=== PATIENT | male | born 1935 | race Hispanic/Latino ===

== ENCOUNTER 2017-04-20 22:25 | Observation (INO) | payer MEDICARE ==
--- NOTE | 2017-04-20 23:11 | Emergency Department Report ---
ED Altered Mental Status HPI - General Chief Complaint: Hypoglycemia Stated Complaint: LOW BLOOD SUGAR Time Seen by Provider: 04/20/17 23:04 Source: family, EMS Mode of arrival: Stretcher Limitations: No Limitations - History of Present Illness Initial Comments: 82 years old male brought by EMS with an altered mental status patient was doing fine until 2 hours prior to ER admission when the checked on him and he was staring into the room and found to be diaphoretic, blood sugar was checked at that time and it was 27. D50 administered by EMS, patient back to his baseline. stated that he is being coughing a lot recently and he is warm to touch but she did not check his temperature MD Complaint: altered mental status, decreased responsiveness -: Sudden Severity: moderate Associated Symptoms: cough, fever/chills Treatments Prior to Arrival: glucose, IV fluid - Related Data Home Medications Medication Instructions Recorded Confirmed Last Taken Losartan/Hydrochlorothiazide 100 mg PO DAILY 09/06/16 09/06/16 Unknown Pravastatin 80 mg PO HS 09/06/16 09/06/16 Unknown amLODIPine 5 mg PO DAILY 09/06/16 09/06/16 Unknown metFORMIN 500 mg PO TID 09/06/16 09/06/16 Unknown Previous Rx's Medication Instructions Recorded Last Taken Type Pantoprazole [Protonix INJ] 40 mg IV BID #60 vial 09/09/16 Unknown Rx Ezetimibe [Zetia] 10 mg PO QDAY #30 tablet 09/11/16 Unknown Rx Hydrochlorothiazide [HCTZ] 12.5 mg PO QDAY #30 capsule 09/11/16 Unknown Rx Insulin NPH/Regular [NovoLIN 70/30] 30 unit SUB-Q BIDDIAB #1 units 09/11/16 Unknown Rx Losartan [Cozaar] 50 mg PO QDAY #30 tablet 09/11/16 Unknown Rx Pantoprazole [Protonix TAB] 40 mg PO BID #60 tablet 09/11/16 Unknown Rx amLODIPine [Norvasc] 5 mg PO QDAY #30 tablet 09/11/16 Unknown Rx metFORMIN [Glucophage] 500 mg PO TIDDIAB #90 tablet 09/11/16 Unknown Rx oxyCODONE /ACETAMINOPHEN [Percocet 1 tab PO Q6H PRN #14 tablet 09/11/16 Unknown Rx 5/325 mg] Allergies Allergy/AdvReac Type Severity Reaction Status Date / Time No Known Allergies Allergy Verified 04/20/17 22:40 ED Review of Systems ROS: Stated complaint: LOW BLOOD SUGAR Other details as noted in HPI Constitutional: chills, diaphoresis, fever Respiratory: cough. denies: shortness of breath Gastrointestinal: denies: abdominal pain, nausea, vomiting, diarrhea, hematemesis, melena, hematochezia Genitourinary: denies: urgency, dysuria, frequency, hematuria Musculoskeletal: denies: back pain Skin: denies: rash, lesions Neurological: denies: headache ED Past Medical Hx - Past Medical History Previous Medical History?: Yes Hx Hypertension: Yes Hx Diabetes: Yes Additional medical history: high cholesterol - Surgical History Past Surgical History?: Yes Additional Surgical History: rotator cuff - Social History Smoking Status: Never Smoker Substance Use Type: None - Medications Home Medications: Home Medications Medication Instructions Recorded Confirmed Last Taken Type Losartan/Hydrochlorothiazide 100 mg PO DAILY 09/06/16 09/06/16 Unknown History Pravastatin 80 mg PO HS 09/06/16 09/06/16 Unknown History amLODIPine 5 mg PO DAILY 09/06/16 09/06/16 Unknown History metFORMIN 500 mg PO TID 09/06/16 09/06/16 Unknown History Pantoprazole [Protonix INJ] 40 mg IV BID #60 vial 09/09/16 Unknown Rx Ezetimibe [Zetia] 10 mg PO QDAY #30 tablet 09/11/16 Unknown Rx Hydrochlorothiazide [HCTZ] 12.5 mg PO QDAY #30 capsule 09/11/16 Unknown Rx Insulin NPH/Regular [NovoLIN 70/30] 30 unit SUB-Q BIDDIAB #1 units 09/11/16 Unknown Rx Losartan [Cozaar] 50 mg PO QDAY #30 tablet 09/11/16 Unknown Rx Pantoprazole [Protonix TAB] 40 mg PO BID #60 tablet 09/11/16 Unknown Rx amLODIPine [Norvasc] 5 mg PO QDAY #30 tablet 09/11/16 Unknown Rx metFORMIN [Glucophage] 500 mg PO TIDDIAB #90 tablet 09/11/16 Unknown Rx oxyCODONE /ACETAMINOPHEN [Percocet 1 tab PO Q6H PRN #14 tablet 09/11/16 Unknown Rx 5/325 mg] ED Physical Exam - General Limitations: No Limitations General appearance: alert, in no apparent distress - Head Head exam: Present: atraumatic, normocephalic - Eye Eye exam: Present: normal appearance Pupils: Present: normal accommodation - ENT ENT exam: Present: normal exam, normal orophraynx, mucous membranes dry - Neck Neck exam: Present: normal inspection, full ROM. Absent: tenderness, meningismus, lymphadenopathy - Respiratory Respiratory exam: Present: decreased breath sounds. Absent: wheezes, rales, rhonchi - Cardiovascular Cardiovascular Exam: Present: regular rate, normal rhythm, normal heart sounds - GI/Abdominal GI/Abdominal exam: Present: soft. Absent: tenderness, guarding, rebound, mass, bruit, pulsatile mass, hernia - Extremities Exam Extremities exam: Present: normal inspection, normal capillary refill. Absent: tenderness, pedal edema, calf tenderness - Back Exam Back exam: Present: normal inspection. Absent: tenderness, CVA tenderness (R), CVA tenderness (L) - Neurological Exam Neurological exam: Present: alert, oriented X3, CN II-XII intact - Skin Skin exam: Present: warm, dry, normal color ED Course Vital Signs 04/20/17 23:14 Respiratory 18 Rate - Reevaluation(s) Reevaluation #1: 04/21/17 01:[address] Riana Coe agreed to admit the patient to her service. - Lab Data Result diagrams: 04/20/17 23:22 04/20/17 23:22 Lab Results 04/20/17 04/20/17 04/20/17 Range/Units 22:54 23:22 23:22 WBC 8.6 (4.5-11.0) K/mm3 RBC 3.47 L (3.65-5.03) M/mm3 Hgb 10.9 L (11.8-15.2) gm/dl Hct 33.0 L (35.5-45.6) % MCV 95 H (84-94) fl MCH 31 (28-32) pg MCHC 33 (32-34) % RDW 14.6 (13.2-15.2) % Plt Count 185 (140-440) K/mm3 Lymph % (Auto) 5.8 L (13.4-35.0) % Hughes % (Auto) 6.6 (0.0-7.3) % Eos % (Auto) 0.9 (0.0-4.3) % Baso % (Auto) 0.7 (0.0-1.8) % Lymph # 0.5 L (1.2-5.4) K/mm3 Hughes # 0.6 (0.0-0.8) K/mm3 Eos # 0.1 (0.0-0.4) K/mm3 Baso # 0.1 (0.0-0.1) K/mm3 Seg Neutrophils % 86.0 H (40.0-70.0) % Seg Neutrophils # 7.4 (1.8-7.7) K/mm3 Sodium 135 L (137-145) mmol/L Potassium 3.7 (3.6-5.0) mmol/L Chloride 96.5 L (98-107) mmol/L Carbon Dioxide 20 L (22-30) mmol/L Anion Gap 22 mmol/L BUN 16 (9-20) mg/dL Creatinine 0.7 L (0.8-1.5) mg/dL Estimated GFR > 60 ml/min BUN/Creatinine Ratio 22.85 % Glucose 90 (75-100) mg/dL POC Glucose 130 H (70-105) Lactic Acid (0.7-2.0) mmol/L Calcium 8.8 (8.4-10.2) mg/dL Total Bilirubin 0.20 (0.1-1.2) mg/dL AST 19 (5-40) units/L ALT 18 (7-56) units/L Alkaline Phosphatase 53 (35-129) units/L Troponin T 0.106 H* (0.00-0.029) ng/mL Total Protein 6.3 (6.3-8.2) g/dL Albumin 3.6 L (3.9-5) g/dL Albumin/Globulin Ratio 1.3 % 04/20/17 Range/Units 23:22 WBC (4.5-11.0) K/mm3 RBC (3.65-5.03) M/mm3 Hgb (11.8-15.2) gm/dl Hct (35.5-45.6) % MCV (84-94) fl MCH (28-32) pg MCHC (32-34) % RDW (13.2-15.2) % Plt Count (140-440) K/mm3 Lymph % (Auto) (13.4-35.0) % Hughes % (Auto) (0.0-7.3) % Eos % (Auto) (0.0-4.3) % Baso % (Auto) (0.0-1.8) % Lymph # (1.2-5.4) K/mm3 Hughes # (0.0-0.8) K/mm3 Eos # (0.0-0.4) K/mm3 Baso # (0.0-0.1) K/mm3 Seg Neutrophils % (40.0-70.0) % Seg Neutrophils # (1.8-7.7) K/mm3 Sodium (137-145) mmol/L Potassium (3.6-5.0) mmol/L Chloride (98-107) mmol/L Carbon Dioxide (22-30) mmol/L Anion Gap mmol/L BUN (9-20) mg/dL Creatinine (0.8-1.5) mg/dL Estimated GFR ml/min BUN/Creatinine Ratio % Glucose (75-100) mg/dL POC Glucose (70-105) Lactic Acid 2.60 H* (0.7-2.0) mmol/L Calcium (8.4-10.2) mg/dL Total Bilirubin (0.1-1.2) mg/dL AST (5-40) units/L ALT (7-56) units/L Alkaline Phosphatase (35-129) units/L Troponin T (0.00-0.029) ng/mL Total Protein (6.3-8.2) g/dL Albumin (3.9-5) g/dL Albumin/Globulin Ratio % Critical care attestation.: If time is entered above; I have spent that time in minutes in the direct care of this critically ill patient, excluding procedure time. ED Disposition Clinical Impression: Altered mental status, Hypoglycemia, Pneumonia Disposition: 09 OP ADMIT IP TO THIS HOSP Is pt being admited?: Yes Does the pt Need Aspirin: No Condition: Stable Instructions: Bacterial Pneumonia (ED) Referrals: PRIMARY CARE, [Primary Care Provider] - 3-5 Days
[2017-04-20 23:49] LABS: Basophils % (Auto) 0.7 % (0.0-1.8); Eosinophils % (Auto) 0.9 % (0.0-4.3); Hemoglobin 10.9 gm/dl (11.8-15.2); Mean Corpuscular HGB Conc 33 % (32-34); Mean Corpuscular Hemoglobin 31 pg (28-32); Mean Corpuscular Volume 95 fl (84-94); Platelet Count 185 K/mm3 (140-440); Red Blood Count 3.47 M/mm3 (3.65-5.03); Red Cell Distribution Width 14.6 % (13.2-15.2); White Blood Count 8.6 K/mm3 (4.5-11.0)
[2017-04-21] MEDS ORDERED: LEVAQUIN 500MG/100ML 500 MG/100 ML BAG IV ONE (00:11)
[2017-04-21 00:14] LABS: Alanine Aminotransferase 18 units/L (7-56); Albumin 3.6 g/dL (3.9-5); Albumin/Globulin Ratio 1.3 %; Alkaline Phosphatase 53 units/L (35-129); Anion Gap 22 mmol/L; BUN/Creatinine Ratio 22.85; Blood Urea Nitrogen 16 mg/dL (9-20); Calcium 8.8 mg/dL (8.4-10.2); Carbon Dioxide 20 mmol/L (22-30); Chloride 96.5 mmol/L (98-107); Glucose 90 mg/dL (75-100); Potassium 3.7 mmol/L (3.6-5.0); Sodium 135 mmol/L (137-145); Total Protein 6.3 g/dL (6.3-8.2)
--- NOTE | 2017-04-21 00:21 | Cat Scan Report ---
FINAL REPORT EXAM: CT HEAD/BRAIN WO CON HISTORY: Lightheadedness/Dizziness TECHNIQUE: Noncontrast serial axial images from skull base to vertex PRIORS: CT scan of the head from 09/06/2016 FINDINGS: There is moderate atrophy. There is no mass effect or midline shift. There are no abnormal intra or extra-axial fluid collections. Lateral ventricles are within normal limits for size and configuration. Basilar cisterns are patent. No acute intracranial hemorrhage is identified. Areas of relative hypodensity are seen in the white matter of the cerebral hemispheres. There is focal malacia in the posterior aspect of the left occipital lobe. This appears similar to the prior study. 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 Atherosclerotic changes are noted. Visualized paranasal sinuses and mastoid air cells are well aerated. No acute osseous abnormality is identified. IMPRESSION: 1. No abnormal mass or acute intracranial hemorrhage is identified. 2. 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 3. Areas of relative hypodensity are seen in the white matter of the cerebral hemispheres. This is a nonspecific finding. It may be related to chronic ischemic change from small vessel disease.
[2017-04-21] MEDS ORDERED: ZOFRAN IV ONE (00:30)
[2017-04-21] MEDS ORDERED: ZOFRAN ONE (00:33)
[2017-04-21 01:57] LABS: Cholesterol 125 mg/dL (50-199); HDL Cholesterol 48 mg/dL (40-59); LDL Cholesterol,Direct 63 mg/dL (50-130); Triglycerides 71 mg/dL (2-149)
[2017-04-21] MEDS ORDERED: ZOFRAN IV PRN (02:38)
[2017-04-21] MEDS ORDERED: MILK OF MAGNESIA PO PRN (02:38)
[2017-04-21] MEDS ORDERED: DULCOLAX PR PRN (02:38)
[2017-04-21] MEDS ORDERED: TYLENOL PO PRN (02:38)
--- NOTE | 2017-04-21 02:42 | History and Physical Report ---
History of Present Illness Date of examination: 04/21/17 History of present illness: 82-year-old male with a history of diabetes, hypertension, hyperlipidemia, aortic stenosis was brought to the emergency room because he was found to be unresponsive. EMS was called and his blood sugar was found to be 25. at bedside state that patient did not check his blood sugar and took his evening medications, he is on insulin and oral hyperglycemic Review Of Systems: Constitutional: no weight loss Ears, eyes, nose, mouth and throat: no nasal congestion, no nasal discharge, no sinus pressure, blurry vision, diplopia Neck: No neck pain or rigidity. Cardiovascular: chest pain, orthopnea, palpitations Respiratory: No shortness of breath, cough Gastrointestinal: abdominal pain, hematochezia Genitourinary : no dysuria, frequency , hematuria Musculoskeletal: no muscle ache Integumentary: no rash, no pruritis Neurological: no parathesias, focal weakness Endocrine: no cold or heat intolerance, no polyuria or polydipsia Hematologic/Lymphatic: no easy bruising, no easy bleeding, no gland swelling Allergic/Immunologic: no urticaria, no angioedema. PAST MEDICAL HISTORY:diabetes, hypertension, hyperlipidemia, aortic stenosis PAST SURGICAL HISTORY: Rotator cuff, back surgery FAMILY HISTORY: Hypertension SOCIAL HISTORY:Denies alcohol tobacco, drugs Medications and Allergies Allergies Allergy/AdvReac Type Severity Reaction Status Date / Time No Known Allergies Allergy Verified 04/20/17 22:40 Home Medications Medication Instructions Recorded Confirmed Last Taken Type Losartan/Hydrochlorothiazide 100 mg PO DAILY 09/06/16 04/21/17 Unknown History Pravastatin 80 mg PO HS 09/06/16 04/21/17 Unknown History amLODIPine 5 mg PO DAILY 09/06/16 04/21/17 Unknown History Pantoprazole [Protonix INJ] 40 mg IV BID #60 vial 09/09/16 04/21/17 Unknown Rx Ezetimibe [Zetia] 10 mg PO QDAY #30 tablet 09/11/16 04/21/17 Unknown Rx Hydrochlorothiazide [HCTZ] 12.5 mg PO QDAY #30 capsule 09/11/16 04/21/17 Unknown Rx Insulin NPH/Regular [NovoLIN 70/30] 30 unit SUB-Q BIDDIAB #1 units 09/11/16 Unknown Rx Losartan [Cozaar] 50 mg PO QDAY #30 tablet 09/11/16 04/21/17 Unknown Rx Pantoprazole [Protonix TAB] 40 mg PO BID #60 tablet 09/11/16 04/21/17 Unknown Rx amLODIPine [Norvasc] 5 mg PO QDAY #30 tablet 09/11/16 04/21/17 Unknown Rx metFORMIN [Glucophage] 500 mg PO TIDDIAB #90 tablet 09/11/16 04/21/17 Unknown Rx oxyCODONE /ACETAMINOPHEN [Percocet 1 tab PO Q6H PRN #14 tablet 09/11/16 Unknown Rx 5/325 mg] Active Meds: Active Medications Dextrose/Sodium Chloride (D5ns) 1,000 mls @ 150 mls/hr IV DIRECT JOHN Exam - Physical Exam Narrative exam: Gen. appearance: Patient lying in bed in no acute distress HEENT: Normocephalic/atraumatic, pupils equal round reactive to light, extra alkaline movement intact, no scleral icterus, no JVD or thyromegaly or nodule, neck is supple, mucous membrane moist, no erythema or exudate Heart: S1-S2, regular rate and rhythm Lungs: Clear to auscultation bilateral breathing comfortable Abdomen: Positive bowel sounds, nontender, nondistended, no organomegaly Extremities: No edema, cyanosis, clubbing Neuro:: Oriented 3 , cranial nerves II-12 intact, speech, motor intact Skin: No rash, nodules, warm dry - Constitutional Vitals: Temp Pulse Resp BP Pulse Ox 18 04/20/17 23:14 Results - Labs CBC & Chem 7: 04/20/17 23:22 04/20/17 23:22 Labs: Abnormal lab results 04/20/17 04/20/17 04/20/17 Range/Units 22:54 23:22 23:22 RBC 3.47 L (3.65-5.03) M/mm3 Hgb 10.9 L (11.8-15.2) gm/dl Hct 33.0 L (35.5-45.6) % MCV 95 H (84-94) fl Lymph % (Auto) 5.8 L (13.4-35.0) % Lymph # 0.5 L (1.2-5.4) K/mm3 Seg Neutrophils % 86.0 H (40.0-70.0) % Sodium 135 L (137-145) mmol/L Chloride 96.5 L (98-107) mmol/L Carbon Dioxide 20 L (22-30) mmol/L Creatinine 0.7 L (0.8-1.5) mg/dL POC Glucose 130 H (70-105) Lactic Acid (0.7-2.0) mmol/L Troponin T 0.106 H* (0.00-0.029) ng/mL Albumin 3.6 L (3.9-5) g/dL 04/20/17 Range/Units 23:22 RBC (3.65-5.03) M/mm3 Hgb (11.8-15.2) gm/dl Hct (35.5-45.6) % MCV (84-94) fl Lymph % (Auto) (13.4-35.0) % Lymph # (1.2-5.4) K/mm3 Seg Neutrophils % (40.0-70.0) % Sodium (137-145) mmol/L Chloride (98-107) mmol/L Carbon Dioxide (22-30) mmol/L Creatinine (0.8-1.5) mg/dL POC Glucose (70-105) Lactic Acid 2.60 H* (0.7-2.0) mmol/L Troponin T (0.00-0.029) ng/mL Albumin (3.9-5) g/dL - Imaging and Cardiology EKG: image reviewed Chest x-ray: image reviewed CT Scan - head: report reviewed Assessment and Plan Assessment Hypoglycemia and diabetic type II Elevated Cardiac enzymes Hypertension Hyperlipidemia Aortic stenosis Plan Admit to medicine Check enzymes, echo, fingersticks, no insulin Continue appropriate outpatient medications, DVT prophylaxis
--- NOTE | 2017-04-21 03:33 | XRay Report ---
FINAL REPORT EXAM: XR CHEST 1V AP HISTORY: Lightheadedness/Dizziness COMPARISON: None available. FINDINGS: Frontal view(s) of the chest obtained. Mild cardiac enlargement. Right-sided Port-A-Cath is in place. Elevation right hemidiaphragm with linear atelectasis at the right lung base. Lungs otherwise clear. No pneumothorax. IMPRESSION: Mild cardiac enlargement. Elevation right hemidiaphragm with linear atelectasis at the right lung base. Lungs are otherwise clear.
[2017-04-21 04:53] LABS: Creatine Kinase MB 21.3 ng/mL (0.0-4.0)
[2017-04-21] MEDS: D5NS 1,000 ML IV SCH ×2 (06:20→14:52)
--- NOTE | 2017-04-21 09:04 | Admit Criteria Form ---
Admission Criteria Documentation: DIABETES, HYPOGLYCEMIA Clinical Indications for Admission to Inpatient Care (gambell/check or initial the applicable condition/criteria) Admission is indicated by presence of ALL of the following(1)(2)(3)(4)(5)(6)(7): [X ]I. Suspected or documented hypoglycemia (plasma glucose less than 60 mg/ dL (3.33 mmol/L)) with severe clinical manifestations or issues as indicated by 1 or more of the following: [X ]a) Altered mental status [ ]b) Seizure [ ]c) Ataxia [ ]d) Dysphasia [ ]e) Focal neurologic deficit(8) [ ]f) Severe weakness or fatigue [ ]g) Significant clinical signs or symptoms that do not resolve with treatment [ ]h) Hypoglycemia induced by ANY ONE of the following(9)(10)(11)(12)( 13) [ ]i) Sulfonylurea [ ]ii) Long-acting insulin (eg, half-life more than 6 hours) []II. Management at other levels of care (See General Criteria: Observation Care) is not feasible because of 1 or more of the following: [ ]a) Condition was not adequately corrected with treatment at other levels of care. [ ]b) Treatment at other levels of care is not appropriate because of condition severity (e.g., coma). Extended stay beyond goal length of stay may be needed for(3)(24): [ ]a) Long acting sulfonylurea-inducing hypoglycemia (11) [ ]b) Presentation in coma [ ]c) Identified etiology of hypoglycemia requires ongoing care (eg, infection ) [ ]d) Active serious comorbidities (eg renal failure, heart failure) [ ]e) Neurologic deficit The original [employer] content created by [employer] has been revised. The portions of the content which have been revised are identified through the use of italic text or in bold, and [email or web address] has neither reviewed nor approved the modified material.All other unmodified content is copyright [employer]. Please see references footnoted in the original [employer] edition 2017 Admission Criteria Met: Yes
[2017-04-21] MEDS: PROTONIX PO SCH ×2 (09:10→22:00)
[2017-04-21] MEDS: COZAAR PO SCH (09:11)
[2017-04-21] MEDS: ZETIA PO SCH (09:12)
[2017-04-21] MEDS ORDERED: LOVENOX SUB-Q SCH (10:00)
[2017-04-21] MEDS ORDERED: NORVASC PO SCH (10:00)
[2017-04-21] MEDS ORDERED: HEPARIN 10,000 UNITS/10 ML IV ONE (10:42)
[2017-04-21] MEDS ORDERED: HEPARIN/ 0.45% NACL-25,000 UNIT/500 ML 25,000 UNIT/500 ML BAG IV SCH (11:00)
--- NOTE | 2017-04-21 11:31 | Consultation ---
History of Present Illness Consult date: 04/21/17 Requesting physician: ZAYRA MANUEL Consult reason: elevated troponin History of present illness: The patient is an 82-year-old male with a past medical history significant for moderate , HTN, HLP, DM, recurrent falls. He is followed in our office by Dr. Sheehan. He presented to ED via EMS with c/o AMS. Per pt's , pt was doing fine until 2 hours prior to ER admission when the checked on him and he was staring blankly and was found to be diaphoretic, blood sugar was checked at that time and it was 27. D50 was administered by EMS and patient returned back to his baseline. Following admission, pt's troponins were found to be elevated and thus cardiology has been consulted. On evaluation, pt is A&O and denies any cardiac complaints, including chest pain, SOB, palpitations, n/v, diaphoresis, dizziness or syncope. 12-lead EKG is pending. Heparin gtt has been initiated. Echo done 05/2016 showed EF 55-60%, mild LVH, grade I diastolic dysfunction, mild MR, mild AR, peak instantaneous AV gradient 21mmHg, mild to moderate , mild TR, RVSP 19mmHg. Lexiscan MPI stress test done 08/2015 was negative. Bilateral carotid dopplers done 07/2016 showed no hemodynamically significant stenosis. Past History Past Medical History: arthritis, diabetes, hypertension, hyperlipidemia, other ( ) Social history: lives with family Medications and Allergies Allergies Allergy/AdvReac Type Severity Reaction Status Date / Time No Known Allergies Allergy Verified 04/20/17 22:40 Home Medications Medication Instructions Recorded Confirmed Last Taken Type Losartan/Hydrochlorothiazide 100 mg PO DAILY 09/06/16 04/21/17 Unknown History Pravastatin 80 mg PO HS 09/06/16 04/21/17 Unknown History amLODIPine 5 mg PO DAILY 09/06/16 04/21/17 Unknown History Pantoprazole [Protonix INJ] 40 mg IV BID #60 vial 09/09/16 04/21/17 Unknown Rx Ezetimibe [Zetia] 10 mg PO QDAY #30 tablet 09/11/16 04/21/17 Unknown Rx Hydrochlorothiazide [HCTZ] 12.5 mg PO QDAY #30 capsule 09/11/16 04/21/17 Unknown Rx Insulin NPH/Regular [NovoLIN 70/30] 30 unit SUB-Q BIDDIAB #1 units 09/11/16 Unknown Rx Losartan [Cozaar] 50 mg PO QDAY #30 tablet 09/11/16 04/21/17 Unknown Rx Pantoprazole [Protonix TAB] 40 mg PO BID #60 tablet 09/11/16 04/21/17 Unknown Rx amLODIPine [Norvasc] 5 mg PO QDAY #30 tablet 09/11/16 04/21/17 Unknown Rx metFORMIN [Glucophage] 500 mg PO TIDDIAB #90 tablet 09/11/16 04/21/17 Unknown Rx oxyCODONE /ACETAMINOPHEN [Percocet 1 tab PO Q6H PRN #14 tablet 09/11/16 Unknown Rx 5/325 mg] Active Meds: Active Medications Acetaminophen (Tylenol) 650 mg PO Q4H PRN PRN Reason: Pain MILD(1-3)/Fever >100.5/JUSTICE Aspirin (Aspirin) 325 mg PO QDAY JOHN Atorvastatin Calcium (Lipitor) 40 mg PO QHS JOHN Bisacodyl (Dulcolax) 10 mg OR QDAY PRN PRN Reason: Constipation unrelieved by MOM Ezetimibe (Zetia) 10 mg PO QDAY [facility] Last Admin: 04/21/17 09:12 Dose: 10 mg Dextrose/Sodium Chloride (D5ns) 1,000 mls @ 150 mls/hr IV DIRECT [facility] Last Admin: 04/21/17 06:20 Dose: 150 mls/hr Heparin Sodium/Sodium Chloride (Heparin/ 0.45% Nacl-25,000 Unit/500 Ml) 25,000 unit in 500 mls @ 20 mls/hr IV TITRATE JOHN; 1,000 UNITS/HR PRN Reason: Protocol Losartan Potassium (Cozaar) 50 mg PO QDAY [facility] Last Admin: 04/21/17 09:11 Dose: 50 mg Magnesium Hydroxide (Milk Of Magnesia) 30 ml PO Q4H PRN PRN Reason: Constipation Metoprolol Tartrate (Lopressor) 25 mg PO BID JOHN Ondansetron HCl (Zofran) 4 mg IV Q8H PRN PRN Reason: N/V unrelieved by Reglan Pantoprazole Sodium (Protonix) 40 mg PO BID [facility] Last Admin: 04/21/17 09:10 Dose: 40 mg Review of Systems Constitutional: no weight loss, no weight gain, no fever, no chills, no sweats Ears, nose, mouth and throat: no ear pain, no nose pain, no sinus pressure, no sinus pain Cardiovascular: no chest pain, no orthopnea, no palpitations, no rapid/ irregular heart beat, no edema, no syncope, no lightheadedness, no shortness of breath, no dyspnea on exertion, no high blood pressure, no leg edema Respiratory: no cough, no shortness of breath, no dyspnea on exertion, no congestion, no wheezing, no pain on inspiration Gastrointestinal: no abdominal pain, no nausea, no vomiting, no diarrhea, no constipation, no change in bowel habits Genitourinary Male: no dysuria, no hematuria, no flank pain, no discharge, no urinary frequency, no urinary hesitancy Musculoskeletal: no neck stiffness, no neck pain, no shooting arm pain, no arm numbness/tingling, no low back pain, no shooting leg pain, no leg numbness/ tingling, no redness of joints Integumentary: no rash, no pruritis, no redness, no sores, no wounds Neurological: other (transient altered sensorium ), no head injury, no paralysis , no weakness, no parathesias, no numbness, no tingling, no seizures, no syncope Psychiatric: no anxiety Endocrine: low blood sugars, other (diaphoresis ) Hematologic/Lymphatic: no easy bruising, no easy bleeding, no lymphadenopathy Allergic/Immunologic: no urticaria, no wheezing, no persistent infections Physical Examination Vital Signs Pulse Ox 94 04/20/17 22:48 General appearance: no acute distress HEENT: Positive: PERRL, Normocephaly, Mucus Membranes Moist Neck: Positive: neck supple, trachea midline Cardiac: Positive: Reg Rate and Rhythm, S1/S2, Systolic Murmur Lungs: Positive: clear to auscultation Neuro: Positive: Grossly Intact, Cranial Nerve 2-12 Intact Abdomen: Positive: Unremarkable, Soft, Active Bowel Sounds. Negative: Tender Skin: Positive: Clear. Negative: Rash, Wound Musculoskeletal: No Fluid Collection, No Pain, Normal Range of Motion Extremities: Absent: edema Results 04/21/17 12:06 04/20/17 23:22 Cardiac Enzymes 08/28/17 08/28/17 Range/Units 03:40 10:23 CK-MB (CK-2) 21.3 H 17.0 H (0.0-4.0) ng/mL - Imaging and Cardiology Echo: report reviewed (05/2016 showed EF 55-60%, mild LVH, grade I diastolic dysfunction, mild MR, mild AR, peak instantaneous AV gradient 21mmHg, mild to moderate , mild TR, RVSP 19mmHg. ) EKG: image reviewed EKG interpretations - Telemetry EKG Rhythm: Sinus Rhythm - EKG Sinus rhythms and dysrhythmias: sinus rhythm Assessment and Plan Assessment: AMS / hypoglycemia - head CT with NAF; pt now A&O. NSTEMI type II - enzymes flat; pt denies chest pain; EKG with NAF. Moderate aortic stenosis HTN HLP DM Plan: F/u echo. 12-lead EKG obtained with NAF. In absence of cardiac symptoms with flat cardiac enzymes and EKG with NAF, discontinue heparin gtt and continue with conservative cardiac management. Cont ASA 325, lipitor, lopressor, and losartan. Cont tele. Assessment and plan reviewed with pt and pt's at bedside. The patient has been seen in conjunction with Dr. Alston who agrees with the assessment and plan of care.
[2017-04-21] MEDS: ASPIRIN PO SCH (11:35)
[2017-04-21] MEDS: LOPRESSOR PO SCH ×2 (11:40→22:00)
[2017-04-21 12:19] LABS: Hematocrit 32.6 % (35.5-45.6); Hemoglobin 10.8 gm/dl (11.8-15.2)
[2017-04-21 12:28] LABS: INR 1.1 (0.87-1.13)
[2017-04-21 12:29] LABS: Partial Thromboplastin Time 30.6 Sec. (24.2-36.6)
--- NOTE | 2017-04-21 18:19 | Event Note ---
Date: 04/21/17 Pt seen and examined Noted to have elevated troponin started on NSTEMI protocol but discussed with cardiology and recommended conservative management will continue Mx and plan as dictated in H and P
[2017-04-22 05:45] LABS: Basophils % (Auto) 0.4 % (0.0-1.8); Eosinophils % (Auto) 2.8 % (0.0-4.3); Hemoglobin 11.9 gm/dl (11.8-15.2); Mean Corpuscular HGB Conc 34 % (32-34); Mean Corpuscular Hemoglobin 31 pg (28-32); Mean Corpuscular Volume 92 fl (84-94); Platelet Count 197 K/mm3 (140-440); Red Blood Count 3.82 M/mm3 (3.65-5.03); Red Cell Distribution Width 14.5 % (13.2-15.2)
[2017-04-22 06:06] LABS: Anion Gap 19 mmol/L; BUN/Creatinine Ratio 18.33; Blood Urea Nitrogen 11 mg/dL (9-20); Calcium 9.3 mg/dL (8.4-10.2); Carbon Dioxide 25 mmol/L (22-30); Chloride 95.1 mmol/L (98-107); Glucose 146 mg/dL (75-100); Potassium 4.2 mmol/L (3.6-5.0); Sodium 135 mmol/L (137-145)
[2017-04-22] MEDS: ASPIRIN PO SCH (09:29)
[2017-04-22] MEDS: ZETIA PO SCH (09:29)
[2017-04-22] MEDS: PROTONIX PO SCH (09:29)
[2017-04-22] MEDS: LOPRESSOR PO SCH (09:30)
[2017-04-22] MEDS: COZAAR PO SCH (09:30)
[2017-04-22 10:04] VITALS: BP 96/78
--- NOTE | 2017-04-22 12:21 | Discharge Summary ---
Providers - Providers Date of Admission: 04/21/17 02:38 Date of discharge: 04/22/17 Attending physician: ARIANA RUBI MD 04/21/17 10:43 Consult to Physician [CONS] Routine Consulting Provider: HOLLIE SHEEHAN Reason For Exam: NSTEMI Place consult to:: Notified:: Phone number called:: [phone] Was contact made?: Yes If yes, spoke with:: CHAVA CASTELAN Time called:: 11:15 Comment:: RAVI Primary care physician: [employer] Hospitalization Reason for admission: AMS, hypoglycemia, NSTEMI tyoe 2 Condition: Stable Pertinent studies: ECHO severe EKG first degree HB CT head NAF Hospital course: Admission H/P 82-year-old male with a history of diabetes, hypertension, hyperlipidemia, aortic stenosis was brought to the emergency room because he was found to be unresponsive. EMS was called and his blood sugar was found to be 25. at bedside state that patient did not check his blood sugar and took his evening medications, he is on insulin and oral hyperglycemic. Patient was admitted and his hypoglycemia was treated and his Dm medications were adjusted accordingly. Patient didn't have any hypoglycemic symptoms after admission. He has elevated troponin level (NSTEMI type 2). Given the patient is asymptomatic cardiology recommend to manage him conservatively. Echo was done and showed severe and given the patient is asymptomatic and multiple co- morbid conditions, recommended conservative management and keep the F/U appointment with Dr Sheehan at [facility].Patient was hemodynamically stable. The plan of care was discussed with the patient and his families and discharged home. 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 The patient appeared well nourished and normally developed. Vital signs as documented. Head exam is unremarkable. No scleral icterus . Neck is without jugular venous distension, thyromegaly, or carotid bruits. Lungs are clear to auscultation. Cardiac exam reveals regular rate and Rhythm. Abdominal exam reveals normal bowel sounds, no masses. Extremities are nonedematous and both femoral and pedal pulses are normal. SCIENCE JOB TITLES: Alert and oriented 3. No focal weakness. - Constitutional Vitals: Temp Pulse Resp BP Pulse Ox 98.9 F 46 L 20 96/78 100 04/22/17 10:04/22/17 10:04/22/17 10:04/22/17 10:04/21/17 20:00 Plan Activity: advance as tolerated Weight Bearing Status: Full Weight Bearing Diet: low cholesterol, low salt, diabetic Follow up with: PRIMARY CARE, [Primary Care Provider] - 3-5 Days (Patient is scheduled to see Dr Sheehan in a week)
--- NOTE | 2017-04-22 12:22 | Progress Note ---
Assessment and Plan Assessment: AMS / hypoglycemia - head CT with NAF; pt now A&O. NSTEMI type II - enzymes flat; pt denies chest pain; EKG with NAF. Aortic stenosis 1st degree AV block HTN HLP DM Plan: Echo reviewed - is now severe, normal LV function. Suspect troponin leak 2/2 . 12-lead EKG obtained with NAF. Cont ASA 325, lipitor, lopressor and losartan. Continue with conservative cardiac management in the absence of cardiac symptoms and in the setting of advanced age and multiple co-morbidities. Currently stable cardiac status. Pt may discharge home from cardiology standpoint. Follow up in our [place] office with Dr. Sheehan on 05/02/2017 @ 1:00PM. Assessment and plan reviewed with pt at bedside. The patient has been seen in conjunction with Dr. Alston who agrees with the assessment and plan of care. Subjective Date of service: 04/22/17 Principal diagnosis: hypoglycemia Interval history: Pt resting comfortably, no complaints. VSS. Noted to have intermittent wenckebach HB overnight during sleep on telemetry. Predominant rhythm on tele is 1st degree AV block. Objective Last Vital Signs Temp 98.9 F 04/22/17 10:00 Pulse 46 L 04/22/17 10:00 Resp 20 04/22/17 10:00 BP 96/78 04/22/17 10:00 Pulse Ox 100 04/21/17 20:00 - Physical Examination General: No Apparent Distress HEENT: Positive: PERRL, Normocephaly, Mucus Membranes Moist Neck: Positive: neck supple, trachea midline Cardiac: Positive: Reg Rate and Rhythm, S1/S2, Systolic Murmur Lungs: Positive: clear to auscultation Neuro: Positive: Grossly Intact, Cranial Nerve 2-12 Intact Abdomen: Positive: Unremarkable, Soft, Active Bowel Sounds. Negative: Tender Skin: Positive: Clear. Negative: Rash, Wound Musculoskeletal: No Fluid Collection, No Pain, Normal Range of Motion Extremities: Absent: edema - Labs and Meds Coagulation 04/21/17 Range/Units 12:06 PT 14.1 (12.2-14.9) Sec. INR 1.10 (0.87-1.13) APTT 30.6 (24.2-36.6) Sec. CBC 04/21/17 04/22/17 Range/Units 12:06 05:26 WBC 5.0 (4.5-11.0) K/mm3 RBC 3.82 (3.65-5.03) M/mm3 Hgb 10.8 L 11.9 (11.8-15.2) gm/dl Hct 32.6 L 35.0 L (35.5-45.6) % Plt Count 182 197 (140-440) K/mm3 Lymph # 0.6 L (1.2-5.4) K/mm3 [place] # 0.3 (0.0-0.8) K/mm3 Eos # 0.1 (0.0-0.4) K/mm3 Baso # 0.0 (0.0-0.1) K/mm3 Comprehensive Metabolic Panel 04/22/17 Range/Units 05:26 Sodium 135 L (137-145) mmol/L Potassium 4.2 (3.6-5.0) mmol/L Chloride 95.1 L (98-107) mmol/L Carbon Dioxide 25 (22-30) mmol/L BUN 11 (9-20) mg/dL Creatinine 0.6 L (0.8-1.5) mg/dL Glucose 146 H (75-100) mg/dL Calcium 9.3 (8.4-10.2) mg/dL - Imaging and Cardiology EKG: image reviewed Echo: report reviewed (05/2016 showed EF 55-60%, mild LVH, grade I diastolic dysfunction, mild MR, mild AR, peak instantaneous AV gradient 21mmHg, mild to moderate , mild TR, RVSP 19mmHg. ) - Telemetry EKG Rhythm: 1st Degree HB - EKG Sinus rhythms and dysrhythmias: sinus rhythm
== END 2017-04-22 13:25 | disposition home or self-care (01) ==
LOC: ED 22:25 → INTOOBSV 04-21 02:38 → CC2 04-21 02:38
PROVIDERS: ADMIT Internal Medicine; ATTEND Internal Medicine
DX: E11.649 Type 2 diabetes mellitus with hypoglycemia without coma (principal); I21.4 Non-ST elevation (NSTEMI) myocardial infarction; J18.9 Pneumonia, unspecified organism; I10 Essential (primary) hypertension; I35.0 Nonrheumatic aortic (valve) stenosis; R41.82 Altered mental status, unspecified; I44.30 Unspecified atrioventricular block; R53.81 Other malaise; E78.5 Hyperlipidemia, unspecified; R79.89 Other specified abnormal findings of blood chemistry; Z82.49 Family history of ischemic heart disease and other diseases of the circulatory system; Z79.4 Long term (current) use of insulin
CPT/HCPCS: 36415; 70450; 71010; 80048; 80053; 80061; 82140; 82550; 82553; 82962; 83735; 84484; 85014; 85018; 85025; 85049; 85610; 85730; 87040; 93005; 93010; 93306; 96361; 96365; 96372; 96375; 99285; A9270; G0378; J1644; J1650; J1956; J2405; J7042; J1815

== ENCOUNTER 2017-04-29 18:40 | Emergency (ER) | payer MEDICARE ==
--- NOTE | 2017-04-29 21:18 | Emergency Department Report ---
ED General Adult HPI - General Chief complaint: Fall Stated complaint: HEAD LAC Time Seen by Provider: 04/29/17 21:10 Source: patient Mode of arrival: Ambulatory Limitations: No Limitations - History of Present Illness Initial comments: Patient is an 82-year-old male past medical history of aortic stenosis who presents status post fall. Patient was walking when he tripped at the edge of the sidewalk and fell backwards in his head. It was a ground-level fall. Patient was initially complaining of pain as a 2/10 on THE back of his head nothing makes it better or worse the pain was a sore-like pain and it doesn't radiate. He states currently right now he is in no pain. Patient had no loss of consciousness no nausea or any change in his mental status. Patient was initially admitted and seen here about 5 days ago and had a full cardiac workup. Which just revealed aortic stenosis to be treated conservatively. Severity scale (0 -10): 4 - Related Data Home Medications Medication Instructions Recorded Confirmed Last Taken Losartan/Hydrochlorothiazide 100 mg PO DAILY 09/06/16 04/29/17 Unknown Pravastatin 80 mg PO HS 09/06/16 04/29/17 Unknown amLODIPine 5 mg PO DAILY 09/06/16 04/29/17 Unknown Previous Rx's Medication Instructions Recorded Last Taken Type Pantoprazole [Protonix INJ] 40 mg IV BID #60 vial 09/09/16 Unknown Rx Ezetimibe [Zetia] 10 mg PO QDAY #30 tablet 09/11/16 Unknown Rx Hydrochlorothiazide [HCTZ] 12.5 mg PO QDAY #30 capsule 09/11/16 Unknown Rx Insulin NPH/Regular [NovoLIN 70/30] 30 unit SUB-Q BIDDIAB #1 units 09/11/16 Unknown Rx Losartan [Cozaar] 50 mg PO QDAY #30 tablet 09/11/16 Unknown Rx Pantoprazole [Protonix TAB] 40 mg PO BID #60 tablet 09/11/16 Unknown Rx amLODIPine [Norvasc] 5 mg PO QDAY #30 tablet 09/11/16 Unknown Rx metFORMIN [Glucophage] 500 mg PO TIDDIAB #90 tablet 09/11/16 Unknown Rx oxyCODONE /ACETAMINOPHEN [Percocet 1 tab PO Q6H PRN #14 tablet 09/11/16 Unknown Rx 5/325 mg] Allergies Allergy/AdvReac Type Severity Reaction Status Date / Time No Known Allergies Allergy Verified 04/20/17 22:40 ED Review of Systems ROS: Stated complaint: HEAD LAC Other details as noted in HPI Constitutional: denies: chills, fever Eyes: denies: eye pain, eye discharge, vision change ENT: denies: ear pain, throat pain Respiratory: denies: cough, shortness of breath, wheezing Cardiovascular: denies: chest pain, palpitations Endocrine: no symptoms reported Gastrointestinal: denies: abdominal pain, nausea, diarrhea Genitourinary: denies: urgency, dysuria Musculoskeletal: other (headache). denies: back pain, joint swelling, arthralgia Skin: denies: rash, lesions Neurological: denies: headache, weakness, paresthesias Psychiatric: denies: anxiety, depression Hematological/Lymphatic: denies: easy bleeding, easy bruising ED Past Medical Hx - Past Medical History Hx Hypertension: Yes Hx Diabetes: Yes Additional medical history: high cholesterol - Surgical History Additional Surgical History: rotator cuff - Social History Smoking Status: Never Smoker Substance Use Type: None - Medications Home Medications: Home Medications Medication Instructions Recorded Confirmed Last Taken Type Losartan/Hydrochlorothiazide 100 mg PO DAILY 09/06/16 04/29/17 Unknown History Pravastatin 80 mg PO HS 09/06/16 04/29/17 Unknown History amLODIPine 5 mg PO DAILY 09/06/16 04/29/17 Unknown History Pantoprazole [Protonix INJ] 40 mg IV BID #60 vial 09/09/16 04/29/17 Unknown Rx Ezetimibe [Zetia] 10 mg PO QDAY #30 tablet 09/11/16 04/29/17 Unknown Rx Hydrochlorothiazide [HCTZ] 12.5 mg PO QDAY #30 capsule 09/11/16 04/29/17 Unknown Rx Insulin NPH/Regular [NovoLIN 70/30] 30 unit SUB-Q BIDDIAB #1 units 09/11/1601/08 Unknown Rx Losartan [Cozaar] 50 mg PO QDAY #30 tablet 09/11/16 04/29/17 Unknown Rx Pantoprazole [Protonix TAB] 40 mg PO BID #60 tablet 09/11/16 04/29/17 Unknown Rx amLODIPine [Norvasc] 5 mg PO QDAY #30 tablet 09/11/16 04/29/17 Unknown Rx metFORMIN [Glucophage] 500 mg PO TIDDIAB #90 tablet 09/11/16 04/29/17 Unknown Rx oxyCODONE /ACETAMINOPHEN [Percocet 1 tab PO Q6H PRN #14 tablet 09/11/16 Unknown Rx 5/325 mg] ED Physical Exam - General Limitations: No Limitations General appearance: alert, in no apparent distress - Head Head exam: Present: normocephalic, other (2 x 3 cm scalp hematoma. No laceration.) - Eye Eye exam: Present: normal appearance - ENT ENT exam: Present: mucous membranes moist - Neck Neck exam: Present: normal inspection - Respiratory Respiratory exam: Present: normal lung sounds bilaterally. Absent: respiratory distress - Cardiovascular Cardiovascular Exam: Present: regular rate, normal rhythm, other (mid systolic murmur over the aortic area). Absent: systolic murmur, diastolic murmur, rubs, gallop - GI/Abdominal GI/Abdominal exam: Present: soft, normal bowel sounds - Rectal Rectal exam: Present: deferred - Extremities Exam Extremities exam: Present: normal inspection - Back Exam Back exam: Present: normal inspection - Neurological Exam Neurological exam: Present: alert, oriented X3, CN II-XII intact - Psychiatric Psychiatric exam: Present: normal affect, normal mood - Skin Skin exam: Present: warm, dry, intact, normal color. Absent: rash ED Course Vital Signs 04/29/17 04/29/17 19:17 22:42 Temperature 98 F Pulse Rate 95 H 65 Respiratory 16 16 Rate Blood Pressure 161/82 133/65 [Left] O2 Sat by Pulse 100 95 Oximetry - Reevaluation(s) Reevaluation #1: 04/29/17 23:11 Reevaluated patient and he is having no pain CT scan shows no intracranial bleed. Blood work is unremarkable I well send the patient home. 04/29/17 23:12 ED Medical Decision Making - Lab Data Result diagrams: 04/29/17 22:25 04/29/17 22:25 Lab Results 04/29/17 04/29/17 Range/Units 22:25 22:25 WBC 8.9 (4.5-11.0) K/mm3 RBC 3.28 L (3.65-5.03) M/mm3 Hgb 10.1 L (11.8-15.2) gm/dl Hct 29.8 L (35.5-45.6) % MCV 91 (84-94) fl MCH 31 (28-32) pg MCHC 34 (32-34) % RDW 14.3 (13.2-15.2) % Plt Count 176 (140-440) K/mm3 Lymph % (Auto) 6.1 L (13.4-35.0) % [place] % (Auto) 5.1 (0.0-7.3) % Eos % (Auto) 0.9 (0.0-4.3) % Baso % (Auto) 0.3 (0.0-1.8) % Lymph # 0.6 L (1.2-5.4) K/mm3 [place] # 0.5 (0.0-0.8) K/mm3 Eos # 0.1 (0.0-0.4) K/mm3 Baso # 0.0 (0.0-0.1) K/mm3 Seg Neutrophils % 87.6 H (40.0-70.0) % Seg Neutrophils # 7.8 H (1.8-7.7) K/mm3 Sodium 130 L (137-145) mmol/L Potassium 3.9 (3.6-5.0) mmol/L Chloride 91.8 L (98-107) mmol/L Carbon Dioxide 21 L (22-30) mmol/L Anion Gap 21 mmol/L BUN 12 (9-20) mg/dL Creatinine 0.6 L (0.8-1.5) mg/dL Estimated GFR > 60 ml/min BUN/Creatinine Ratio 20.00 % Glucose 193 H (75-100) mg/dL Calcium 8.5 (8.4-10.2) mg/dL - Medical Decision Making Chief medical diagnosis: Subdural hematoma Differential medical diagnosis: Skull fracture, subarachnoid hemorrhage CBC, CMP and CT head. Patient CT scan just shows scalp hematoma. His blood work is shows some low sodium I will encourage patient to eat some salty foods and then I will discharge patient. Patient does not need a syncopal workup as he had a mechanical fall stated by him and his and his daughter. Patient is alert and oriented and is able to ambulate without any difficulty. No neurologic deficits. I will send patient home. Critical care attestation.: If time is entered above; I have spent that time in minutes in the direct care of this critically ill patient, excluding procedure time. ED Disposition Clinical Impression: Hyponatremia Fall Qualifiers: Encounter type: initial encounter Qualified Code(s): W19.XXXA - Unspecified fall, initial encounter Scalp hematoma Qualifiers: Encounter type: initial encounter Qualified Code(s): S00.03XA - Contusion of scalp, initial encounter Disposition: TO HOME OR SELFCARE Is pt being admited?: No Does the pt Need Aspirin: No Condition: Stable Instructions: Contusion in Adults (ED), Hyponatremia (ED) Referrals: PRIMARY CARE, [Primary Care Provider] - 3-5 Days
--- NOTE | 2017-04-29 22:36 | Cat Scan Report ---
FINAL REPORT PROCEDURE: CT HEAD/BRAIN WO CON TECHNIQUE: Computerized tomography of the head was performed without contrast material. HISTORY: head injury COMPARISON: 04/21/2017 FINDINGS: Skull and scalp: Scalp hematoma right posterior posterior occipital lobe Paranasal sinuses: Normal. Ventricles and subarachnoid spaces: Normal. Cerebrum: No evidence of hemorrhage, acute infarction or mass . Cerebellum and brainstem: No evidence of hemorrhage, acute infarction or mass. Vasculature: Normal. Comments: Moderate to severe diffuse cerebral atrophy. Parafalcine calcifications. Moderate low attenuated microischemic change with central lacunar infarct disease basal ganglia left greater than right. Encephalomalacia involving the left posterior occipital lobe IMPRESSION: No acute intracranial bleed or skull fracture suspected at this time
[2017-04-29 22:43] VITALS: BP 133/65
[2017-04-29 23:03] LABS: Basophils % (Auto) 0.3 % (0.0-1.8); Eosinophils % (Auto) 0.9 % (0.0-4.3); Hematocrit 29.8 % (35.5-45.6); Hemoglobin 10.1 gm/dl (11.8-15.2); Mean Corpuscular HGB Conc 34 % (32-34); Mean Corpuscular Hemoglobin 31 pg (28-32); Mean Corpuscular Volume 91 fl (84-94); Platelet Count 176 K/mm3 (140-440); Red Blood Count 3.28 M/mm3 (3.65-5.03); Red Cell Distribution Width 14.3 % (13.2-15.2); White Blood Count 8.9 K/mm3 (4.5-11.0)
[2017-04-29 23:13] LABS: Anion Gap 21 mmol/L; Blood Urea Nitrogen 12 mg/dL (9-20); Calcium 8.5 mg/dL (8.4-10.2); Carbon Dioxide 21 mmol/L (22-30); Chloride 91.8 mmol/L (98-107); Glucose 193 mg/dL (75-100); Potassium 3.9 mmol/L (3.6-5.0); Sodium 130 mmol/L (137-145)
== END 2017-04-30 00:10 | disposition home or self-care (01) ==
LOC: ED 18:40
DX: S00.03XA Contusion of scalp, initial encounter (principal); E87.1 Hypo-osmolality and hyponatremia; E11.9 Type 2 diabetes mellitus without complications; I10 Essential (primary) hypertension; E78.00 Pure hypercholesterolemia, unspecified; Z79.4 Long term (current) use of insulin; W17.89XA Other fall from one level to another, initial encounter; Y93.89 Activity, other specified; Y92.89 Other specified places as the place of occurrence of the external cause; Y99.8 Other external cause status
CPT/HCPCS: 36415; 70450; 80048; 85025

== ENCOUNTER 2017-07-26 02:00 | Inpatient (IN) | payer MEDICARE ==
[2017-07-26] MEDS ORDERED: DUONEB *Not for PRN Use IH ONE ×2 (02:32→02:33)
[2017-07-26 03:08] LABS: Hematocrit 32.2 % (35.5-45.6); Hemoglobin 10.5 gm/dl (11.8-15.2); Mean Corpuscular HGB Conc 33 % (32-34); Mean Corpuscular Hemoglobin 30 pg (28-32); Mean Corpuscular Volume 92 fl (84-94); Platelet Count 286 K/mm3 (140-440); Red Blood Count 3.49 M/mm3 (3.65-5.03); Red Cell Distribution Width 17.5 % (13.2-15.2)
[2017-07-26] MEDS ORDERED: cefTRIAXone 1 GM in NACL 0.9% 20 ML IV ONE (03:15)
[2017-07-26 03:17] LABS: ISTAT Base Excess -7; ISTAT HCO3 18.3; ISTAT PCO2 33.6 (35-45); ISTAT PH 7.344 (7.35-7.45); ISTAT PO2 155 (80-105); ISTAT SO2 99; ISTAT TCO2 19
[2017-07-26 03:19] LABS: Alanine Aminotransferase 15 units/L (7-56); Albumin/Globulin Ratio 1.5 %; Alkaline Phosphatase 65 units/L (35-129); Anion Gap 27 mmol/L; BUN/Creatinine Ratio 15; Blood Urea Nitrogen 15 mg/dL (9-20); Calcium 9.2 mg/dL (8.4-10.2); Carbon Dioxide 18 mmol/L (22-30); Chloride 90.6 mmol/L (98-107); Glucose 364 mg/dL (75-100); Potassium 3.9 mmol/L (3.6-5.0); Sodium 132 mmol/L (137-145); Total Protein 6.6 g/dL (6.3-8.2)
[2017-07-26 03:28] LABS: White Blood Count 23.2 K/mm3 (4.5-11.0)
[2017-07-26] MEDS ORDERED: LASIX IV ONE ×2 (03:32→05:00)
[2017-07-26 03:50] LABS: Basophils % (Manual) 0 % (0.0-1.8); Blastocytes % (Manual) 0 %
--- NOTE | 2017-07-26 03:50 | Emergency Department Report ---
ED Shortness of Breath HPI - General Chief Complaint: Dyspnea/Respdistress Stated Complaint: RODNEY Time Seen by Provider: 07/26/17 03:15 Source: patient, EMS Mode of arrival: Stretcher Limitations: No Limitations - History of Present Illness Initial Comments: When EMS got to the patient patient was in the 80s on room air. Patient was very tachypneic and tachycardic when he came in. He was placed on BiPAP and he did experience some improvement. MD Complaint: shortness of breath, cough Onset/Timin (day) -: Gradual Severity: severe Consistency: constant Improves With: nothing Worsens With: nothing Known History Of: congestive heart failure Associated Symptoms: cough, diaphoresis Treatments Prior to Arrival: none - Related Data Home Oxygen Therapy: No Home Medications Medication Instructions Recorded Confirmed Last Taken FLUoxetine HCL [Fluoxetine HCl] 20 mg PO DAILY 07/26/17 07/26/17 Unknown HumaLOG Mix 75/25 Vial 30 units SQ BID 07/26/17 07/26/17 Unknown Omeprazole 40 mg PO DAILY 07/26/17 07/26/17 Unknown Pravastatin Sodium [Pravachol] 40 mg PO QHS 07/26/17 07/26/17 Unknown Previous Rx's Medication Instructions Recorded Last Taken Type amLODIPine [Norvasc] 5 mg PO QDAY #30 tablet 09/11/16 Unknown Rx metFORMIN [Glucophage] 500 mg PO TIDDIAB #90 tablet 09/11/16 Unknown Rx Allergies Allergy/AdvReac Type Severity Reaction Status Date / Time No Known Allergies Allergy Verified 04/20/17 22:40 ED Review of Systems ROS: Stated complaint: RODNEY Other details as noted in HPI Comment: All other systems reviewed and negative ED Past Medical Hx - Past Medical History Previous Medical History?: Yes Hx Hypertension: Yes Hx Diabetes: Yes Additional medical history: high cholesterol - Surgical History Additional Surgical History: rotator cuff. Pacemaker - Social History Smoking Status: Unknown if ever smoked Substance Use Type: None - Medications Home Medications: Home Medications Medication Instructions Recorded Confirmed Last Taken Type amLODIPine [Norvasc] 5 mg PO QDAY #30 tablet 09/11/16 07/26/17 Unknown Rx metFORMIN [Glucophage] 500 mg PO TIDDIAB #90 tablet 09/11/16 07/26/17 Unknown Rx FLUoxetine HCL [Fluoxetine HCl] 20 mg PO DAILY 07/26/17 07/26/17 Unknown History HumaLOG Mix 75/25 Vial 30 units SQ BID 07/26/17 07/26/17 Unknown History Omeprazole 40 mg PO DAILY 07/26/17 07/26/17 Unknown History Pravastatin Sodium [Pravachol] 40 mg PO QHS 07/26/17 07/26/17 Unknown History ED Physical Exam - General Limitations: No Limitations General appearance: alert, in no apparent distress - Head Head exam: Present: atraumatic, normocephalic - Eye Eye exam: Present: normal appearance, PERRL Pupils: Present: normal accommodation - ENT ENT exam: Present: normal exam, normal orophraynx, mucous membranes moist - Neck Neck exam: Present: normal inspection - Respiratory Respiratory exam: Present: respiratory distress (severe), wheezes (diffuse), accessory muscle use - Cardiovascular Cardiovascular Exam: Present: regular rate, normal rhythm - GI/Abdominal GI/Abdominal exam: Present: soft. Absent: distended, tenderness, guarding - Extremities Exam Extremities exam: Present: normal inspection, pedal edema (1+ pedal edema) - Back Exam Back exam: Present: normal inspection, full ROM - Neurological Exam Neurological exam: Present: alert. Absent: altered - Psychiatric Psychiatric exam: Present: normal affect, normal mood - Skin Skin exam: Present: normal color, diaphoretic ED Course Vital Signs 07/26/17 07/26/17 07/26/17 02:18 02:20 02:42 Temperature 98.2 F Pulse Rate 124 H Pulse Rate [ Left Middle Lobe] Respiratory 27 H 26 H Rate Respiratory Rate [Left Middle Lobe] Blood Pressure 130/56 Blood Pressure [Right] O2 Sat by Pulse 94 96 Oximetry 07/26/17 07/26/17 07/26/17 03:00 03:02 03:05 Temperature Pulse Rate 115 H 114 H Pulse Rate [ 115 H Left Middle Lobe] Respiratory 24 23 Rate Respiratory 20 Rate [Left Middle Lobe] Blood Pressure 129/47 129/47 Blood Pressure [Right] O2 Sat by Pulse 94 Oximetry 07/26/17 07/26/17 07/26/17 03:30 04:01 04:31 Temperature Pulse Rate 113 H 111 H 105 H Pulse Rate [ Left Middle Lobe] Respiratory 23 14 25 H Rate Respiratory Rate [Left Middle Lobe] Blood Pressure 111/47 Blood Pressure [Right] O2 Sat by Pulse Oximetry 07/26/17 07/26/17 07/26/17 04:43 05:00 05:30 Temperature Pulse Rate 115 H 114 H Pulse Rate [ Left Middle Lobe] Respiratory 23 24 23 Rate Respiratory Rate [Left Middle Lobe] Blood Pressure 140/61 147/68 Blood Pressure 149/59 [Right] O2 Sat by Pulse 100 Oximetry 07/26/17 07/26/17 07/26/17 06:24 06:29 06:30 Temperature Pulse Rate 114 H 116 H Pulse Rate [ Left Middle Lobe] Respiratory 21 25 H Rate Respiratory Rate [Left Middle Lobe] Blood Pressure 118/51 124/52 Blood Pressure [Right] O2 Sat by Pulse 94 Oximetry 07/26/17 07/26/17 07/26/17 07:00 07:21 07:30 Temperature Pulse Rate 112 H 96 H Pulse Rate [ Left Middle Lobe] Respiratory 31 H 35 H Rate Respiratory Rate [Left Middle Lobe] Blood Pressure 124/52 111/71 Blood Pressure [Right] O2 Sat by Pulse 95 Oximetry 07/26/17 07/26/17 07/26/17 08:01 08:31 08:52 Temperature Pulse Rate 108 H Pulse Rate [ 125 H Left Middle Lobe] Respiratory 34 H 41 H Rate Respiratory 30 H Rate [Left Middle Lobe] Blood Pressure 125/51 139/77 Blood Pressure [Right] O2 Sat by Pulse Oximetry 07/26/17 07/26/17 07/26/17 09:01 09:04 09:06 Temperature Pulse Rate 124 H 118 H Pulse Rate [ 130 H Left Middle Lobe] Respiratory 29 H 30 H Rate Respiratory 28 H Rate [Left Middle Lobe] Blood Pressure 136/48 136/68 Blood Pressure [Right] O2 Sat by Pulse 98 Oximetry 07/26/17 07/26/17 07/26/17 09:14 09:30 09:44 Temperature Pulse Rate 112 H Pulse Rate [ Left Middle Lobe] Respiratory 30 H 23 22 Rate Respiratory Rate [Left Middle Lobe] Blood Pressure 126/51 Blood Pressure [Right] O2 Sat by Pulse Oximetry 07/26/17 07/26/17 07/26/17 10:01 10:31 11:00 Temperature Pulse Rate 110 H 109 H 106 H Pulse Rate [ Left Middle Lobe] Respiratory 20 25 H 22 Rate Respiratory Rate [Left Middle Lobe] Blood Pressure 119/50 110/57 117/54 Blood Pressure [Right] O2 Sat by Pulse Oximetry 07/26/17 07/26/1717 11:30 12:01 12:30 Temperature Pulse Rate 106 H 117 H 102 H Pulse Rate [ Left Middle Lobe] Respiratory 20 26 H 22 Rate Respiratory Rate [Left Middle Lobe] Blood Pressure 112/53 112/53 121/52 Blood Pressure [Right] O2 Sat by Pulse Oximetry 07/26/17 07/26/17 07/26/17 12:53 13:01 13:20 Temperature Pulse Rate 92 H 99 H Pulse Rate [ Left Middle Lobe] Respiratory 27 H 28 H Rate Respiratory Rate [Left Middle Lobe] Blood Pressure 117/53 Blood Pressure [Right] O2 Sat by Pulse 99 96 Oximetry 07/26/17 07/26/17 07/26/17 13:25 13:31 14:00 Temperature Pulse Rate 98 H 106 H Pulse Rate [ Left Middle Lobe] Respiratory 22 20 25 H Rate Respiratory Rate [Left Middle Lobe] Blood Pressure 130/49 131/47 Blood Pressure [Right] O2 Sat by Pulse Oximetry 07/26/17 07/26/17 07/26/17 14:30 15:00 16:30 Temperature Pulse Rate 103 H 105 H 97 H Pulse Rate [ Left Middle Lobe] Respiratory 32 H 38 H 28 H Rate Respiratory Rate [Left Middle Lobe] Blood Pressure 127/55 136/57 Blood Pressure 128/51 [Right] O2 Sat by Pulse 94 Oximetry 07/26/17 07/26/17 17:10 17:30 Temperature Pulse Rate 116 H 108 H Pulse Rate [ Left Middle Lobe] Respiratory 34 H 22 Rate Respiratory Rate [Left Middle Lobe] Blood Pressure Blood Pressure 129/58 [Right] O2 Sat by Pulse 95 97 Oximetry ED Medical Decision Making - Lab Data Result diagrams: 07/27/17 15:11 07/28/17 04:21 - EKG Data -: EKG Interpreted by Me EKG shows normal: sinus rhythm, axis (normal axis), intervals (normal), QRS complexes (normal), ST-T waves (nonspecific) Rate: tachycardia - EKG Data Interpretation: nonspecific ST-T wave ashley - Radiology Data Radiology results: image reviewed interpreted by me: Right lower lobe infiltrate. Interstitial pulmonary congestion - Medical Decision Making Pneumonia, congestive heart failure exacerbation, pulmonary embolism, acute coronary syndrome Critical Care Time: Yes Critical care time in (mins) excluding proc time.: 70 Critical care attestation.: If time is entered above; I have spent that time in minutes in the direct care of this critically ill patient, excluding procedure time. Critical Care Time: 70 minutes ED Disposition Clinical Impression: Pneumonia Qualifiers: Pneumonia type: due to unspecified organism Laterality: right Lung location: lower lobe of lung Qualified Code(s): J18.1 - Lobar pneumonia, unspecified organism Sepsis Qualifiers: Sepsis type: sepsis due to unspecified organism Qualified Code(s): A41.9 - Sepsis, unspecified organism Acute respiratory failure Qualifiers: Respiratory failure complication: hypoxia Qualified Code(s): J96.01 - Acute respiratory failure with hypoxia Disposition: DC-09 OP ADMIT IP TO THIS HOSP Condition: Stable
[2017-07-26 03:51] LABS: Anisocytosis 1+; Diff Status Complete; Elliptocytes Few; Platelet Estimate Consistent w Auto
--- NOTE | 2017-07-26 04:30 | XRay Report ---
FINAL REPORT EXAM: XR CHEST 1V AP HISTORY: Shortness of breath TECHNIQUE: AP portable view(s) of the chest obtained. PRIORS: 04/20/2017 FINDINGS: No mediastinal shift. Cardiac silhouette is not enlarged. No pneumothorax. Blunting of the right costophrenic angle. Right lower lung opacity. No acute skeletal finding. IMPRESSION: Right lower lung airspace disease with associated small effusion. Correlation with infectious symptoms is requested. PA and lateral chest radiographic follow-up to resolution is recommended.
--- NOTE | 2017-07-26 06:39 | Nuclear Medicine Report ---
FINAL REPORT PROCEDURE: NM LUNG SCAN PERF/VENT TECHNIQUE: 5.0 mCi Tc-99m MAA was injected IV for pulmonary perfusion imaging in multiple projections. 15 mCi XE-133 was inhaled for pulmonary ventilation imaging in multiple projections. Injection site: RIGHT antecubital fossa. CPT 18539 REGULATORY GUIDELINES: The patient was released based upon guidelines established in [place] State Regulations for Protection Against Radiation, Chapter 4243-96-14-35, Release of Individuals Containing Radioactive Drugs or Implants. HISTORY: pulm. embolism COMPARISON: No prior studies are available for comparison. FINDINGS: Perfusion: No defects . Ventilation: No defects . IMPRESSION: Normal Examination
[2017-07-26] MEDS ORDERED: D50W (25GM) Syringe IV PRN (08:00)
[2017-07-26] MEDS ORDERED: VANCOMYCIN PHARMACY TO DOSE IV SCH (08:00)
--- NOTE | 2017-07-26 08:04 | History and Physical Report ---
History of Present Illness Date of examination: 07/26/17 Chief complaint: SOB History of present illness: 82 year old male with past medical history significant for diabetes mellitus type 2, hypertension, hyperlipidemia, severe aortic stenosis growth via EMS to the emergency department with complaints of shortness of breath. Patient was not feeling well, didn't eat and drink yesterday. Patient had dry cough for the last 1 week denied fever, chills, chest pain, palpitations. His claimed that his memory is declining, recurrent falls. Patient has been taking his medications as ordered. In the emergency department his saturation was in the lower 80s and he was put on BiPAP and currently saturating 99%. Workup in the emergency department showed severe sepsis with lactic acidosis. REVIEW OF SYSTEMS: GENERAL: no weight change, no fatigue, no fever HEAD: no head ache EYES: no blurry vision, no acute visual loss EARS: no hearing loss, no discharge, no earache NOSE: no stuffiness, no sneezing, no discharge MOUTH, THROAT AND NECK: no bleeding gums, no sore throat, no swollen neck CARDIAC: As stated in the HPI. RESPIRATORY: As stated in the HPI. GI: no decreased appetite, no nausea, no vomiting, no dysphagia, no diarrhea, no constipation, no abdominal pain URINARY: no change in frequency, no urgency, no polyuria, no hematuria, no incontinence MUSCULOSKELETAL: no muscle weakness, no pain, no joint stiffness NEUROLOGIC: no loss of sensation/numbness, no tingling, no tremors, no weakness/ paralysis HEMATOLOGIC: no anemia, no easy bruising SKIN: no rashes ENDOCRINE: no heat/cold intolerance, no polyuria, no polydipsia, no thyroid problems, + diabetes PSYCHIATRIC: no anxiety, no depression, no suicidal ideations Past History Past Medical History: diabetes, hypertension, hyperlipidemia, other (severe aortic stenosis) Past Surgical History: Other (shoulder surgery) Social history: full code. denies: smoking, alcohol abuse, prescription drug abuse, IV drug use Family history: no significant family history Medications and Allergies Allergies Allergy/AdvReac Type Severity Reaction Status Date / Time No Known Allergies Allergy Verified 04/20/17 22:40 Home Medications Medication Instructions Recorded Confirmed Last Taken Type amLODIPine [Norvasc] 5 mg PO QDAY #30 tablet 09/11/16 07/26/17 Unknown Rx metFORMIN [Glucophage] 500 mg PO TIDDIAB #90 tablet 09/11/16 07/26/17 Unknown Rx FLUoxetine HCL [Fluoxetine HCl] 20 mg PO DAILY 07/26/17 07/26/17 Unknown History HumaLOG Mix 75/25 Vial 30 units SQ BID 07/26/17 07/26/17 Unknown History Omeprazole 40 mg PO DAILY 07/26/17 07/26/17 Unknown History Pravastatin Sodium [Pravachol] 40 mg PO QHS 07/26/17 07/26/17 Unknown History Active Meds: Active Medications Dextrose (D50w (25gm) Syringe) 50 ml IV PRN PRN PRN Reason: Hypoglycemia Heparin Sodium (Porcine) (Heparin) 5,000 unit SUB-Q BID JOHN Piperacillin Sod/Tazobactam Sod (Zosyn/Ns 4.5gm/100ml) 4.5 gm in 100 mls @ 200 mls/hr IV Q8HR JOHN PRN Reason: Protocol Insulin Aspart (Novolog) 0 units SUB-Q ACHS JOHN PRN Reason: Protocol Insulin Detemir (Levemir) 10 units SUB-Q QAMDIAB JOHN Vancomycin HCl (Vancomycin Pharmacy To Dose) 1 each IV PKCONSULT JOHN PRN Reason: Protocol Exam - Physical Exam Narrative exam: Not in cardiopulmonary distress. The patient appeared well nourished and normally developed. Vital signs as documented. Head exam is unremarkable. No scleral icterus . Neck is without jugular venous distension, thyromegaly, or carotid bruits. Lungs crepitations on the right lower lung zone, BBS all over the chest. Cardiac exam reveals regular rate and Rhythm. First and second heart sounds normal. No murmurs, rubs or gallops. Abdominal exam reveals normal bowel sounds, no masses, no organomegaly and no aortic enlargement. Extremities are nonedematous and both femoral and pedal pulses are normal. GUNNER MATE: Alert and oriented. No focal weakness. - Constitutional Vitals: Temp Pulse Resp BP Pulse Ox 98.2 F 112 H 31 H 124/52 95 07/26/17 02:18 07/26/17 07:00 07/26/17 07:00 07/26/17 07:00 07/26/17 07:21 Results - Labs CBC & Chem 7: 07/26/17 02:37 07/26/17 02:44 Labs: Laboratory Last Values WBC 23.2 K/mm3 (4.5-11.0) H 07/26/17 02:37 RBC 3.49 M/mm3 (3.65-5.03) L 07/26/17 02:37 Hgb 10.5 gm/dl (11.8-15.2) L 07/26/17 02:37 Hct 32.2 % (35.5-45.6) L 07/26/17 02:37 MCV 92 fl (84-94) 07/26/17 02:37 MCH 30 pg (28-32) 07/26/17 02:37 MCHC 33 % (32-34) 07/26/17 02:37 RDW 17.5 % (13.2-15.2) H 07/26/17 02:37 Plt Count 286 K/mm3 (140-440) 07/26/17 02:37 Add Manual Diff Complete 07/26/17 02:37 Total Counted 100 07/26/17 02:37 Seg Neuts % (Manual) 66.0 % (40.0-70.0) 07/26/17 02:37 Band Neutrophils % 26.0 % 07/26/17 02:37 Lymphocytes % (Manual) 5.0 % (13.4-35.0) L 07/26/17 02:37 Reactive Lymphs % (Man) 0 % 07/26/17 02:37 Monocytes % (Manual) 2.0 % (0.0-7.3) 07/26/17 02:37 Eosinophils % (Manual) 1.0 % (0.0-4.3) 07/26/17 02:37 Basophils % (Manual) 0 % (0.0-1.8) 07/26/17 02:37 Metamyelocytes % 0 % 07/26/17 02:37 Myelocytes % 0 % 07/26/17 02:37 Promyelocytes % 0 % 07/26/17 02:37 Blast Cells % 0 % 07/26/17 02:37 Nucleated RBC % Not Reportable 07/26/17 02:37 Seg Neutrophils # Man 15.3 K/mm3 (1.8-7.7) H 07/26/17 02:37 Band Neutrophils # 6.0 K/mm3 07/26/17 02:37 Lymphocytes # (Manual) 1.2 K/mm3 (1.2-5.4) 07/26/17 02:37 Abs React Lymphs (Man) 0.0 K/mm3 07/26/17 02:37 Monocytes # (Manual) 0.5 K/mm3 (0.0-0.8) 07/26/17 02:37 Eosinophils # (Manual) 0.2 K/mm3 (0.0-0.4) 07/26/17 02:37 Basophils # (Manual) 0.0 K/mm3 (0.0-0.1) 07/26/17 02:37 Metamyelocytes # 0.0 K/mm3 07/26/17 02:37 Myelocytes # 0.0 K/mm3 07/26/17 02:37 Promyelocytes # 0.0 K/mm3 07/26/17 02:37 Blast Cells # 0.0 K/mm3 07/26/17 02:37 WBC Morphology Not Reportable 07/26/17 02:37 Hypersegmented Neuts Not Reportable 07/26/17 02:37 Hyposegmented Neuts Not Reportable 07/26/17 02:37 Hypogranular Neuts Not Reportable 07/26/17 02:37 Smudge Cells Not Reportable 07/26/17 02:37 Toxic Granulation Not Reportable 07/26/17 02:37 Toxic Vacuolation Not Reportable 07/26/17 02:37 Dohle Bodies Not Reportable 07/26/17 02:37 Pelger-Huet Anomaly Not Reportable 07/26/17 02:37 Belle Rods Not Reportable 07/26/17 02:37 Platelet Estimate Consistent w auto 07/26/17 02:37 Clumped Platelets Not Reportable 07/26/17 02:37 Plt Clumps, EDTA Not Reportable 07/26/17 02:37 Large Platelets Not Reportable 07/26/17 02:37 Giant Platelets Not Reportable 07/26/17 02:37 Platelet Satelliting Not Reportable 07/26/17 02:37 Plt Morphology Comment Not Reportable 07/26/17 02:37 RBC Morphology Not Reportable 07/26/17 02:37 Dimorphic RBCs Not Reportable 07/26/17 02:37 Polychromasia Not Reportable 07/26/17 02:37 Hypochromasia Not Reportable 07/26/17 02:37 Poikilocytosis Not Reportable 07/26/17 02:37 Anisocytosis 1+ 07/26/17 02:37 Microcytosis Not Reportable 07/26/17 02:37 Macrocytosis Not Reportable 07/26/17 02:37 Spherocytes Not Reportable 07/26/17 02:37 Pappenheimer Bodies Not Reportable 07/26/17 02:37 Sickle Cells Not Reportable 07/26/17 02:37 Target Cells Not Reportable 07/26/17 02:37 Tear Drop Cells Not Reportable 07/26/17 02:37 Ovalocytes Not Reportable 07/26/17 02:37 Helmet Cells Not Reportable 07/26/17 02:37 Hu-[place] Bodies Not Reportable 07/26/17 02:37 [place] Rings Not Reportable 07/26/17 02:37 Thelma Cells Not Reportable 07/26/17 02:37 Bite Cells Not Reportable 07/26/17 02:37 Crenated Cell Not Reportable 07/26/17 02:37 Elliptocytes Few 07/26/17 02:37 Acanthocytes (Spur) Not Reportable 07/26/17 02:37 Rouleaux Not Reportable 07/26/17 02:37 Hemoglobin C Crystals Not Reportable 07/26/17 02:37 Schistocytes Not Reportable 07/26/17 02:37 Malaria parasites Not Reportable 07/26/17 02:37 Fermin Bodies Not Reportable 07/26/17 02:37 Hem Pathologist Commnt No 07/26/17 02:37 D-Dimer 714.08 ng/mlDDU (0-234) H 07/26/17 02:46 POC ABG pH 7.344 (7.35-7.45) L 07/26/17 03:01 POC ABG pCO2 33.6 (35-45) L 07/26/17 03:01 POC ABG pO2 155 (80-105) H 07/26/17 03:01 POC ABG HCO3 18.3 07/26/17 03:01 POC ABG Total CO2 19 07/26/17 03:01 POC ABG O2 Sat 99 07/26/17 03:01 POC ABG Base Excess -7 07/26/17 03:01 FiO2 50 % 07/26/17 03:01 Sodium 132 mmol/L (137-145) L 07/26/17 02:44 Potassium 3.9 mmol/L (3.6-5.0) 07/26/17 02:44 Chloride 90.6 mmol/L (98-107) L 07/26/17 02:44 Carbon Dioxide 18 mmol/L (22-30) L 07/26/17 02:44 Anion Gap 27 mmol/L 07/26/17 02:44 BUN 15 mg/dL (9-20) 07/26/17 02:44 Creatinine 1.0 mg/dL (0.8-1.5) 07/26/17 02:44 Estimated GFR > 60 ml/min 07/26/17 02:44 BUN/Creatinine Ratio 15 % 07/26/17 02:44 Glucose 364 mg/dL (75-100) H 07/26/17 02:44 POC Glucose 353 (70-105) H 07/26/17 02:13 Lactic Acid 5.40 mmol/L (0.7-2.0) H* 07/26/17 02:44 Calcium 9.2 mg/dL (8.4-10.2) 07/26/17 02:44 Total Bilirubin 0.60 mg/dL (0.1-1.2) 07/26/17 02:44 AST 16 units/L (5-40) 07/26/17 02:44 ALT 15 units/L (7-56) 07/26/17 02:44 Alkaline Phosphatase 65 units/L (35-129) 07/26/17 02:44 Troponin T 0.155 ng/mL (0.00-0.029) H* 07/26/17 02:37 NT-Pro-B Natriuret Pep 8843 pg/mL (0-900) H 07/26/17 02:44 Total Protein 6.6 g/dL (6.3-8.2) 07/26/17 02:44 Albumin 4.0 g/dL (3.9-5) 07/26/17 02:44 Albumin/Globulin Ratio 1.5 % 07/26/17 02:44 Triglycerides 106 mg/dL (2-149) 07/26/17 02:37 Cholesterol 128 mg/dL (50-199) 07/26/17 02:37 LDL Cholesterol Direct 59 mg/dL (50-130) 07/26/17 02:37 HDL Cholesterol 48 mg/dL (40-59) 07/26/17 02:37 Cholesterol/HDL Ratio 2.66 % 07/26/17 02:37 - Imaging and Cardiology Chest x-ray: image reviewed (right lower lobe pneumonia) Imaging and Cardiology: VQ scan low probability for PE Assessment and Plan Assessment and plan: Severe Sepsis Acute hypoxic respiratory failure Aspiration pneumonia Lactic acidosis Severe aortic stenosis Diabetes mellitus with hyperglycemia - Patient is on BiPAP - Patient is on IV vancomycin and Zosyn, blood pressure is stable and defer to give IV fluids, repeat lactic acid - Cardiology consulted - Sliding scale and basal insulin DVT prophylaxis -Heparin Disposition -Admit to ICU Prognosis is guarded Code status full code Advance Directives: Yes VTE prophylaxis?: Chemical Plan of care discussed with patient/family: No
[2017-07-26] MEDS ORDERED: PROVENTIL IH ONE (08:44)
[2017-07-26] MEDS ORDERED: MORPHINE ONE (09:11)
[2017-07-26] MEDS: LEVEMIR SUB-Q SCH (09:12)
[2017-07-26] MEDS ORDERED: MORPHINE IV ONE (09:13)
[2017-07-26] MEDS: VANCOMYCIN 1,250 MG in NACL 0.9% 250ML 250 ML IV SCH ×2 (09:39→23:00)
--- NOTE | 2017-07-26 10:22 | Consultation ---
Past History Past Medical History: diabetes, hyperlipidemia Medications and Allergies Allergies Allergy/AdvReac Type Severity Reaction Status Date / Time No Known Allergies Allergy Verified 04/20/17 22:40 Home Medications Medication Instructions Recorded Confirmed Last Taken Type amLODIPine [Norvasc] 5 mg PO QDAY #30 tablet 09/11/16 07/26/17 Unknown Rx metFORMIN [Glucophage] 500 mg PO TIDDIAB #90 tablet 09/11/16 07/26/17 Unknown Rx FLUoxetine HCL [Fluoxetine HCl] 20 mg PO DAILY 07/26/17 07/26/17 Unknown History HumaLOG Mix 75/25 Vial 30 units SQ BID 07/26/17 07/26/17 Unknown History Omeprazole 40 mg PO DAILY 07/26/17 07/26/17 Unknown History Pravastatin Sodium [Pravachol] 40 mg PO QHS 07/26/17 07/26/17 Unknown History Active Meds: Active Medications Dextrose (D50w (25gm) Syringe) 50 ml IV PRN PRN PRN Reason: Hypoglycemia Heparin Sodium (Porcine) (Heparin) 5,000 unit SUB-Q BID [facility] Piperacillin Sod/Tazobactam Sod (Zosyn/Ns 4.5gm/100ml) 4.5 gm in 100 mls @ 200 mls/hr IV Q8HR [facility] PRN Reason: Protocol Vancomycin HCl 1,250 mg/ (Sodium Chloride) 262.5 mls @ 166.667 mls/hr IV Q12H [facility] Last Admin: 07/26/17 09:39 Dose: 166.667 mls/hr Sodium Chloride (Nacl 0.9% 1000 Ml) 1,000 mls @ 75 mls/hr IV DIRECT [facility] Insulin Aspart (Novolog) 0 units SUB-Q ACHS [facility] PRN Reason: Protocol Insulin Detemir (Levemir) 10 units SUB-Q QAMDIAB [facility] Last Admin: 07/26/17 09:12 Dose: 10 units Vancomycin HCl (Vancomycin Pharmacy To Dose) 1 each IV PKCONSULT [facility] PRN Reason: Protocol Physical Examination Vital Signs Temp Pulse Resp BP 98.2 F 124 H 27 H 130/56 07/26/17 02:18 07/26/17 02:18 07/26/17 02:18 07/26/17 02:18 Results 07/26/17 02:37 07/26/17 02:44 Cardiac Enzymes 07/26/17 07/26/17 07/26/17 Range/Units 02:13 02:37 02:37 WBC 23.2 H (4.5-11.0) K/mm3 RBC 3.49 L (3.65-5.03) M/mm3 Hgb 10.5 L (11.8-15.2) gm/dl Hct 32.2 L (35.5-45.6) % MCV 92 (84-94) fl MCH 30 (28-32) pg MCHC 33 (32-34) % RDW 17.5 H (13.2-15.2) % Plt Count 286 (140-440) K/mm3 Add Manual Diff Complete Total Counted 100 Seg Neuts % (Manual) 66.0 (40.0-70.0) % Band Neutrophils % 26.0 % Lymphocytes % (Manual) 5.0 L (13.4-35.0) % Reactive Lymphs % (Man) 0 % Monocytes % (Manual) 2.0 (0.0-7.3) % Eosinophils % (Manual) 1.0 (0.0-4.3) % Basophils % (Manual) 0 (0.0-1.8) % Metamyelocytes % 0 % Myelocytes % 0 % Promyelocytes % 0 % Blast Cells % 0 % Nucleated RBC % Not Reportable Seg Neutrophils # Man 15.3 H (1.8-7.7) K/mm3 Band Neutrophils # 6.0 K/mm3 Lymphocytes # (Manual) 1.2 (1.2-5.4) K/mm3 Abs React Lymphs (Man) 0.0 K/mm3 Monocytes # (Manual) 0.5 (0.0-0.8) K/mm3 Eosinophils # (Manual) 0.2 (0.0-0.4) K/mm3 Basophils # (Manual) 0.0 (0.0-0.1) K/mm3 Metamyelocytes # 0.0 K/mm3 Myelocytes # 0.0 K/mm3 Promyelocytes # 0.0 K/mm3 Blast Cells # 0.0 K/mm3 WBC Morphology Not Reportable Hypersegmented Neuts Not Reportable Hyposegmented Neuts Not Reportable Hypogranular Neuts Not Reportable Smudge Cells Not Reportable Toxic Granulation Not Reportable Toxic Vacuolation Not Reportable Dohle Bodies Not Reportable Pelger-Huet Anomaly Not Reportable Belle Rods Not Reportable Platelet Estimate Consistent w auto Clumped Platelets Not Reportable Plt Clumps, EDTA Not Reportable Large Platelets Not Reportable Giant Platelets Not Reportable Platelet Satelliting Not Reportable Plt Morphology Comment Not Reportable RBC Morphology Not Reportable Dimorphic RBCs Not Reportable Polychromasia Not Reportable Hypochromasia Not Reportable Poikilocytosis Not Reportable Anisocytosis 1+ Microcytosis Not Reportable Macrocytosis Not Reportable Spherocytes Not Reportable Pappenheimer Bodies Not Reportable Sickle Cells Not Reportable Target Cells Not Reportable Tear Drop Cells Not Reportable Ovalocytes Not Reportable Helmet Cells Not Reportable Hu-Windsor Bodies Not Reportable [place] Rings Not Reportable Thelma Cells Not Reportable Bite Cells Not Reportable Crenated Cell Not Reportable Elliptocytes Few Acanthocytes (Spur) Not Reportable Rouleaux Not Reportable Hemoglobin C Crystals Not Reportable Schistocytes Not Reportable Malaria parasites Not Reportable Fermin Bodies Not Reportable Hem Pathologist Commnt No D-Dimer (0-234) ng/mlDDU POC ABG pH (7.35-7.45) POC ABG pCO2 (35-45) POC ABG pO2 (80-105) POC ABG HCO3 POC ABG Total CO2 POC ABG O2 Sat POC ABG Base Excess FiO2 % Sodium Cancelled Potassium Cancelled Chloride Cancelled Carbon Dioxide Cancelled Anion Gap Cancelled BUN Cancelled Creatinine Cancelled Estimated GFR Cancelled BUN/Creatinine Ratio Cancelled Glucose Cancelled POC Glucose 353 H (70-105) Hemoglobin A1c (4-6) % Lactic Acid (0.7-2.0) mmol/L Calcium Cancelled Total Bilirubin (0.1-1.2) mg/dL AST (5-40) units/L ALT (7-56) units/L Alkaline Phosphatase (35-129) units/L Troponin T 0.155 H* (0.00-0.029) ng/mL NT-Pro-B Natriuret Pep (0-900) pg/mL Total Protein (6.3-8.2) g/dL Albumin (3.9-5) g/dL Albumin/Globulin Ratio % Triglycerides 106 (2-149) mg/dL Cholesterol 128 (50-199) mg/dL LDL Cholesterol Direct 59 (50-130) mg/dL HDL Cholesterol 48 (40-59) mg/dL Cholesterol/HDL Ratio 2.66 % 07/26/17 07/26/17 07/26/17 Range/Units 02:44 02:44 02:46 WBC (4.5-11.0) K/mm3 RBC (3.65-5.03) M/mm3 Hgb (11.8-15.2) gm/dl Hct (35.5-45.6) % MCV (84-94) fl MCH (28-32) pg MCHC (32-34) % RDW (13.2-15.2) % Plt Count (140-440) K/mm3 Add Manual Diff Total Counted Seg Neuts % (Manual) (40.0-70.0) % Band Neutrophils % % Lymphocytes % (Manual) (13.4-35.0) % Reactive Lymphs % (Man) % Monocytes % (Manual) (0.0-7.3) % Eosinophils % (Manual) (0.0-4.3) % Basophils % (Manual) (0.0-1.8) % Metamyelocytes % % Myelocytes % % Promyelocytes % % Blast Cells % % Nucleated RBC % Seg Neutrophils # Man (1.8-7.7) K/mm3 Band Neutrophils # K/mm3 Lymphocytes # (Manual) (1.2-5.4) K/mm3 Abs React Lymphs (Man) K/mm3 Monocytes # (Manual) (0.0-0.8) K/mm3 Eosinophils # (Manual) (0.0-0.4) K/mm3 Basophils # (Manual) (0.0-0.1) K/mm3 Metamyelocytes # K/mm3 Myelocytes # K/mm3 Promyelocytes # K/mm3 Blast Cells # K/mm3 WBC Morphology Hypersegmented Neuts Hyposegmented Neuts Hypogranular Neuts Smudge Cells Toxic Granulation Toxic Vacuolation Dohle Bodies Pelger-Huet Anomaly [place] Platelet Estimate Clumped Platelets Plt Clumps, EDTA Large Platelets Giant Platelets Platelet Satelliting Plt Morphology Comment RBC Morphology Dimorphic RBCs Polychromasia Hypochromasia Poikilocytosis Anisocytosis Microcytosis Macrocytosis Spherocytes Pappenheimer Bodies Sickle Cells Target Cells Tear Drop Cells Ovalocytes Helmet Cells Hu-Windsor Bodies [place] Rings Thelma Cells Bite Cells Crenated Cell Elliptocytes Acanthocytes (Spur) Rouleaux Hemoglobin C Crystals Schistocytes Malaria parasites Fermin Bodies Hem Pathologist Commnt D-Dimer 714.08 H (0-234) ng/mlDDU POC ABG pH (7.35-7.45) POC ABG pCO2 (35-45) POC ABG pO2 (80-105) POC ABG HCO3 POC ABG Total CO2 POC ABG O2 Sat POC ABG Base Excess FiO2 % Sodium 132 L Potassium 3.9 Chloride 90.6 L Carbon Dioxide 18 L Anion Gap 27 BUN 15 Creatinine 1.0 Estimated GFR > 60 BUN/Creatinine Ratio 15 Glucose 364 H POC Glucose (70-105) Hemoglobin A1c (4-6) % Lactic Acid 5.40 H* (0.7-2.0) mmol/L Calcium 9.2 Total Bilirubin 0.60 (0.1-1.2) mg/dL AST 16 (5-40) units/L ALT 15 (7-56) units/L Alkaline Phosphatase 65 (35-129) units/L Troponin T (0.00-0.029) ng/mL NT-Pro-B Natriuret Pep 8843 H (0-900) pg/mL Total Protein 6.6 (6.3-8.2) g/dL Albumin 4.0 (3.9-5) g/dL Albumin/Globulin Ratio 1.5 % Triglycerides (2-149) mg/dL Cholesterol (50-199) mg/dL LDL Cholesterol Direct (50-130) mg/dL HDL Cholesterol (40-59) mg/dL Cholesterol/HDL Ratio % 07/26/17 07/26/17 07/26/17 Range/Units 03:01 08:04 08:04 WBC (4.5-11.0) K/mm3 RBC (3.65-5.03) M/mm3 Hgb (11.8-15.2) gm/dl Hct (35.5-45.6) % MCV (84-94) fl MCH (28-32) pg MCHC (32-34) % RDW (13.2-15.2) % Plt Count (140-440) K/mm3 Add Manual Diff Total Counted Seg Neuts % (Manual) (40.0-70.0) % Band Neutrophils % % Lymphocytes % (Manual) (13.4-35.0) % Reactive Lymphs % (Man) % Monocytes % (Manual) (0.0-7.3) % Eosinophils % (Manual) (0.0-4.3) % Basophils % (Manual) (0.0-1.8) % Metamyelocytes % % Myelocytes % % Promyelocytes % % Blast Cells % % Nucleated RBC % Seg Neutrophils # Man (1.8-7.7) K/mm3 Band Neutrophils # K/mm3 Lymphocytes # (Manual) (1.2-5.4) K/mm3 Abs React Lymphs (Man) K/mm3 Monocytes # (Manual) (0.0-0.8) K/mm3 Eosinophils # (Manual) (0.0-0.4) K/mm3 Basophils # (Manual) (0.0-0.1) K/mm3 Metamyelocytes # K/mm3 Myelocytes # K/mm3 Promyelocytes # K/mm3 Blast Cells # K/mm3 WBC Morphology Hypersegmented Neuts Hyposegmented Neuts Hypogranular Neuts Smudge Cells Toxic Granulation Toxic Vacuolation Dohle Bodies Pelger-Huet Anomaly [place] Platelet Estimate Clumped Platelets Plt Clumps, EDTA Large Platelets Giant Platelets Platelet Satelliting Plt Morphology Comment RBC Morphology Dimorphic RBCs Polychromasia Hypochromasia Poikilocytosis Anisocytosis Microcytosis Macrocytosis Spherocytes Pappenheimer Bodies Sickle Cells Target Cells Tear Drop Cells Ovalocytes Helmet Cells Hu-Windsor Bodies [place] Rings Thelma Cells Bite Cells Crenated Cell Elliptocytes Acanthocytes (Spur) Rouleaux Hemoglobin C Crystals Schistocytes Malaria parasites Fermin Bodies Hem Pathologist Commnt D-Dimer (0-234) ng/mlDDU POC ABG pH 7.344 L (7.35-7.45) POC ABG pCO2 33.6 L (35-45) POC ABG pO2 155 H (80-105) POC ABG HCO3 18.3 POC ABG Total CO2 19 POC ABG O2 Sat 99 POC ABG Base Excess -7 FiO2 50 % Sodium Potassium Chloride Carbon Dioxide Anion Gap BUN Creatinine Estimated GFR BUN/Creatinine Ratio Glucose POC Glucose (70-105) Hemoglobin A1c 6.9 H (4-6) % Lactic Acid 4.80 H* (0.7-2.0) mmol/L Calcium Total Bilirubin (0.1-1.2) mg/dL AST (5-40) units/L ALT (7-56) units/L Alkaline Phosphatase (35-129) units/L Troponin T (0.00-0.029) ng/mL NT-Pro-B Natriuret Pep (0-900) pg/mL Total Protein (6.3-8.2) g/dL Albumin (3.9-5) g/dL Albumin/Globulin Ratio % Triglycerides (2-149) mg/dL Cholesterol (50-199) mg/dL LDL Cholesterol Direct (50-130) mg/dL HDL Cholesterol (40-59) mg/dL Cholesterol/HDL Ratio % 07/26/17 Range/Units 09:02 WBC (4.5-11.0) K/mm3 RBC (3.65-5.03) M/mm3 Hgb (11.8-15.2) gm/dl Hct (35.5-45.6) % MCV (84-94) fl MCH (28-32) pg MCHC (32-34) % RDW (13.2-15.2) % Plt Count (140-440) K/mm3 Add Manual Diff Total Counted Seg Neuts % (Manual) (40.0-70.0) % Band Neutrophils % % Lymphocytes % (Manual) (13.4-35.0) % Reactive Lymphs % (Man) % Monocytes % (Manual) (0.0-7.3) % Eosinophils % (Manual) (0.0-4.3) % Basophils % (Manual) (0.0-1.8) % Metamyelocytes % % Myelocytes % % Promyelocytes % % Blast Cells % % Nucleated RBC % Seg Neutrophils # Man (1.8-7.7) K/mm3 Band Neutrophils # K/mm3 Lymphocytes # (Manual) (1.2-5.4) K/mm3 Abs React Lymphs (Man) K/mm3 Monocytes # (Manual) (0.0-0.8) K/mm3 Eosinophils # (Manual) (0.0-0.4) K/mm3 Basophils # (Manual) (0.0-0.1) K/mm3 Metamyelocytes # K/mm3 Myelocytes # K/mm3 Promyelocytes # K/mm3 Blast Cells # K/mm3 WBC Morphology Hypersegmented Neuts Hyposegmented Neuts Hypogranular Neuts Smudge Cells Toxic Granulation Toxic Vacuolation Dohle Bodies Pelger-Huet Anomaly [place] Platelet Estimate Clumped Platelets Plt Clumps, EDTA Large Platelets Giant Platelets Platelet Satelliting Plt Morphology Comment RBC Morphology Dimorphic RBCs Polychromasia Hypochromasia Poikilocytosis Anisocytosis Microcytosis Macrocytosis Spherocytes Pappenheimer Bodies Sickle Cells Target Cells Tear Drop Cells Ovalocytes Helmet Cells Hu-Windsor Bodies [place] Rings Thelma Cells Bite Cells Crenated Cell Elliptocytes Acanthocytes (Spur) Rouleaux Hemoglobin C Crystals Schistocytes Malaria parasites Fermin Bodies Hem Pathologist Commnt D-Dimer (0-234) ng/mlDDU POC ABG pH (7.35-7.45) POC ABG pCO2 (35-45) POC ABG pO2 (80-105) POC ABG HCO3 POC ABG Total CO2 POC ABG O2 Sat POC ABG Base Excess FiO2 % Sodium Potassium Chloride Carbon Dioxide Anion Gap BUN Creatinine Estimated GFR BUN/Creatinine Ratio Glucose POC Glucose 431 H (70-105) Hemoglobin A1c (4-6) % Lactic Acid (0.7-2.0) mmol/L Calcium Total Bilirubin (0.1-1.2) mg/dL AST (5-40) units/L ALT (7-56) units/L Alkaline Phosphatase (35-129) units/L Troponin T (0.00-0.029) ng/mL NT-Pro-B Natriuret Pep (0-900) pg/mL Total Protein (6.3-8.2) g/dL Albumin (3.9-5) g/dL Albumin/Globulin Ratio % Triglycerides (2-149) mg/dL Cholesterol (50-199) mg/dL LDL Cholesterol Direct (50-130) mg/dL HDL Cholesterol (40-59) mg/dL Cholesterol/HDL Ratio % Lipids 07/26/17 Range/Units 02:37 Triglycerides 106 (2-149) mg/dL Cholesterol 128 (50-199) mg/dL HDL Cholesterol 48 (40-59) mg/dL Cholesterol/HDL Ratio 2.66 % CBC 07/26/17 Range/Units 02:37 WBC 23.2 H (4.5-11.0) K/mm3 RBC 3.49 L (3.65-5.03) M/mm3 Hgb 10.5 L (11.8-15.2) gm/dl Hct 32.2 L (35.5-45.6) % Plt Count 286 (140-440) K/mm3 Comprehensive Metabolic Panel 07/26/17 07/26/17 Range/Units 02:37 02:44 Sodium Cancelled 132 L Potassium Cancelled 3.9 Chloride Cancelled 90.6 L Carbon Dioxide Cancelled 18 L BUN Cancelled 15 Creatinine Cancelled 1.0 Glucose Cancelled 364 H Calcium Cancelled 9.2 AST 16 (5-40) units/L ALT 15 (7-56) units/L Alkaline Phosphatase 65 (35-129) units/L Total Protein 6.6 (6.3-8.2) g/dL Albumin 4.0 (3.9-5) g/dL Assessment and Plan full consult dictated thanks
[2017-07-26] MEDS: NOVOLOG SUB-Q SCH ×3 (11:17→22:51)
[2017-07-26] MEDS: ZOSYN/NS 4.5GM/100ML 4.5 GM/100 ML VIAL IV SCH ×4 (11:20→22:52)
[2017-07-26 12:25] LABS: Bilirubin,Urine NEG (Negative); Blood,Urine NEG (Negative); Ketones,Urine TR mg/dL (Negative); Leukocyte Esterase,Urine NEG (Negative); Mucus,Urine FEW /HPF; Nitrite,Urine NEG (Negative); Urobilinogen,Urine < 2.0 mg/dL (<2.0); WBC,Urine < 1.0 /HPF (0.0-6.0)
[2017-07-26] MEDS: HEPARIN SUB-Q SCH ×2 (12:59→22:17)
[2017-07-26] MEDS: MORPHINE IV PRN (13:25)
--- NOTE | 2017-07-26 13:38 | Consultation ---
History of Present Illness Consult date: 07/26/17 Requesting physician: ARIANA RUBI Reason for consult: other (Severe Sepsis; Acute Hypoxemic Respiratory Failure) History of present illness: PULMONARY/CCM CONSULT NOTE (Full dictation # [id number]) Please see dictated notes for full details Past History Past Medical History: diabetes, hypertension, hyperlipidemia, other (severe aortic stenosis) Past Surgical History: Other (shoulder surgery) Social history: full code. denies: smoking, alcohol abuse, prescription drug abuse, IV drug use Family history: no significant family history Medications and Allergies Allergies Allergy/AdvReac Type Severity Reaction Status Date / Time No Known Allergies Allergy Verified 04/20/17 22:40 Home Medications Medication Instructions Recorded Confirmed Last Taken Type amLODIPine [Norvasc] 5 mg PO QDAY #30 tablet 09/11/16 07/26/17 Unknown Rx metFORMIN [Glucophage] 500 mg PO TIDDIAB #90 tablet 09/11/16 07/26/17 Unknown Rx FLUoxetine HCL [Fluoxetine HCl] 20 mg PO DAILY 07/26/17 07/26/17 Unknown History HumaLOG Mix 75/25 Vial 30 units SQ BID 07/26/17 07/26/17 Unknown History Omeprazole 40 mg PO DAILY 07/26/17 07/26/17 Unknown History Pravastatin Sodium [Pravachol] 40 mg PO QHS 07/26/17 07/26/17 Unknown History Active Meds: Active Medications Dextrose (D50w (25gm) Syringe) 50 ml IV PRN PRN PRN Reason: Hypoglycemia Heparin Sodium (Porcine) (Heparin) 5,000 unit SUB-Q BID [facility] Last Admin: 07/26/17 12:59 Dose: 5,000 unit Piperacillin Sod/Tazobactam Sod (Zosyn/Ns 4.5gm/100ml) 4.5 gm in 100 mls @ 200 mls/hr IV Q8HR [facility] PRN Reason: Protocol Last Admin: 07/26/17 11:20 Dose: 200 mls/hr Vancomycin HCl 1,250 mg/ (Sodium Chloride) 262.5 mls @ 166.667 mls/hr IV Q12H [facility] Last Admin: 07/26/17 09:39 Dose: 166.667 mls/hr Sodium Chloride (Nacl 0.9% 1000 Ml) 1,000 mls @ 75 mls/hr IV DIRECT [facility] Insulin Aspart (Novolog) 0 units SUB-Q ACHS [facility] PRN Reason: Protocol Last Admin: 07/26/17 11:17 Dose: Not Given Insulin Detemir (Levemir) 10 units SUB-Q QAMDIAB [facility] Last Admin: 07/26/17 09:12 Dose: 10 units Morphine Sulfate (Morphine) 2 mg IV Q4H PRN PRN Reason: Pain, Moderate (4-6) Last Admin: 07/26/17 13:25 Dose: 2 mg Vancomycin HCl (Vancomycin Pharmacy To Dose) 1 each IV PKCONSULT [facility] PRN Reason: Protocol Physical Examination Vital signs: Vital Signs Temp Pulse Resp BP 98.2 F 124 H 27 H 130/56 07/26/17 02:18 07/26/17 02:18 07/26/17 02:18 07/26/17 02:18 Results - Laboratory Findings CBC and BMP: 07/26/17 02:37 07/26/17 02:44 ABG POC ABG pH 7.344 (7.35-7.45) L 07/26/17 03:01 POC ABG pCO2 33.6 (35-45) L 07/26/17 03:01 POC ABG pO2 155 (80-105) H 07/26/17 03:01 POC ABG HCO3 18.3 07/26/17 03:01 POC ABG Total CO2 19 07/26/17 03:01 POC ABG O2 Sat 99 07/26/17 03:01 PT/INR, D-dimer D-Dimer 714.08 ng/mlDDU (0-234) H 07/26/17 02:46 Abnormal lab findings: Abnormal Labs 07/26/17 07/26/17 07/26/17 02:13 02:37 02:37 WBC 23.2 H RBC 3.49 L Hgb 10.5 L Hct 32.2 L RDW 17.5 H Lymphocytes % (Manual) 5.0 L Seg Neutrophils # Man 15.3 H D-Dimer POC ABG pH POC ABG pCO2 POC ABG pO2 Sodium Chloride Carbon Dioxide Glucose POC Glucose 353 H Hemoglobin A1c Lactic Acid Troponin T 0.155 H* NT-Pro-B Natriuret Pep 07/26/17 07/26/17 07/26/17 02:44 02:44 02:46 WBC RBC Hgb Hct RDW Lymphocytes % (Manual) Seg Neutrophils # Man D-Dimer 714.08 H POC ABG pH POC ABG pCO2 POC ABG pO2 Sodium 132 L Chloride 90.6 L Carbon Dioxide 18 L Glucose 364 H POC Glucose Hemoglobin A1c Lactic Acid 5.40 H* Troponin T NT-Pro-B Natriuret Pep 8843 H 07/26/17 07/26/17 07/26/17 03:01 08:04 08:04 WBC RBC Hgb Hct RDW Lymphocytes % (Manual) Seg Neutrophils # Man D-Dimer POC ABG pH 7.344 L POC ABG pCO2 33.6 L POC ABG pO2 155 H Sodium Chloride Carbon Dioxide Glucose POC Glucose Hemoglobin A1c 6.9 H Lactic Acid 4.80 H* Troponin T NT-Pro-B Natriuret Pep 07/26/17 09:02 WBC RBC Hgb Hct RDW Lymphocytes % (Manual) Seg Neutrophils # Man D-Dimer POC ABG pH POC ABG pCO2 POC ABG pO2 Sodium Chloride Carbon Dioxide Glucose POC Glucose 431 H Hemoglobin A1c Lactic Acid Troponin T NT-Pro-B Natriuret Pep
--- NOTE | 2017-07-26 14:06 | Consultation ---
REASON FOR CONSULTATION: Advice and opinion regarding shortness of breath. HISTORY OF PRESENT ILLNESS: The patient is a very pleasant 82-year-old gentleman with multiple comorbidities including severe aortic stenosis, hypertension, hyperlipidemia, and diabetes. His primary shipper/receiver is Dr. Sheehan. Last night he developed shortness of breath and cough and brought to the Emergency Room. He is seen in the Emergency Room. He is on BiPAP, feeling so much better. Family is at bedside and very helpful. No chest pain. No syncope or presyncope. Shortness of breath is improved. Denies any fevers or sputum production. No cold or heat intolerance. No rash. No hematochezia, melena, or hemoptysis. Most recent echocardiogram is from March 2017 and reveals severe or critical aortic stenosis and normal LV function. MEDICATIONS: Inpatient and outpatient medications reviewed. ALLERGIES: No known drug, food, or environmental allergies. REVIEW OF SYSTEMS: As per HPI. PHYSICAL EXAMINATION: VITAL SIGNS: Blood pressure is in the 120s/80s range. He is afebrile. Tele reveals sinus rhythm, heart rate of 90-110. No dysrhythmias. O2 sats 100% on BiPAP. HEENT: Sclerae are anicteric. NECK: Supple, no mass, no JVD. CHEST: Decreased breath sounds in bilateral bases overall moderate air movement. CARDIOVASCULAR: S1-S2, 3/6 systolic ejection murmur, soft S2. ABDOMEN: Soft, nontender. EXTREMITIES: No significant edema. LABORATORY DATA: Hemoglobin 10.5, hematocrit 32, WBC is 23. ABG reveals a pH of 7.3, pCO2 of 33, pO2 of 155. His creatinine is 1, BUN is 15, potassium is 3.9, sodium 132. Lactic acid 4.8. Hemoglobin A1c is 6.9. Troponin 0.1, 0.1, and 0.15 flat, negative MB index. BNP is 8843. EKG reveals sinus tachycardia, diffuse ST changes, unchanged from prior EKGs. CONCLUSION: The patient is a pleasant 82-year-old gentleman. 1. Acute hypoxemic respiratory failure, likely multifactorial, questionable aspiration pneumonia in the setting of severe/critical aortic stenosis 2. Lactic acidemia. 3. Diabetes with hyperglycemia. PLAN: The patient has been given 20 mg IV Lasix x 1 with some improvement of symptoms. At this point, we would recommend watching his urine output, wean oxygen, place Ba, watch in ICU. The fact that he is at high risk for aortic valve has been discussed with him over the past several visits. We will readdress once he is clinically improved. Continue IV antibiotics. We will follow along closely: My findings and plan of care discussed at length with the patient and family. All questions and concerns were addressed. JOB# [id number] KOSTAS/NTS
[2017-07-26] MEDS ORDERED: ZOFRAN IV PRN (15:45)
[2017-07-26] MEDS ORDERED: ZOFRAN ONE (15:48)
[2017-07-26] MEDS: NACL 0.9% 1000 ML 1,000 ML IV SCH ×2 (17:13→21:00)
--- NOTE | 2017-07-27 00:53 | Consultation ---
CONSULTING PHYSICIAN: Dr. Santiago. REASON FOR CONSULTATION: Sepsis syndrome, hypoxemic respiratory failure, acute. CHIEF COMPLAINT AND HISTORY OF PRESENT ILLNESS: The patient is an 82-year-old male with a past medical history significant amongst other things for a diagnosis of diabetes, but also severe aortic stenosis who came into the Emergency Room complaining of shortness of breath. According to the family, he has been dwindling, he has not been feeling well, and he has not been eating or drinking the day before presentation. He had complained of a dry cough for about a week. They had denied fevers, chills, chest pains. They denied nausea, vomiting, or overt aspiration. According to his , he is bothered about his recurrent falls at home, but denied any recent falls. In the ER, he was found to be hypoxemic, O2 sats in the low 80s requiring bilevel positive air pressure ventilation therapy for support. He also was diagnosed with lactic acidosis and severe sepsis. However, when I stopped by to see him earlier this morning, he remained on the BiPAP machine, but was actually asking for the BiPAP to come off, feeling a little bit better, talking to me in full sentences. He is not a current tobacco abuser and had denied tobacco smoking history. There is a mild element of dementia. That is as much of the history of presentation as I have. PAST MEDICAL HISTORY: Diabetes, hypertension, hyperlipidemia, severe aortic stenosis. He is obese. PAST SURGICAL HISTORY: He has had shoulder surgery. MEDICATIONS: He was on at the time I stopped by to see him have been reviewed. Pertinent medications include the following: Heparin 5000 units subQ b.i.d., Levemir insulin 10 units subq q.a.m., Zosyn 4.5 grams IV q.8 hours, vancomycin 1.25 grams IV q.12 hours. ALLERGIES: No known drug allergies. DIET: Obese gentleman. Family denies significant weight loss or gain in the preceding few weeks to months. FAMILY AND SOCIAL HISTORY: Lives in the community. No alcohol, tobacco, or illicit drug use or abuse. No other contributory family history. REVIEW OF SYSTEMS: Complete 13 system review of systems is obtained as best as I could considering the patient's mental status and medical status. Pertinent positives and/or negatives as in the body of history above, otherwise they are noncontributory. PHYSICAL EXAMINATION: VITAL SIGNS: At presentation he is afebrile, temperature 98.2, pulse was 124, respiratory rate was 27, described as short of breath, labored, accessory muscle use. Blood pressure was 130/56, oxygen sats were 94%, inspired oxygen concentration at that time was not recorded. GENERAL: He is an elderly looking male, looks his stated age, on the BiPAP machine, mild tachypnea, in mild respiratory distress. HEAD, EYES, EARS, NOSE, AND THROAT: He is anicteric. No conjunctival erythema. Oropharynx is dry. Grossly, no palpable lymph nodes in the supraclavicular or submandibular lymph node chains. No gross jugular venous distention. LUNGS: Auscultation of both lung lombardi significant for diminished bilateral breath sounds, but actually clear during my evaluation, slightly prolonged expiratory phase. HEART: Sounds 1 and 2 are heard at the time of my evaluation, regular rate and rhythm. No rubs. It was difficult for me to hear any murmurs. ABDOMEN: Soft. Bowel sounds are positive, nontender, no palpable hepatosplenomegaly. EXTREMITIES: Without overt digital clubbing or cyanosis. He had trace pedal edema in the right lower extremity. SKIN: The skin was of normal turgor, no tenting, no rash, no sores. NEUROLOGIC: The pupils were equal, round, about 3-4 mm, reactive to light. Extraocular muscle movements were intact. He moved all 4 extremities spontaneously. LABORATORY DATA: From my review are as follows: White cell count 23,200, hemoglobin 10.5, hematocrit 32.2 with a platelet count of 286. No band forms reported. D-dimer was up at 714. Arterial blood gas showed a pH of 7.34, pCO2 of 34, and a pO2 of 155 that was on 50% FiO2. It is unclear if he was on BiPAP at that time. Serum sodium 132, potassium 3.9, chloride 91, bicarb 18, BUN was 15 with a creatinine of 1.0, and a glucose of 364. Lactic acid level was 5.4 and is down to 4.8. Troponin was up slightly at 0.156. BNP is elevated. Urinalysis unremarkable, really negative for nitrites and leukocyte esterase. MICROBIOLOGY STUDIES: Blood cultures no growth to date. I have reviewed the patient's chest x-ray as well as the radiologist's interpretation. I have x-ray from 04/20/2017 to compare with it. Main finding is a new right lower lobe infiltrate/areas of platelike atelectasis in association with perhaps a small amount of fluid. He has an implanted Port-A-Cath in the right upper anterior chest wall. No gross pneumothorax, no gross bony fracture and also importantly no overt pulmonary edema. ASSESSMENT AND PLAN: 1. Acute hypoxemic respiratory failure. 2. Right lower lobe pneumonia versus unilateral pulmonary edema. 3. Sepsis syndrome. 4. Cardiomyopathy with known severe aortic stenosis. 5. Leukocytosis. 6. Elevated D-dimer. 7. Metabolic acidosis, predominantly lactate. 8. Elevated serum troponins. PLAN: At this point, we will stop bilevel positive air pressure ventilation therapy ____ converted to bedtime scheduled with p.r.n. daytime use. I will add humidification to the BiPAP to reduce the oropharyngeal dryness and improve the tolerance. Oxygen by nasal cannula currently going at 4 liters will be titrated to keep sats greater than or equal to about 90-94%. Aspiration precautions will be maintained. I will start him on bronchodilator therapy scheduled in the short time and then p.r.n. thereafter. I do feel he actually will need volume resuscitation from a sepsis standpoint despite the history of cardiomyopathy. We certainly do not want to diurese him. Sputum will be sent for Gram stain, cultures and sensitivities. He should continue empiric broad spectrum antibiotic therapy. Lactic acid will be trended. CRP level will be ordered and trended along with a lactate. Venous thromboembolic disorder workup has been started. V/Q scan was done and it was reported as normal examination especially in light of the mild unilateral pedal edema. I will complete this workup with Dopplers of the lower extremities. I am going to put him on GI prophylaxis especially with him being on positive pressure ventilation therapy. He is appropriately on DVT prophylaxis. Flu and pneumonia vaccination will be per protocol. Glycemic control targeting blood sugars less than 180 mg/dL will also be continued. Thank you very much for the consult, Dr. Live, we will follow along. He is doing better. I will downgrade him to telemetry at this point. JOB# [id number] LUI/NTS
[2017-07-27] MEDS: MORPHINE IV PRN ×2 (01:00→23:30)
[2017-07-27] MEDS: NACL 0.9% 1000 ML 1,000 ML IV SCH (06:13)
[2017-07-27] MEDS: ZOSYN/NS 4.5GM/100ML 4.5 GM/100 ML VIAL IV SCH ×3 (06:14→21:32)
[2017-07-27] MEDS: LEVEMIR SUB-Q SCH (08:36)
[2017-07-27] MEDS: NOVOLOG SUB-Q SCH ×4 (08:37→23:58)
[2017-07-27] MEDS: VANCOMYCIN 1,250 MG in NACL 0.9% 250ML 250 ML IV SCH ×2 (12:12→21:32)
[2017-07-27] MEDS: HEPARIN SUB-Q SCH ×2 (12:13→21:32)
--- NOTE | 2017-07-27 12:13 | Progress Note ---
Assessment and Plan 82 yo wm: 1. acute hypoxemic resp failure - ? aspiration * on abx for ?rll infiltrate * vq neg * iv lasix given x 1 in er * wean bipap * very gentle ivf due to very narrow fluid equilibrium * am cxr pending 2. severe/critical senile as 3. metabolic acidemia * improving 4. mildly elevayed trop * unclear significance, no cp d/w family at length Subjective Date of service: 07/27/17 Interval history: feels better this am family at bedside Objective Vital Signs Temp Pulse Pulse Pulse Pulse Resp BP 07/27/17 09:00 114 H 27 H 132/53 07/27/17 08:51 120 H 34 H 158/64 07/27/17 08:41 122 H 39 H 158/64 07/27/17 08:31 122 H 32 H 158/64 07/27/17 08:20 132 H 35 H 161/69 07/27/17 08:12 07/27/17 08:11 120 H 33 H 158/64 07/27/17 08:05 124 H 36 H 158/64 07/27/17 08:01 131 H 40 H 158/64 07/27/17 08:00 98.5 F 07/27/17 07:51 132 H 37 H 136/68 07/27/17 07:41 131 H 40 H 136/68 07/27/17 07:31 131 H 39 H 136/68 07/27/17 07:21 124 H 34 H 136/68 07/27/17 07:11 126 H 29 H 136/68 07/27/17 07:01 120 H 34 H 136/68 07/27/17 06:51 115 H 27 H 117/52 07/27/17 06:41 115 H 29 H 117/52 07/27/17 06:31 109 H 22 117/52 07/27/17 06:21 105 H 22 117/52 07/27/17 06:11 102 H 24 117/52 07/27/17 06:00 101 H 22 117/52 07/27/17 05:51 100 H 22 114/49 07/27/17 05:41 102 H 24 114/49 07/27/17 05:31 102 H 23 114/49 07/27/17 05:21 103 H 24 114/49 07/27/17 05:11 102 H 23 114/49 07/27/17 05:00 104 H 24 114/49 07/27/17 04:51 95 H 25 H 134/58 07/27/17 04:41 113 H 24 134/58 07/27/17 04:31 113 H 30 H 134/58 07/27/17 04:21 108 H 26 H 134/58 07/27/17 04:11 110 H 30 H 134/58 07/27/17 04:00 97.4 F L 114 H 25 H 134/58 07/27/17 03:51 118 H 28 H 138/58 07/27/17 03:41 102 H 29 H 138/58 07/27/17 03:31 109 H 29 H 138/58 07/27/17 03:21 115 H 27 H 138/58 07/27/17 03:11 103 H 26 H 138/58 07/27/17 03:00 105 H 24 138/58 07/27/17 02:51 117 H 27 H 131/58 07/27/17 02:41 118 H 30 H 131/58 07/27/17 02:31 119 H 28 H 131/58 07/27/17 02:30 108 H 111 H 117 H 07/27/17 02:21 130 H 39 H 131/58 07/27/17 02:11 129 H 44 H 131/58 07/27/17 02:00 102 H 30 H 131/58 07/27/17 01:51 95 H 29 H 134/60 07/27/17 01:41 110 H 30 H 134/60 07/27/17 01:31 102 H 26 H 134/60 07/27/17 01:30 31 H 07/27/17 01:21 101 H 25 H 134/60 07/27/17 01:11 112 H 30 H 134/60 07/27/17 01:00 116 H 24 134/60 07/27/17 00:51 94 H 30 H 133/59 07/27/17 00:41 122 H 30 H 133/59 07/27/17 00:31 108 H 32 H 133/59 07/27/17 00:21 109 H 26 H 133/59 07/27/17 00:11 110 H 29 H 133/59 07/27/17 00:01 108 H 31 H 133/59 07/27/17 00:00 98.1 F 07/26/17 23:51 108 H 26 H 137/55 07/26/17 23:41 106 H 27 H 137/55 07/26/17 23:31 108 H 24 137/55 07/26/17 23:25 108 H 29 H 137/55 07/26/17 23:21 110 H 27 H 137/55 07/26/17 23:11 108 H 27 H 137/55 07/26/17 23:00 97 H 26 H 137/55 07/26/17 22:00 108 H 101 H 106 H 110 H 33 H 137/55 07/26/17 21:30 98.0 F 07/26/17 18:42 111 H 35 H 07/26/17 17:30 108 H 22 07/26/17 17:10 116 H 34 H 07/26/17 16:30 97 H 28 H 07/26/17 15:00 105 H 38 H 136/57 07/26/17 14:30 103 H 32 H 127/55 07/26/17 14:00 106 H 25 H 131/47 07/26/17 13:31 98 H 20 130/49 07/26/17 13:25 22 07/26/17 13:20 99 H 28 H 07/26/17 13:01 92 H 27 H 117/53 07/26/17 12:53 07/26/17 12:30 102 H 22 121/52 BP Pulse Ox 07/27/17 09:00 96 07/27/17 08:51 95 07/27/17 08:41 89 07/27/17 08:31 93 07/27/17 08:20 92 07/27/17 08:12 95 07/27/17 08:11 89 07/27/17 08:05 94 07/27/17 08:01 07/27/17 08:00 07/27/17 07:51 07/27/17 07:41 07/27/17 07:31 07/27/17 07:21 90 07/27/17 07:11 07/27/17 07:01 92 07/27/17 06:51 90 07/27/17 06:41 87 07/27/17 06:31 91 07/27/17 06:21 90 07/27/17 06:11 95 07/27/17 06:00 93 07/27/17 05:51 94 07/27/17 05:41 93 07/27/17 05:31 92 07/27/17 05:21 91 07/27/17 05:11 90 07/27/17 05:00 94 07/27/17 04:51 91 07/27/17 04:41 92 07/27/17 04:31 92 07/27/17 04:21 92 07/27/17 04:11 89 07/27/17 04:00 93 07/27/17 03:51 93 07/27/17 03:41 91 07/27/17 03:31 91 07/27/17 03:21 94 07/27/17 03:11 92 07/27/17 03:00 94 07/27/17 02:51 92 07/27/17 02:41 92 07/27/17 02:31 91 07/27/17 02:30 07/27/17 02:21 92 07/27/17 02:11 85 07/27/17 02:00 93 07/27/17 01:51 94 07/27/17 01:41 94 07/27/17 01:31 94 07/27/17 01:30 07/27/17 01:21 94 07/27/17 01:11 93 07/27/17 01:00 92 07/27/17 00:51 95 07/27/17 00:41 90 07/27/17 00:31 93 07/27/17 00:21 95 07/27/17 00:11 93 07/27/17 00:01 95 07/27/17 00:00 07/26/17 23:51 95 07/26/17 23:41 96 07/26/17 23:31 96 07/26/17 23:25 97 07/26/17 23:21 96 07/26/17 23:11 96 07/26/17 23:00 96 07/26/17 22:00 94 07/26/17 21:30 07/26/17 18:42 98 07/26/17 17:30 129/58 97 07/26/17 17:10 95 07/26/17 16:30 128/51 94 07/26/17 15:00 07/26/17 14:30 07/26/17 14:00 07/26/17 13:31 07/26/17 13:25 07/26/17 13:20 96 07/26/17 13:01 07/26/17 12:53 99 07/26/17 12:30
--- NOTE | 2017-07-27 13:06 | XRay Report ---
AP CHEST: HISTORY: Short of breath Cardiomegaly, pulmonary congestion and small pleural effusions developed or increased since yesterday's exam. There are mild atelectatic changes at the lung bases. No consolidation or pneumothorax. IMPRESSION: Mild volume overload/CHF.
--- NOTE | 2017-07-27 14:02 | Progress Note ---
Assessment and Plan - Severe Sepsis: Still has Leukocytosis with elevate lactic acid level Continue with Zosyn and Vanc. trend lactic acid level. will hold iv hydration b/c congestive heart failure - Acute hypoxic respiratory failure: On BIPAP and bronchodilators. Pulm. following - Aspiration pneumonia: Continue iv antibiotic - Lactic acidosis: trend and continue with iv antibiotic. Holding ivf b/c CHF - Severe aortic stenosis: Cardiology following - Diabetes mellitus with hyperglycemia: On SSI and consistend CHO diet - DVT and GI prophylaxis: with Heparin and pepcid Disposition: continue ICU care for now Spent 32 mins of criticla care time Subjective Date of service: 07/27/17 Principal diagnosis: Sepsis, aspirration pneumonia Interval history: Pt seen and examined. No new complaint. Feeling better. Still on BIPAP. Pt in the room Objective - Constitutional Vitals: Vital Signs - 12hr 07/27/17 07/27/17 07/27/17 02:00 02:11 02:21 Temperature Pulse Rate 102 H 129 H 130 H Pulse Rate [ From Monitor] Pulse Rate [ Right Radial] Respiratory 30 H 44 H 39 H Rate Blood Pressure 131/58 131/58 131/58 O2 Sat by Pulse 93 85 92 Oximetry 07/27/17 07/27/17 07/27/17 02:30 02:31 02:41 Temperature Pulse Rate 108 H 119 H 118 H Pulse Rate [ 111 H From Monitor] Pulse Rate [ 117 H Right Radial] Respiratory 28 H 30 H Rate Blood Pressure 131/58 131/58 O2 Sat by Pulse 91 92 Oximetry 07/27/17 07/27/17 07/27/17 02:51 03:00 03:11 Temperature Pulse Rate 117 H 105 H 103 H Pulse Rate [ From Monitor] Pulse Rate [ Right Radial] Respiratory 27 H 24 26 H Rate Blood Pressure 131/58 138/58 138/58 O2 Sat by Pulse 92 94 92 Oximetry 07/27/17 07/27/17 07/27/17 03:21 03:31 03:41 Temperature Pulse Rate 115 H 109 H 102 H Pulse Rate [ From Monitor] Pulse Rate [ Right Radial] Respiratory 27 H 29 H 29 H Rate Blood Pressure 138/58 138/58 138/58 O2 Sat by Pulse 94 91 91 Oximetry 07/27/17 07/27/17 07/27/17 03:51 04:00 04:11 Temperature 97.4 F L Pulse Rate 118 H 114 H 110 H Pulse Rate [ From Monitor] Pulse Rate [ Right Radial] Respiratory 28 H 25 H 30 H Rate Blood Pressure 138/58 134/58 134/58 O2 Sat by Pulse 93 93 89 Oximetry 07/27/17 07/27/17 07/27/17 04:21 04:31 04:41 Temperature Pulse Rate 108 H 113 H 113 H Pulse Rate [ From Monitor] Pulse Rate [ Right Radial] Respiratory 26 H 30 H 24 Rate Blood Pressure 134/58 134/58 134/58 O2 Sat by Pulse 92 92 92 Oximetry 07/27/17 07/27/17 07/27/17 04:51 05:00 05:11 Temperature Pulse Rate 95 H 104 H 102 H Pulse Rate [ From Monitor] Pulse Rate [ Right Radial] Respiratory 25 H 24 23 Rate Blood Pressure 134/58 114/49 114/49 O2 Sat by Pulse 91 94 90 Oximetry 07/27/17 07/27/17 07/27/17 05:21 05:31 05:41 Temperature Pulse Rate 103 H 102 H 102 H Pulse Rate [ From Monitor] Pulse Rate [ Right Radial] Respiratory 24 23 24 Rate Blood Pressure 114/49 114/49 114/49 O2 Sat by Pulse 91 92 93 Oximetry 07/27/17 07/27/17 07/27/17 05:51 06:00 06:11 Temperature Pulse Rate 100 H 101 H 102 H Pulse Rate [ From Monitor] Pulse Rate [ Right Radial] Respiratory 22 22 24 Rate Blood Pressure 114/49 117/52 117/52 O2 Sat by Pulse 94 93 95 Oximetry 07/27/17 07/27/17 07/27/17 06:21 06:31 06:41 Temperature Pulse Rate 105 H 109 H 115 H Pulse Rate [ From Monitor] Pulse Rate [ Right Radial] Respiratory 22 22 29 H Rate Blood Pressure 117/52 117/52 117/52 O2 Sat by Pulse 90 91 87 Oximetry 07/27/17 07/27/17 07/27/17 06:51 07:01 07:11 Temperature Pulse Rate 115 H 120 H 126 H Pulse Rate [ From Monitor] Pulse Rate [ Right Radial] Respiratory 27 H 34 H 29 H Rate Blood Pressure 117/52 136/68 136/68 O2 Sat by Pulse 90 92 Oximetry 07/27/17 07/27/17 07/27/17 07:21 07:31 07:41 Temperature Pulse Rate 124 H 131 H 131 H Pulse Rate [ From Monitor] Pulse Rate [ Right Radial] Respiratory 34 H 39 H 40 H Rate Blood Pressure 136/68 136/68 136/68 O2 Sat by Pulse 90 Oximetry 07/27/17 07/27/17 07/27/17 07:51 08:00 08:01 Temperature 98.5 F Pulse Rate 132 H 131 H Pulse Rate [ From Monitor] Pulse Rate [ Right Radial] Respiratory 37 H 40 H Rate Blood Pressure 136/68 158/64 O2 Sat by Pulse Oximetry 07/27/17 07/27/17 07/27/17 08:05 08:11 08:12 Temperature Pulse Rate 124 H 120 H Pulse Rate [ From Monitor] Pulse Rate [ Right Radial] Respiratory 36 H 33 H Rate Blood Pressure 158/64 158/64 O2 Sat by Pulse 94 89 95 Oximetry 07/27/17 07/27/17 07/27/17 08:20 08:31 08:41 Temperature Pulse Rate 132 H 122 H 122 H Pulse Rate [ From Monitor] Pulse Rate [ Right Radial] Respiratory 35 H 32 H 39 H Rate Blood Pressure 161/69 158/64 158/64 O2 Sat by Pulse 92 93 89 Oximetry 07/27/17 07/27/17 07/27/17 08:51 09:00 12:00 Temperature 98.7 F Pulse Rate 120 H 114 H Pulse Rate [ From Monitor] Pulse Rate [ Right Radial] Respiratory 34 H 27 H Rate Blood Pressure 158/64 132/53 O2 Sat by Pulse 95 96 Oximetry General appearance: Present: no acute distress, well-nourished - EENT Eyes: PERRL, EOM intact Ears: bilateral: normal - Neck Neck: supple, normal ROM - Respiratory Respiratory effort: normal Respiratory: bilateral: CTA - Cardiovascular Rhythm: regular Heart Sounds: Present: S1 & S2. Absent: gallop, rub Extremities: pulses intact, No edema, normal color, Full ROM - Gastrointestinal General gastrointestinal: Present: soft, non-tender, non-distended, normal bowel sounds - Integumentary Integumentary: clear, warm, dry - Musculoskeletal Musculoskeletal: 1, strength equal bilaterally - Neurologic Neurologic: moves all extremities - Psychiatric Psychiatric: memory intact, appropriate mood/affect, intact judgment & insight - Labs CBC & Chem 7: 07/26/17 02:37 07/26/17 02:44 Labs: Abnormal lab results 07/26/17 07/26/17 07/27/17 Range/Units 17:30 21:41 07:38 POC Glucose 235 H (70-105) Lactic Acid 3.00 H* (0.7-2.0) mmol/L C-Reactive Protein 5.40 H (0.00-1.30) mg/dL 07/27/17 07/27/17 Range/Units 07:38 12:15 POC Glucose 252 H 262 H (70-105) Lactic Acid (0.7-2.0) mmol/L C-Reactive Protein (0.00-1.30) mg/dL - Imaging and cardiology Chest x-ray: report reviewed
--- NOTE | 2017-07-27 14:33 | Progress Note ---
Assessment and Plan Acute Hypoxemic Respiratory Failure Right lower lobe pneumonia vs unilateral pulmonary edema Sepsis Syndrome CMOP with severe Aortic Stenosis Leucocytosis Elevated D-dimer Metabolic Acidosis Lactic Acidosis Elevated Serum Troponins - cxr now more consistent with acute pulmonary edema - stopped IVF - prn gentle diuresis - continue empiric AB's - continue BIPAP support with prn breaks during daytime - prn haldol - schedule seroquel for agitation - CMOP per cardiology otherwise - will consider further VTE w/up - care plan discussed with and family at bedside .......he is critically ill on life sustaining interventions including continuous NIV and at risk for further deterioration including 34' CCT Subjective Date of service: 07/27/17 Principal diagnosis: Sepsis, aspiration pneumonia Interval history: Patient is seen today for: Acute Hypoxemic Respiratory Failure; Possible Aspiration Pneumonia; Delirium Seen and examined at bedside; 24hour events reviewed; nursing and respiratory care staff consulted; remains mostly on continuous BIPAP after he again decompensated overnight; no N/V/F/C; he is also with delirium at this point; discussed case with glove maker Objective Vital Signs - 12hr 07/27/17 07/27/17 07/27/17 02:41 02:51 03:00 Temperature Pulse Rate 118 H 117 H 105 H Respiratory 30 H 27 H 24 Rate Blood Pressure 131/58 131/58 138/58 O2 Sat by Pulse 92 92 94 Oximetry 07/27/17 07/27/17 07/27/17 03:11 03:21 03:31 Temperature Pulse Rate 103 H 115 H 109 H Respiratory 26 H 27 H 29 H Rate Blood Pressure 138/58 138/58 138/58 O2 Sat by Pulse 92 94 91 Oximetry 07/27/17 07/27/17 07/27/17 03:41 03:51 04:00 Temperature 97.4 F L Pulse Rate 102 H 118 H 114 H Respiratory 29 H 28 H 25 H Rate Blood Pressure 138/58 138/58 134/58 O2 Sat by Pulse 91 93 93 Oximetry 07/27/17 07/27/17 07/27/17 04:11 04:21 04:31 Temperature Pulse Rate 110 H 108 H 113 H Respiratory 30 H 26 H 30 H Rate Blood Pressure 134/58 134/58 134/58 O2 Sat by Pulse 89 92 92 Oximetry 07/27/17 07/27/17 07/27/17 04:41 04:51 05:00 Temperature Pulse Rate 113 H 95 H 104 H Respiratory 24 25 H 24 Rate Blood Pressure 134/58 134/58 114/49 O2 Sat by Pulse 92 91 94 Oximetry 07/27/17 07/27/17 07/27/17 05:11 05:21 05:31 Temperature Pulse Rate 102 H 103 H 102 H Respiratory 23 24 23 Rate Blood Pressure 114/49 114/49 114/49 O2 Sat by Pulse 90 91 92 Oximetry 07/27/17 07/27/17 07/27/17 05:41 05:51 06:00 Temperature Pulse Rate 102 H 100 H 101 H Respiratory 24 22 22 Rate Blood Pressure 114/49 114/49 117/52 O2 Sat by Pulse 93 94 93 Oximetry 07/27/17 07/27/17 07/27/17 06:11 06:21 06:31 Temperature Pulse Rate 102 H 105 H 109 H Respiratory 24 22 22 Rate Blood Pressure 117/52 117/52 117/52 O2 Sat by Pulse 95 90 91 Oximetry 07/27/17 07/27/17 07/27/17 06:41 06:51 07:01 Temperature Pulse Rate 115 H 115 H 120 H Respiratory 29 H 27 H 34 H Rate Blood Pressure 117/52 117/52 136/68 O2 Sat by Pulse 87 90 92 Oximetry 07/27/17 07/27/17 07/27/17 07:11 07:21 07:31 Temperature Pulse Rate 126 H 124 H 131 H Respiratory 29 H 34 H 39 H Rate Blood Pressure 136/68 136/68 136/68 O2 Sat by Pulse 90 Oximetry 07/27/17 07/27/17 07/27/17 07:41 07:51 08:00 Temperature 98.5 F Pulse Rate 131 H 132 H Respiratory 40 H 37 H Rate Blood Pressure 136/68 136/68 O2 Sat by Pulse Oximetry 07/27/17 07/27/17 07/27/17 08:01 08:05 08:11 Temperature Pulse Rate 131 H 124 H 120 H Respiratory 40 H 36 H 33 H Rate Blood Pressure 158/64 158/64 158/64 O2 Sat by Pulse 94 89 Oximetry 07/27/17 07/27/17 07/27/17 08:12 08:20 08:31 Temperature Pulse Rate 132 H 122 H Respiratory 35 H 32 H Rate Blood Pressure 161/69 158/64 O2 Sat by Pulse 95 92 93 Oximetry 07/27/17 07/27/17 07/27/17 08:41 08:51 09:00 Temperature Pulse Rate 122 H 120 H 114 H Respiratory 39 H 34 H 27 H Rate Blood Pressure 158/64 158/64 132/53 O2 Sat by Pulse 89 95 96 Oximetry 07/27/17 12:00 Temperature 98.7 F Pulse Rate Respiratory Rate Blood Pressure O2 Sat by Pulse Oximetry Constitutional: appears uncomfortable, other (agitated) Eyes: non-icteric ENT: oropharynx moist, other (oropharynx moist) Neck: supple, no lymphadenopathy, no JVD Effort: mildly labored Ascultation: Bilateral: diminished breath sounds (base), rhonchi Percussion: Bilateral: not dull Cardiovascular: irregular rhythm, murmur noted (GIRISH), other (no rubs) Gastrointestinal: normoactive bowel sounds, soft, non-tender, non-distended, other (No palpable HSM) Integumentary: normal Extremities: no cyanosis, pink and warm, pulses normal, no ischemia or petechiae , edema Neurologic: non-focal exam, pupils equal and round, motor strength normal and Psychiatric: other (delirious) CBC and BMP: 07/27/17 15:11 07/29/17 05:36 ABG, PT/INR, D-dimer: ABG POC ABG pH 7.344 (7.35-7.45) L 07/26/17 03:01 POC ABG pCO2 33.6 (35-45) L 07/26/17 03:01 POC ABG pO2 155 (80-105) H 07/26/17 03:01 POC ABG HCO3 18.3 07/26/17 03:01 POC ABG Total CO2 19 07/26/17 03:01 POC ABG O2 Sat 99 07/26/17 03:01 PT/INR, D-dimer D-Dimer 714.08 ng/mlDDU (0-234) H 07/26/17 02:46 Abnormal lab findings: Abnormal Labs 07/26/17 07/26/17 07/26/17 02:13 02:37 02:37 WBC 23.2 H RBC 3.49 L Hgb 10.5 L Hct 32.2 L RDW 17.5 H Lymphocytes % (Manual) 5.0 L Seg Neutrophils # Man 15.3 H D-Dimer POC ABG pH POC ABG pCO2 POC ABG pO2 Sodium Chloride Carbon Dioxide Glucose POC Glucose 353 H Hemoglobin A1c Lactic Acid Troponin T 0.155 H* C-Reactive Protein NT-Pro-B Natriuret Pep 07/26/17 07/26/17 07/26/17 02:44 02:44 02:46 WBC RBC Hgb Hct RDW Lymphocytes % (Manual) Seg Neutrophils # Wes D-Dimer 714.08 H POC ABG pH POC ABG pCO2 POC ABG pO2 Sodium 132 L Chloride 90.6 L Carbon Dioxide 18 L Glucose 364 H POC Glucose Hemoglobin A1c Lactic Acid 5.40 H* Troponin T C-Reactive Protein NT-Pro-B Natriuret Pep 8843 H 07/26/17 07/26/17 07/26/17 03:01 08:04 08:04 WBC RBC Hgb Hct RDW Lymphocytes % (Manual) Seg Neutrophils # Wes D-Dimer POC ABG pH 7.344 L POC ABG pCO2 33.6 L POC ABG pO2 155 H Sodium Chloride Carbon Dioxide Glucose POC Glucose Hemoglobin A1c 6.9 H Lactic Acid 4.80 H* Troponin T C-Reactive Protein NT-Pro-B Natriuret Pep 07/26/17 07/26/17 07/26/17 09:02 17:30 21:41 WBC RBC Hgb Hct RDW Lymphocytes % (Manual) Seg Neutrophils # Wes D-Dimer POC ABG pH POC ABG pCO2 POC ABG pO2 Sodium Chloride Carbon Dioxide Glucose POC Glucose 431 H 235 H Hemoglobin A1c Lactic Acid Troponin T C-Reactive Protein 5.40 H NT-Pro-B Natriuret Pep 07/27/17 07/27/17 07/27/17 07:38 07:38 12:15 WBC RBC Hgb Hct RDW Lymphocytes % (Manual) Seg Neutrophils # Wes D-Dimer POC ABG pH POC ABG pCO2 POC ABG pO2 Sodium Chloride Carbon Dioxide Glucose POC Glucose 252 H 262 H Hemoglobin A1c Lactic Acid 3.00 H* Troponin T C-Reactive Protein NT-Pro-B Natriuret Pep Chest x-ray: image reviewed (Increased bilateral pulmonary infiltrates)
[2017-07-27 15:29] LABS: Basophils % (Auto) 0.3 % (0.0-1.8); Eosinophils % (Auto) 0.1 % (0.0-4.3); Hematocrit 27.5 % (35.5-45.6); Hemoglobin 9.1 gm/dl (11.8-15.2); Mean Corpuscular HGB Conc 33 % (32-34); Mean Corpuscular Hemoglobin 30 pg (28-32); Mean Corpuscular Volume 90 fl (84-94); Platelet Count 227 K/mm3 (140-440); Red Blood Count 3.04 M/mm3 (3.65-5.03); Red Cell Distribution Width 17.1 % (13.2-15.2); White Blood Count 10.8 K/mm3 (4.5-11.0)
[2017-07-27 15:48] LABS: Alanine Aminotransferase 19 units/L (7-56); Albumin 3.5 g/dL (3.9-5); Albumin/Globulin Ratio 1.8 %; Alkaline Phosphatase 55 units/L (35-129); Anion Gap 21 mmol/L; BUN/Creatinine Ratio 29; Blood Urea Nitrogen 29 mg/dL (9-20); Calcium 8.4 mg/dL (8.4-10.2); Carbon Dioxide 21 mmol/L (22-30); Chloride 102.9 mmol/L (98-107); Glucose 152 mg/dL (75-100); Potassium 4.7 mmol/L (3.6-5.0); Sodium 140 mmol/L (137-145); Total Protein 5.5 g/dL (6.3-8.2)
[2017-07-27] MEDS: LASIX IV SCH (16:14)
[2017-07-27 16:34] LABS: ISTAT Base Excess -4; ISTAT HCO3 20.4; ISTAT PH 7.413 (7.35-7.45); ISTAT PO2 65 (80-105); ISTAT SO2 93; ISTAT TCO2 21
[2017-07-27] MEDS: HALDOL IV PRN ×2 (17:11→23:58)
[2017-07-28 01:14] LABS: ISTAT Base Excess -6; ISTAT HCO3 20.4; ISTAT PCO2 38.8 (35-45); ISTAT PH 7.329 (7.35-7.45); ISTAT PO2 323 (80-105); ISTAT SO2 100; ISTAT TCO2 22
[2017-07-28 04:51] LABS: Albumin 3.5 g/dL (3.9-5); Albumin/Globulin Ratio 2.1 %; Bilirubin,Total 0.5 mg/dL (0.1-1.2); Calcium 8.6 mg/dL (8.4-10.2); Potassium 4.8 mmol/L (3.6-5.0); Total Protein 5.2 g/dL (6.3-8.2)
[2017-07-28] MEDS: ZOSYN/NS 4.5GM/100ML 4.5 GM/100 ML VIAL IV SCH ×3 (06:07→22:58)
[2017-07-28] MEDS: LEVEMIR SUB-Q SCH (07:58)
[2017-07-28] MEDS: NOVOLOG SUB-Q SCH ×4 (07:58→23:01)
[2017-07-28] MEDS: HEPARIN SUB-Q SCH ×2 (09:13→23:01)
[2017-07-28] MEDS: LASIX IV SCH (09:13)
[2017-07-28] MEDS: VANCOMYCIN 1,250 MG in NACL 0.9% 250ML 250 ML IV SCH ×2 (09:32→20:56)
--- NOTE | 2017-07-28 11:32 | Progress Note ---
Assessment and Plan Continue current management. Obtain additional set of cardiac enzymes (none was obtained since initial troponin elevation). - Patient Problems (1) Sepsis Current Visit: Yes Status: Acute (2) Acute respiratory failure Current Visit: Yes Status: Acute Qualifiers: Respiratory failure complication: hypoxia Qualified Code(s): J96.01 - Acute respiratory failure with hypoxia (3) Pneumonia Current Visit: Yes Status: Acute (4) Acute diastolic HF (heart failure) Current Visit: Yes Status: Acute (5) Elevated troponin Current Visit: Yes Status: Acute (6) HTN (hypertension) Current Visit: Yes Status: Chronic Qualifiers: Hypertension type: essential hypertension Qualified Code(s): I10 - Essential (primary) hypertension (7) IDDM (insulin dependent diabetes mellitus) Current Visit: Yes Status: Chronic Subjective Date of service: 07/28/17 Principal diagnosis: Sepsis, pneumonia, acute HFpEf Interval history: Awake and alert. No specific complaints. Objective Vital Signs Last Vital Signs Temp 98.8 F 07/28/17 04:00 Pulse 92 H 07/28/17 11:20 Resp 17 07/28/17 11:20 BP 126/48 07/28/17 11:20 Pulse Ox 98 07/28/17 11:26 - Physical Examination General: No Apparent Distress HEENT: Positive: EOMI, Normocephaly, Mucus Membranes Moist Neck: Positive: neck supple, trachea midline Cardiac: Positive: Reg Rate and Rhythm, S1/S2 Lungs: Positive: Rhonchi Neuro: Positive: Grossly Intact Abdomen: Positive: Soft, Active Bowel Sounds. Negative: Tender Skin: Negative: Rash Musculoskeletal: Normal Range of Motion Extremities: Present: normal. Absent: edema - Labs and Meds Cardiac Enzymes 07/27/17 07/28/17 Range/Units 15:11 04:21 AST 17 25 (5-40) units/L CBC 07/27/17 Range/Units 15:11 WBC 10.8 (4.5-11.0) K/mm3 RBC 3.04 L (3.65-5.03) M/mm3 Hgb 9.1 L (11.8-15.2) gm/dl Hct 27.5 L (35.5-45.6) % Plt Count 227 (140-440) K/mm3 Lymph # 0.5 L (1.2-5.4) K/mm3 [place] # 0.6 (0.0-0.8) K/mm3 Eos # 0.0 (0.0-0.4) K/mm3 Baso # 0.0 (0.0-0.1) K/mm3 Comprehensive Metabolic Panel 07/27/17 07/28/17 Range/Units 15:11 04:21 Sodium 140 D 142 (137-145) mmol/L Potassium 4.7 D 4.8 (3.6-5.0) mmol/L Chloride 102.9 104.0 (98-107) mmol/L Carbon Dioxide 21 L 20 L (22-30) mmol/L BUN 29 H 33 H (9-20) mg/dL Creatinine 1.0 1.5 (0.8-1.5) mg/dL Glucose 152 H 118 H (75-100) mg/dL Calcium 8.4 8.6 (8.4-10.2) mg/dL AST 17 25 (5-40) units/L ALT 19 27 (7-56) units/L Alkaline Phosphatase 55 70 (35-129) units/L Total Protein 5.5 L 5.2 L (6.3-8.2) g/dL Albumin 3.5 L 3.5 L (3.9-5) g/dL
[2017-07-28] MEDS: PROzac PO SCH (13:08)
--- NOTE | 2017-07-28 15:19 | Progress Note ---
Assessment and Plan Assessment and plan: - Severe Sepsis: Still has Leukocytosis with elevate lactic acid level * Continue with Zosyn and Vanc. trend lactic acid level. * Will likely need gentle hydration, await discussion with cardiology. Stop IV lasix - Acute hypoxic respiratory failure: On BIPAP and bronchodilators. Pulm. following, nebulizer tx. - Aspiration pneumonia: Continue iv antibiotic - Acute on Chronic Kidney injury- likely secondary to vasomotor nephropathy * Stop lasix, creatnin increased to 1.5 may need hydration. if continues to worsen obtain renal consult. - Lactic acidosis: trend and continue with iv antibiotic. Holding ivf b/c CHF - Severe aortic stenosis: per disucssion with cardiology, doubt severity, vCardiology following - Diabetes mellitus with hyperglycemia: On SSI and consistent CHO diet - DVT and GI prophylaxis: with Heparin and pepcid Disposition: continue ICU care for now The high probability of a clinically significant, sudden or life threatening deterioration of the [pulmonary] system(s) required my full and direct attention , intervention and personal management. The aggregate critical care time was [35 ] minutes. This time is in addition to time spent performing reported procedures but includes the following: [x] Data Review and interpretation [x] Patient assessment and monitoring of vital signs [x] Documentation [x] Medication orders and management History Interval history: Patient seen and examined, remains with moderate Respiratory distress requiring BIPAP. Hospitalist Physical - Constitutional Vitals: Temp Pulse Resp BP Pulse Ox 97.5 F L 98 H 18 131/49 99 07/28/17 12:05 07/28/17 14:00 07/28/17 14:00 07/28/17 14:00 07/28/17 14:00 General appearance: Present: mild distress, well-nourished - EENT Eyes: Present: PERRL, EOM intact ENT: hearing intact, clear oral mucosa - Neck Neck: Present: supple, normal ROM - Respiratory Respiratory effort: labored Respiratory: bilateral: diminished - Cardiovascular Rhythm: regular Heart Sounds: Present: S1 & S2. Absent: systolic murmur, diastolic murmur - Extremities Extremities: pulses intact, pulses symmetrical, No edema Peripheral Pulses: within normal limits - Integumentary Integumentary: Present: clear, warm, dry - Psychiatric Psychiatric: appropriate mood/affect, intact judgment & insight, cooperative - Neurologic Neurologic: CNII-XII intact, moves all extremities - Allied Health Allied health notes reviewed: nursing, case management Results - Labs CBC & Chem 7: 07/27/17 15:11 07/29/17 05:36 Labs: Laboratory Last Values WBC 10.8 K/mm3 (4.5-11.0) 07/27/17 15:11 RBC 3.04 M/mm3 (3.65-5.03) L 07/27/17 15:11 Hgb 9.1 gm/dl (11.8-15.2) L 07/27/17 15:11 Hct 27.5 % (35.5-45.6) L 07/27/17 15:11 MCV 90 fl (84-94) 07/27/17 15:11 MCH 30 pg (28-32) 07/27/17 15:11 MCHC 33 % (32-34) 07/27/17 15:11 RDW 17.1 % (13.2-15.2) H 07/27/17 15:11 Plt Count 227 K/mm3 (140-440) 07/27/17 15:11 Lymph % (Auto) 4.7 % (13.4-35.0) L 07/27/17 15:11 [place] % (Auto) 5.2 % (0.0-7.3) 07/27/17 15:11 Eos % (Auto) 0.1 % (0.0-4.3) 07/27/17 15:11 Baso % (Auto) 0.3 % (0.0-1.8) 07/27/17 15:11 Lymph # 0.5 K/mm3 (1.2-5.4) L 07/27/17 15:11 [place] # 0.6 K/mm3 (0.0-0.8) 07/27/17 15:11 Eos # 0.0 K/mm3 (0.0-0.4) 07/27/17 15:11 Baso # 0.0 K/mm3 (0.0-0.1) 07/27/17 15:11 Add Manual Diff Complete 07/26/17 02:37 Total Counted 100 07/26/17 02:37 Seg Neutrophils % 89.7 % (40.0-70.0) H 07/27/17 15:11 Seg Neuts % (Manual) 66.0 % (40.0-70.0) 07/26/17 02:37 Band Neutrophils % 26.0 % 07/26/17 02:37 Lymphocytes % (Manual) 5.0 % (13.4-35.0) L 07/26/17 02:37 Reactive Lymphs % (Man) 0 % 07/26/17 02:37 Monocytes % (Manual) 2.0 % (0.0-7.3) 07/26/17 02:37 Eosinophils % (Manual) 1.0 % (0.0-4.3) 07/26/17 02:37 Basophils % (Manual) 0 % (0.0-1.8) 07/26/17 02:37 Metamyelocytes % 0 % 07/26/17 02:37 Myelocytes % 0 % 07/26/17 02:37 Promyelocytes % 0 % 07/26/17 02:37 Blast Cells % 0 % 07/26/17 02:37 Nucleated RBC % Not Reportable 07/26/17 02:37 Seg Neutrophils # 9.7 K/mm3 (1.8-7.7) H 07/27/17 15:11 Seg Neutrophils # Man 15.3 K/mm3 (1.8-7.7) H 07/26/17 02:37 Band Neutrophils # 6.0 K/mm3 07/26/17 02:37 Lymphocytes # (Manual) 1.2 K/mm3 (1.2-5.4) 07/26/17 02:37 Abs React Lymphs (Man) 0.0 K/mm3 07/26/17 02:37 Monocytes # (Manual) 0.5 K/mm3 (0.0-0.8) 07/26/17 02:37 Eosinophils # (Manual) 0.2 K/mm3 (0.0-0.4) 07/26/17 02:37 Basophils # (Manual) 0.0 K/mm3 (0.0-0.1) 07/26/17 02:37 Metamyelocytes # 0.0 K/mm3 07/26/17 02:37 Myelocytes # 0.0 K/mm3 07/26/17 02:37 Promyelocytes # 0.0 K/mm3 07/26/17 02:37 Blast Cells # 0.0 K/mm3 07/26/17 02:37 WBC Morphology Not Reportable 07/26/17 02:37 Hypersegmented Neuts Not Reportable 07/26/17 02:37 Hyposegmented Neuts Not Reportable 07/26/17 02:37 Hypogranular Neuts Not Reportable 07/26/17 02:37 Smudge Cells Not Reportable 07/26/17 02:37 Toxic Granulation Not Reportable 07/26/17 02:37 Toxic Vacuolation Not Reportable 07/26/17 02:37 Dohle Bodies Not Reportable 07/26/17 02:37 Pelger-Huet Anomaly Not Reportable 07/26/17 02:37 [place] Not Reportable 07/26/17 02:37 Platelet Estimate Consistent w auto 07/26/17 02:37 Clumped Platelets Not Reportable 07/26/17 02:37 Plt Clumps, EDTA Not Reportable 07/26/17 02:37 Large Platelets Not Reportable 07/26/17 02:37 Giant Platelets Not Reportable 07/26/17 02:37 Platelet Satelliting Not Reportable 07/26/17 02:37 Plt Morphology Comment Not Reportable 07/26/17 02:37 RBC Morphology Not Reportable 07/26/17 02:37 Dimorphic RBCs Not Reportable 07/26/17 02:37 Polychromasia Not Reportable 07/26/17 02:37 Hypochromasia Not Reportable 07/26/17 02:37 Poikilocytosis Not Reportable 07/26/17 02:37 Anisocytosis 1+ 07/26/17 02:37 Microcytosis Not Reportable 07/26/17 02:37 Macrocytosis Not Reportable 07/26/17 02:37 Spherocytes Not Reportable 07/26/17 02:37 Pappenheimer Bodies Not Reportable 07/26/17 02:37 Sickle Cells Not Reportable 07/26/17 02:37 Target Cells Not Reportable 07/26/17 02:37 Tear Drop Cells Not Reportable 07/26/17 02:37 Ovalocytes Not Reportable 07/26/17 02:37 Helmet Cells Not Reportable 07/26/17 02:[address] [place] Bodies Not Reportable 07/26/17 02:37 [place] Rings Not Reportable 07/26/17 02:37 [place] Cells Not Reportable 07/26/17 02:37 Bite Cells Not Reportable 07/26/17 02:37 Crenated Cell Not Reportable 07/26/17 02:37 Elliptocytes Few 07/26/17 02:37 Acanthocytes (Spur) Not Reportable 07/26/17 02:37 Rouleaux Not Reportable 07/26/17 02:37 Hemoglobin C Crystals Not Reportable 07/26/17 02:37 Schistocytes Not Reportable 07/26/17 02:37 Malaria parasites Not Reportable 07/26/17 02:37 [place] Bodies Not Reportable 07/26/17 02:37 Hem Pathologist Commnt No 07/26/17 02:37 D-Dimer 714.08 ng/mlDDU (0-234) H 07/26/17 02:46 POC ABG pH 7.329 (7.35-7.45) L 07/28/17 01:04 POC ABG pCO2 38.8 (35-45) 07/28/17 01:04 POC ABG pO2 323 (80-105) H 07/28/17 01:04 POC ABG HCO3 20.4 07/28/17 01:04 POC ABG Total CO2 22 07/28/17 01:04 POC ABG O2 Sat 100 07/28/17 01:04 POC ABG Base Excess -6 07/28/17 01:04 FiO2 100 % 07/28/17 01:04 Sodium 142 mmol/L (137-145) 07/28/17 04:21 Potassium 4.8 mmol/L (3.6-5.0) 07/28/17 04:21 Chloride 104.0 mmol/L (98-107) 07/28/17 04:21 Carbon Dioxide 20 mmol/L (22-30) L 07/28/17 04:21 Anion Gap 23 mmol/L 07/28/17 04:21 BUN 33 mg/dL (9-20) H 07/28/17 04:21 Creatinine 1.5 mg/dL (0.8-1.5) 07/28/17 04:21 Estimated GFR 45 ml/min 07/28/17 04:21 BUN/Creatinine Ratio 22 % 07/28/17 04:21 Glucose 118 mg/dL (75-100) H 07/28/17 04:21 POC Glucose 143 (70-105) H 07/28/17 11:35 Hemoglobin A1c 6.9 % (4-6) H 07/26/17 08:04 Lactic Acid 0.80 mmol/L (0.7-2.0) 07/27/17 21:47 Calcium 8.6 mg/dL (8.4-10.2) 07/28/17 04:21 Total Bilirubin 0.50 mg/dL (0.1-1.2) 07/28/17 04:21 AST 25 units/L (5-40) 07/28/17 04:21 ALT 27 units/L (7-56) 07/28/17 04:21 Alkaline Phosphatase 70 units/L (35-129) 07/28/17 04:21 Troponin T 0.196 ng/mL (0.00-0.029) H* D 07/28/17 13:07 C-Reactive Protein 5.40 mg/dL (0.00-1.30) H 07/26/17 17:30 NT-Pro-B Natriuret Pep 8843 pg/mL (0-900) H 07/26/17 02:44 Total Protein 5.2 g/dL (6.3-8.2) L 07/28/17 04:21 Albumin 3.5 g/dL (3.9-5) L 07/28/17 04:21 Albumin/Globulin Ratio 2.1 % 07/28/17 04:21 Triglycerides 106 mg/dL (2-149) 07/26/17 02:37 Cholesterol 128 mg/dL (50-199) 07/26/17 02:37 LDL Cholesterol Direct 59 mg/dL (50-130) 07/26/17 02:37 HDL Cholesterol 48 mg/dL (40-59) 07/26/17 02:37 Cholesterol/HDL Ratio 2.66 % 07/26/17 02:37 Urine Color Yellow (Yellow) 07/26/17 12:01 Urine Turbidity Clear (Clear) 07/26/17 12:01 Urine pH 5.0 (5.0-7.0) 07/26/17 12:01 Ur Specific [place] 1.017 (1.003-1.030) 07/26/17 12:01 Urine Protein 100 mg/dl mg/dL (Negative) 07/26/17 12:01 Urine Glucose (UA) 150 mg/dL (Negative) 07/26/17 12:01 Urine Ketones Tr mg/dL (Negative) 07/26/17 12:01 Urine Blood Neg (Negative) 07/26/17 12:01 Urine Nitrite Neg (Negative) 07/26/17 12:01 Urine Bilirubin Neg (Negative) 07/26/17 12:01 Urine Urobilinogen < 2.0 mg/dL (<2.0) 07/26/17 12:01 Ur Leukocyte Esterase Neg (Negative) 07/26/17 12:01 Urine WBC (Auto) < 1.0 /HPF (0.0-6.0) 07/26/17 12:01 Urine RBC (Auto) 1.0 /HPF (0.0-6.0) 07/26/17 12:01 Urine Mucus Few /HPF 07/26/17 12:01 - Imaging and Cardiology Chest x-ray: image reviewed (MILD EFFUSION)
--- NOTE | 2017-07-28 15:25 | Progress Note ---
Subjective Date of service: 07/28/17 Principal diagnosis: Sepsis, pneumonia, acute HFpEf Objective - Exam Narrative Exam: Not in cardiopulmonary distress. The patient appeared well nourished and normally developed, on NIPPV. Vital signs as documented. Head exam is unremarkable. No scleral icterus . Neck is without jugular venous distension, thyromegaly, or carotid bruits. Lungs crepitations on the right lower lung zone, BBS all over the chest. Cardiac exam reveals regular rate and Rhythm. First and second heart sounds normal. No murmurs, rubs or gallops. Abdominal exam reveals normal bowel sounds, no masses, no organomegaly and no aortic enlargement. Extremities are nonedematous and both femoral and pedal pulses are normal. 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 No focal weakness. Vital Signs - 12hr 07/28/17 07/28/17 07/28/17 03:27 03:31 03:41 Temperature Pulse Rate 86 90 91 H Pulse Rate [ From Monitor] Respiratory 35 H 22 21 Rate Blood Pressure 108/48 108/48 108/48 O2 Sat by Pulse 96 97 97 Oximetry 07/28/17 07/28/17 07/28/17 03:51 04:00 04:11 Temperature 98.8 F Pulse Rate 93 H 87 102 H Pulse Rate [ From Monitor] Respiratory 21 19 22 Rate Blood Pressure 108/48 111/50 111/50 O2 Sat by Pulse 96 98 98 Oximetry 07/28/17 07/28/17 07/28/17 04:21 04:31 04:41 Temperature Pulse Rate 98 H 94 H 91 H Pulse Rate [ From Monitor] Respiratory 21 22 20 Rate Blood Pressure 111/50 111/50 111/50 O2 Sat by Pulse 95 97 97 Oximetry 07/28/17 07/28/17 07/28/17 04:51 05:00 05:11 Temperature Pulse Rate 91 H 88 88 Pulse Rate [ From Monitor] Respiratory 21 22 25 H Rate Blood Pressure 111/50 108/43 108/43 O2 Sat by Pulse 97 98 99 Oximetry 07/28/17 07/28/17 07/28/17 05:21 05:31 05:41 Temperature Pulse Rate 92 H 94 H 93 H Pulse Rate [ From Monitor] Respiratory 22 23 22 Rate Blood Pressure 108/43 108/43 108/43 O2 Sat by Pulse 98 97 96 Oximetry 07/28/17 07/28/1717 05:51 06:01 06:11 Temperature Pulse Rate 87 110 H 91 H Pulse Rate [ From Monitor] Respiratory 19 28 H 22 Rate Blood Pressure 108/43 138/58 138/58 O2 Sat by Pulse 97 95 96 Oximetry 07/28/17 07/28/17 07/28/17 06:21 06:31 06:41 Temperature Pulse Rate 100 H 107 H 108 H Pulse Rate [ From Monitor] Respiratory 22 27 H 35 H Rate Blood Pressure 138/58 138/58 138/58 O2 Sat by Pulse 94 95 96 Oximetry 07/28/17 07/28/17 07/28/17 06:51 07:01 07:11 Temperature Pulse Rate 102 H 105 H 103 H Pulse Rate [ From Monitor] Respiratory 21 24 26 H Rate Blood Pressure 138/58 146/55 146/55 O2 Sat by Pulse 95 96 97 Oximetry 07/28/17 07/28/17 07/28/17 07:21 07:31 07:41 Temperature Pulse Rate 106 H 107 H 103 H Pulse Rate [ From Monitor] Respiratory 25 H 21 22 Rate Blood Pressure 146/55 146/55 146/55 O2 Sat by Pulse 96 96 97 Oximetry 07/28/17 07/28/17 07/28/17 07:51 08:00 08:11 Temperature Pulse Rate 100 H 97 H 99 H Pulse Rate [ 97 H From Monitor] Respiratory 24 20 22 Rate Blood Pressure 146/55 126/50 126/50 O2 Sat by Pulse 97 97 99 Oximetry 07/28/17 07/28/17 07/28/17 08:21 08:31 08:41 Temperature Pulse Rate 98 H 99 H 107 H Pulse Rate [ From Monitor] Respiratory 22 22 25 H Rate Blood Pressure 126/50 126/50 126/50 O2 Sat by Pulse 97 98 98 Oximetry 07/28/17 07/28/17 07/28/17 08:51 09:01 09:11 Temperature Pulse Rate 91 H 106 H 92 H Pulse Rate [ From Monitor] Respiratory 21 25 H 24 Rate Blood Pressure 126/50 139/65 139/65 O2 Sat by Pulse 96 97 97 Oximetry 07/28/17 07/28/17 07/28/17 09:21 09:31 09:41 Temperature Pulse Rate 111 H 90 98 H Pulse Rate [ From Monitor] Respiratory 37 H 24 22 Rate Blood Pressure 139/65 139/65 139/65 O2 Sat by Pulse 97 97 99 Oximetry 07/28/17 07/28/17 07/28/17 09:51 10:01 10:11 Temperature Pulse Rate 93 H 114 H 100 H Pulse Rate [ From Monitor] Respiratory 21 22 17 Rate Blood Pressure 139/65 151/60 151/60 O2 Sat by Pulse 99 98 98 Oximetry 07/28/17 07/28/17 07/28/17 10:21 10:31 10:41 Temperature Pulse Rate 90 95 H 94 H Pulse Rate [ From Monitor] Respiratory 21 21 18 Rate Blood Pressure 139/65 139/65 139/65 O2 Sat by Pulse 99 99 98 Oximetry 07/28/17 07/28/17 07/28/17 10:51 11:00 11:11 Temperature Pulse Rate 96 H 95 H 92 H Pulse Rate [ From Monitor] Respiratory 17 17 17 Rate Blood Pressure 139/65 126/48 126/48 O2 Sat by Pulse 98 97 98 Oximetry 07/28/17 07/28/17 07/28/17 11:20 11:21 11:26 Temperature Pulse Rate 92 H 92 H Pulse Rate [ From Monitor] Respiratory 17 17 Rate Blood Pressure 126/48 126/48 O2 Sat by Pulse 99 98 98 Oximetry 07/28/17 07/28/17 07/28/17 11:31 11:41 11:51 Temperature Pulse Rate 93 H 102 H 90 Pulse Rate [ From Monitor] Respiratory 19 23 16 Rate Blood Pressure 126/48 126/48 126/48 O2 Sat by Pulse 99 96 98 Oximetry 07/28/17 07/28/17 07/28/17 12:00 12:05 12:11 Temperature 97.5 F L Pulse Rate 87 101 H Pulse Rate [ 87 From Monitor] Respiratory 20 17 Rate Blood Pressure 126/42 126/42 O2 Sat by Pulse 97 97 Oximetry 07/28/17 07/28/17 07/28/17 12:21 12:31 12:41 Temperature Pulse Rate 103 H 101 H 104 H Pulse Rate [ From Monitor] Respiratory 19 17 17 Rate Blood Pressure 126/42 126/42 126/42 O2 Sat by Pulse 97 97 97 Oximetry 07/28/17 07/28/17 07/28/17 12:51 13:00 13:11 Temperature Pulse Rate 87 95 H 87 Pulse Rate [ From Monitor] Respiratory 18 20 24 Rate Blood Pressure 126/42 124/47 124/47 O2 Sat by Pulse 98 98 98 Oximetry 07/28/17 07/28/17 07/28/17 13:21 13:31 13:41 Temperature Pulse Rate 108 H 105 H Pulse Rate [ From Monitor] Respiratory 22 22 Rate Blood Pressure 124/47 124/47 124/47 O2 Sat by Pulse 97 97 95 Oximetry 07/28/17 07/28/17 13:51 14:00 Temperature Pulse Rate 92 H 98 H Pulse Rate [ From Monitor] Respiratory 22 18 Rate Blood Pressure 124/47 131/49 O2 Sat by Pulse 98 99 Oximetry CBC and BMP: 07/27/17 15:11 07/28/17 04:21 ABG, PT/INR, D-dimer: ABG POC ABG pH 7.329 (7.35-7.45) L 07/28/17 01:04 POC ABG pCO2 38.8 (35-45) 07/28/17 01:04 POC ABG pO2 323 (80-105) H 07/28/17 01:04 POC ABG HCO3 20.4 07/28/17 01:04 POC ABG Total CO2 22 07/28/17 01:04 POC ABG O2 Sat 100 07/28/17 01:04 PT/INR, D-dimer D-Dimer 714.08 ng/mlDDU (0-234) H 07/26/17 02:46 Abnormal lab findings: Abnormal Labs 07/26/17 07/26/17 07/26/17 02:13 02:37 02:37 WBC 23.2 H RBC 3.49 L Hgb 10.5 L Hct 32.2 L RDW 17.5 H Lymph % (Auto) Lymph # Seg Neutrophils % Lymphocytes % (Manual) 5.0 L Seg Neutrophils # Seg Neutrophils # Man 15.3 H D-Dimer POC ABG pH POC ABG pCO2 POC ABG pO2 Sodium Chloride Carbon Dioxide BUN Glucose POC Glucose 353 H Hemoglobin A1c Lactic Acid Troponin T 0.155 H* C-Reactive Protein NT-Pro-B Natriuret Pep Total Protein Albumin 07/26/17 07/26/17 07/26/17 02:44 02:44 02:46 WBC RBC Hgb Hct RDW Lymph % (Auto) Lymph # Seg Neutrophils % Lymphocytes % (Manual) Seg Neutrophils # Seg Neutrophils # Man D-Dimer 714.08 H POC ABG pH POC ABG pCO2 POC ABG pO2 Sodium 132 L Chloride 90.6 L Carbon Dioxide 18 L BUN Glucose 364 H POC Glucose Hemoglobin A1c Lactic Acid 5.40 H* Troponin T C-Reactive Protein NT-Pro-B Natriuret Pep 8843 H Total Protein Albumin 07/26/17 07/26/17 07/26/17 03:01 08:04 08:04 WBC RBC Hgb Hct RDW Lymph % (Auto) Lymph # Seg Neutrophils % Lymphocytes % (Manual) Seg Neutrophils # Seg Neutrophils # Man D-Dimer POC ABG pH 7.344 L POC ABG pCO2 33.6 L POC ABG pO2 155 H Sodium Chloride Carbon Dioxide BUN Glucose POC Glucose Hemoglobin A1c 6.9 H Lactic Acid 4.80 H* Troponin T C-Reactive Protein NT-Pro-B Natriuret Pep Total Protein Albumin 07/26/17 07/26/17 07/26/17 09:02 17:30 21:41 WBC RBC Hgb Hct RDW Lymph % (Auto) Lymph # Seg Neutrophils % Lymphocytes % (Manual) Seg Neutrophils # Seg Neutrophils # Man D-Dimer POC ABG pH POC ABG pCO2 POC ABG pO2 Sodium Chloride Carbon Dioxide BUN Glucose POC Glucose 431 H 235 H Hemoglobin A1c Lactic Acid Troponin T C-Reactive Protein 5.40 H NT-Pro-B Natriuret Pep Total Protein Albumin 07/27/17 07/27/17 07/27/17 07:38 07:38 12:15 WBC RBC Hgb Hct RDW Lymph % (Auto) Lymph # Seg Neutrophils % Lymphocytes % (Manual) Seg Neutrophils # Seg Neutrophils # Man D-Dimer POC ABG pH POC ABG pCO2 POC ABG pO2 Sodium Chloride Carbon Dioxide BUN Glucose POC Glucose 252 H 262 H Hemoglobin A1c Lactic Acid 3.00 H* Troponin T C-Reactive Protein NT-Pro-B Natriuret Pep Total Protein Albumin 07/27/17 07/27/17 07/27/17 15:11 15:11 16:01 WBC RBC 3.04 L Hgb 9.1 L Hct 27.5 L RDW 17.1 H Lymph % (Auto) 4.7 L Lymph # 0.5 L Seg Neutrophils % 89.7 H Lymphocytes % (Manual) Seg Neutrophils # 9.7 H Seg Neutrophils # Man D-Dimer POC ABG pH POC ABG pCO2 POC ABG pO2 Sodium Chloride Carbon Dioxide 21 L BUN 29 H Glucose 152 H POC Glucose 157 H Hemoglobin A1c Lactic Acid Troponin T C-Reactive Protein NT-Pro-B Natriuret Pep Total Protein 5.5 L Albumin 3.5 L 07/27/17 07/27/17 07/28/17 16:19 21:59 01:04 WBC RBC Hgb Hct RDW Lymph % (Auto) Lymph # Seg Neutrophils % Lymphocytes % (Manual) Seg Neutrophils # Seg Neutrophils # Man D-Dimer POC ABG pH 7.329 L POC ABG pCO2 32.0 L POC ABG pO2 65 L 323 H Sodium Chloride Carbon Dioxide BUN Glucose POC Glucose 128 H Hemoglobin A1c Lactic Acid Troponin T C-Reactive Protein NT-Pro-B Natriuret Pep Total Protein Albumin 07/28/17 07/28/17 07/28/17 04:21 07:58 11:35 WBC RBC Hgb Hct RDW Lymph % (Auto) Lymph # Seg Neutrophils % Lymphocytes % (Manual) Seg Neutrophils # Seg Neutrophils # Man D-Dimer POC ABG pH POC ABG pCO2 POC ABG pO2 Sodium Chloride Carbon Dioxide 20 L BUN 33 H Glucose 118 H POC Glucose 135 H 143 H Hemoglobin A1c Lactic Acid Troponin T C-Reactive Protein NT-Pro-B Natriuret Pep Total Protein 5.2 L Albumin 3.5 L 07/28/17 13:07 WBC RBC Hgb Hct RDW Lymph % (Auto) Lymph # Seg Neutrophils % Lymphocytes % (Manual) Seg Neutrophils # Seg Neutrophils # Man D-Dimer POC ABG pH POC ABG pCO2 POC ABG pO2 Sodium Chloride Carbon Dioxide BUN Glucose POC Glucose Hemoglobin A1c Lactic Acid Troponin T 0.196 H* D C-Reactive Protein NT-Pro-B Natriuret Pep Total Protein Albumin
[2017-07-28] MEDS: HALDOL IV PRN ×2 (15:50→23:00)
[2017-07-28] MEDS ORDERED: VASELINE LIP THERAPY TP ONE (17:19)
[2017-07-28] MEDS ORDERED: VASELINE LIP THERAPY TP PRN (17:27)
[2017-07-28] MEDS: MORPHINE IV PRN (22:59)
[2017-07-29] MEDS: ZOSYN/NS 4.5GM/100ML 4.5 GM/100 ML VIAL IV SCH ×3 (05:21→22:04)
[2017-07-29 06:14] LABS: Albumin 3.2 g/dL (3.9-5); Albumin/Globulin Ratio 1.6 %; Bilirubin,Total 0.5 mg/dL (0.1-1.2); Calcium 8.5 mg/dL (8.4-10.2); Chloride 105.6 mmol/L (98-107); Total Protein 5.2 g/dL (6.3-8.2)
[2017-07-29] MEDS ORDERED: NACL 0.9% 1000 ML 1,000 ML IV SCH (07:00)
[2017-07-29] MEDS: LEVEMIR SUB-Q SCH (07:29)
[2017-07-29] MEDS: NOVOLOG SUB-Q SCH ×3 (08:31→17:21)
[2017-07-29] MEDS: PROzac PO SCH (09:43)
[2017-07-29] MEDS: HEPARIN SUB-Q SCH ×2 (09:44→22:04)
--- NOTE | 2017-07-29 10:44 | Progress Note ---
Assessment and Plan Acute Hypoxemic Respiratory Failure Right lower lobe pneumonia vs unilateral pulmonary edema Sepsis Syndrome CMOP with severe Aortic Stenosis Leucocytosis Elevated D-dimer Metabolic Acidosis Lactic Acidosis Elevated Serum Troponins - prn gentle diuresis - continue empiric AB's - repeat lactate and CRP levels - continue BIPAP support with prn breaks during daytime - prn haldol - continue scheduled seroquel for agitation/delirium - CMOP per cardiology otherwise - care plan discussed with and family at bedside .......he is critically ill on life sustaining interventions including continuous NIV and at risk for further deterioration including 34' CCT Subjective Date of service: 07/29/17 Principal diagnosis: Acute Hypoxemic Respiratory Failure; Acute Pulmonary Edema ; Severe Interval history: Patient is seen today for: Acute Hypoxemic Respiratory Failure; Possible Aspiration Pneumonia; Delirium Seen and examined at bedside; 24hour events reviewed; nursing and respiratory care staff consulted; remains mostly on continuous BIPAP; remains with delirium ; no N/V/F/C; family visiting; no hemoptrsis; no increased oxygen needs Objective Vital Signs - 12hr 07/28/17 07/28/17 07/28/17 22:59 23:00 23:29 Temperature 97.4 F L Pulse Rate 114 H Respiratory 32 H 27 H 18 Rate Blood Pressure 118/55 O2 Sat by Pulse 92 Oximetry 07/29/17 07/29/17 07/29/17 00:00 01:00 02:00 Temperature Pulse Rate 103 H 101 H 94 H Respiratory 21 20 17 Rate Blood Pressure 110/46 116/47 116/44 O2 Sat by Pulse 96 97 97 Oximetry 07/29/17 07/29/17 07/29/17 03:00 03:56 04:00 Temperature 97.6 F Pulse Rate 92 H 100 H Respiratory 16 17 Rate Blood Pressure 102/42 128/51 O2 Sat by Pulse 97 96 Oximetry 07/29/17 07/29/17 07/29/17 04:47 05:00 06:00 Temperature Pulse Rate 92 H 94 H 98 H Respiratory 16 14 17 Rate Blood Pressure 128/51 117/50 122/45 O2 Sat by Pulse 98 97 96 Oximetry 07/29/17 07/29/17 07/29/17 07:01 08:00 08:57 Temperature Pulse Rate 107 H 99 H 104 H Respiratory 22 20 22 Rate Blood Pressure 130/37 124/48 124/48 O2 Sat by Pulse 97 91 97 Oximetry 07/29/17 09:00 Temperature Pulse Rate 101 H Respiratory 20 Rate Blood Pressure 132/45 O2 Sat by Pulse 97 Oximetry Constitutional: appears uncomfortable, other (agitated) Eyes: non-icteric ENT: oropharynx moist, other (oropharynx moist) Neck: supple, no lymphadenopathy, no JVD Effort: mildly labored Ascultation: Bilateral: diminished breath sounds (base), rhonchi Percussion: Bilateral: not dull Cardiovascular: irregular rhythm, murmur noted (GIRISH), other (no rubs) Gastrointestinal: normoactive bowel sounds, soft, non-tender, non-distended, other (No palpable HSM) Integumentary: normal Extremities: no cyanosis, pink and warm, pulses normal, no ischemia or petechiae , edema Neurologic: non-focal exam, pupils equal and round, motor strength normal and Psychiatric: other (delirious) CBC and BMP: 08/01/17 04:09 08/01/17 04:09 ABG, PT/INR, D-dimer: ABG POC ABG pH 7.329 (7.35-7.45) L 07/28/17 01:04 POC ABG pCO2 38.8 (35-45) 07/28/17 01:04 POC ABG pO2 323 (80-105) H 07/28/17 01:04 POC ABG HCO3 20.4 07/28/17 01:04 POC ABG Total CO2 22 07/28/17 01:04 POC ABG O2 Sat 100 07/28/17 01:04 PT/INR, D-dimer D-Dimer 714.08 ng/mlDDU (0-234) H 07/26/17 02:46 Abnormal lab findings: Abnormal Labs 07/26/17 07/26/17 07/26/17 02:13 02:37 02:37 WBC 23.2 H RBC 3.49 L Hgb 10.5 L Hct 32.2 L RDW 17.5 H Lymph % (Auto) Lymph # Seg Neutrophils % Lymphocytes % (Manual) 5.0 L Seg Neutrophils # Seg Neutrophils # Man 15.3 H D-Dimer POC ABG pH POC ABG pCO2 POC ABG pO2 Sodium Chloride Carbon Dioxide BUN Creatinine Glucose POC Glucose 353 H Hemoglobin A1c Lactic Acid Troponin T 0.155 H* C-Reactive Protein NT-Pro-B Natriuret Pep Total Protein Albumin 07/26/17 07/26/17 07/26/17 02:44 02:44 02:46 WBC RBC Hgb Hct RDW Lymph % (Auto) Lymph # Seg Neutrophils % Lymphocytes % (Manual) Seg Neutrophils # Seg Neutrophils # Man D-Dimer 714.08 H POC ABG pH POC ABG pCO2 POC ABG pO2 Sodium 132 L Chloride 90.6 L Carbon Dioxide 18 L BUN Creatinine Glucose 364 H POC Glucose Hemoglobin A1c Lactic Acid 5.40 H* Troponin T C-Reactive Protein NT-Pro-B Natriuret Pep 8843 H Total Protein Albumin 07/26/17 07/26/17 07/26/17 03:01 08:04 08:04 WBC RBC Hgb Hct RDW Lymph % (Auto) Lymph # Seg Neutrophils % Lymphocytes % (Manual) Seg Neutrophils # Seg Neutrophils # Man D-Dimer POC ABG pH 7.344 L POC ABG pCO2 33.6 L POC ABG pO2 155 H Sodium Chloride Carbon Dioxide BUN Creatinine Glucose POC Glucose Hemoglobin A1c 6.9 H Lactic Acid 4.80 H* Troponin T C-Reactive Protein NT-Pro-B Natriuret Pep Total Protein Albumin 07/26/17 07/26/17 07/26/17 09:02 17:30 21:41 WBC RBC Hgb Hct RDW Lymph % (Auto) Lymph # Seg Neutrophils % Lymphocytes % (Manual) Seg Neutrophils # Seg Neutrophils # Man D-Dimer POC ABG pH POC ABG pCO2 POC ABG pO2 Sodium Chloride Carbon Dioxide BUN Creatinine Glucose POC Glucose 431 H 235 H Hemoglobin A1c Lactic Acid Troponin T C-Reactive Protein 5.40 H NT-Pro-B Natriuret Pep Total Protein Albumin 07/27/17 07/27/17 07/27/17 07:38 07:38 12:15 WBC RBC Hgb Hct RDW Lymph % (Auto) Lymph # Seg Neutrophils % Lymphocytes % (Manual) Seg Neutrophils # Seg Neutrophils # Man D-Dimer POC ABG pH POC ABG pCO2 POC ABG pO2 Sodium Chloride Carbon Dioxide BUN Creatinine Glucose POC Glucose 252 H 262 H Hemoglobin A1c Lactic Acid 3.00 H* Troponin T C-Reactive Protein NT-Pro-B Natriuret Pep Total Protein Albumin 07/27/17 07/27/17 07/27/17 15:11 15:11 16:01 WBC RBC 3.04 L Hgb 9.1 L Hct 27.5 L RDW 17.1 H Lymph % (Auto) 4.7 L Lymph # 0.5 L Seg Neutrophils % 89.7 H Lymphocytes % (Manual) Seg Neutrophils # 9.7 H Seg Neutrophils # Man D-Dimer POC ABG pH POC ABG pCO2 POC ABG pO2 Sodium Chloride Carbon Dioxide 21 L BUN 29 H Creatinine Glucose 152 H POC Glucose 157 H Hemoglobin A1c Lactic Acid Troponin T C-Reactive Protein NT-Pro-B Natriuret Pep Total Protein 5.5 L Albumin 3.5 L 07/27/17 07/27/17 07/28/17 16:19 21:59 01:04 WBC RBC Hgb Hct RDW Lymph % (Auto) Lymph # Seg Neutrophils % Lymphocytes % (Manual) Seg Neutrophils # Seg Neutrophils # Man D-Dimer POC ABG pH 7.329 L POC ABG pCO2 32.0 L POC ABG pO2 65 L 323 H Sodium Chloride Carbon Dioxide BUN Creatinine Glucose POC Glucose 128 H Hemoglobin A1c Lactic Acid Troponin T C-Reactive Protein NT-Pro-B Natriuret Pep Total Protein Albumin 07/28/17 07/28/17 07/28/17 04:21 07:58 11:35 WBC RBC Hgb Hct RDW Lymph % (Auto) Lymph # Seg Neutrophils % Lymphocytes % (Manual) Seg Neutrophils # Seg Neutrophils # Man D-Dimer POC ABG pH POC ABG pCO2 POC ABG pO2 Sodium Chloride Carbon Dioxide 20 L BUN 33 H Creatinine Glucose 118 H POC Glucose 135 H 143 H Hemoglobin A1c Lactic Acid Troponin T C-Reactive Protein NT-Pro-B Natriuret Pep Total Protein 5.2 L Albumin 3.5 L 07/28/17 07/28/17 07/29/17 13:07 16:32 05:36 WBC RBC Hgb Hct RDW Lymph % (Auto) Lymph # Seg Neutrophils % Lymphocytes % (Manual) Seg Neutrophils # Seg Neutrophils # Man D-Dimer POC ABG pH POC ABG pCO2 POC ABG pO2 Sodium Chloride Carbon Dioxide 16 L BUN 43 H Creatinine 1.9 H Glucose 148 H POC Glucose 132 H Hemoglobin A1c Lactic Acid Troponin T 0.196 H* D C-Reactive Protein NT-Pro-B Natriuret Pep Total Protein 5.2 L Albumin 3.2 L Chest x-ray: image reviewed (persistent bilateral interstitial infiltrates) Allied health notes reviewed: nursing
--- NOTE | 2017-07-29 12:04 | Progress Note ---
Assessment and Plan Repeat echo for further evaluation of aortic stenosis. Await nephrology consultation. IVF initiated per primary. Assessment and plan reviewed with pt and pt's family at bedside. The patient has been seen in conjunction with Dr. Brown who agrees with the assessment and plan of care. - Patient Problems (1) Acute respiratory failure Current Visit: Yes Status: Acute Qualifiers: Respiratory failure complication: hypoxia Qualified Code(s): J96.01 - Acute respiratory failure with hypoxia (2) Pneumonia Current Visit: Yes Status: Acute Qualifiers: Pneumonia type: due to unspecified organism Laterality: right Lung location: lower lobe of lung Qualified Code(s): J18.1 - Lobar pneumonia, unspecified organism (3) Sepsis Current Visit: Yes Status: Acute Qualifiers: Sepsis type: sepsis due to unspecified organism Qualified Code(s): A41.9 - Sepsis, unspecified organism (4) Acute diastolic HF (heart failure) Current Visit: Yes Status: Acute (5) Elevated troponin Current Visit: Yes Status: Acute (6) YANY (acute kidney injury) Current Visit: Yes Status: Acute (7) HTN (hypertension) Current Visit: Yes Status: Chronic Qualifiers: Hypertension type: essential hypertension Qualified Code(s): I10 - Essential (primary) hypertension (8) IDDM (insulin dependent diabetes mellitus) Current Visit: Yes Status: Chronic Subjective Date of service: 07/29/17 Principal diagnosis: Acute Hypoxemic Respiratory Failure; Acute Pulmonary Edema ; Severe Interval history: Pt resting in bed, remains on BiPAP. Brief runs of atrial tachycardia noted on telemetry. Objective Last Vital Signs Temp 97.6 F 07/29/17 03:56 Pulse 101 H 07/29/17 09:00 Resp 20 07/29/17 09:00 BP 132/45 07/29/17 09:00 Pulse Ox 97 07/29/17 09:00 - Physical Examination General: No Apparent Distress HEENT: Positive: EOMI, Normocephaly, Mucus Membranes Moist Neck: Positive: neck supple, trachea midline Cardiac: Positive: Reg Rate and Rhythm, S1/S2 Lungs: Positive: Decreased Breath Sounds, Rhonchi Neuro: Positive: Grossly Intact Abdomen: Positive: Soft, Active Bowel Sounds. Negative: Tender Skin: Negative: Rash Musculoskeletal: Normal Range of Motion Extremities: Present: normal. Absent: edema - Labs and Meds Cardiac Enzymes 07/29/17 Range/Units 05:36 AST 17 (5-40) units/L Comprehensive Metabolic Panel 07/29/17 Range/Units 05:36 Sodium 145 (137-145) mmol/L Potassium 4.0 (3.6-5.0) mmol/L Chloride 105.6 (98-107) mmol/L Carbon Dioxide 16 L (22-30) mmol/L BUN 43 H (9-20) mg/dL Creatinine 1.9 H (0.8-1.5) mg/dL Glucose 148 H (75-100) mg/dL Calcium 8.5 (8.4-10.2) mg/dL AST 17 (5-40) units/L ALT 24 (7-56) units/L Alkaline Phosphatase 66 (35-129) units/L Total Protein 5.2 L (6.3-8.2) g/dL Albumin 3.2 L (3.9-5) g/dL
[2017-07-29] MEDS: MORPHINE IV PRN (13:38)
--- NOTE | 2017-07-29 13:55 | XRay Report ---
AP chest x-ray. Findings: CHF pattern persists with slight increase in right lower lobe opacity and obscuration of the hemidiaphragm. Bilateral small effusions persist. Impression: Mild worsening of CHF.
--- NOTE | 2017-07-29 15:54 | Consultation ---
History of Present Illness - Reason for Consult Consult date: 07/29/17 acute renal failure Requesting physician: ARIANA RUBI - History of Present Illness 82 year old male with past medical history significant for diabetes mellitus type 2, hypertension, hyperlipidemia, severe aortic stenosis admitted after he presented with worsening shortness of breath x 1 week duration in association with poor appetite and dry cough for the last 1 week. Per pateint has had difficulty urination and has noticed reduced urine put put. We are consulted for evaluation of rising CR. He was admitted with a CR of 1 and CR increased to 1.5 yesterday and to 1.9 today. No contrast exposure. No NSAIDs. No hypotension episodes. Past History Past Medical History: diabetes, hypertension, hyperlipidemia, other (severe aortic stenosis) Past Surgical History: Other (shoulder surgery) Social history: full code. denies: smoking, alcohol abuse, prescription drug abuse, IV drug use Family history: no significant family history Medications and Allergies Allergies Allergy/AdvReac Type Severity Reaction Status Date / Time No Known Allergies Allergy Verified 04/20/17 22:40 Home Medications Medication Instructions Recorded Confirmed Last Taken Type amLODIPine [Norvasc] 5 mg PO QDAY #30 tablet 09/11/16 07/26/17 Unknown Rx metFORMIN [Glucophage] 500 mg PO TIDDIAB #90 tablet 09/11/16 07/26/17 Unknown Rx FLUoxetine HCL [Fluoxetine HCl] 20 mg PO DAILY 07/26/17 07/26/17 Unknown History HumaLOG Mix 75/25 Vial 30 units SQ BID 07/26/17 07/26/17 Unknown History Omeprazole 40 mg PO DAILY 07/26/17 07/26/17 Unknown History Pravastatin Sodium [Pravachol] 40 mg PO QHS 07/26/17 07/26/17 Unknown History Active Meds: Active Medications Acetaminophen (Tylenol) 650 mg PO Q6H PRN PRN Reason: Pain, Mild (1-3) Dextrose (D50w (25gm) Syringe) 50 ml IV PRN PRN PRN Reason: Hypoglycemia Fluoxetine HCl (Prozac) 20 mg PO DAILY JOHN Last Admin: 07/29/17 09:43 Dose: 20 mg Haloperidol Lactate (Haldol) 5 mg IV Q8H PRN PRN Reason: Agitation Last Admin: 07/28/17 23:00 Dose: 5 mg Heparin Sodium (Porcine) (Heparin) 5,000 unit SUB-Q BID [facility] Last Admin: 07/29/17 09:44 Dose: 5,000 unit Hydrophilic Ointment (Vaseline Lip Therapy) 1 applic TP PRN PRN PRN Reason: Skin Irritation Piperacillin Sod/Tazobactam Sod (Zosyn/Ns 4.5gm/100ml) 4.5 gm in 100 mls @ 200 mls/hr IV Q8HR JOHN PRN Reason: Protocol Last Admin: 07/29/17 13:29 Dose: 200 mls/hr Sodium Chloride (Nacl 0.9% 1000 Ml) 1,000 mls @ 42 mls/hr IV DIRECT [facility] Last Admin: 07/29/17 13:30 Dose: 42 mls/hr Vancomycin HCl 1,250 mg/ (Sodium Chloride) 262.5 mls @ 166.667 mls/hr IV Q24H [facility] Insulin Aspart (Novolog) 0 units SUB-Q Q6HR JOHN PRN Reason: Protocol Last Admin: 07/29/17 13:30 Dose: Not Given Morphine Sulfate (Morphine) 2 mg IV Q4H PRN PRN Reason: Pain, Moderate (4-6) Last Admin: 07/29/17 13:38 Dose: 2 mg Ondansetron HCl (Zofran) 4 mg IV Q6H PRN PRN Reason: Nausea And Vomiting Quetiapine Fumarate (Seroquel) 50 mg PO QAM [facility] Quetiapine Fumarate (Seroquel) 100 mg PO QHS [facility] Vancomycin HCl (Vancomycin Pharmacy To Dose) 1 each IV PKCONSULT [facility] PRN Reason: Protocol Review of Systems Constitutional: no fever, no chills Ears, nose, mouth and throat: no ear pain, no ear discharge, no tinnitis, no nose pain Cardiovascular: shortness of breath, no chest pain, no orthopnea Respiratory: cough, cough with sputum Gastrointestinal: no nausea, no vomiting, no diarrhea Genitourinary Male: urinary hesitancy, urinary retention, no dysuria, no hematuria Rectal: no pain, no incontinence Musculoskeletal: no neck stiffness, no neck pain, no low back pain Integumentary: no rash, no pruritis, no redness Neurological: no paralysis, no weakness, no tingling, no seizures Psychiatric: no anxiety, no memory loss Endocrine: no cold intolerance, no heat intolerance Hematologic/Lymphatic: no easy bruising, no easy bleeding Exam - Vital Signs Vital signs: Vital Signs Temp Pulse Resp BP 98.2 F 124 H 27 H 130/56 07/26/17 02:18 07/26/17 02:18 07/26/17 02:18 07/26/17 02:18 - General Appearance General appearance: well-developed, well-nourished, moderate distress, frail, other (on BiPAP) EENT: PERRL, mucous membranes moist Neck: Present: neck supple, trachea midline. Absent: JVD/HJR, Masses Respiratory: Rales, Wheezes Heart: regular, normal heart rate, S1S2, no murmurs Gastrointestinal: Present: normoactive bowel sounds. Absent: tenderness, distended, masses, guarding Integumentary: no rash, warm and dry Neurologic: no focal deficit, confused Musculoskeletal: Absent: deformities, joint swelling Psychiatric: mood/affect appropriate, cooperative Results - Lab Results 07/27/17 15:11 07/29/17 05:36 Most recent lab results Calcium 8.5 mg/dL (8.4-10.2) 07/29/17 05:36 Assessment and Plan 1. Acute Kidney Injury 2/2 likely Septic/ischemic ATN vs vanco toxicity, AIN r/ o obstructive uropathy 2. Acute hypoxic respiratory failure pulmonary edema/Pneumonia 3. AG metabolic acidosis 2/2 lactic acidosis 4. Sepsis 5. Aortic stenosis Plan; Obtain urine studies Obtain renal U.S Ba catheter-strict I/Os Check vancomycin trough level, renal dosing for antibiotics Check Urine eosinophiles D/C IVF-worsening pulmonary edema on CxR Lasix x1 dose given today Discussed with family Avoid nephrotoxines Maintain MAP> =65 Further recommendations to follow.
[2017-07-29] MEDS: VANCOMYCIN 1,250 MG in NACL 0.9% 250ML 250 ML IV SCH (22:04)
--- NOTE | 2017-07-29 22:42 | Progress Note ---
Assessment and Plan Assessment and plan: 82 yo male with severe aortic stenosis, HTN, DM, presented for worsening shortness of breath, cough, decreased oral intake, difficulty urination and decreased urine output 1. Acute hypoxic respiratory failure Likely secondary to pneumonia and volume overload On antibiotics and bronchodilators; status post IV Lasix 1 Requiring BiPAP Pulmonary following 2. RLL pneumonia Likely aspiration pneumonia On broad-spectrum antibiotics 3. Sepsis Due to #2 Continue antibiotics; IV fluids discontinued due to volume overload and worsening respiratory distress 4. Elevated d-dimer VQ scan negative for PE 5. Elevated troponin Nonspecific, likely secondary to increased demand/renal insufficiency 6. Acute renal failure Renal function worsening despite hydration Possible secondary to reduced post load due to with hypoperfusion vs vancomycin toxicity versus obstructive uropathy Nephrology consulted; ultrasound, urine lites ordered IV fluids discontinued due to worsening pulmonary edema Status post IV Lasix 1 Monitoring BUN/creatinine and electrolytes 7. Metabolic acidosis Due to renal insufficiency 8. Severe aortic stenosis Cardiology following and plans to repeat echocardiogram 9. Acute diastolic heart failure Preserved EF Diuresis with caution given preload dependent and renal insufficiency 10. Hypertension BP within normal limits on no medications Monitor 11. Diabetes Accu-Cheks and SSI 12. DVT prophylaxis 13. Guarded prognosis; discussed with family History Interval history: Tachycardic, tachypneic, mildly agitated Not tolerating high flow, placed back on BiPAP Family at bedside Hospitalist Physical - Constitutional Vitals: Temp Pulse Resp BP Pulse Ox 98.7 F 93 H 21 123/48 96 07/29/17 19:00 07/29/17 21:00 07/29/17 21:00 07/29/17 21:00 07/29/17 21:00 General appearance: Present: mild distress, well-nourished - EENT Eyes: Present: PERRL, EOM intact. Absent: scleral icterus, conjunctival injection - Neck Neck: Present: supple. Absent: enlarged thyroid, masses or JVD - Respiratory Respiratory effort: labored Respiratory: bilateral: diminished, rales, negative: wheezing - Cardiovascular Rhythm: other (tachycardic) Heart Sounds: Present: S1 & S2, systolic murmur - Extremities Extremities: no ischemia - Abdominal General gastrointestinal: soft, non-tender, non-distended, normal bowel sounds - Neurologic Neurologic: no focal deficits Results - Labs CBC & Chem 7: 07/27/17 15:11 07/31/17 10:11 Labs: Laboratory Last Values WBC 10.8 K/mm3 (4.5-11.0) 07/27/17 15:11 RBC 3.04 M/mm3 (3.65-5.03) L 07/27/17 15:11 Hgb 9.1 gm/dl (11.8-15.2) L 07/27/17 15:11 Hct 27.5 % (35.5-45.6) L 07/27/17 15:11 MCV 90 fl (84-94) 07/27/17 15:11 MCH 30 pg (28-32) 07/27/17 15:11 MCHC 33 % (32-34) 07/27/17 15:11 RDW 17.1 % (13.2-15.2) H 07/27/17 15:11 Plt Count 227 K/mm3 (140-440) 07/27/17 15:11 Lymph % (Auto) 4.7 % (13.4-35.0) L 07/27/17 15:11 Garza % (Auto) 5.2 % (0.0-7.3) 07/27/17 15:11 Eos % (Auto) 0.1 % (0.0-4.3) 07/27/17 15:11 Baso % (Auto) 0.3 % (0.0-1.8) 07/27/17 15:11 Lymph # 0.5 K/mm3 (1.2-5.4) L 07/27/17 15:11 Garza # 0.6 K/mm3 (0.0-0.8) 07/27/17 15:11 Eos # 0.0 K/mm3 (0.0-0.4) 07/27/17 15:11 Baso # 0.0 K/mm3 (0.0-0.1) 07/27/17 15:11 Add Manual Diff Complete 07/26/17 02:37 Total Counted 100 07/26/17 02:37 Seg Neutrophils % 89.7 % (40.0-70.0) H 07/27/17 15:11 Seg Neuts % (Manual) 66.0 % (40.0-70.0) 07/26/17 02:37 Band Neutrophils % 26.0 % 07/26/17 02:37 Lymphocytes % (Manual) 5.0 % (13.4-35.0) L 07/26/17 02:37 Reactive Lymphs % (Man) 0 % 07/26/17 02:37 Monocytes % (Manual) 2.0 % (0.0-7.3) 07/26/17 02:37 Eosinophils % (Manual) 1.0 % (0.0-4.3) 07/26/17 02:37 Basophils % (Manual) 0 % (0.0-1.8) 07/26/17 02:37 Metamyelocytes % 0 % 07/26/17 02:37 Myelocytes % 0 % 07/26/17 02:37 Promyelocytes % 0 % 07/26/17 02:37 Blast Cells % 0 % 07/26/17 02:37 Nucleated RBC % Not Reportable 07/26/17 02:37 Seg Neutrophils # 9.7 K/mm3 (1.8-7.7) H 07/27/17 15:11 Seg Neutrophils # Man 15.3 K/mm3 (1.8-7.7) H 07/26/17 02:37 Band Neutrophils # 6.0 K/mm3 07/26/17 02:37 Lymphocytes # (Manual) 1.2 K/mm3 (1.2-5.4) 07/26/17 02:37 Abs React Lymphs (Man) 0.0 K/mm3 07/26/17 02:37 Monocytes # (Manual) 0.5 K/mm3 (0.0-0.8) 07/26/17 02:37 Eosinophils # (Manual) 0.2 K/mm3 (0.0-0.4) 07/26/17 02:37 Basophils # (Manual) 0.0 K/mm3 (0.0-0.1) 07/26/17 02:37 Metamyelocytes # 0.0 K/mm3 07/26/17 02:37 Myelocytes # 0.0 K/mm3 07/26/17 02:37 Promyelocytes # 0.0 K/mm3 07/26/17 02:37 Blast Cells # 0.0 K/mm3 07/26/17 02:37 WBC Morphology Not Reportable 07/26/17 02:37 Hypersegmented Neuts Not Reportable 07/26/17 02:37 Hyposegmented Neuts Not Reportable 07/26/17 02:37 Hypogranular Neuts Not Reportable 07/26/17 02:37 Smudge Cells Not Reportable 07/26/17 02:37 Toxic Granulation Not Reportable 07/26/17 02:37 Toxic Vacuolation Not Reportable 07/26/17 02:37 Dohle Bodies Not Reportable 07/26/17 02:37 Pelger-Huet Anomaly Not Reportable 07/26/17 02:37 Belle Rods Not Reportable 07/26/17 02:37 Platelet Estimate Consistent w auto 07/26/17 02:37 Clumped Platelets Not Reportable 07/26/17 02:37 Plt Clumps, EDTA Not Reportable 07/26/17 02:37 Large Platelets Not Reportable 07/26/17 02:37 Giant Platelets Not Reportable 07/26/17 02:37 Platelet Satelliting Not Reportable 07/26/17 02:37 Plt Morphology Comment Not Reportable 07/26/17 02:37 RBC Morphology Not Reportable 07/26/17 02:37 Dimorphic RBCs Not Reportable 07/26/17 02:37 Polychromasia Not Reportable 07/26/17 02:37 Hypochromasia Not Reportable 07/26/17 02:37 Poikilocytosis Not Reportable 07/26/17 02:37 Anisocytosis 1+ 07/26/17 02:37 Microcytosis Not Reportable 07/26/17 02:37 Macrocytosis Not Reportable 07/26/17 02:37 Spherocytes Not Reportable 07/26/17 02:37 Pappenheimer Bodies Not Reportable 07/26/17 02:37 Sickle Cells Not Reportable 07/26/17 02:37 Target Cells Not Reportable 07/26/17 02:37 Tear Drop Cells Not Reportable 07/26/17 02:37 Ovalocytes Not Reportable 07/26/17 02:37 Helmet Cells Not Reportable 07/26/17 02:37 [place] Bodies Not Reportable 07/26/17 02:37 [place] Rings Not Reportable 07/26/17 02:37 Thelma Cells Not Reportable 07/26/17 02:37 Bite Cells Not Reportable 07/26/17 02:37 Crenated Cell Not Reportable 07/26/17 02:37 Elliptocytes Few 07/26/17 02:37 Acanthocytes (Spur) Not Reportable 07/26/17 02:37 Rouleaux Not Reportable 07/26/17 02:37 Hemoglobin C Crystals Not Reportable 07/26/17 02:37 Schistocytes Not Reportable 07/26/17 02:37 Malaria parasites Not Reportable 07/26/17 02:37 [place] Bodies Not Reportable 07/26/17 02:37 Hem Pathologist Commnt No 07/26/17 02:37 D-Dimer 714.08 ng/mlDDU (0-234) H 07/26/17 02:46 POC ABG pH 7.329 (7.35-7.45) L 07/28/17 01:04 POC ABG pCO2 38.8 (35-45) 07/28/17 01:04 POC ABG pO2 323 (80-105) H 07/28/17 01:04 POC ABG HCO3 20.4 07/28/17 01:04 POC ABG Total CO2 22 07/28/17 01:04 POC ABG O2 Sat 100 07/28/17 01:04 POC ABG Base Excess -6 07/28/17 01:04 FiO2 100 % 07/28/17 01:04 Sodium 145 mmol/L (137-145) 07/29/17 05:36 Potassium 4.0 mmol/L (3.6-5.0) 07/29/17 05:36 Chloride 105.6 mmol/L (98-107) 07/29/17 05:36 Carbon Dioxide 16 mmol/L (22-30) L 07/29/17 05:36 Anion Gap 27 mmol/L 07/29/17 05:36 BUN 43 mg/dL (9-20) H 07/29/17 05:36 Creatinine 1.9 mg/dL (0.8-1.5) H 07/29/17 05:36 Estimated GFR 34 ml/min 07/29/17 05:36 BUN/Creatinine Ratio 23 % 07/29/17 05:36 Glucose 148 mg/dL (75-100) H 07/29/17 05:36 POC Glucose 173 (70-105) H 07/29/17 16:41 Hemoglobin A1c 6.9 % (4-6) H 07/26/17 08:04 Lactic Acid 0.80 mmol/L (0.7-2.0) 07/27/17 21:47 Calcium 8.5 mg/dL (8.4-10.2) 07/29/17 05:36 Total Bilirubin 0.50 mg/dL (0.1-1.2) 07/29/17 05:36 AST 17 units/L (5-40) 07/29/17 05:36 ALT 24 units/L (7-56) 07/29/17 05:36 Alkaline Phosphatase 66 units/L (35-129) 07/29/17 05:36 Troponin T 0.196 ng/mL (0.00-0.029) H* D 07/28/17 13:07 C-Reactive Protein 5.40 mg/dL (0.00-1.30) H 07/26/17 17:30 NT-Pro-B Natriuret Pep 8843 pg/mL (0-900) H 07/26/17 02:44 Total Protein 5.2 g/dL (6.3-8.2) L 07/29/17 05:36 Albumin 3.2 g/dL (3.9-5) L 07/29/17 05:36 Albumin/Globulin Ratio 1.6 % 07/29/17 05:36 Triglycerides 106 mg/dL (2-149) 07/26/17 02:37 Cholesterol 128 mg/dL (50-199) 07/26/17 02:37 LDL Cholesterol Direct 59 mg/dL (50-130) 07/26/17 02:37 HDL Cholesterol 48 mg/dL (40-59) 07/26/17 02:37 Cholesterol/HDL Ratio 2.66 % 07/26/17 02:37 Urine Color Yellow (Yellow) 07/26/17 12:01 Urine Turbidity Clear (Clear) 07/26/17 12:01 Urine pH 5.0 (5.0-7.0) 07/26/17 12:01 Ur Specific [place] 1.017 (1.003-1.030) 07/26/17 12:01 Urine Protein 100 mg/dl mg/dL (Negative) 07/26/17 12:01 Urine Glucose (UA) 150 mg/dL (Negative) 07/26/17 12:01 Urine Ketones Tr mg/dL (Negative) 07/26/17 12:01 Urine Blood Neg (Negative) 07/26/17 12:01 Urine Nitrite Neg (Negative) 07/26/17 12:01 Urine Bilirubin Neg (Negative) 07/26/17 12:01 Urine Urobilinogen < 2.0 mg/dL (<2.0) 07/26/17 12:01 Ur Leukocyte Esterase Neg (Negative) 07/26/17 12:01 Urine WBC (Auto) < 1.0 /HPF (0.0-6.0) 07/26/17 12:01 Urine RBC (Auto) 1.0 /HPF (0.0-6.0) 07/26/17 12:01 Urine Mucus Few /HPF 07/26/17 12:01
[2017-07-30 04:30] LABS: Albumin 3.3 g/dL (3.9-5); Albumin/Globulin Ratio 1.7 %; Bilirubin,Total 0.5 mg/dL (0.1-1.2); Calcium 8.7 mg/dL (8.4-10.2); Chloride 106.7 mmol/L (98-107); Potassium 3.8 mmol/L (3.6-5.0); Total Protein 5.2 g/dL (6.3-8.2)
[2017-07-30] MEDS: NOVOLOG SUB-Q SCH ×4 (06:30→18:08)
[2017-07-30] MEDS: ZOSYN/NS 4.5GM/100ML 4.5 GM/100 ML VIAL IV SCH (06:34)
--- NOTE | 2017-07-30 07:25 | XRay Report ---
AP CHEST: HISTORY: Followup pulmonary edema Pulmonary edema has decreased by at least 50%. Small pleural effusions have nearly resolved. Heart size is at the upper limits of normal. There is mild discoid atelectasis in the right middle lobe but no evidence for pneumonia or pneumothorax. Right [id number] remains in good position. IMPRESSION: Improvement in pulmonary edema and small pleural effusions since yesterday's exam.
[2017-07-30 08:03] LABS: Bacteria,Urine 1+ /HPF (Negative); Bilirubin,Urine NEG (Negative); Blood,Urine LG (Negative); Ketones,Urine TR mg/dL (Negative); Leukocyte Esterase,Urine TR (Negative); Mucus,Urine FEW /HPF; Nitrite,Urine NEG (Negative); Protein,Urine <15 mg/dL mg/dL (Negative); Urobilinogen,Urine < 2.0 mg/dL (<2.0)
[2017-07-30 08:04] LABS: RBC,Urine > 182.0 /HPF (0.0-6.0)
[2017-07-30] MEDS ORDERED: XANAX PO ONE (09:21)
[2017-07-30] MEDS: PROzac PO SCH (09:47)
[2017-07-30] MEDS: HEPARIN SUB-Q SCH ×2 (09:47→21:45)
[2017-07-30] MEDS ORDERED: SODIUM BICARBONATE FEEDTUBE PRN (11:06)
[2017-07-30] MEDS ORDERED: SIMPLE SYRUP FEEDTUBE PRN ×2 (11:06)
[2017-07-30] MEDS ORDERED: PANCREAZE DR 10,500 UNIT FEEDTUBE PRN (11:06)
[2017-07-30] MEDS: ZOSYN/NS 2.25 GM/50ML 2.25 GM/50 ML BAG IV SCH ×2 (12:09→18:08)
--- NOTE | 2017-07-30 12:24 | Progress Note ---
Assessment and Plan Echo reviewed - pt has at least moderate , EF 45-50%, severe pulmonary HTN with RVSP 77mmHg. 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 Continue with medical management. Volume optimization per nephrology. Assessment and plan reviewed with pt and pt's family at bedside. The patient has been seen in conjunction with Dr. Bronw who agrees with the assessment and plan of care. - Patient Problems (1) Acute respiratory failure Current Visit: Yes Status: Acute Qualifiers: Respiratory failure complication: hypoxia Qualified Code(s): J96.01 - Acute respiratory failure with hypoxia (2) Pneumonia Current Visit: Yes Status: Acute Qualifiers: Pneumonia type: due to unspecified organism Laterality: right Lung location: lower lobe of lung Qualified Code(s): J18.1 - Lobar pneumonia, unspecified organism (3) Sepsis Current Visit: Yes Status: Acute Qualifiers: Sepsis type: sepsis due to unspecified organism Qualified Code(s): A41.9 - Sepsis, unspecified organism (4) Acute diastolic HF (heart failure) Current Visit: Yes Status: Acute (5) Elevated troponin Current Visit: Yes Status: Acute (6) YANY (acute kidney injury) Current Visit: Yes Status: Acute (7) HTN (hypertension) Current Visit: Yes Status: Chronic Qualifiers: Hypertension type: essential hypertension Qualified Code(s): I10 - Essential (primary) hypertension (8) IDDM (insulin dependent diabetes mellitus) Current Visit: Yes Status: Chronic (9) Pulmonary hypertension Current Visit: Yes Status: Chronic (10) Aortic stenosis Current Visit: Yes Status: Chronic Subjective Date of service: 07/30/17 Principal diagnosis: Acute Hypoxemic Respiratory Failure; Acute Pulmonary Edema ; Severe Interval history: Pt resting in bed, remains on BiPAP. Objective Last Vital Signs Temp 97.8 F 07/30/17 08:00 Pulse 117 H 07/30/17 11:05 Resp 27 H 07/30/17 11:05 BP 155/61 07/30/17 11:05 Pulse Ox 96 07/30/17 11:05 - Physical Examination General: No Apparent Distress HEENT: Positive: EOMI, Normocephaly, Mucus Membranes Moist Neck: Positive: neck supple, trachea midline. Negative: JVD/HJR, Masses Cardiac: Positive: Reg Rate and Rhythm, S1/S2 Lungs: Positive: Rhonchi Neuro: Positive: Grossly Intact Abdomen: Positive: Soft, Active Bowel Sounds. Negative: Tender Skin: Negative: Rash Musculoskeletal: Normal Range of Motion Extremities: Present: normal. Absent: edema - Labs and Meds Cardiac Enzymes 07/30/17 Range/Units 03:13 AST 18 (5-40) units/L Comprehensive Metabolic Panel 07/30/17 Range/Units 03:13 Sodium 146 H (137-145) mmol/L Potassium 3.8 (3.6-5.0) mmol/L Chloride 106.7 (98-107) mmol/L Carbon Dioxide 19 L (22-30) mmol/L BUN 44 H (9-20) mg/dL Creatinine 2.1 H (0.8-1.5) mg/dL Glucose 152 H (75-100) mg/dL Calcium 8.7 (8.4-10.2) mg/dL AST 18 (5-40) units/L ALT 28 (7-56) units/L Alkaline Phosphatase 67 (35-129) units/L Total Protein 5.2 L (6.3-8.2) g/dL Albumin 3.3 L (3.9-5) g/dL - Telemetry EKG Rhythm: Sinus Rhythm
--- NOTE | 2017-07-30 12:28 | XRay Report ---
SUPINE KUB: History: Dobbhoff tube placement. Findings: A Dobbhoff tube has been inserted which terminates in the left upper quadrant presumably within the body of the stomach. The abdominal gas pattern is unremarkable. No masses or organomegaly is identified and there is no gross evidence of free air or fluid. No significant soft tissue calcifications are noted. IMPRESSION: Dobbhoff tube placement as described. No acute process is noted.
--- NOTE | 2017-07-30 14:12 | Ultrasound Report ---
ULTRASOUND RENAL BILATERAL HISTORY: Elevated creatinine. TECHNIQUE: transabdominal ultrasound with color Doppler interrogation. FINDINGS: Scans of the kidneys show normal renal contours. There is normal central calyceal clustering and good preservation of the cortical thickness. There is no evidence of mass or hydronephrosis. The views of the bladder and the region of the ureters appear normal. IMPRESSION: Unremarkable renal ultrasound.
--- NOTE | 2017-07-30 16:47 | Progress Note ---
Assessment and Plan 1. Acute Kidney Injury 2/2 likely Septic/ischemic ATN vs vanco toxicity, AIN r/ o obstructive uropathy 2. Acute hypoxic respiratory failure pulmonary edema/Pneumonia 3. AG metabolic acidosis 2/2 lactic acidosis 4. Sepsis 5. Severe Aortic stenosis Plan; CR marginally worse from yesterday(rate of rise in CR seems to have slowed down) . Adequate urine out put. Renal U.S with no hydronephrosis NO significant proteinuria on UA. He has hematuria (new frm 07/26) likely 2/2 tabor trauma F/u on vancomycin trough level, renal dosing for antibiotics Lasix for diuresis Avoid nephrotoxines Consider palliative care. Discussed with Dr Hairston. Subjective Date of service: 07/30/17 Principal diagnosis: Acute Hypoxemic Respiratory Failure; Acute Pulmonary Edema ; Severe Interval history: Remains on BiPAP Objective - Exam Narrative Exam: General appearance: well-developed, well-nourished, moderate distress, frail, other (on BiPAP) EENT: PERRL, mucous membranes moist Neck: Present: neck supple, trachea midline. Absent: JVD/HJR, Masses Respiratory: Rales, Wheezes Heart: regular, normal heart rate, S1S2, no murmurs Gastrointestinal: Present: normoactive bowel sounds. Absent: tenderness, distended, masses, guarding Integumentary: no rash, warm and dry Neurologic: no focal deficit, confused Musculoskeletal: Absent: deformities, joint swelling Psychiatric: mood/affect appropriate, cooperative - Vital Signs Vital signs: Vital Signs - 12hr 07/30/17 07/30/17 07/30/17 05:00 06:00 07:00 Temperature Pulse Rate 96 H 98 H 100 H Respiratory 19 18 20 Rate Blood Pressure 140/51 141/54 146/55 O2 Sat by Pulse 98 100 99 Oximetry 07/30/17 07/30/17 07/30/17 07:53 07:58 08:00 Temperature 97.8 F Pulse Rate 109 H Respiratory 22 Rate Blood Pressure 146/55 O2 Sat by Pulse 97 98 Oximetry 07/30/17 07/30/17 07/30/17 08:01 08:31 09:00 Temperature Pulse Rate 121 H 138 H 111 H Respiratory 34 H 34 H 19 Rate Blood Pressure 156/65 156/65 131/50 O2 Sat by Pulse 96 94 96 Oximetry 12/02/0807/30/17 07/30/17 10:01 11:01 11:05 Temperature Pulse Rate 112 H 123 H 117 H Respiratory 22 39 H 27 H Rate Blood Pressure 138/53 155/61 155/61 O2 Sat by Pulse 95 95 96 Oximetry 07/30/17 07/30/17 07/30/17 12:00 12:01 13:00 Temperature 98 F Pulse Rate 104 H 99 H Respiratory 23 21 Rate Blood Pressure 124/48 127/49 O2 Sat by Pulse 97 98 Oximetry 07/30/17 07/30/17 07/30/17 14:00 14:02 15:00 Temperature Pulse Rate 97 H 100 H 93 H Respiratory 21 22 22 Rate Blood Pressure 126/49 126/49 127/48 O2 Sat by Pulse 98 98 96 Oximetry 07/30/17 16:00 Temperature 97 F L Pulse Rate 100 H Respiratory 19 Rate Blood Pressure 134/46 O2 Sat by Pulse 98 Oximetry - Lab 07/27/17 15:11 07/30/17 03:13 Most recent lab results Calcium 8.7 mg/dL (8.4-10.2) 07/30/17 03:13 Urine Creatinine 92.3 mg/dL (0.1-20.0) H 07/30/17 07:30 Urine Total Protein 28 mg/dL (5-11.8) H 07/30/17 07:30
--- NOTE | 2017-07-30 18:40 | Progress Note ---
Assessment and Plan - Acute hypoxic respiratory failure: On BIPAP, remains BIPAP dependent. Continue with bronchodilators, supplemental oxygen, bronchodilators Continue all supportive care. - Severe Sepsis: Still has Leukocytosis with elevate lactic acid level * Continue with Zosyn and Vanc. trend lactic acid level. * - Aspiration pneumonia: Continue iv antibiotic - Acute on Chronic Kidney injury- likely secondary to vasomotor nephropathy * Renal on consult. * Worsening renal function, however has pulmonary edema. - Lactic acidosis: trend and continue with iv antibiotic. - Severe aortic stenosis: per disucssion with family, patient was not a candidate for valvular surgery - Diabetes mellitus with hyperglycemia: On SSI and consistent CHO diet - DVT and GI prophylaxis: with Heparin and pepcid Discussed extensively with the family...without definitive therapy for his his prognosis remains guarded. We will continue to aggressively treat him, however if he decompensates while on BIPAP, he may need mechanical ventilatory support. They will have discussions among themselves and decide on goals of care - Patient Problems (1) Acute respiratory failure Current Visit: Yes Status: Acute Qualifiers: Respiratory failure complication: hypoxia Qualified Code(s): J96.01 - Acute respiratory failure with hypoxia (2) YANY (acute kidney injury) Current Visit: Yes Status: Acute (3) Sepsis Current Visit: Yes Status: Acute Qualifiers: Sepsis type: sepsis due to unspecified organism Qualified Code(s): A41.9 - Sepsis, unspecified organism Subjective Date of service: 07/30/17 Principal diagnosis: Acute Hypoxemic Respiratory Failure; Acute Pulmonary Edema ; Severe Interval history: Seen and examined. vitals, labs, medications, cahrt reviewed. discussed in interdisciplinary rounds. remains BIPAP dependant. Desaturations within 1 hour of taking BIPAP off. Has not had any enteric feeding. family at the bedside Objective - Exam Narrative Exam: In mild cardiopulmonary distress. The patient appeared well nourished and normally developed, on NIPPV. Vital signs as documented. Head exam is unremarkable. No scleral icterus . Neck is without jugular venous distension, thyromegaly, or carotid bruits. Lungs crepitations on the right lower lung zone, Good AE both lung lombardi Cardiac exam reveals regular rate and Rhythm. First and second heart sounds normal. No murmurs, rubs or gallops. Abdominal exam reveals normal bowel sounds, no masses, no organomegaly and no aortic enlargement. Extremities are non-edematous and both femoral and pedal pulses are normal. DESIGN LEAD: Opens his eyes on verbal command. Moves extremities, but very weak Vital Signs - 12hr 07/30/17 07/30/17 07/30/17 07:00 07:53 07:58 Temperature Pulse Rate 100 H 109 H Respiratory 20 22 Rate Blood Pressure 146/55 146/55 O2 Sat by Pulse 99 97 98 Oximetry 07/30/17 07/30/17 07/30/17 08:00 08:01 08:31 Temperature 97.8 F Pulse Rate 121 H 138 H Respiratory 34 H 34 H Rate Blood Pressure 156/65 156/65 O2 Sat by Pulse 96 94 Oximetry 07/30/17 07/30/17 07/30/17 09:00 10:01 11:01 Temperature Pulse Rate 111 H 112 H 123 H Respiratory 19 22 39 H Rate Blood Pressure 131/50 138/53 155/61 O2 Sat by Pulse 96 95 95 Oximetry 07/30/17 07/30/17 07/30/17 11:05 12:00 12:01 Temperature 98 F Pulse Rate 117 H 104 H Respiratory 27 H 23 Rate Blood Pressure 155/61 124/48 O2 Sat by Pulse 96 97 Oximetry 07/30/17 07/30/17 07/30/17 13:00 14:00 14:02 Temperature Pulse Rate 99 H 97 H 100 H Respiratory 21 21 22 Rate Blood Pressure 127/49 126/49 126/49 O2 Sat by Pulse 98 98 98 Oximetry 07/30/17 07/30/17 07/30/17 15:00 16:00 17:00 Temperature 97 F L Pulse Rate 93 H 100 H 98 H Respiratory 22 19 18 Rate Blood Pressure 127/48 134/46 127/50 O2 Sat by Pulse 96 98 95 Oximetry 07/30/17 07/30/17 17:10 18:00 Temperature Pulse Rate 97 H 104 H Respiratory 20 21 Rate Blood Pressure 127/50 137/53 O2 Sat by Pulse 97 96 Oximetry Constitutional: appears uncomfortable, other (agitated) Eyes: non-icteric ENT: oropharynx moist, other (oropharynx moist) Neck: supple, no lymphadenopathy, no JVD Effort: mildly labored Ascultation: Bilateral: diminished breath sounds (base), rhonchi Percussion: Bilateral: not dull Cardiovascular: irregular rhythm, murmur noted (GIRISH), other (no rubs) Gastrointestinal: normoactive bowel sounds, soft, non-tender, non-distended, other (No palpable HSM) Integumentary: normal Extremities: no cyanosis, pink and warm, pulses normal, no ischemia or petechiae , edema Neurologic: non-focal exam, pupils equal and round, motor strength normal and Psychiatric: other (delirious) CBC and BMP: 07/27/17 15:11 07/30/17 03:13 ABG, PT/INR, D-dimer: ABG POC ABG pH 7.329 (7.35-7.45) L 07/28/17 01:04 POC ABG pCO2 38.8 (35-45) 07/28/17 01:04 POC ABG pO2 323 (80-105) H 07/28/17 01:04 POC ABG HCO3 20.4 07/28/17 01:04 POC ABG Total CO2 22 07/28/17 01:04 POC ABG O2 Sat 100 07/28/17 01:04 PT/INR, D-dimer D-Dimer 714.08 ng/mlDDU (0-234) H 07/26/17 02:46 Abnormal lab findings: Abnormal Labs 07/26/17 07/26/17 07/26/17 02:13 02:37 02:37 WBC 23.2 H RBC 3.49 L Hgb 10.5 L Hct 32.2 L RDW 17.5 H Lymph % (Auto) Lymph # Seg Neutrophils % Lymphocytes % (Manual) 5.0 L Seg Neutrophils # Seg Neutrophils # Man 15.3 H D-Dimer POC ABG pH POC ABG pCO2 POC ABG pO2 Sodium Chloride Carbon Dioxide BUN Creatinine Glucose POC Glucose 353 H Hemoglobin A1c Lactic Acid Troponin T 0.155 H* C-Reactive Protein NT-Pro-B Natriuret Pep Total Protein Albumin Urine WBC (Auto) Urine Creatinine Urine Total Protein 07/26/17 07/26/17 07/26/17 02:44 02:44 02:46 WBC RBC Hgb Hct RDW Lymph % (Auto) Lymph # Seg Neutrophils % Lymphocytes % (Manual) Seg Neutrophils # Seg Neutrophils # Man D-Dimer 714.08 H POC ABG pH POC ABG pCO2 POC ABG pO2 Sodium 132 L Chloride 90.6 L Carbon Dioxide 18 L BUN Creatinine Glucose 364 H POC Glucose Hemoglobin A1c Lactic Acid 5.40 H* Troponin T C-Reactive Protein NT-Pro-B Natriuret Pep 8843 H Total Protein Albumin Urine WBC (Auto) Urine Creatinine Urine Total Protein 07/26/17 07/26/17 07/26/17 03:01 08:04 08:04 WBC RBC Hgb Hct RDW Lymph % (Auto) Lymph # Seg Neutrophils % Lymphocytes % (Manual) Seg Neutrophils # Seg Neutrophils # Man D-Dimer POC ABG pH 7.344 L POC ABG pCO2 33.6 L POC ABG pO2 155 H Sodium Chloride Carbon Dioxide BUN Creatinine Glucose POC Glucose Hemoglobin A1c 6.9 H Lactic Acid 4.80 H* Troponin T C-Reactive Protein NT-Pro-B Natriuret Pep Total Protein Albumin Urine WBC (Auto) Urine Creatinine Urine Total Protein 07/26/17 07/26/17 07/26/17 09:02 17:30 21:41 WBC RBC Hgb Hct RDW Lymph % (Auto) Lymph # Seg Neutrophils % Lymphocytes % (Manual) Seg Neutrophils # Seg Neutrophils # Man D-Dimer POC ABG pH POC ABG pCO2 POC ABG pO2 Sodium Chloride Carbon Dioxide BUN Creatinine Glucose POC Glucose 431 H 235 H Hemoglobin A1c Lactic Acid Troponin T C-Reactive Protein 5.40 H NT-Pro-B Natriuret Pep Total Protein Albumin Urine WBC (Auto) Urine Creatinine Urine Total Protein 07/27/17 07/27/17 07/27/17 07:38 07:38 12:15 WBC RBC Hgb Hct RDW Lymph % (Auto) Lymph # Seg Neutrophils % Lymphocytes % (Manual) Seg Neutrophils # Seg Neutrophils # Man D-Dimer POC ABG pH POC ABG pCO2 POC ABG pO2 Sodium Chloride Carbon Dioxide BUN Creatinine Glucose POC Glucose 252 H 262 H Hemoglobin A1c Lactic Acid 3.00 H* Troponin T C-Reactive Protein NT-Pro-B Natriuret Pep Total Protein Albumin Urine WBC (Auto) Urine Creatinine Urine Total Protein 07/27/17 07/27/17 07/27/17 15:11 15:11 16:01 WBC RBC 3.04 L Hgb 9.1 L Hct 27.5 L RDW 17.1 H Lymph % (Auto) 4.7 L Lymph # 0.5 L Seg Neutrophils % 89.7 H Lymphocytes % (Manual) Seg Neutrophils # 9.7 H Seg Neutrophils # Man D-Dimer POC ABG pH POC ABG pCO2 POC ABG pO2 Sodium Chloride Carbon Dioxide 21 L BUN 29 H Creatinine Glucose 152 H POC Glucose 157 H Hemoglobin A1c Lactic Acid Troponin T C-Reactive Protein NT-Pro-B Natriuret Pep Total Protein 5.5 L Albumin 3.5 L Urine WBC (Auto) Urine Creatinine Urine Total Protein 07/27/17 07/27/17 07/28/17 16:19 21:59 01:04 WBC RBC Hgb Hct RDW Lymph % (Auto) Lymph # Seg Neutrophils % Lymphocytes % (Manual) Seg Neutrophils # Seg Neutrophils # Man D-Dimer POC ABG pH 7.329 L POC ABG pCO2 32.0 L POC ABG pO2 65 L 323 H Sodium Chloride Carbon Dioxide BUN Creatinine Glucose POC Glucose 128 H Hemoglobin A1c Lactic Acid Troponin T C-Reactive Protein NT-Pro-B Natriuret Pep Total Protein Albumin Urine WBC (Auto) Urine Creatinine Urine Total Protein 07/28/17 07/28/17 07/28/17 04:21 07:58 11:35 WBC RBC Hgb Hct RDW Lymph % (Auto) Lymph # Seg Neutrophils % Lymphocytes % (Manual) Seg Neutrophils # Seg Neutrophils # Man D-Dimer POC ABG pH POC ABG pCO2 POC ABG pO2 Sodium Chloride Carbon Dioxide 20 L BUN 33 H Creatinine Glucose 118 H POC Glucose 135 H 143 H Hemoglobin A1c Lactic Acid Troponin T C-Reactive Protein NT-Pro-B Natriuret Pep Total Protein 5.2 L Albumin 3.5 L Urine WBC (Auto) Urine Creatinine Urine Total Protein 07/28/17 07/28/17 07/29/17 13:07 16:32 05:36 WBC RBC Hgb Hct RDW Lymph % (Auto) Lymph # Seg Neutrophils % Lymphocytes % (Manual) Seg Neutrophils # Seg Neutrophils # Man D-Dimer POC ABG pH POC ABG pCO2 POC ABG pO2 Sodium Chloride Carbon Dioxide 16 L BUN 43 H Creatinine 1.9 H Glucose 148 H POC Glucose 132 H Hemoglobin A1c Lactic Acid Troponin T 0.196 H* D C-Reactive Protein NT-Pro-B Natriuret Pep Total Protein 5.2 L Albumin 3.2 L Urine WBC (Auto) Urine Creatinine Urine Total Protein 07/29/17 07/29/17 07/30/17 11:51 16:41 00:30 WBC RBC Hgb Hct RDW Lymph % (Auto) Lymph # Seg Neutrophils % Lymphocytes % (Manual) Seg Neutrophils # Seg Neutrophils # Man D-Dimer POC ABG pH POC ABG pCO2 POC ABG pO2 Sodium Chloride Carbon Dioxide BUN Creatinine Glucose POC Glucose 163 H 173 H 174 H Hemoglobin A1c Lactic Acid Troponin T C-Reactive Protein NT-Pro-B Natriuret Pep Total Protein Albumin Urine WBC (Auto) Urine Creatinine Urine Total Protein 07/30/17 07/30/17 07/30/17 03:13 06:04 07:30 WBC RBC Hgb Hct RDW Lymph % (Auto) Lymph # Seg Neutrophils % Lymphocytes % (Manual) Seg Neutrophils # Seg Neutrophils # Man D-Dimer POC ABG pH POC ABG pCO2 POC ABG pO2 Sodium 146 H Chloride Carbon Dioxide 19 L BUN 44 H Creatinine 2.1 H Glucose 152 H POC Glucose 162 H Hemoglobin A1c Lactic Acid Troponin T C-Reactive Protein NT-Pro-B Natriuret Pep Total Protein 5.2 L Albumin 3.3 L Urine WBC (Auto) 19.0 H Urine Creatinine Urine Total Protein 07/30/17 07/30/17 07/30/17 07:30 11:42 17:04 WBC RBC Hgb Hct RDW Lymph % (Auto) Lymph # Seg Neutrophils % Lymphocytes % (Manual) Seg Neutrophils # Seg Neutrophils # Man D-Dimer POC ABG pH POC ABG pCO2 POC ABG pO2 Sodium Chloride Carbon Dioxide BUN Creatinine Glucose POC Glucose 210 H 139 H Hemoglobin A1c Lactic Acid Troponin T C-Reactive Protein NT-Pro-B Natriuret Pep Total Protein Albumin Urine WBC (Auto) Urine Creatinine 92.3 H Urine Total Protein 28 H Critical care time in (mins) excluding proc time.: 45 Critical care attestation.: If time is entered above; I have spent that time in minutes in the direct care of this critically ill patient, excluding procedure time.
--- NOTE | 2017-07-30 19:07 | Progress Note ---
Assessment and Plan Assessment and plan: 82 yo male with severe aortic stenosis, HTN, DM, presented for worsening shortness of breath, cough, decreased oral intake, difficulty urination and decreased urine output 1. Acute hypoxic respiratory failure Likely secondary to pneumonia and volume overload On antibiotics and bronchodilators; diuresis with Lasix Requiring BiPAP Pulmonary following 2. RLL pneumonia Likely aspiration pneumonia On broad-spectrum antibiotics 3. Sepsis Due to #2 Continue antibiotics; IV fluids discontinued due to volume overload and worsening respiratory distress 4. Elevated d-dimer VQ scan negative for PE 5. Elevated troponin Nonspecific, likely secondary to increased demand/renal insufficiency 6. Acute renal failure Renal function worsened despite hydration Possible secondary to reduced post load due to with hypoperfusion vs vancomycin toxicity versus obstructive uropathy Renal ultrasound negative for hydronephrosis Nephrology consulted IV fluids discontinued due to worsening pulmonary edema Receiving Lasix -assessing need to daily Monitoring BUN/creatinine and electrolytes 7. Metabolic acidosis Due to renal insufficiency 8. Severe aortic stenosis Cardiology following and plans to repeat echocardiogram 9. Acute diastolic heart failure Preserved EF Diuresis with caution given preload dependent and renal insufficiency 10. Hypertension BP within normal limits on no medications Monitor 11. Diabetes Accu-Cheks and SSI 12. DVT prophylaxis 13. Guarded prognosis; discussed with family History Interval history: Remains tachycardic and tachypneic, on BiPAP Family at bedside, questions answered Hospitalist Physical - Constitutional Vitals: Temp Pulse Resp BP Pulse Ox 97 F L 104 H 21 137/53 96 07/30/17 16:00 07/30/17 18:00 07/30/17 18:00 07/30/17 18:00 07/30/17 18:00 General appearance: Present: mild distress, well-nourished - EENT Eyes: Present: PERRL, EOM intact - Neck Neck: Present: supple. Absent: enlarged thyroid, masses or JVD - Respiratory Respiratory effort: labored, other (on BiPAP) Respiratory: bilateral: diminished, rales, rhonchi, negative: wheezing - Cardiovascular Rhythm: other (tachycardic) Heart Sounds: Present: S1 & S2, systolic murmur - Extremities Extremities: no ischemia - Abdominal General gastrointestinal: soft, non-tender, non-distended, normal bowel sounds - Neurologic Neurologic: no focal deficits Results - Labs CBC & Chem 7: 07/27/17 15:11 07/31/17 10:11 Labs: Laboratory Last Values WBC 10.8 K/mm3 (4.5-11.0) 07/27/17 15:11 RBC 3.04 M/mm3 (3.65-5.03) L 07/27/17 15:11 Hgb 9.1 gm/dl (11.8-15.2) L 07/27/17 15:11 Hct 27.5 % (35.5-45.6) L 07/27/17 15:11 MCV 90 fl (84-94) 07/27/17 15:11 MCH 30 pg (28-32) 07/27/17 15:11 MCHC 33 % (32-34) 07/27/17 15:11 RDW 17.1 % (13.2-15.2) H 07/27/17 15:11 Plt Count 227 K/mm3 (140-440) 07/27/17 15:11 Lymph % (Auto) 4.7 % (13.4-35.0) L 07/27/17 15:11 [place] % (Auto) 5.2 % (0.0-7.3) 07/27/17 15:11 Eos % (Auto) 0.1 % (0.0-4.3) 07/27/17 15:11 Baso % (Auto) 0.3 % (0.0-1.8) 07/27/17 15:11 Lymph # 0.5 K/mm3 (1.2-5.4) L 07/27/17 15:11 [place] # 0.6 K/mm3 (0.0-0.8) 07/27/17 15:11 Eos # 0.0 K/mm3 (0.0-0.4) 07/27/17 15:11 Baso # 0.0 K/mm3 (0.0-0.1) 07/27/17 15:11 Add Manual Diff Complete 07/26/17 02:37 Total Counted 100 07/26/17 02:37 Seg Neutrophils % 89.7 % (40.0-70.0) H 07/27/17 15:11 Seg Neuts % (Manual) 66.0 % (40.0-70.0) 07/26/17 02:37 Band Neutrophils % 26.0 % 07/26/17 02:37 Lymphocytes % (Manual) 5.0 % (13.4-35.0) L 07/26/17 02:37 Reactive Lymphs % (Man) 0 % 07/26/17 02:37 Monocytes % (Manual) 2.0 % (0.0-7.3) 07/26/17 02:37 Eosinophils % (Manual) 1.0 % (0.0-4.3) 07/26/17 02:37 Basophils % (Manual) 0 % (0.0-1.8) 07/26/17 02:37 Metamyelocytes % 0 % 07/26/17 02:37 Myelocytes % 0 % 07/26/17 02:37 Promyelocytes % 0 % 07/26/17 02:37 Blast Cells % 0 % 07/26/17 02:37 Nucleated RBC % Not Reportable 07/26/17 02:37 Seg Neutrophils # 9.7 K/mm3 (1.8-7.7) H 07/27/17 15:11 Seg Neutrophils # Man 15.3 K/mm3 (1.8-7.7) H 07/26/17 02:37 Band Neutrophils # 6.0 K/mm3 07/26/17 02:37 Lymphocytes # (Manual) 1.2 K/mm3 (1.2-5.4) 07/26/17 02:37 Abs React Lymphs (Man) 0.0 K/mm3 07/26/17 02:37 Monocytes # (Manual) 0.5 K/mm3 (0.0-0.8) 07/26/17 02:37 Eosinophils # (Manual) 0.2 K/mm3 (0.0-0.4) 07/26/17 02:37 Basophils # (Manual) 0.0 K/mm3 (0.0-0.1) 07/26/17 02:37 Metamyelocytes # 0.0 K/mm3 07/26/17 02:37 Myelocytes # 0.0 K/mm3 07/26/17 02:37 Promyelocytes # 0.0 K/mm3 07/26/17 02:37 Blast Cells # 0.0 K/mm3 07/26/17 02:37 WBC Morphology Not Reportable 07/26/17 02:37 Hypersegmented Neuts Not Reportable 07/26/17 02:37 Hyposegmented Neuts Not Reportable 07/26/17 02:37 Hypogranular Neuts Not Reportable 07/26/17 02:37 Smudge Cells Not Reportable 07/26/17 02:37 Toxic Granulation Not Reportable 07/26/17 02:37 Toxic Vacuolation Not Reportable 07/26/17 02:37 Dohle Bodies Not Reportable 07/26/17 02:37 Pelger-Huet Anomaly Not Reportable 07/26/17 02:37 [place]s Not Reportable 07/26/17 02:37 Platelet Estimate Consistent w auto 07/26/17 02:37 Clumped Platelets Not Reportable 07/26/17 02:37 Plt Clumps, EDTA Not Reportable 07/26/17 02:37 Large Platelets Not Reportable 07/26/17 02:37 Giant Platelets Not Reportable 07/26/17 02:37 Platelet Satelliting Not Reportable 07/26/17 02:37 Plt Morphology Comment Not Reportable 07/26/17 02:37 RBC Morphology Not Reportable 07/26/17 02:37 Dimorphic RBCs Not Reportable 07/26/17 02:37 Polychromasia Not Reportable 07/26/17 02:37 Hypochromasia Not Reportable 07/26/17 02:37 Poikilocytosis Not Reportable 07/26/17 02:37 Anisocytosis 1+ 07/26/17 02:37 Microcytosis Not Reportable 07/26/17 02:37 Macrocytosis Not Reportable 07/26/17 02:37 Spherocytes Not Reportable 07/26/17 02:37 Pappenheimer Bodies Not Reportable 07/26/17 02:37 Sickle Cells Not Reportable 07/26/17 02:37 Target Cells Not Reportable 07/26/17 02:37 Tear Drop Cells Not Reportable 07/26/17 02:37 Ovalocytes Not Reportable 07/26/17 02:37 Helmet Cells Not Reportable 07/26/17 02:37 Hu-Silvana Bodies Not Reportable 07/26/17 02:37 [place] Rings Not Reportable 07/26/17 02:37 Thelma Cells Not Reportable 07/26/17 02:37 Bite Cells Not Reportable 07/26/17 02:37 Crenated Cell Not Reportable 07/26/17 02:37 Elliptocytes Few 07/26/17 02:37 Acanthocytes (Spur) Not Reportable 07/26/17 02:37 Rouleaux Not Reportable 07/26/17 02:37 Hemoglobin C Crystals Not Reportable 07/26/17 02:37 Schistocytes Not Reportable 07/26/17 02:37 Malaria parasites Not Reportable 07/26/17 02:37 [place] Bodies Not Reportable 07/26/17 02:37 Hem Pathologist Commnt No 07/26/17 02:37 D-Dimer 714.08 ng/mlDDU (0-234) H 07/26/17 02:46 POC ABG pH 7.329 (7.35-7.45) L 07/28/17 01:04 POC ABG pCO2 38.8 (35-45) 07/28/17 01:04 POC ABG pO2 323 (80-105) H 07/28/17 01:04 POC ABG HCO3 20.4 07/28/17 01:04 POC ABG Total CO2 22 07/28/17 01:04 POC ABG O2 Sat 100 07/28/17 01:04 POC ABG Base Excess -6 07/28/17 01:04 FiO2 100 % 07/28/17 01:04 Sodium 146 mmol/L (137-145) H 07/30/17 03:13 Potassium 3.8 mmol/L (3.6-5.0) 07/30/17 03:13 Chloride 106.7 mmol/L (98-107) 07/30/17 03:13 Carbon Dioxide 19 mmol/L (22-30) L 07/30/17 03:13 Anion Gap 24 mmol/L 07/30/17 03:13 BUN 44 mg/dL (9-20) H 07/30/17 03:13 Creatinine 2.1 mg/dL (0.8-1.5) H 07/30/17 03:13 Estimated GFR 30 ml/min 07/30/17 03:13 BUN/Creatinine Ratio 21 % 07/30/17 03:13 Glucose 152 mg/dL (75-100) H 07/30/17 03:13 POC Glucose 139 (70-105) H 07/30/17 17:04 Hemoglobin A1c 6.9 % (4-6) H 07/26/17 08:04 Lactic Acid 0.80 mmol/L (0.7-2.0) 07/27/17 21:47 Calcium 8.7 mg/dL (8.4-10.2) 07/30/17 03:13 Total Bilirubin 0.50 mg/dL (0.1-1.2) 07/30/17 03:13 AST 18 units/L (5-40) 07/30/17 03:13 ALT 28 units/L (7-56) 07/30/17 03:13 Alkaline Phosphatase 67 units/L (35-129) 07/30/17 03:13 Troponin T 0.196 ng/mL (0.00-0.029) H* D 07/28/17 13:07 C-Reactive Protein 5.40 mg/dL (0.00-1.30) H 07/26/17 17:30 NT-Pro-B Natriuret Pep 8843 pg/mL (0-900) H 07/26/17 02:44 Total Protein 5.2 g/dL (6.3-8.2) L 07/30/17 03:13 Albumin 3.3 g/dL (3.9-5) L 07/30/17 03:13 Albumin/Globulin Ratio 1.7 % 07/30/17 03:13 Triglycerides 106 mg/dL (2-149) 07/26/17 02:37 Cholesterol 128 mg/dL (50-199) 07/26/17 02:37 LDL Cholesterol Direct 59 mg/dL (50-130) 07/26/17 02:37 HDL Cholesterol 48 mg/dL (40-59) 07/26/17 02:37 Cholesterol/HDL Ratio 2.66 % 07/26/17 02:37 Urine Color Yellow (Yellow) 07/30/17 07:30 Urine Turbidity Clear (Clear) 07/30/17 07:30 Urine pH 5.0 (5.0-7.0) 07/30/17 07:30 Ur Specific [place] 1.018 (1.003-1.030) 07/30/17 07:30 Urine Protein <15 mg/dl mg/dL (Negative) 07/30/17 07:30 Urine Glucose (UA) Neg mg/dL (Negative) 07/30/17 07:30 Urine Ketones Tr mg/dL (Negative) 07/30/17 07:30 Urine Blood Lg (Negative) 07/30/17 07:30 Urine Nitrite Neg (Negative) 07/30/17 07:30 Urine Bilirubin Neg (Negative) 07/30/17 07:30 Urine Urobilinogen < 2.0 mg/dL (<2.0) 07/30/17 07:30 Ur Leukocyte Esterase Tr (Negative) 07/30/17 07:30 Urine WBC (Auto) 19.0 /HPF (0.0-6.0) H 07/30/17 07:30 Urine RBC (Auto) > 182.0 /HPF (0.0-6.0) 07/30/17 07:30 Urine Bacteria (Auto) 1+ /HPF (Negative) 07/30/17 07:30 Urine Mucus Few /HPF 07/30/17 07:30 Urine Yeast (Budding) 2+ /HPF 07/30/17 07:30 Urine Eosinophils None seen (None Seen) 07/30/17 07:30 Urine Creatinine 92.3 mg/dL (0.1-20.0) H 07/30/17 07:30 Protein/Creatinin Ratio 0.30 07/30/17 07:30 Urine Total Protein 28 mg/dL (5-11.8) H 07/30/17 07:30
[2017-07-30] MEDS: TYLENOL PO PRN (21:46)
[2017-07-30] MEDS: VANCOMYCIN 1,250 MG in NACL 0.9% 250ML 250 ML IV SCH (22:00)
[2017-07-31] MEDS: ZOSYN/NS 2.25 GM/50ML 2.25 GM/50 ML BAG IV SCH ×4 (02:37→18:46)
[2017-07-31] MEDS ORDERED: NACL 0.9% 500 ML 500 ML ONE (02:42)
[2017-07-31] MEDS: PROzac PO SCH (09:13)
[2017-07-31] MEDS: HEPARIN SUB-Q SCH ×2 (09:14→21:31)
[2017-07-31] MEDS: NOVOLOG SUB-Q SCH ×4 (09:25→18:46)
[2017-07-31 10:46] LABS: Calcium 9.4 mg/dL (8.4-10.2); Chloride 108.9 mmol/L (98-107)
--- NOTE | 2017-07-31 11:21 | Progress Note ---
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 in this case) - prn gentle diuresis - continue empiric AB's - repeat lactate and CRP levels in am - continue BIPAP support with prn breaks during daytime - prn haldol - continue scheduled seroquel for agitation/delirium - CMOP per cardiology otherwise - care plan discussed with and family at bedside - await LTAC evaluation ...care plan discussed at length with family .......he is critically ill on life sustaining interventions including continuous NIV / BIPAP and at high risk for further deterioration including 30' CCT Subjective Date of service: 07/31/17 Principal diagnosis: Acute Hypoxemic Respiratory Failure; Acute Pulmonary Edema ; Severe Interval history: Patient is seen today for: Acute Hypoxemic Respiratory Failure; Possible Aspiration Pneumonia; Delirium Seen and examined at bedside; 24hour events reviewed; nursing and respiratory care staff consulted; remains mostly on continuous BIPAP remains BIPAP dependent; LTAC evaluation ongoing; No N/V/F/C; still with delirium; No hemoptysis or other gross bleeding; case discussd at length with cardiology also; Azotemia is persistent but stable Objective Vital Signs - 12hr 07/30/17 07/30/17 07/31/17 23:43 23:48 00:00 Temperature 98.9 F Pulse Rate 94 H 94 H Respiratory 18 20 Rate Blood Pressure 127/46 123/46 O2 Sat by Pulse 95 95 Oximetry 07/31/17 07/31/17 07/31/17 01:00 02:00 03:00 Temperature Pulse Rate 86 89 92 H Respiratory 19 19 20 Rate Blood Pressure 116/48 130/52 128/48 O2 Sat by Pulse 97 96 97 Oximetry 07/31/17 07/31/17 07/31/17 03:58 04:00 05:01 Temperature Pulse Rate 88 94 H 117 H Respiratory 20 18 30 H Rate Blood Pressure 128/48 133/54 152/49 O2 Sat by Pulse 98 97 98 Oximetry 07/31/17 07/31/17 07/31/17 06:00 07:00 07:31 Temperature Pulse Rate 102 H 105 H 115 H Respiratory 23 24 28 H Rate Blood Pressure 146/56 148/58 148/58 O2 Sat by Pulse 97 97 95 Oximetry 07/31/17 07/31/17 07/31/17 08:00 08:01 08:31 Temperature 97.9 F Pulse Rate 110 H 109 H 102 H Respiratory 27 H 32 H 25 H Rate Blood Pressure 150/58 150/58 150/58 O2 Sat by Pulse 98 97 97 Oximetry 07/31/17 07/31/17 07/31/17 09:00 09:31 10:01 Temperature Pulse Rate 74 108 H 135 H Respiratory 23 27 H 19 Rate Blood Pressure 141/48 141/48 141/48 O2 Sat by Pulse 98 97 94 Oximetry 07/31/17 10:02 Temperature Pulse Rate Respiratory Rate Blood Pressure O2 Sat by Pulse 60 L Oximetry Constitutional: appears uncomfortable, other (agitated) Eyes: non-icteric ENT: oropharynx moist, other (oropharynx moist) Neck: supple, no lymphadenopathy, no JVD Effort: mildly labored Ascultation: Bilateral: diminished breath sounds (base), rhonchi Percussion: Bilateral: not dull Cardiovascular: irregular rhythm, murmur noted (GIRISH), other (no rubs) Gastrointestinal: normoactive bowel sounds, soft, non-tender, non-distended, other (No palpable HSM) Integumentary: normal Extremities: no cyanosis, pink and warm, pulses normal, no ischemia or petechiae , edema Neurologic: non-focal exam, pupils equal and round, motor strength normal and Psychiatric: other (delirious) CBC and BMP: 08/01/17 04:09 08/01/17 04:09 ABG, PT/INR, D-dimer: ABG POC ABG pH 7.329 (7.35-7.45) L 07/28/17 01:04 POC ABG pCO2 38.8 (35-45) 07/28/17 01:04 POC ABG pO2 323 (80-105) H 07/28/17 01:04 POC ABG HCO3 20.4 07/28/17 01:04 POC ABG Total CO2 22 07/28/17 01:04 POC ABG O2 Sat 100 07/28/17 01:04 PT/INR, D-dimer D-Dimer 714.08 ng/mlDDU (0-234) H 07/26/17 02:46 Abnormal lab findings: Abnormal Labs 07/26/17 07/26/17 07/26/17 02:13 02:37 02:37 WBC 23.2 H RBC 3.49 L Hgb 10.5 L Hct 32.2 L RDW 17.5 H Lymph % (Auto) Lymph # Seg Neutrophils % Lymphocytes % (Manual) 5.0 L Seg Neutrophils # Seg Neutrophils # Man 15.3 H D-Dimer POC ABG pH POC ABG pCO2 POC ABG pO2 Sodium Chloride Carbon Dioxide BUN Creatinine Glucose POC Glucose 353 H Hemoglobin A1c Lactic Acid Troponin T 0.155 H* C-Reactive Protein NT-Pro-B Natriuret Pep Total Protein Albumin Urine WBC (Auto) Urine Creatinine Urine Total Protein Vancomycin Trough 07/26/17 07/26/17 07/26/17 02:44 02:44 02:46 WBC RBC Hgb Hct RDW Lymph % (Auto) Lymph # Seg Neutrophils % Lymphocytes % (Manual) Seg Neutrophils # Seg Neutrophils # Man D-Dimer 714.08 H POC ABG pH POC ABG pCO2 POC ABG pO2 Sodium 132 L Chloride 90.6 L Carbon Dioxide 18 L BUN Creatinine Glucose 364 H POC Glucose Hemoglobin A1c Lactic Acid 5.40 H* Troponin T C-Reactive Protein NT-Pro-B Natriuret Pep 8843 H Total Protein Albumin Urine WBC (Auto) Urine Creatinine Urine Total Protein Vancomycin Trough 07/26/17 07/26/17 07/26/17 03:01 08:04 08:04 WBC RBC Hgb Hct RDW Lymph % (Auto) Lymph # Seg Neutrophils % Lymphocytes % (Manual) Seg Neutrophils # Seg Neutrophils # Man D-Dimer POC ABG pH 7.344 L POC ABG pCO2 33.6 L POC ABG pO2 155 H Sodium Chloride Carbon Dioxide BUN Creatinine Glucose POC Glucose Hemoglobin A1c 6.9 H Lactic Acid 4.80 H* Troponin T C-Reactive Protein NT-Pro-B Natriuret Pep Total Protein Albumin Urine WBC (Auto) Urine Creatinine Urine Total Protein Vancomycin Trough 07/26/17 07/26/17 07/26/17 09:02 17:30 21:41 WBC RBC Hgb Hct RDW Lymph % (Auto) Lymph # Seg Neutrophils % Lymphocytes % (Manual) Seg Neutrophils # Seg Neutrophils # Man D-Dimer POC ABG pH POC ABG pCO2 POC ABG pO2 Sodium Chloride Carbon Dioxide BUN Creatinine Glucose POC Glucose 431 H 235 H Hemoglobin A1c Lactic Acid Troponin T C-Reactive Protein 5.40 H NT-Pro-B Natriuret Pep Total Protein Albumin Urine WBC (Auto) Urine Creatinine Urine Total Protein Vancomycin Trough 07/27/17 07/27/17 07/27/17 07:38 07:38 12:15 WBC RBC Hgb Hct RDW Lymph % (Auto) Lymph # Seg Neutrophils % Lymphocytes % (Manual) Seg Neutrophils # Seg Neutrophils # Man D-Dimer POC ABG pH POC ABG pCO2 POC ABG pO2 Sodium Chloride Carbon Dioxide BUN Creatinine Glucose POC Glucose 252 H 262 H Hemoglobin A1c Lactic Acid 3.00 H* Troponin T C-Reactive Protein NT-Pro-B Natriuret Pep Total Protein Albumin Urine WBC (Auto) Urine Creatinine Urine Total Protein Vancomycin Trough 07/27/17 07/27/17 07/27/17 15:11 15:11 16:01 WBC RBC 3.04 L Hgb 9.1 L Hct 27.5 L RDW 17.1 H Lymph % (Auto) 4.7 L Lymph # 0.5 L Seg Neutrophils % 89.7 H Lymphocytes % (Manual) Seg Neutrophils # 9.7 H Seg Neutrophils # Man D-Dimer POC ABG pH POC ABG pCO2 POC ABG pO2 Sodium Chloride Carbon Dioxide 21 L BUN 29 H Creatinine Glucose 152 H POC Glucose 157 H Hemoglobin A1c Lactic Acid Troponin T C-Reactive Protein NT-Pro-B Natriuret Pep Total Protein 5.5 L Albumin 3.5 L Urine WBC (Auto) Urine Creatinine Urine Total Protein Vancomycin Trough 07/27/17 07/27/17 07/28/17 16:19 21:59 01:04 WBC RBC Hgb Hct RDW Lymph % (Auto) Lymph # Seg Neutrophils % Lymphocytes % (Manual) Seg Neutrophils # Seg Neutrophils # Man D-Dimer POC ABG pH 7.329 L POC ABG pCO2 32.0 L POC ABG pO2 65 L 323 H Sodium Chloride Carbon Dioxide BUN Creatinine Glucose POC Glucose 128 H Hemoglobin A1c Lactic Acid Troponin T C-Reactive Protein NT-Pro-B Natriuret Pep Total Protein Albumin Urine WBC (Auto) Urine Creatinine Urine Total Protein Vancomycin Trough 07/28/17 07/28/17 07/28/17 04:21 07:58 11:35 WBC RBC Hgb Hct RDW Lymph % (Auto) Lymph # Seg Neutrophils % Lymphocytes % (Manual) Seg Neutrophils # Seg Neutrophils # Man D-Dimer POC ABG pH POC ABG pCO2 POC ABG pO2 Sodium Chloride Carbon Dioxide 20 L BUN 33 H Creatinine Glucose 118 H POC Glucose 135 H 143 H Hemoglobin A1c Lactic Acid Troponin T C-Reactive Protein NT-Pro-B Natriuret Pep Total Protein 5.2 L Albumin 3.5 L Urine WBC (Auto) Urine Creatinine Urine Total Protein Vancomycin Trough 07/28/17 07/28/17 07/29/17 13:07 16:32 05:36 WBC RBC Hgb Hct RDW Lymph % (Auto) Lymph # Seg Neutrophils % Lymphocytes % (Manual) Seg Neutrophils # Seg Neutrophils # Man D-Dimer POC ABG pH POC ABG pCO2 POC ABG pO2 Sodium Chloride Carbon Dioxide 16 L BUN 43 H Creatinine 1.9 H Glucose 148 H POC Glucose 132 H Hemoglobin A1c Lactic Acid Troponin T 0.196 H* D C-Reactive Protein NT-Pro-B Natriuret Pep Total Protein 5.2 L Albumin 3.2 L Urine WBC (Auto) Urine Creatinine Urine Total Protein Vancomycin Trough 07/29/17 07/29/17 07/30/17 11:51 16:41 00:30 WBC RBC Hgb Hct RDW Lymph % (Auto) Lymph # Seg Neutrophils % Lymphocytes % (Manual) Seg Neutrophils # Seg Neutrophils # Man D-Dimer POC ABG pH POC ABG pCO2 POC ABG pO2 Sodium Chloride Carbon Dioxide BUN Creatinine Glucose POC Glucose 163 H 173 H 174 H Hemoglobin A1c Lactic Acid Troponin T C-Reactive Protein NT-Pro-B Natriuret Pep Total Protein Albumin Urine WBC (Auto) Urine Creatinine Urine Total Protein Vancomycin Trough 07/30/17 07/30/17 07/30/17 03:13 06:04 07:30 WBC RBC Hgb Hct RDW Lymph % (Auto) Lymph # Seg Neutrophils % Lymphocytes % (Manual) Seg Neutrophils # Seg Neutrophils # Man D-Dimer POC ABG pH POC ABG pCO2 POC ABG pO2 Sodium 146 H Chloride Carbon Dioxide 19 L BUN 44 H Creatinine 2.1 H Glucose 152 H POC Glucose 162 H Hemoglobin A1c Lactic Acid Troponin T C-Reactive Protein NT-Pro-B Natriuret Pep Total Protein 5.2 L Albumin 3.3 L Urine WBC (Auto) 19.0 H Urine Creatinine Urine Total Protein Vancomycin Trough 07/30/17 07/30/17 07/30/17 07:30 11:42 17:04 WBC RBC Hgb Hct RDW Lymph % (Auto) Lymph # Seg Neutrophils % Lymphocytes % (Manual) Seg Neutrophils # Seg Neutrophils # Man D-Dimer POC ABG pH POC ABG pCO2 POC ABG pO2 Sodium Chloride Carbon Dioxide BUN Creatinine Glucose POC Glucose 210 H 139 H Hemoglobin A1c Lactic Acid Troponin T C-Reactive Protein NT-Pro-B Natriuret Pep Total Protein Albumin Urine WBC (Auto) Urine Creatinine 92.3 H Urine Total Protein 28 H Vancomycin Trough 07/30/17 07/30/17 07/31/17 21:31 23:18 00:14 WBC RBC Hgb Hct RDW Lymph % (Auto) Lymph # Seg Neutrophils % Lymphocytes % (Manual) Seg Neutrophils # Seg Neutrophils # Man D-Dimer POC ABG pH POC ABG pCO2 POC ABG pO2 Sodium Chloride Carbon Dioxide BUN Creatinine Glucose POC Glucose 173 H 152 H Hemoglobin A1c Lactic Acid Troponin T C-Reactive Protein NT-Pro-B Natriuret Pep Total Protein Albumin Urine WBC (Auto) Urine Creatinine Urine Total Protein Vancomycin Trough 35.8 H 07/31/17 10:11 WBC RBC Hgb Hct RDW Lymph % (Auto) Lymph # Seg Neutrophils % Lymphocytes % (Manual) Seg Neutrophils # Seg Neutrophils # Man D-Dimer POC ABG pH POC ABG pCO2 POC ABG pO2 Sodium 149 H Chloride 108.9 H Carbon Dioxide 18 L BUN 46 H Creatinine 1.9 H Glucose 206 H POC Glucose Hemoglobin A1c Lactic Acid Troponin T C-Reactive Protein NT-Pro-B Natriuret Pep Total Protein Albumin Urine WBC (Auto) Urine Creatinine Urine Total Protein Vancomycin Trough
--- NOTE | 2017-07-31 11:49 | Progress Note ---
Assessment and Plan Continue with medical management. Overall guarded prognosis. Pt's family considering hospice, which may be an appropriate choice at this point. Volume optimization per nephrology. Assessment and plan reviewed with pt and pt's family at bedside. The patient has been seen in conjunction with Dr. Brown who agrees with the assessment and plan of care. - Patient Problems (1) Acute respiratory failure Current Visit: Yes Status: Acute Qualifiers: Respiratory failure complication: hypoxia Qualified Code(s): J96.01 - Acute respiratory failure with hypoxia (2) Pneumonia Current Visit: Yes Status: Acute Qualifiers: Pneumonia type: due to unspecified organism Laterality: right Lung location: lower lobe of lung Qualified Code(s): J18.1 - Lobar pneumonia, unspecified organism (3) Sepsis Current Visit: Yes Status: Acute Qualifiers: Sepsis type: sepsis due to unspecified organism Qualified Code(s): A41.9 - Sepsis, unspecified organism (4) Acute diastolic HF (heart failure) Current Visit: Yes Status: Acute (5) Elevated troponin Current Visit: Yes Status: Acute (6) YANY (acute kidney injury) Current Visit: Yes Status: Acute (7) HTN (hypertension) Current Visit: Yes Status: Chronic Qualifiers: Hypertension type: essential hypertension Qualified Code(s): I10 - Essential (primary) hypertension (8) IDDM (insulin dependent diabetes mellitus) Current Visit: Yes Status: Chronic (9) Pulmonary hypertension Current Visit: Yes Status: Chronic (10) Aortic stenosis Current Visit: Yes Status: Chronic Subjective Date of service: 07/31/17 Principal diagnosis: Acute Hypoxemic Respiratory Failure; Acute Pulmonary Edema ; Severe Interval history: Pt resting in bed, remains on BiPAP. Family at bedside. Objective Last Vital Signs Temp 98.9 F 07/31/17 11:46 Pulse 135 H 07/31/17 10:01 Resp 19 07/31/17 10:01 BP 141/48 07/31/17 10:01 Pulse Ox 60 L 07/31/17 10:02 - Physical Examination General: No Apparent Distress HEENT: Positive: EOMI, Normocephaly, Mucus Membranes Moist Neck: Positive: neck supple, trachea midline. Negative: JVD/HJR, Masses Cardiac: Positive: Reg Rate and Rhythm, S1/S2 Lungs: Positive: Rales, Rhonchi Neuro: Positive: Grossly Intact Abdomen: Positive: Soft, Active Bowel Sounds. Negative: Tender Skin: Negative: Rash Musculoskeletal: Normal Range of Motion Extremities: Present: normal. Absent: edema - Labs and Meds Comprehensive Metabolic Panel 07/31/17 Range/Units 10:11 Sodium 149 H (137-145) mmol/L Potassium 4.0 (3.6-5.0) mmol/L Chloride 108.9 H (98-107) mmol/L Carbon Dioxide 18 L (22-30) mmol/L BUN 46 H (9-20) mg/dL Creatinine 1.9 H (0.8-1.5) mg/dL Glucose 206 H (75-100) mg/dL Calcium 9.4 (8.4-10.2) mg/dL
--- NOTE | 2017-07-31 16:17 | Progress Note ---
Assessment and Plan 1. Acute Kidney Injury 2/2 likely Septic/ischemic ATN vs vanco toxicity, AIN r/ o obstructive uropathy 2. Acute hypoxic respiratory failure pulmonary edema/Pneumonia 3. AG metabolic acidosis 2/2 lactic acidosis 4. Sepsis 5. Severe Aortic stenosis Plan; CR has started to trend down. Adequate urine out put. Renal U.S with no hydronephrosis No significant proteinuria on UA. He has hematuria (new frm /) likely 2/2 Ba trauma Lasix for diuresis , keep negative fluid balance Avoid nephrotoxines Consider palliative care consult. Subjective Date of service: 08/01/17 Principal diagnosis: Acute Hypoxemic Respiratory Failure; Acute Pulmonary Edema ; Severe Interval history: Events reviewed. Objective - Exam Narrative Exam: General appearance: well-developed, well-nourished, moderate distress, frail, other (on BiPAP) EENT: PERRL, mucous membranes moist Neck: Present: neck supple, trachea midline. Absent: JVD/HJR, Masses Respiratory: Rales, Wheezes Heart: regular, normal heart rate, S1S2, no murmurs Gastrointestinal: Present: normoactive bowel sounds. Absent: tenderness, distended, masses, guarding Integumentary: no rash, warm and dry Neurologic: no focal deficit, confused Musculoskeletal: Absent: deformities, joint swelling Psychiatric: mood/affect appropriate, cooperative - Vital Signs Vital signs: Vital Signs - 12hr 07/31/17 07/31/17 07/31/17 05:01 06:00 07:00 Temperature Pulse Rate 117 H 102 H 105 H Respiratory 30 H 23 24 Rate Blood Pressure 152/49 146/56 148/58 O2 Sat by Pulse 98 97 97 Oximetry 07/31/17 07/31/17 07/31/17 07:31 08:00 08:01 Temperature 97.9 F Pulse Rate 115 H 110 H 109 H Respiratory 28 H 27 H 32 H Rate Blood Pressure 148/58 150/58 150/58 O2 Sat by Pulse 95 98 97 Oximetry 07/31/17 07/31/17 07/31/17 08:31 09:00 09:31 Temperature Pulse Rate 102 H 74 108 H Respiratory 25 H 23 27 H Rate Blood Pressure 150/58 141/48 141/48 O2 Sat by Pulse 97 98 97 Oximetry 07/31/17 07/31/17 07/31/17 10:01 10:02 10:31 Temperature Pulse Rate 135 H 110 H Respiratory 19 24 Rate Blood Pressure 141/48 171/84 O2 Sat by Pulse 94 60 L 97 Oximetry 07/31/17 07/31/17 07/31/17 11:00 11:31 11:46 Temperature 98.9 F Pulse Rate 106 H 102 H Respiratory 23 20 Rate Blood Pressure 142/56 142/56 O2 Sat by Pulse 98 96 Oximetry 07/31/17 07/31/17 07/31/17 11:53 12:00 12:31 Temperature Pulse Rate 96 H 104 H 107 H Respiratory 28 H 18 26 H Rate Blood Pressure 142/56 129/46 129/46 O2 Sat by Pulse 97 96 97 Oximetry 07/31/17 07/31/17 07/31/17 13:00 13:31 14:00 Temperature Pulse Rate 109 H 109 H 105 H Respiratory 25 H 29 H 23 Rate Blood Pressure 142/47 142/47 142/54 O2 Sat by Pulse 96 95 97 Oximetry 07/31/17 07/31/17 14:31 15:00 Temperature Pulse Rate 112 H 101 H Respiratory 20 30 H Rate Blood Pressure 142/54 130/51 O2 Sat by Pulse 95 98 Oximetry - Lab 07/27/17 15:11 07/31/17 10:11 Most recent lab results Calcium 9.4 mg/dL (8.4-10.2) 07/31/17 10:11 Urine Creatinine 92.3 mg/dL (0.1-20.0) H 07/30/17 07:30 Urine Total Protein 28 mg/dL (5-11.8) H 07/30/17 07:30
[2017-07-31] MEDS: MORPHINE IV PRN (19:45)
--- NOTE | 2017-07-31 20:53 | Progress Note ---
Assessment and Plan Assessment and plan: 82 yo male with severe aortic stenosis, HTN, DM, presented for worsening shortness of breath, cough, decreased oral intake, difficulty urination and decreased urine output 1. Acute hypoxic respiratory failure Likely secondary to pneumonia and volume overload On antibiotics and bronchodilators; diuresis with Lasix Requiring continuous BiPAP Pulmonary following 2. RLL pneumonia Likely aspiration pneumonia On broad-spectrum antibiotics 3. Sepsis Due to #2 Continue antibiotics; IV fluids discontinued due to pulmonary edema and worsening respiratory distress 4. Elevated d-dimer VQ scan negative for PE 5. Elevated troponin Nonspecific, likely secondary to increased demand/renal insufficiency 6. Acute renal failure Renal function worsened despite hydration Possible secondary to reduced post load due to with hypoperfusion vs vancomycin toxicity versus obstructive uropathy Renal ultrasound negative for hydronephrosis IV fluids discontinued due to worsening pulmonary edema Receiving Lasix -assessing need to daily Monitoring BUN/creatinine and electrolytes Nephrology following 7. Metabolic acidosis Due to renal insufficiency 8. Severe aortic stenosis Cardiology following; echocardiogram repeated; medical management recommended with fluid balance managed by nephrology 9. Acute diastolic heart failure Preserved EF Diuresis with caution given preload dependent and renal insufficiency 10. Hypertension BP within normal limits on no medications Monitor 11. Diabetes Accu-Cheks and SSI 12. DVT prophylaxis 13. Guarded prognosis; discussed with family; considering hospice History Interval history: remains on BiPAP Hospitalist Physical - Constitutional Vitals: Temp Pulse Resp BP Pulse Ox 98.7 F 94 H 31 H 138/45 95 07/31/17 20:00 07/31/17 20:00 07/31/17 20:00 07/31/17 20:00 07/31/17 20:00 General appearance: Present: mild distress, well-nourished - EENT Eyes: Present: PERRL, EOM intact - Neck Neck: Present: supple, normal ROM. Absent: masses or JVD - Respiratory Respiratory effort: labored, other (on BIPAP, tachypneic) Respiratory: bilateral: diminished, rales, negative: wheezing - Cardiovascular Rhythm: other (tachycardic) Heart Sounds: Present: S1 & S2, systolic murmur - Extremities Extremities: no ischemia - Abdominal General gastrointestinal: soft, non-tender, non-distended, normal bowel sounds - Psychiatric Psychiatric: agitated (at times) - Neurologic Neurologic: no focal deficits Results - Labs CBC & Chem 7: 07/27/17 15:11 07/31/17 10:11 Labs: Laboratory Last Values WBC 10.8 K/mm3 (4.5-11.0) 07/27/17 15:11 RBC 3.04 M/mm3 (3.65-5.03) L 07/27/17 15:11 Hgb 9.1 gm/dl (11.8-15.2) L 07/27/17 15:11 Hct 27.5 % (35.5-45.6) L 07/27/17 15:11 MCV 90 fl (84-94) 07/27/17 15:11 MCH 30 pg (28-32) 07/27/17 15:11 MCHC 33 % (32-34) 07/27/17 15:11 RDW 17.1 % (13.2-15.2) H 07/27/17 15:11 Plt Count 227 K/mm3 (140-440) 07/27/17 15:11 Lymph % (Auto) 4.7 % (13.4-35.0) L 07/27/17 15:11 [place] % (Auto) 5.2 % (0.0-7.3) 07/27/17 15:11 Eos % (Auto) 0.1 % (0.0-4.3) 07/27/17 15:11 Baso % (Auto) 0.3 % (0.0-1.8) 07/27/17 15:11 Lymph # 0.5 K/mm3 (1.2-5.4) L 07/27/17 15:11 [place] # 0.6 K/mm3 (0.0-0.8) 07/27/17 15:11 Eos # 0.0 K/mm3 (0.0-0.4) 07/27/17 15:11 Baso # 0.0 K/mm3 (0.0-0.1) 07/27/17 15:11 Add Manual Diff Complete 07/26/17 02:37 Total Counted 100 07/26/17 02:37 Seg Neutrophils % 89.7 % (40.0-70.0) H 07/27/17 15:11 Seg Neuts % (Manual) 66.0 % (40.0-70.0) 07/26/17 02:37 Band Neutrophils % 26.0 % 07/26/17 02:37 Lymphocytes % (Manual) 5.0 % (13.4-35.0) L 07/26/17 02:37 Reactive Lymphs % (Man) 0 % 07/26/17 02:37 Monocytes % (Manual) 2.0 % (0.0-7.3) 07/26/17 02:37 Eosinophils % (Manual) 1.0 % (0.0-4.3) 07/26/17 02:37 Basophils % (Manual) 0 % (0.0-1.8) 07/26/17 02:37 Metamyelocytes % 0 % 07/26/17 02:37 Myelocytes % 0 % 07/26/17 02:37 Promyelocytes % 0 % 07/26/17 02:37 Blast Cells % 0 % 07/26/17 02:37 Nucleated RBC % Not Reportable 07/26/17 02:37 Seg Neutrophils # 9.7 K/mm3 (1.8-7.7) H 07/27/17 15:11 Seg Neutrophils # Man 15.3 K/mm3 (1.8-7.7) H 07/26/17 02:37 Band Neutrophils # 6.0 K/mm3 07/26/17 02:37 Lymphocytes # (Manual) 1.2 K/mm3 (1.2-5.4) 07/26/17 02:37 Abs React Lymphs (Man) 0.0 K/mm3 07/26/17 02:37 Monocytes # (Manual) 0.5 K/mm3 (0.0-0.8) 07/26/17 02:37 Eosinophils # (Manual) 0.2 K/mm3 (0.0-0.4) 07/26/17 02:37 Basophils # (Manual) 0.0 K/mm3 (0.0-0.1) 07/26/17 02:37 Metamyelocytes # 0.0 K/mm3 07/26/17 02:37 Myelocytes # 0.0 K/mm3 07/26/17 02:37 Promyelocytes # 0.0 K/mm3 07/26/17 02:37 Blast Cells # 0.0 K/mm3 07/26/17 02:37 WBC Morphology Not Reportable 07/26/17 02:37 Hypersegmented Neuts Not Reportable 07/26/17 02:37 Hyposegmented Neuts Not Reportable 07/26/17 02:37 Hypogranular Neuts Not Reportable 07/26/17 02:37 Smudge Cells Not Reportable 07/26/17 02:37 Toxic Granulation Not Reportable 07/26/17 02:37 Toxic Vacuolation Not Reportable 07/26/17 02:37 Dohle Bodies Not Reportable 07/26/17 02:37 Pelger-Huet Anomaly Not Reportable 07/26/17 02:37 [place] Rods Not Reportable 07/26/17 02:37 Platelet Estimate Consistent w auto 07/26/17 02:37 Clumped Platelets Not Reportable 07/26/17 02:37 Plt Clumps, EDTA Not Reportable 07/26/17 02:37 Large Platelets Not Reportable 07/26/17 02:37 Giant Platelets Not Reportable 07/26/17 02:37 Platelet Satelliting Not Reportable 07/26/17 02:37 Plt Morphology Comment Not Reportable 07/26/17 02:37 RBC Morphology Not Reportable 07/26/17 02:37 Dimorphic RBCs Not Reportable 07/26/17 02:37 Polychromasia Not Reportable 07/26/17 02:37 Hypochromasia Not Reportable 07/26/17 02:37 Poikilocytosis Not Reportable 07/26/17 02:37 Anisocytosis 1+ 07/26/17 02:37 Microcytosis Not Reportable 07/26/17 02:37 Macrocytosis Not Reportable 07/26/17 02:37 Spherocytes Not Reportable 07/26/17 02:37 Pappenheimer Bodies Not Reportable 07/26/17 02:37 Sickle Cells Not Reportable 07/26/17 02:37 Target Cells Not Reportable 07/26/17 02:37 Tear Drop Cells Not Reportable 07/26/17 02:37 Ovalocytes Not Reportable 07/26/17 02:37 Helmet Cells Not Reportable 07/26/17 02:37 [place] Bodies Not Reportable 07/26/17 02:37 [place] Rings Not Reportable 07/26/17 02:37 [place] Cells Not Reportable 07/26/17 02:37 Bite Cells Not Reportable 07/26/17 02:37 Crenated Cell Not Reportable 07/26/17 02:37 Elliptocytes Few 07/26/17 02:37 Acanthocytes (Spur) Not Reportable 07/26/17 02:37 Rouleaux Not Reportable 07/26/17 02:37 Hemoglobin C Crystals Not Reportable 07/26/17 02:37 Schistocytes Not Reportable 07/26/17 02:37 Malaria parasites Not Reportable 07/26/17 02:37 [place] Bodies Not Reportable 07/26/17 02:37 Hem Pathologist Commnt No 07/26/17 02:37 D-Dimer 714.08 ng/mlDDU (0-234) H 07/26/17 02:46 POC ABG pH 7.329 (7.35-7.45) L 07/28/17 01:04 POC ABG pCO2 38.8 (35-45) 07/28/17 01:04 POC ABG pO2 323 (80-105) H 07/28/17 01:04 POC ABG HCO3 20.4 07/28/17 01:04 POC ABG Total CO2 22 07/28/17 01:04 POC ABG O2 Sat 100 07/28/17 01:04 POC ABG Base Excess -6 07/28/17 01:04 FiO2 100 % 07/28/17 01:04 Sodium 149 mmol/L (137-145) H 07/31/17 10:11 Potassium 4.0 mmol/L (3.6-5.0) 07/31/17 10:11 Chloride 108.9 mmol/L (98-107) H 07/31/17 10:11 Carbon Dioxide 18 mmol/L (22-30) L 07/31/17 10:11 Anion Gap 26 mmol/L 07/31/17 10:11 BUN 46 mg/dL (9-20) H 07/31/17 10:11 Creatinine 1.9 mg/dL (0.8-1.5) H 07/31/17 10:11 Estimated GFR 34 ml/min 07/31/17 10:11 BUN/Creatinine Ratio 24 % 07/31/17 10:11 Glucose 206 mg/dL (75-100) H 07/31/17 10:11 POC Glucose 188 (70-105) H 07/31/17 17:15 Hemoglobin A1c 6.9 % (4-6) H 07/26/17 08:04 Lactic Acid 0.80 mmol/L (0.7-2.0) 07/27/17 21:47 Calcium 9.4 mg/dL (8.4-10.2) 07/31/17 10:11 Total Bilirubin 0.50 mg/dL (0.1-1.2) 07/30/17 03:13 AST 18 units/L (5-40) 07/30/17 03:13 ALT 28 units/L (7-56) 07/30/17 03:13 Alkaline Phosphatase 67 units/L (35-129) 07/30/17 03:13 Troponin T 0.196 ng/mL (0.00-0.029) H* D 07/28/17 13:07 C-Reactive Protein 5.40 mg/dL (0.00-1.30) H 07/26/17 17:30 NT-Pro-B Natriuret Pep 8843 pg/mL (0-900) H 07/26/17 02:44 Total Protein 5.2 g/dL (6.3-8.2) L 07/30/17 03:13 Albumin 3.3 g/dL (3.9-5) L 07/30/17 03:13 Albumin/Globulin Ratio 1.7 % 07/30/17 03:13 Triglycerides 106 mg/dL (2-149) 07/26/17 02:37 Cholesterol 128 mg/dL (50-199) 07/26/17 02:37 LDL Cholesterol Direct 59 mg/dL (50-130) 07/26/17 02:37 HDL Cholesterol 48 mg/dL (40-59) 07/26/17 02:37 Cholesterol/HDL Ratio 2.66 % 07/26/17 02:37 Urine Color Yellow (Yellow) 07/30/17 07:30 Urine Turbidity Clear (Clear) 07/30/17 07:30 Urine pH 5.0 (5.0-7.0) 07/30/17 07:30 Ur Specific [place] 1.018 (1.003-1.030) 07/30/17 07:30 Urine Protein <15 mg/dl mg/dL (Negative) 07/30/17 07:30 Urine Glucose (UA) Neg mg/dL (Negative) 07/30/17 07:30 Urine Ketones Tr mg/dL (Negative) 07/30/17 07:30 Urine Blood Lg (Negative) 07/30/17 07:30 Urine Nitrite Neg (Negative) 07/30/17 07:30 Urine Bilirubin Neg (Negative) 07/30/17 07:30 Urine Urobilinogen < 2.0 mg/dL (<2.0) 07/30/17 07:30 Ur Leukocyte Esterase Tr (Negative) 07/30/17 07:30 Urine WBC (Auto) 19.0 /HPF (0.0-6.0) H 07/30/17 07:30 Urine RBC (Auto) > 182.0 /HPF (0.0-6.0) 07/30/17 07:30 Urine Bacteria (Auto) 1+ /HPF (Negative) 07/30/17 07:30 Urine Mucus Few /HPF 07/30/17 07:30 Urine Yeast (Budding) 2+ /HPF 07/30/17 07:30 Urine Eosinophils None seen (None Seen) 07/30/17 07:30 Urine Creatinine 92.3 mg/dL (0.1-20.0) H 07/30/17 07:30 Protein/Creatinin Ratio 0.30 07/30/17 07:30 Urine Total Protein 28 mg/dL (5-11.8) H 07/30/17 07:30 Vancomycin Trough 35.8 ug/mL (5.0-20.0) H 07/30/17 21:31
[2017-07-31] MEDS: TYLENOL PO PRN (21:30)
[2017-08-01] MEDS: ZOSYN/NS 2.25 GM/50ML 2.25 GM/50 ML BAG IV SCH ×4 (01:41→18:11)
[2017-08-01 04:37] LABS: Basophils % (Auto) 0.9 % (0.0-1.8); Eosinophils % (Auto) 1.9 % (0.0-4.3); Hematocrit 29.7 % (35.5-45.6); Hemoglobin 9.5 gm/dl (11.8-15.2); Mean Corpuscular HGB Conc 32 % (32-34); Mean Corpuscular Hemoglobin 30 pg (28-32); Mean Corpuscular Volume 92 fl (84-94); Platelet Count 214 K/mm3 (140-440); Red Blood Count 3.21 M/mm3 (3.65-5.03); Red Cell Distribution Width 17.7 % (13.2-15.2); White Blood Count 5.7 K/mm3 (4.5-11.0)
[2017-08-01 04:53] LABS: Calcium 9.6 mg/dL (8.4-10.2); Chloride 111.2 mmol/L (98-107)
[2017-08-01] MEDS: MORPHINE IV PRN ×3 (06:08→18:17)
[2017-08-01] MEDS: NOVOLOG SUB-Q SCH ×4 (06:11→18:10)
[2017-08-01] MEDS ORDERED: CHLORASEPTIC ONE (07:01)
[2017-08-01] MEDS ORDERED: CHLORASEPTIC MM PRN (07:30)
[2017-08-01] MEDS: HALDOL IV PRN (10:05)
--- NOTE | 2017-08-01 10:57 | Progress Note ---
Assessment and Plan Continue with medical management. Overall guarded prognosis. Pt's family considering hospice, which may be an appropriate choice at this point. Volume optimization per nephrology. Assessment and plan reviewed with pt and pt's family at bedside. The patient has been seen in conjunction with Dr. Brown who agrees with the assessment and plan of care. - Patient Problems (1) Acute respiratory failure Current Visit: Yes Status: Acute Qualifiers: Respiratory failure complication: hypoxia Qualified Code(s): J96.01 - Acute respiratory failure with hypoxia (2) Pneumonia Current Visit: Yes Status: Acute Qualifiers: Pneumonia type: due to unspecified organism Laterality: right Lung location: lower lobe of lung Qualified Code(s): J18.1 - Lobar pneumonia, unspecified organism (3) Sepsis Current Visit: Yes Status: Acute Qualifiers: Sepsis type: sepsis due to unspecified organism Qualified Code(s): A41.9 - Sepsis, unspecified organism (4) Acute diastolic HF (heart failure) Current Visit: Yes Status: Acute (5) Elevated troponin Current Visit: Yes Status: Acute (6) YANY (acute kidney injury) Current Visit: Yes Status: Acute (7) HTN (hypertension) Current Visit: Yes Status: Chronic Qualifiers: Hypertension type: essential hypertension Qualified Code(s): I10 - Essential (primary) hypertension (8) IDDM (insulin dependent diabetes mellitus) Current Visit: Yes Status: Chronic (9) Pulmonary hypertension Current Visit: Yes Status: Chronic (10) Aortic stenosis Current Visit: Yes Status: Chronic Subjective Date of service: 08/01/17 Principal diagnosis: Acute Hypoxemic Respiratory Failure; Acute Pulmonary Edema ; Severe Interval history: Pt resting in bed, remains on BiPAP. Family at bedside. Objective Last Vital Signs Temp 97.7 F 08/01/17 08:00 Pulse 97 H 08/01/17 08:30 Resp 24 08/01/17 08:30 BP 101/74 08/01/17 08:30 Pulse Ox 91 08/01/17 08:30 - Physical Examination General: No Apparent Distress HEENT: Positive: EOMI, Normocephaly, Mucus Membranes Moist Neck: Positive: neck supple, trachea midline. Negative: JVD/HJR, Masses Neuro: Positive: Grossly Intact Abdomen: Positive: Soft, Active Bowel Sounds. Negative: Tender Skin: Negative: Rash Musculoskeletal: Normal Range of Motion Extremities: Present: normal. Absent: edema - Labs and Meds CBC 08/01/17 Range/Units 04:09 WBC 5.7 (4.5-11.0) K/mm3 RBC 3.21 L (3.65-5.03) M/mm3 Hgb 9.5 L (11.8-15.2) gm/dl Hct 29.7 L (35.5-45.6) % Plt Count 214 (140-440) K/mm3 Lymph # 0.3 L (1.2-5.4) K/mm3 [place] # 0.4 (0.0-0.8) K/mm3 Eos # 0.1 (0.0-0.4) K/mm3 Baso # 0.1 (0.0-0.1) K/mm3 Comprehensive Metabolic Panel 08/01/17 Range/Units 04:09 Sodium 150 H (137-145) mmol/L Potassium 4.0 (3.6-5.0) mmol/L Chloride 111.2 H (98-107) mmol/L Carbon Dioxide 18 L (22-30) mmol/L BUN 48 H (9-20) mg/dL Creatinine 1.9 H (0.8-1.5) mg/dL Glucose 203 H (75-100) mg/dL Calcium 9.6 (8.4-10.2) mg/dL - Allied health notes Allied health notes reviewed: nursing
--- NOTE | 2017-08-01 11:01 | XRay Report ---
SUPINE KUB: History: Nasogastric tube placement. The abdominal gas pattern is unremarkable. No masses or organomegaly is identified and there is no gross evidence of free air or fluid. No significant soft tissue calcifications are noted. A feeding tube has been inserted which terminates in the body of the stomach. IMPRESSION: Feeding tube as described. No acute process identified in the abdomen.
--- NOTE | 2017-08-01 11:02 | XRay Report ---
AP CHEST: HISTORY: Pneumonia versus pulmonary edema Mild vascular congestion and small left pleural effusion are identified. Heart size is within normal limits. No convincing consolidation or pneumothorax. Right [id number] and feeding tube are in place. IMPRESSION: Mild pulmonary venous congestion and small left pleural effusion.
[2017-08-01] MEDS: HEPARIN SUB-Q SCH ×2 (11:15→22:49)
[2017-08-01] MEDS: PROzac PO SCH (11:15)
[2017-08-01] MEDS ORDERED: LEVEMIR SUB-Q SCH (12:00)
--- NOTE | 2017-08-01 12:26 | Progress Note ---
Assessment and Plan - Acute hypoxic respiratory failure: On BIPAP, remains BIPAP dependent. Continue with bronchodilators, supplemental oxygen, bronchodilators Continue all supportive care. - Severe Sepsis: Still has Leukocytosis with elevate lactic acid level * Continue with Zosyn and Vanc. trend lactic acid level. * - Aspiration pneumonia: Continue iv antibiotic - Acute on Chronic Kidney injury- likely secondary to vasomotor nephropathy * Renal on consult. * Worsening renal function, however has pulmonary edema. - Lactic acidosis: trend and continue with iv antibiotic. - Severe aortic stenosis: per discussion with family, patient was not a candidate for valvular surgery - Diabetes mellitus with hyperglycemia: On SSI and consistent CHO diet - DVT and GI prophylaxis: with Heparin and pepcid Discussed extensively with the family...without definitive therapy for his his prognosis remains guarded. We will continue to aggressively treat him, however if he decompensates while on BIPAP, he may need mechanical ventilatory support. They will have discussions among themselves and decide on goals of care They have decided on LTACh with ongoing attempts at weaning from BIPAP. I did discuss DNR/DNI as an option. They remain undecided. - Patient Problems (1) Acute respiratory failure Current Visit: Yes Status: Acute Qualifiers: Respiratory failure complication: hypoxia Qualified Code(s): J96.01 - Acute respiratory failure with hypoxia (2) YANY (acute kidney injury) Current Visit: Yes Status: Acute (3) Sepsis Current Visit: Yes Status: Acute Qualifiers: Sepsis type: sepsis due to unspecified organism Qualified Code(s): A41.9 - Sepsis, unspecified organism Subjective Date of service: 08/01/17 Principal diagnosis: Acute Hypoxemic Respiratory Failure; Acute Pulmonary Edema ; Severe Interval history: Seen and examined. vitals, labs, medications, cahrt reviewed. discussed in interdisciplinary rounds. remains BIPAP dependant. Desaturations within 1 hour of taking BIPAP off. Has not had any enteric feeding. family at the bedside Objective - Exam Narrative Exam: General appearance: chronically ill lookingdeveloped, well-nourished, moderate distress, frail, other (on BiPAP) EENT: PERRL, mucous membranes moist Neck: Present: neck supple, trachea midline. Absent: JVD/HJR, Masses Respiratory: Rales, Wheezes Heart: regular, normal heart rate, S1S2, no murmurs Gastrointestinal: Present: normoactive bowel sounds. Absent: tenderness, distended, masses, guarding Integumentary: no rash, warm and dry Neurologic: no focal deficit, confused Musculoskeletal: Absent: deformities, joint swelling Psychiatric: mood/affect flat, Vital Signs - 12hr 08/01/17 08/01/17 08/01/17 00:30 01:00 01:30 Temperature Pulse Rate 95 H 87 101 H Pulse Rate [ From Monitor] Respiratory 17 16 22 Rate Blood Pressure 122/45 119/44 119/44 O2 Sat by Pulse 95 94 92 Oximetry 08/01/17 08/01/17 08/01/17 02:00 02:30 03:00 Temperature Pulse Rate 104 H 126 H 86 Pulse Rate [ From Monitor] Respiratory 21 34 H 24 Rate Blood Pressure 119/44 126/52 121/50 O2 Sat by Pulse 92 88 92 Oximetry 08/01/17 08/01/17 08/01/17 03:30 03:51 04:00 Temperature 97.9 F Pulse Rate 93 H 95 H 90 Pulse Rate [ From Monitor] Respiratory 25 H 15 25 H Rate Blood Pressure 121/50 121/50 129/44 O2 Sat by Pulse 96 97 97 Oximetry 08/01/17 08/01/17 08/01/17 04:30 05:00 05:30 Temperature Pulse Rate 102 H 98 H 109 H Pulse Rate [ From Monitor] Respiratory 21 27 H 32 H Rate Blood Pressure 129/44 139/54 139/54 O2 Sat by Pulse 98 94 96 Oximetry 08/01/17 08/01/17 08/01/17 06:00 06:30 07:00 Temperature Pulse Rate 114 H 111 H Pulse Rate [ From Monitor] Respiratory 28 H 25 H Rate Blood Pressure 139/54 152/53 154/57 O2 Sat by Pulse 90 94 95 Oximetry 08/01/17 08/01/17 08/01/17 07:30 08:00 08:30 Temperature 97.7 F Pulse Rate 136 H 120 H 97 H Pulse Rate [ 119 H From Monitor] Respiratory 20 20 24 Rate Blood Pressure 154/57 154/57 101/74 O2 Sat by Pulse 94 95 91 Oximetry 08/01/17 08/01/17 08/01/17 09:00 09:30 10:00 Temperature Pulse Rate 104 H 107 H 107 H Pulse Rate [ From Monitor] Respiratory 16 23 22 Rate Blood Pressure 101/74 101/74 148/47 O2 Sat by Pulse 92 95 90 Oximetry 08/01/17 08/01/17 08/01/17 10:30 11:00 11:30 Temperature Pulse Rate 102 H 126 H 98 H Pulse Rate [ From Monitor] Respiratory 29 H 29 H 23 Rate Blood Pressure 148/47 148/47 93/69 O2 Sat by Pulse 88 93 Oximetry 08/01/17 12:00 Temperature Pulse Rate 100 H Pulse Rate [ From Monitor] Respiratory 18 Rate Blood Pressure 139/64 O2 Sat by Pulse 92 Oximetry Constitutional: appears uncomfortable, other (agitated) Eyes: non-icteric ENT: oropharynx moist, other (oropharynx moist) Neck: supple, no lymphadenopathy, no JVD Effort: mildly labored Ascultation: Bilateral: diminished breath sounds (base), rhonchi Percussion: Bilateral: not dull Cardiovascular: irregular rhythm, murmur noted (GIRISH), other (no rubs) Gastrointestinal: normoactive bowel sounds, soft, non-tender, non-distended, other (No palpable HSM) Integumentary: normal Extremities: no cyanosis, pink and warm, pulses normal, no ischemia or petechiae , edema Neurologic: non-focal exam, pupils equal and round, motor strength normal and Psychiatric: other (delirious) CBC and BMP: 08/01/17 04:09 08/02/17 10:29 ABG, PT/INR, D-dimer: ABG POC ABG pH 7.329 (7.35-7.45) L 07/28/17 01:04 POC ABG pCO2 38.8 (35-45) 07/28/17 01:04 POC ABG pO2 323 (80-105) H 07/28/17 01:04 POC ABG HCO3 20.4 07/28/17 01:04 POC ABG Total CO2 22 07/28/17 01:04 POC ABG O2 Sat 100 07/28/17 01:04 PT/INR, D-dimer D-Dimer 714.08 ng/mlDDU (0-234) H 07/26/17 02:46 Abnormal lab findings: Abnormal Labs 07/26/17 07/26/17 07/26/17 02:13 02:37 02:37 WBC 23.2 H RBC 3.49 L Hgb 10.5 L Hct 32.2 L RDW 17.5 H Lymph % (Auto) Lymph # Seg Neutrophils % Lymphocytes % (Manual) 5.0 L Seg Neutrophils # Seg Neutrophils # Man 15.3 H D-Dimer POC ABG pH POC ABG pCO2 POC ABG pO2 Sodium Chloride Carbon Dioxide BUN Creatinine Glucose POC Glucose 353 H Hemoglobin A1c Lactic Acid Troponin T 0.155 H* C-Reactive Protein NT-Pro-B Natriuret Pep Total Protein Albumin Urine WBC (Auto) Urine Creatinine Urine Total Protein Vancomycin Trough 07/26/17 07/26/17 07/26/17 02:44 02:44 02:46 WBC RBC Hgb Hct RDW Lymph % (Auto) Lymph # Seg Neutrophils % Lymphocytes % (Manual) Seg Neutrophils # Seg Neutrophils # Man D-Dimer 714.08 H POC ABG pH POC ABG pCO2 POC ABG pO2 Sodium 132 L Chloride 90.6 L Carbon Dioxide 18 L BUN Creatinine Glucose 364 H POC Glucose Hemoglobin A1c Lactic Acid 5.40 H* Troponin T C-Reactive Protein NT-Pro-B Natriuret Pep 8843 H Total Protein Albumin Urine WBC (Auto) Urine Creatinine Urine Total Protein Vancomycin Trough 07/26/17 07/26/17 07/26/17 03:01 08:04 08:04 WBC RBC Hgb Hct RDW Lymph % (Auto) Lymph # Seg Neutrophils % Lymphocytes % (Manual) Seg Neutrophils # Seg Neutrophils # Man D-Dimer POC ABG pH 7.344 L POC ABG pCO2 33.6 L POC ABG pO2 155 H Sodium Chloride Carbon Dioxide BUN Creatinine Glucose POC Glucose Hemoglobin A1c 6.9 H Lactic Acid 4.80 H* Troponin T C-Reactive Protein NT-Pro-B Natriuret Pep Total Protein Albumin Urine WBC (Auto) Urine Creatinine Urine Total Protein Vancomycin Trough 07/26/17 07/26/17 07/26/17 09:02 17:30 21:41 WBC RBC Hgb Hct RDW Lymph % (Auto) Lymph # Seg Neutrophils % Lymphocytes % (Manual) Seg Neutrophils # Seg Neutrophils # Man D-Dimer POC ABG pH POC ABG pCO2 POC ABG pO2 Sodium Chloride Carbon Dioxide BUN Creatinine Glucose POC Glucose 431 H 235 H Hemoglobin A1c Lactic Acid Troponin T C-Reactive Protein 5.40 H NT-Pro-B Natriuret Pep Total Protein Albumin Urine WBC (Auto) Urine Creatinine Urine Total Protein Vancomycin Trough 07/27/17 07/27/17 07/27/17 07:38 07:38 12:15 WBC RBC Hgb Hct RDW Lymph % (Auto) Lymph # Seg Neutrophils % Lymphocytes % (Manual) Seg Neutrophils # Seg Neutrophils # Man D-Dimer POC ABG pH POC ABG pCO2 POC ABG pO2 Sodium Chloride Carbon Dioxide BUN Creatinine Glucose POC Glucose 252 H 262 H Hemoglobin A1c Lactic Acid 3.00 H* Troponin T C-Reactive Protein NT-Pro-B Natriuret Pep Total Protein Albumin Urine WBC (Auto) Urine Creatinine Urine Total Protein Vancomycin Trough 07/27/17 07/27/17 07/27/17 15:11 15:11 16:01 WBC RBC 3.04 L Hgb 9.1 L Hct 27.5 L RDW 17.1 H Lymph % (Auto) 4.7 L Lymph # 0.5 L Seg Neutrophils % 89.7 H Lymphocytes % (Manual) Seg Neutrophils # 9.7 H Seg Neutrophils # Man D-Dimer POC ABG pH POC ABG pCO2 POC ABG pO2 Sodium Chloride Carbon Dioxide 21 L BUN 29 H Creatinine Glucose 152 H POC Glucose 157 H Hemoglobin A1c Lactic Acid Troponin T C-Reactive Protein NT-Pro-B Natriuret Pep Total Protein 5.5 L Albumin 3.5 L Urine WBC (Auto) Urine Creatinine Urine Total Protein Vancomycin Trough 07/27/17 07/27/17 07/28/17 16:19 21:59 01:04 WBC RBC Hgb Hct RDW Lymph % (Auto) Lymph # Seg Neutrophils % Lymphocytes % (Manual) Seg Neutrophils # Seg Neutrophils # Man D-Dimer POC ABG pH 7.329 L POC ABG pCO2 32.0 L POC ABG pO2 65 L 323 H Sodium Chloride Carbon Dioxide BUN Creatinine Glucose POC Glucose 128 H Hemoglobin A1c Lactic Acid Troponin T C-Reactive Protein NT-Pro-B Natriuret Pep Total Protein Albumin Urine WBC (Auto) Urine Creatinine Urine Total Protein Vancomycin Trough 07/28/17 07/28/17 07/28/17 04:21 07:58 11:35 WBC RBC Hgb Hct RDW Lymph % (Auto) Lymph # Seg Neutrophils % Lymphocytes % (Manual) Seg Neutrophils # Seg Neutrophils # Man D-Dimer POC ABG pH POC ABG pCO2 POC ABG pO2 Sodium Chloride Carbon Dioxide 20 L BUN 33 H Creatinine Glucose 118 H POC Glucose 135 H 143 H Hemoglobin A1c Lactic Acid Troponin T C-Reactive Protein NT-Pro-B Natriuret Pep Total Protein 5.2 L Albumin 3.5 L Urine WBC (Auto) Urine Creatinine Urine Total Protein Vancomycin Trough 07/28/17 07/28/17 07/29/17 13:07 16:32 05:36 WBC RBC Hgb Hct RDW Lymph % (Auto) Lymph # Seg Neutrophils % Lymphocytes % (Manual) Seg Neutrophils # Seg Neutrophils # Man D-Dimer POC ABG pH POC ABG pCO2 POC ABG pO2 Sodium Chloride Carbon Dioxide 16 L BUN 43 H Creatinine 1.9 H Glucose 148 H POC Glucose 132 H Hemoglobin A1c Lactic Acid Troponin T 0.196 H* D C-Reactive Protein NT-Pro-B Natriuret Pep Total Protein 5.2 L Albumin 3.2 L Urine WBC (Auto) Urine Creatinine Urine Total Protein Vancomycin Trough 07/29/17 07/29/17 07/30/17 11:51 16:41 00:30 WBC RBC Hgb Hct RDW Lymph % (Auto) Lymph # Seg Neutrophils % Lymphocytes % (Manual) Seg Neutrophils # Seg Neutrophils # Man D-Dimer POC ABG pH POC ABG pCO2 POC ABG pO2 Sodium Chloride Carbon Dioxide BUN Creatinine Glucose POC Glucose 163 H 173 H 174 H Hemoglobin A1c Lactic Acid Troponin T C-Reactive Protein NT-Pro-B Natriuret Pep Total Protein Albumin Urine WBC (Auto) Urine Creatinine Urine Total Protein Vancomycin Trough 07/30/17 07/30/17 07/30/17 03:13 06:04 07:30 WBC RBC Hgb Hct RDW Lymph % (Auto) Lymph # Seg Neutrophils % Lymphocytes % (Manual) Seg Neutrophils # Seg Neutrophils # Man D-Dimer POC ABG pH POC ABG pCO2 POC ABG pO2 Sodium 146 H Chloride Carbon Dioxide 19 L BUN 44 H Creatinine 2.1 H Glucose 152 H POC Glucose 162 H Hemoglobin A1c Lactic Acid Troponin T C-Reactive Protein NT-Pro-B Natriuret Pep Total Protein 5.2 L Albumin 3.3 L Urine WBC (Auto) 19.0 H Urine Creatinine Urine Total Protein Vancomycin Trough 07/30/17 07/30/17 07/30/17 07:30 11:42 17:04 WBC RBC Hgb Hct RDW Lymph % (Auto) Lymph # Seg Neutrophils % Lymphocytes % (Manual) Seg Neutrophils # Seg Neutrophils # Man D-Dimer POC ABG pH POC ABG pCO2 POC ABG pO2 Sodium Chloride Carbon Dioxide BUN Creatinine Glucose POC Glucose 210 H 139 H Hemoglobin A1c Lactic Acid Troponin T C-Reactive Protein NT-Pro-B Natriuret Pep Total Protein Albumin Urine WBC (Auto) Urine Creatinine 92.3 H Urine Total Protein 28 H Vancomycin Trough 07/30/17 07/30/17 07/31/17 21:31 23:18 00:14 WBC RBC Hgb Hct RDW Lymph % (Auto) Lymph # Seg Neutrophils % Lymphocytes % (Manual) Seg Neutrophils # Seg Neutrophils # Man D-Dimer POC ABG pH POC ABG pCO2 POC ABG pO2 Sodium Chloride Carbon Dioxide BUN Creatinine Glucose POC Glucose 173 H 152 H Hemoglobin A1c Lactic Acid Troponin T C-Reactive Protein NT-Pro-B Natriuret Pep Total Protein Albumin Urine WBC (Auto) Urine Creatinine Urine Total Protein Vancomycin Trough 35.8 H 07/31/17 07/31/17 07/31/17 09:23 10:11 11:37 WBC RBC Hgb Hct RDW Lymph % (Auto) Lymph # Seg Neutrophils % Lymphocytes % (Manual) Seg Neutrophils # Seg Neutrophils # Man D-Dimer POC ABG pH POC ABG pCO2 POC ABG pO2 Sodium 149 H Chloride 108.9 H Carbon Dioxide 18 L BUN 46 H Creatinine 1.9 H Glucose 206 H POC Glucose 179 H 264 H Hemoglobin A1c Lactic Acid Troponin T C-Reactive Protein NT-Pro-B Natriuret Pep Total Protein Albumin Urine WBC (Auto) Urine Creatinine Urine Total Protein Vancomycin Trough 07/31/17 07/31/17 08/01/17 17:15 23:43 04:09 WBC RBC 3.21 L Hgb 9.5 L Hct 29.7 L RDW 17.7 H Lymph % (Auto) 5.8 L Lymph # 0.3 L Seg Neutrophils % 85.0 H Lymphocytes % (Manual) Seg Neutrophils # Seg Neutrophils # Man D-Dimer POC ABG pH POC ABG pCO2 POC ABG pO2 Sodium Chloride Carbon Dioxide BUN Creatinine Glucose POC Glucose 188 H 159 H Hemoglobin A1c Lactic Acid Troponin T C-Reactive Protein NT-Pro-B Natriuret Pep Total Protein Albumin Urine WBC (Auto) Urine Creatinine Urine Total Protein Vancomycin Trough 08/01/17 08/01/17 08/01/17 04:09 05:06 09:20 WBC RBC Hgb Hct RDW Lymph % (Auto) Lymph # Seg Neutrophils % Lymphocytes % (Manual) Seg Neutrophils # Seg Neutrophils # Man D-Dimer POC ABG pH POC ABG pCO2 POC ABG pO2 Sodium 150 H Chloride 111.2 H Carbon Dioxide 18 L BUN 48 H Creatinine 1.9 H Glucose 203 H POC Glucose 218 H Hemoglobin A1c Lactic Acid Troponin T C-Reactive Protein 4.00 H NT-Pro-B Natriuret Pep Total Protein Albumin Urine WBC (Auto) Urine Creatinine Urine Total Protein Vancomycin Trough Allied health notes reviewed: nursing
--- NOTE | 2017-08-01 13:03 | Progress Note ---
Assessment and Plan 1. Acute Kidney Injury 2/2 likely Septic/ischemic ATN vs vanco toxicity, AIN r/ o obstructive uropathy 2. Acute hypoxic respiratory failure pulmonary edema/Pneumonia 3. AG metabolic acidosis 2/2 lactic acidosis 4. Sepsis 5. Severe Aortic stenosis 6. Hypernatremia Plan; CR stable at 1.9 in the last 24 hrs. Renal U.S with no hydronephrosis No significant proteinuria on UA. He has hematuria (new from 07/26) likely 2/2 Ba trauma Hypernatremia noted. [facility] [place] [facility] Avoid nephrotoxines Subjective Date of service: 08/01/17 Principal diagnosis: Acute Hypoxemic Respiratory Failure; Acute Pulmonary Edema ; Severe Interval history: Remained on BiPAP, confused Objective - Exam Narrative Exam: General appearance: well-developed, well-nourished, moderate distress, frail, other (on BiPAP) EENT: PERRL, mucous membranes moist Neck: Present: neck supple, trachea midline. Absent: JVD/HJR, Masses Respiratory: Rales, Wheezes Heart: regular, normal heart rate, S1S2, no murmurs Gastrointestinal: Present: normoactive bowel sounds. Absent: tenderness, distended, masses, guarding Integumentary: no rash, warm and dry Neurologic: no focal deficit, confused Musculoskeletal: Absent: deformities, joint swelling Psychiatric: mood/affect appropriate, cooperative - Vital Signs Vital signs: Vital Signs - 12hr 08/01/17 08/01/17 08/01/17 01:30 02:00 02:30 Temperature Pulse Rate 101 H 104 H 126 H Pulse Rate [ From Monitor] Pulse Rate [ Right Dorsalis Pedis] Respiratory 22 21 34 H Rate Blood Pressure 119/44 119/44 126/52 O2 Sat by Pulse 92 92 88 Oximetry 08/01/17 08/01/17 08/01/17 03:00 03:30 03:51 Temperature 97.9 F Pulse Rate 86 93 H 95 H Pulse Rate [ From Monitor] Pulse Rate [ Right Dorsalis Pedis] Respiratory 24 25 H 15 Rate Blood Pressure 121/50 121/50 121/50 O2 Sat by Pulse 92 96 97 Oximetry 08/01/17 08/01/17 08/01/17 04:00 04:30 05:00 Temperature Pulse Rate 90 102 H 98 H Pulse Rate [ From Monitor] Pulse Rate [ Right Dorsalis Pedis] Respiratory 25 H 21 27 H Rate Blood Pressure 129/44 129/44 139/54 O2 Sat by Pulse 97 98 94 Oximetry 08/01/17 08/01/17 08/01/17 05:30 06:00 06:30 Temperature Pulse Rate 109 H 114 H Pulse Rate [ From Monitor] Pulse Rate [ Right Dorsalis Pedis] Respiratory 32 H 28 H Rate Blood Pressure 139/54 139/54 152/53 O2 Sat by Pulse 96 90 94 Oximetry 08/01/17 08/01/17 08/01/17 07:00 07:30 08:00 Temperature 97.7 F Pulse Rate 111 H 136 H 120 H Pulse Rate [ 119 H From Monitor] Pulse Rate [ Right Dorsalis Pedis] Respiratory 25 H 20 20 Rate Blood Pressure 154/57 154/57 154/57 O2 Sat by Pulse 95 94 95 Oximetry 08/01/17 08/01/17 08/01/17 08:30 09:00 09:30 Temperature Pulse Rate 97 H 104 H 107 H Pulse Rate [ From Monitor] Pulse Rate [ Right Dorsalis Pedis] Respiratory 24 16 23 Rate Blood Pressure 101/74 101/74 101/74 O2 Sat by Pulse 91 92 95 Oximetry 08/01/17 08/01/17 08/01/17 10:00 10:30 11:00 Temperature Pulse Rate 107 H 102 H 126 H Pulse Rate [ From Monitor] Pulse Rate [ Right Dorsalis Pedis] Respiratory 22 29 H 29 H Rate Blood Pressure 148/47 148/47 148/47 O2 Sat by Pulse 90 88 Oximetry 08/01/17 08/01/17 11:30 12:00 Temperature Pulse Rate 98 H 100 H Pulse Rate [ From Monitor] Pulse Rate [ 97 H Right Dorsalis Pedis] Respiratory 23 18 Rate Blood Pressure 93/69 139/64 O2 Sat by Pulse 93 92 Oximetry - Lab 08/01/17 04:09 08/01/17 04:09 Most recent lab results Calcium 9.6 mg/dL (8.4-10.2) 08/01/17 04:09 Urine Creatinine 92.3 mg/dL (0.1-20.0) H 07/30/17 07:30 Urine Total Protein 28 mg/dL (5-11.8) H 07/30/17 07:30
--- NOTE | 2017-08-01 17:13 | Progress Note ---
Assessment and Plan Assessment and plan: 82 yo male with severe aortic stenosis, HTN, DM, presented for worsening shortness of breath, cough, decreased oral intake, difficulty urination and decreased urine output 1. Acute hypoxic respiratory failure Likely secondary to pneumonia and volume overload On antibiotics and bronchodilators; diuresis with Lasix Requiring continuous BiPAP Pulmonary following 2. RLL pneumonia Likely aspiration pneumonia On broad-spectrum antibiotics 3. Sepsis Due to #2 Continue antibiotics; IV fluids discontinued due to pulmonary edema and worsening respiratory distress 4. Elevated d-dimer VQ scan negative for PE 5. Elevated troponin Nonspecific, likely secondary to increased demand/renal insufficiency 6. Acute renal failure Renal function worsened despite hydration Possible secondary to reduced post load due to with hypoperfusion vs vancomycin toxicity versus obstructive uropathy Renal ultrasound negative for hydronephrosis IV fluids discontinued due to worsening pulmonary edema Receiving Lasix -assessing need to daily Monitoring BUN/creatinine and electrolytes Nephrology following 7. Metabolic acidosis Due to renal insufficiency 8. Severe aortic stenosis Cardiology following; echocardiogram repeated; medical management recommended with fluid balance managed by nephrology 9. Acute diastolic heart failure Preserved EF Diuresis with caution given preload dependent and renal insufficiency 10. Hypertension BP within normal limits on no medications Monitor 11. Diabetes Accu-Cheks and SSI 12. DVT prophylaxis 13. Guarded prognosis; discussed with family; all physicians considering hospice the appropriate option; family agrees; field case manager consulted and hospice called History Interval history: tachypneic, tachycardic, unable to be weaned off BIPAP discussed with and daughter Hospitalist Physical - Constitutional Vitals: Temp Pulse Resp BP Pulse Ox 97.6 F 96 H 36 H 116/59 93 08/01/17 16:00 08/01/17 16:00 08/01/17 16:00 08/01/17 16:00 08/01/17 16:00 General appearance: Present: mild distress, well-nourished - EENT Eyes: Present: PERRL, EOM intact - Neck Neck: Present: supple. Absent: enlarged thyroid, masses or JVD - Respiratory Respiratory effort: labored, other (tachypneic) Respiratory: bilateral: diminished, rales, negative: wheezing - Cardiovascular Rhythm: other (tachycardic) Heart Sounds: Present: S1 & S2. Absent: systolic murmur - Extremities Extremities: no ischemia - Abdominal General gastrointestinal: soft, non-tender, non-distended, normal bowel sounds - Psychiatric Psychiatric: other (confused, agitated at times) - Neurologic Neurologic: moves all extremities Results - Labs CBC & Chem 7: 08/01/17 04:09 08/01/17 04:09 Labs: Laboratory Last Values WBC 5.7 K/mm3 (4.5-11.0) 08/01/17 04:09 RBC 3.21 M/mm3 (3.65-5.03) L 08/01/17 04:09 Hgb 9.5 gm/dl (11.8-15.2) L 08/01/17 04:09 Hct 29.7 % (35.5-45.6) L 08/01/17 04:09 MCV 92 fl (84-94) 08/01/17 04:09 MCH 30 pg (28-32) 08/01/17 04:09 MCHC 32 % (32-34) 08/01/17 04:09 RDW 17.7 % (13.2-15.2) H 08/01/17 04:09 Plt Count 214 K/mm3 (140-440) 08/01/17 04:09 Lymph % (Auto) 5.8 % (13.4-35.0) L 08/01/17 04:09 [place] % (Auto) 6.4 % (0.0-7.3) 08/01/17 04:09 Eos % (Auto) 1.9 % (0.0-4.3) 08/01/17 04:09 Baso % (Auto) 0.9 % (0.0-1.8) 08/01/17 04:09 Lymph # 0.3 K/mm3 (1.2-5.4) L 08/01/17 04:09 [place] # 0.4 K/mm3 (0.0-0.8) 08/01/17 04:09 Eos # 0.1 K/mm3 (0.0-0.4) 08/01/17 04:09 Baso # 0.1 K/mm3 (0.0-0.1) 08/01/17 04:09 Add Manual Diff Complete 07/26/17 02:37 Total Counted 100 07/26/17 02:37 Seg Neutrophils % 85.0 % (40.0-70.0) H 08/01/17 04:09 Seg Neuts % (Manual) 66.0 % (40.0-70.0) 07/26/17 02:37 Band Neutrophils % 26.0 % 07/26/17 02:37 Lymphocytes % (Manual) 5.0 % (13.4-35.0) L 07/26/17 02:37 Reactive Lymphs % (Man) 0 % 07/26/17 02:37 Monocytes % (Manual) 2.0 % (0.0-7.3) 07/26/17 02:37 Eosinophils % (Manual) 1.0 % (0.0-4.3) 07/26/17 02:37 Basophils % (Manual) 0 % (0.0-1.8) 07/26/17 02:37 Metamyelocytes % 0 % 07/26/17 02:37 Myelocytes % 0 % 07/26/17 02:37 Promyelocytes % 0 % 07/26/17 02:37 Blast Cells % 0 % 07/26/17 02:37 Nucleated RBC % Not Reportable 07/26/17 02:37 Seg Neutrophils # 4.9 K/mm3 (1.8-7.7) 08/01/17 04:09 Seg Neutrophils # Man 15.3 K/mm3 (1.8-7.7) H 07/26/17 02:37 Band Neutrophils # 6.0 K/mm3 07/26/17 02:37 Lymphocytes # (Manual) 1.2 K/mm3 (1.2-5.4) 07/26/17 02:37 Abs React Lymphs (Man) 0.0 K/mm3 07/26/17 02:37 Monocytes # (Manual) 0.5 K/mm3 (0.0-0.8) 07/26/17 02:37 Eosinophils # (Manual) 0.2 K/mm3 (0.0-0.4) 07/26/17 02:37 Basophils # (Manual) 0.0 K/mm3 (0.0-0.1) 07/26/17 02:37 Metamyelocytes # 0.0 K/mm3 07/26/17 02:37 Myelocytes # 0.0 K/mm3 07/26/17 02:37 Promyelocytes # 0.0 K/mm3 07/26/17 02:37 Blast Cells # 0.0 K/mm3 07/26/17 02:37 WBC Morphology Not Reportable 07/26/17 02:37 Hypersegmented Neuts Not Reportable 07/26/17 02:37 Hyposegmented Neuts Not Reportable 07/26/17 02:37 Hypogranular Neuts Not Reportable 07/26/17 02:37 Smudge Cells Not Reportable 07/26/17 02:37 Toxic Granulation Not Reportable 07/26/17 02:37 Toxic Vacuolation Not Reportable 07/26/17 02:37 Dohle Bodies Not Reportable 07/26/17 02:37 Pelger-Huet Anomaly Not Reportable 07/26/17 02:37 Belle Rods Not Reportable 07/26/17 02:37 Platelet Estimate Consistent w auto 07/26/17 02:37 Clumped Platelets Not Reportable 07/26/17 02:37 Plt Clumps, EDTA Not Reportable 07/26/17 02:37 Large Platelets Not Reportable 07/26/17 02:37 Giant Platelets Not Reportable 07/26/17 02:37 Platelet Satelliting Not Reportable 07/26/17 02:37 Plt Morphology Comment Not Reportable 07/26/17 02:37 RBC Morphology Not Reportable 07/26/17 02:37 Dimorphic RBCs Not Reportable 07/26/17 02:37 Polychromasia Not Reportable 07/26/17 02:37 Hypochromasia Not Reportable 07/26/17 02:37 Poikilocytosis Not Reportable 07/26/17 02:37 Anisocytosis 1+ 07/26/17 02:37 Microcytosis Not Reportable 07/26/17 02:37 Macrocytosis Not Reportable 07/26/17 02:37 Spherocytes Not Reportable 07/26/17 02:37 Pappenheimer Bodies Not Reportable 07/26/17 02:37 Sickle Cells Not Reportable 07/26/17 02:37 Target Cells Not Reportable 07/26/17 02:37 Tear Drop Cells Not Reportable 07/26/17 02:37 Ovalocytes Not Reportable 07/26/17 02:37 Helmet Cells Not Reportable 07/26/17 02:37 Hu-[place] Bodies Not Reportable 07/26/17 02:37 [place] Rings Not Reportable 07/26/17 02:37 [place] Cells Not Reportable 07/26/17 02:37 Bite Cells Not Reportable 07/26/17 02:37 Crenated Cell Not Reportable 07/26/17 02:37 Elliptocytes Few 07/26/17 02:37 Acanthocytes (Spur) Not Reportable 07/26/17 02:37 Rouleaux Not Reportable 07/26/17 02:37 Hemoglobin C Crystals Not Reportable 07/26/17 02:37 Schistocytes Not Reportable 07/26/17 02:37 Malaria parasites Not Reportable 07/26/17 02:37 [place] Bodies Not Reportable 07/26/17 02:37 Hem Pathologist Commnt No 07/26/17 02:37 D-Dimer 714.08 ng/mlDDU (0-234) H 07/26/17 02:46 POC ABG pH 7.329 (7.35-7.45) L 07/28/17 01:04 POC ABG pCO2 38.8 (35-45) 07/28/17 01:04 POC ABG pO2 323 (80-105) H 07/28/17 01:04 POC ABG HCO3 20.4 07/28/17 01:04 POC ABG Total CO2 22 07/28/17 01:04 POC ABG O2 Sat 100 07/28/17 01:04 POC ABG Base Excess -6 07/28/17 01:04 FiO2 100 % 07/28/17 01:04 Sodium 150 mmol/L (137-145) H 08/01/17 04:09 Potassium 4.0 mmol/L (3.6-5.0) 08/01/17 04:09 Chloride 111.2 mmol/L (98-107) H 08/01/17 04:09 Carbon Dioxide 18 mmol/L (22-30) L 08/01/17 04:09 Anion Gap 25 mmol/L 08/01/17 04:09 BUN 48 mg/dL (9-20) H 08/01/17 04:09 Creatinine 1.9 mg/dL (0.8-1.5) H 08/01/17 04:09 Estimated GFR 34 ml/min 08/01/17 04:09 BUN/Creatinine Ratio 25 % 08/01/17 04:09 Glucose 203 mg/dL (75-100) H 08/01/17 04:09 POC Glucose 218 (70-105) H 08/01/17 05:06 Hemoglobin A1c 6.9 % (4-6) H 07/26/17 08:04 Lactic Acid 1.90 mmol/L (0.7-2.0) 08/01/17 09:20 Calcium 9.6 mg/dL (8.4-10.2) 08/01/17 04:09 Total Bilirubin 0.50 mg/dL (0.1-1.2) 07/30/17 03:13 AST 18 units/L (5-40) 07/30/17 03:13 ALT 28 units/L (7-56) 07/30/17 03:13 Alkaline Phosphatase 67 units/L (35-129) 07/30/17 03:13 Troponin T 0.196 ng/mL (0.00-0.029) H* D 07/28/17 13:07 C-Reactive Protein 4.00 mg/dL (0.00-1.30) H 08/01/17 09:20 NT-Pro-B Natriuret Pep 8843 pg/mL (0-900) H 07/26/17 02:44 Total Protein 5.2 g/dL (6.3-8.2) L 07/30/17 03:13 Albumin 3.3 g/dL (3.9-5) L 07/30/17 03:13 Albumin/Globulin Ratio 1.7 % 07/30/17 03:13 Triglycerides 106 mg/dL (2-149) 07/26/17 02:37 Cholesterol 128 mg/dL (50-199) 07/26/17 02:37 LDL Cholesterol Direct 59 mg/dL (50-130) 07/26/17 02:37 HDL Cholesterol 48 mg/dL (40-59) 07/26/17 02:37 Cholesterol/HDL Ratio 2.66 % 07/26/17 02:37 Urine Color Yellow (Yellow) 07/30/17 07:30 Urine Turbidity Clear (Clear) 07/30/17 07:30 Urine pH 5.0 (5.0-7.0) 07/30/17 07:30 Ur Specific [place] 1.018 (1.003-1.030) 07/30/17 07:30 Urine Protein <15 mg/dl mg/dL (Negative) 07/30/17 07:30 Urine Glucose (UA) Neg mg/dL (Negative) 07/30/17 07:30 Urine Ketones Tr mg/dL (Negative) 07/30/17 07:30 Urine Blood Lg (Negative) 07/30/17 07:30 Urine Nitrite Neg (Negative) 07/30/17 07:30 Urine Bilirubin Neg (Negative) 07/30/17 07:30 Urine Urobilinogen < 2.0 mg/dL (<2.0) 07/30/17 07:30 Ur Leukocyte Esterase Tr (Negative) 07/30/17 07:30 Urine WBC (Auto) 19.0 /HPF (0.0-6.0) H 07/30/17 07:30 Urine RBC (Auto) > 182.0 /HPF (0.0-6.0) 07/30/17 07:30 Urine Bacteria (Auto) 1+ /HPF (Negative) 07/30/17 07:30 Urine Mucus Few /HPF 07/30/17 07:30 Urine Yeast (Budding) 2+ /HPF 07/30/17 07:30 Urine Eosinophils None seen (None Seen) 07/30/17 07:30 Urine Creatinine 92.3 mg/dL (0.1-20.0) H 07/30/17 07:30 Protein/Creatinin Ratio 0.30 07/30/17 07:30 Urine Total Protein 28 mg/dL (5-11.8) H 07/30/17 07:30 Vancomycin Trough 35.8 ug/mL (5.0-20.0) H 07/30/17 21:31
[2017-08-02] MEDS: ZOSYN/NS 2.25 GM/50ML 2.25 GM/50 ML BAG IV SCH ×4 (00:47→18:08)
[2017-08-02] MEDS: NOVOLOG SUB-Q SCH ×4 (00:48→18:09)
[2017-08-02] MEDS: HALDOL IV PRN ×2 (02:59→12:54)
[2017-08-02] MEDS: MORPHINE IV PRN (04:55)
[2017-08-02] MEDS ORDERED: LASIX ONE (06:52)
[2017-08-02] MEDS: LOPRESSOR PO SCH ×2 (10:17→22:39)
[2017-08-02] MEDS: HEPARIN SUB-Q SCH ×2 (10:18→22:42)
[2017-08-02] MEDS: PROzac PO SCH (10:18)
[2017-08-02 10:57] LABS: Calcium 9.3 mg/dL (8.4-10.2)
[2017-08-02 10:58] LABS: Chloride 111.8 mmol/L (98-107); Potassium 4.4 mmol/L (3.6-5.0)
--- NOTE | 2017-08-02 11:44 | Progress Note ---
Assessment and Plan Assessment and plan: 82 yo male with severe aortic stenosis, HTN, DM, presented for worsening shortness of breath, cough, decreased oral intake, difficulty urination and decreased urine output -- Acute hypoxic respiratory failure , pneumonia and volume overload Continue antibiotics and bronchodilators; diuretics BiPAP as needed, Pulmonary following --RLL pneumonia possible aspiration pneumonia Aspiration precautions , continue current antibiotics, follow cultures --Sepsis secondary to aspiration pneumonia Continue current management -- Elevated d-dimer, negative PE --Elevated troponin, Nonspecific, secondary to renal insufficiency -- Acute renal failure/due to vasomotor nephropathy Closely monitor, gentle IV hydration, nephrology following -- Metabolic acidosis/ resolved -- Severe aortic stenosis; medical management, Cardiology following --Acute diastolic heart failure; continue current management -- Hypertension; controlled, supportive care -- Diabetes; Accu-Cheks and SSI -- DVT prophylaxis --DO NOT RESUSCITATE status --Possible home with hospice when hospice is set up poor prognosis, family aware Plan of care discussed the patient's family, his History Interval history: Patient seen and examined medical records reviewed Patient is on BiPAP in mild respiratory distress Family members at the bedside No new events reported by nursing staff Vital signs reviewed Hospitalist Physical - Constitutional Vitals: Temp Pulse Resp BP Pulse Ox 98.2 F 94 H 36 H 135/93 95 08/02/17 08:00 08/02/17 11:00 08/02/17 11:00 08/02/17 11:00 08/02/17 11:00 General appearance: Present: mild distress, well-nourished - EENT Eyes: Present: PERRL, EOM intact - Neck Neck: Present: supple, normal ROM - Respiratory Respiratory effort: labored Respiratory: bilateral: diminished, rhonchi, negative: rales, wheezing - Cardiovascular Rhythm: regular Heart Sounds: Present: S1 & S2, systolic murmur - Extremities Extremities: no ischemia, No edema - Abdominal General gastrointestinal: soft, non-tender, non-distended, normal bowel sounds - Integumentary Integumentary: Present: clear, warm - Psychiatric Psychiatric: other (minimally communicative confused) - Neurologic Neurologic: other (minimally communicative) Results - Labs CBC & Chem 7: 08/01/17 04:09 08/02/17 10:29 Labs: Laboratory Last Values WBC 5.7 K/mm3 (4.5-11.0) 08/01/17 04:09 RBC 3.21 M/mm3 (3.65-5.03) L 08/01/17 04:09 Hgb 9.5 gm/dl (11.8-15.2) L 08/01/17 04:09 Hct 29.7 % (35.5-45.6) L 08/01/17 04:09 MCV 92 fl (84-94) 08/01/17 04:09 MCH 30 pg (28-32) 08/01/17 04:09 MCHC 32 % (32-34) 08/01/17 04:09 RDW 17.7 % (13.2-15.2) H 08/01/17 04:09 Plt Count 214 K/mm3 (140-440) 08/01/17 04:09 Lymph % (Auto) 5.8 % (13.4-35.0) L 08/01/17 04:09 [place] % (Auto) 6.4 % (0.0-7.3) 08/01/17 04:09 Eos % (Auto) 1.9 % (0.0-4.3) 08/01/17 04:09 Baso % (Auto) 0.9 % (0.0-1.8) 08/01/17 04:09 Lymph # 0.3 K/mm3 (1.2-5.4) L 08/01/17 04:09 [place] # 0.4 K/mm3 (0.0-0.8) 08/01/17 04:09 Eos # 0.1 K/mm3 (0.0-0.4) 08/01/17 04:09 Baso # 0.1 K/mm3 (0.0-0.1) 08/01/17 04:09 Add Manual Diff Complete 07/26/17 02:37 Total Counted 100 07/26/17 02:37 Seg Neutrophils % 85.0 % (40.0-70.0) H 08/01/17 04:09 Seg Neuts % (Manual) 66.0 % (40.0-70.0) 07/26/17 02:37 Band Neutrophils % 26.0 % 07/26/17 02:37 Lymphocytes % (Manual) 5.0 % (13.4-35.0) L 07/26/17 02:37 Reactive Lymphs % (Man) 0 % 07/26/17 02:37 Monocytes % (Manual) 2.0 % (0.0-7.3) 07/26/17 02:37 Eosinophils % (Manual) 1.0 % (0.0-4.3) 07/26/17 02:37 Basophils % (Manual) 0 % (0.0-1.8) 07/26/17 02:37 Metamyelocytes % 0 % 07/26/17 02:37 Myelocytes % 0 % 07/26/17 02:37 Promyelocytes % 0 % 07/26/17 02:37 Blast Cells % 0 % 07/26/17 02:37 Nucleated RBC % Not Reportable 07/26/17 02:37 Seg Neutrophils # 4.9 K/mm3 (1.8-7.7) 08/01/17 04:09 Seg Neutrophils # Man 15.3 K/mm3 (1.8-7.7) H 07/26/17 02:37 Band Neutrophils # 6.0 K/mm3 07/26/17 02:37 Lymphocytes # (Manual) 1.2 K/mm3 (1.2-5.4) 07/26/17 02:37 Abs React Lymphs (Man) 0.0 K/mm3 07/26/17 02:37 Monocytes # (Manual) 0.5 K/mm3 (0.0-0.8) 07/26/17 02:37 Eosinophils # (Manual) 0.2 K/mm3 (0.0-0.4) 07/26/17 02:37 Basophils # (Manual) 0.0 K/mm3 (0.0-0.1) 07/26/17 02:37 Metamyelocytes # 0.0 K/mm3 07/26/17 02:37 Myelocytes # 0.0 K/mm3 07/26/17 02:37 Promyelocytes # 0.0 K/mm3 07/26/17 02:37 Blast Cells # 0.0 K/mm3 07/26/17 02:37 WBC Morphology Not Reportable 07/26/17 02:37 Hypersegmented Neuts Not Reportable 07/26/17 02:37 Hyposegmented Neuts Not Reportable 07/26/17 02:37 Hypogranular Neuts Not Reportable 07/26/17 02:37 Smudge Cells Not Reportable 07/26/17 02:37 Toxic Granulation Not Reportable 07/26/17 02:37 Toxic Vacuolation Not Reportable 07/26/17 02:37 Dohle Bodies Not Reportable 07/26/17 02:37 Pelger-Huet Anomaly Not Reportable 07/26/17 02:37 Belle Rods Not Reportable 07/26/17 02:37 Platelet Estimate Consistent w auto 07/26/17 02:37 Clumped Platelets Not Reportable 07/26/17 02:37 Plt Clumps, EDTA Not Reportable 07/26/17 02:37 Large Platelets Not Reportable 07/26/17 02:37 Giant Platelets Not Reportable 07/26/17 02:37 Platelet Satelliting Not Reportable 07/26/17 02:37 Plt Morphology Comment Not Reportable 07/26/17 02:37 RBC Morphology Not Reportable 07/26/17 02:37 Dimorphic RBCs Not Reportable 07/26/17 02:37 Polychromasia Not Reportable 07/26/17 02:37 Hypochromasia Not Reportable 07/26/17 02:37 Poikilocytosis Not Reportable 07/26/17 02:37 Anisocytosis 1+ 07/26/17 02:37 Microcytosis Not Reportable 07/26/17 02:37 Macrocytosis Not Reportable 07/26/17 02:37 Spherocytes Not Reportable 07/26/17 02:37 Pappenheimer Bodies Not Reportable 07/26/17 02:37 Sickle Cells Not Reportable 07/26/17 02:37 Target Cells Not Reportable 07/26/17 02:37 Tear Drop Cells Not Reportable 07/26/17 02:37 Ovalocytes Not Reportable 07/26/17 02:37 Helmet Cells Not Reportable 07/26/17 02:37 Hu-[place] Bodies Not Reportable 07/26/17 02:37 [place] Rings Not Reportable 07/26/17 02:37 [place] Cells Not Reportable 07/26/17 02:37 Bite Cells Not Reportable 07/26/17 02:37 Crenated Cell Not Reportable 07/26/17 02:37 Elliptocytes Few 07/26/17 02:37 Acanthocytes (Spur) Not Reportable 07/26/17 02:37 Rouleaux Not Reportable 07/26/17 02:37 Hemoglobin C Crystals Not Reportable 07/26/17 02:37 Schistocytes Not Reportable 07/26/17 02:37 Malaria parasites Not Reportable 07/26/17 02:37 [place] Bodies Not Reportable 07/26/17 02:37 Hem Pathologist Commnt No 07/26/17 02:37 D-Dimer 714.08 ng/mlDDU (0-234) H 07/26/17 02:46 POC ABG pH 7.329 (7.35-7.45) L 07/28/17 01:04 POC ABG pCO2 38.8 (35-45) 07/28/17 01:04 POC ABG pO2 323 (80-105) H 07/28/17 01:04 POC ABG HCO3 20.4 07/28/17 01:04 POC ABG Total CO2 22 07/28/17 01:04 POC ABG O2 Sat 100 07/28/17 01:04 POC ABG Base Excess -6 07/28/17 01:04 FiO2 100 % 07/28/17 01:04 Sodium 150 mmol/L (137-145) H 08/02/17 10:29 Potassium 4.4 mmol/L (3.6-5.0) 08/02/17 10:29 Chloride 111.8 mmol/L (98-107) H 08/02/17 10:29 Carbon Dioxide 22 mmol/L (22-30) 08/02/17 10:29 Anion Gap 21 mmol/L 08/02/17 10:29 BUN 63 mg/dL (9-20) H 08/02/17 10:29 Creatinine 2.2 mg/dL (0.8-1.5) H 08/02/17 10:29 Estimated GFR 29 ml/min 08/02/17 10:29 BUN/Creatinine Ratio 29 % 08/02/17 10:29 Glucose 280 mg/dL (75-100) H 08/02/17 10:29 POC Glucose 222 (70-105) H 08/02/17 05:04 Hemoglobin A1c 6.9 % (4-6) H 07/26/17 08:04 Lactic Acid 1.90 mmol/L (0.7-2.0) 08/01/17 09:20 Calcium 9.3 mg/dL (8.4-10.2) 08/02/17 10:29 Total Bilirubin 0.50 mg/dL (0.1-1.2) 07/30/17 03:13 AST 18 units/L (5-40) 07/30/17 03:13 ALT 28 units/L (7-56) 07/30/17 03:13 Alkaline Phosphatase 67 units/L (35-129) 07/30/17 03:13 Troponin T 0.196 ng/mL (0.00-0.029) H* D 07/28/17 13:07 C-Reactive Protein 4.00 mg/dL (0.00-1.30) H 08/01/17 09:20 NT-Pro-B Natriuret Pep 8843 pg/mL (0-900) H 07/26/17 02:44 Total Protein 5.2 g/dL (6.3-8.2) L 07/30/17 03:13 Albumin 3.3 g/dL (3.9-5) L 07/30/17 03:13 Albumin/Globulin Ratio 1.7 % 07/30/17 03:13 Triglycerides 106 mg/dL (2-149) 07/26/17 02:37 Cholesterol 128 mg/dL (50-199) 07/26/17 02:37 LDL Cholesterol Direct 59 mg/dL (50-130) 07/26/17 02:37 HDL Cholesterol 48 mg/dL (40-59) 07/26/17 02:37 Cholesterol/HDL Ratio 2.66 % 07/26/17 02:37 Urine Color Yellow (Yellow) 07/30/17 07:30 Urine Turbidity Clear (Clear) 07/30/17 07:30 Urine pH 5.0 (5.0-7.0) 07/30/17 07:30 Ur Specific [place] 1.018 (1.003-1.030) 07/30/17 07:30 Urine Protein <15 mg/dl mg/dL (Negative) 07/30/17 07:30 Urine Glucose (UA) Neg mg/dL (Negative) 07/30/17 07:30 Urine Ketones Tr mg/dL (Negative) 07/30/17 07:30 Urine Blood Lg (Negative) 07/30/17 07:30 Urine Nitrite Neg (Negative) 07/30/17 07:30 Urine Bilirubin Neg (Negative) 07/30/17 07:30 Urine Urobilinogen < 2.0 mg/dL (<2.0) 07/30/17 07:30 Ur Leukocyte Esterase Tr (Negative) 07/30/17 07:30 Urine WBC (Auto) 19.0 /HPF (0.0-6.0) H 07/30/17 07:30 Urine RBC (Auto) > 182.0 /HPF (0.0-6.0) 07/30/17 07:30 Urine Bacteria (Auto) 1+ /HPF (Negative) 07/30/17 07:30 Urine Mucus Few /HPF 07/30/17 07:30 Urine Yeast (Budding) 2+ /HPF 07/30/17 07:30 Urine Eosinophils None seen (None Seen) 07/30/17 07:30 Urine Creatinine 92.3 mg/dL (0.1-20.0) H 07/30/17 07:30 Protein/Creatinin Ratio 0.30 07/30/17 07:30 Urine Total Protein 28 mg/dL (5-11.8) H 07/30/17 07:30 Vancomycin Trough 35.8 ug/mL (5.0-20.0) H 07/30/17 21:31 Random Vancomycin 20.0 ug/mL (0-40.0) 08/02/17 04:45
--- NOTE | 2017-08-02 13:24 | Progress Note ---
Assessment and Plan His prognosis appears poor at this time. I have discussed with his and other family members at bedside. - Patient Problems (1) Sepsis Current Visit: Yes Status: Acute Qualifiers: Sepsis type: sepsis due to unspecified organism Qualified Code(s): A41.9 - Sepsis, unspecified organism (2) Acute respiratory failure Current Visit: Yes Status: Acute Qualifiers: Respiratory failure complication: hypoxia Qualified Code(s): J96.01 - Acute respiratory failure with hypoxia (3) Pneumonia Current Visit: Yes Status: Acute Qualifiers: Pneumonia type: due to unspecified organism Laterality: right Lung location: lower lobe of lung Qualified Code(s): J18.1 - Lobar pneumonia, unspecified organism (4) Acute diastolic HF (heart failure) Current Visit: Yes Status: Chronic (5) Aortic stenosis Current Visit: Yes Status: Acute (6) Acute renal failure Current Visit: Yes Status: Acute (7) Elevated troponin Current Visit: Yes Status: Acute (8) HTN (hypertension) Current Visit: Yes Status: Chronic Qualifiers: Hypertension type: essential hypertension Qualified Code(s): I10 - Essential (primary) hypertension (9) IDDM (insulin dependent diabetes mellitus) Current Visit: Yes Status: Chronic Subjective Date of service: 08/02/17 Principal diagnosis: Acute Hypoxemic Respiratory Failure; Acute Pulmonary Edema ; Severe Interval history: He is on BiPAP and breathing with difficulty. Family members are at the bedside. Objective Vital Signs Last Vital Signs Temp 97.8 F 08/02/17 12:00 Pulse 95 H 08/02/17 12:00 Resp 37 H 08/02/17 12:00 BP 135/93 08/02/17 11:00 Pulse Ox 96 08/02/17 12:00 - Physical Examination General: No Apparent Distress HEENT: Positive: EOMI, Normocephaly, Mucus Membranes Moist Neck: Positive: neck supple, trachea midline. Negative: JVD/HJR, Masses Cardiac: Positive: Reg Rate and Rhythm, S1/S2 Lungs: Positive: Rhonchi Neuro: Positive: Grossly Intact Abdomen: Positive: Soft, Active Bowel Sounds. Negative: Tender Skin: Negative: Rash Musculoskeletal: Normal Range of Motion Extremities: Present: normal. Absent: edema - Labs and Meds Comprehensive Metabolic Panel 08/02/17 Range/Units 10:29 Sodium 150 H (137-145) mmol/L Potassium 4.4 (3.6-5.0) mmol/L Chloride 111.8 H (98-107) mmol/L Carbon Dioxide 22 (22-30) mmol/L BUN 63 H (9-20) mg/dL Creatinine 2.2 H (0.8-1.5) mg/dL Glucose 280 H (75-100) mg/dL Calcium 9.3 (8.4-10.2) mg/dL - Telemetry EKG Rhythm: Sinus Rhythm - Allied health notes Allied health notes reviewed: nursing
--- NOTE | 2017-08-02 18:35 | Progress Note ---
<RANDA ALBRIGHT - Last Filed: 08/02/17 18:34> Assessment and Plan - Patient Problems (1) Acute respiratory failure Current Visit: Yes Status: Acute QualifierTitle: Respiratory failure complication: hypoxia Qualified Code( s): J96.01 - Acute respiratory failure with hypoxia (2) YANY (acute kidney injury) Current Visit: Yes Status: Acute (3) Sepsis Current Visit: Yes Status: Acute QualifierTitle: Sepsis type: sepsis due to unspecified organism Qualified Code(s): A41.9 - Sepsis, unspecified organism Subjective Date of service: 08/02/17 Principal diagnosis: Acute Hypoxemic Respiratory Failure; Acute Pulmonary Edema ; Severe Interval history: Seen and examined. vitals, labs, medications, chart reviewed. discussed in interdisciplinary rounds. remains BIPAP dependant. Desaturations within 1 hour of taking BIPAP off. Has not had any enteric feeding. family at the bedside Objective Vital Signs - 12hr 08/02/17 08/02/17 08/02/17 07:00 07:30 07:40 Temperature Pulse Rate 126 H 124 H 114 H Pulse Rate [ From Monitor] Respiratory 40 H 32 H 36 H Rate Blood Pressure 141/48 141/48 O2 Sat by Pulse 90 90 92 Oximetry 08/02/17 08/02/17 08/02/17 08:00 08:30 09:00 Temperature 98.2 F Pulse Rate 109 H 106 H 120 H Pulse Rate [ 117 H From Monitor] Respiratory 36 H 35 H 33 H Rate Blood Pressure 141/48 134/97 134/97 O2 Sat by Pulse 94 98 90 Oximetry 08/02/17 08/02/17 08/02/17 09:30 10:00 10:17 Temperature Pulse Rate 122 H 110 H 123 H Pulse Rate [ From Monitor] Respiratory 33 H 41 H Rate Blood Pressure 134/97 134/97 135/93 O2 Sat by Pulse 90 96 Oximetry 08/02/17 08/02/17 08/02/17 10:30 11:00 11:30 Temperature Pulse Rate 102 H 94 H 81 Pulse Rate [ From Monitor] Respiratory 24 36 H 39 H Rate Blood Pressure 135/93 135/93 135/93 O2 Sat by Pulse 100 95 96 Oximetry 08/02/17 08/02/17 08/02/17 12:00 12:30 13:00 Temperature 97.8 F Pulse Rate 83 97 H 93 H Pulse Rate [ 95 H From Monitor] Respiratory 38 H 44 H 44 H Rate Blood Pressure 97/44 97/44 97/44 O2 Sat by Pulse 96 95 93 Oximetry 08/02/17 08/02/17 08/02/17 13:30 14:00 14:02 Temperature Pulse Rate 100 H 100 H 102 H Pulse Rate [ From Monitor] Respiratory 38 H 43 H 452 H Rate Blood Pressure 97/44 97/44 125/44 O2 Sat by Pulse 91 94 91 Oximetry 08/02/17 08/02/17 08/02/17 14:30 15:00 15:30 Temperature Pulse Rate 101 H 104 H 104 H Pulse Rate [ From Monitor] Respiratory 39 H 38 H 41 H Rate Blood Pressure 125/44 125/44 125/44 O2 Sat by Pulse 92 91 90 Oximetry 08/02/17 08/02/17 08/02/17 16:00 16:30 17:00 Temperature 98.3 F Pulse Rate 102 H 64 104 H Pulse Rate [ From Monitor] Respiratory 37 H 28 H 34 H Rate Blood Pressure 127/56 127/56 127/56 O2 Sat by Pulse 88 53 L 83 L Oximetry 08/02/17 08/02/17 17:30 18:00 Temperature Pulse Rate 100 H 102 H Pulse Rate [ From Monitor] Respiratory 36 H 38 H Rate Blood Pressure 127/56 121/51 O2 Sat by Pulse 84 83 L Oximetry Constitutional: appears uncomfortable, other (agitated) Eyes: non-icteric ENT: oropharynx moist, other (oropharynx moist) Neck: supple, no lymphadenopathy, no JVD Effort: mildly labored Ascultation: Bilateral: diminished breath sounds (base), rhonchi Percussion: Bilateral: not dull Cardiovascular: irregular rhythm, murmur noted (GIRISH), other (no rubs) Gastrointestinal: normoactive bowel sounds, soft, non-tender, non-distended, other (No palpable HSM) Integumentary: normal Extremities: no cyanosis, pink and warm, pulses normal, no ischemia or petechiae , edema Neurologic: non-focal exam, pupils equal and round, motor strength normal and Psychiatric: other (delirious) CBC and BMP: 08/01/17 04:09 08/02/17 10:29 ABG, PT/INR, D-dimer: ABG POC ABG pH 7.329 (7.35-7.45) L 07/28/17 01:04 POC ABG pCO2 38.8 (35-45) 07/28/17 01:04 POC ABG pO2 323 (80-105) H 07/28/17 01:04 POC ABG HCO3 20.4 07/28/17 01:04 POC ABG Total CO2 22 07/28/17 01:04 POC ABG O2 Sat 100 07/28/17 01:04 PT/INR, D-dimer D-Dimer 714.08 ng/mlDDU (0-234) H 07/26/17 02:46 Abnormal lab findings: Abnormal Labs 07/26/17 07/26/17 07/26/17 02:13 02:37 02:37 WBC 23.2 H RBC 3.49 L Hgb 10.5 L Hct 32.2 L RDW 17.5 H Lymph % (Auto) Lymph # Seg Neutrophils % Lymphocytes % (Manual) 5.0 L Seg Neutrophils # Seg Neutrophils # Man 15.3 H D-Dimer POC ABG pH POC ABG pCO2 POC ABG pO2 Sodium Chloride Carbon Dioxide BUN Creatinine Glucose POC Glucose 353 H Hemoglobin A1c Lactic Acid Troponin T 0.155 H* C-Reactive Protein NT-Pro-B Natriuret Pep Total Protein Albumin Urine WBC (Auto) Urine Creatinine Urine Total Protein Vancomycin Trough 07/26/17 07/26/17 07/26/17 02:44 02:44 02:46 WBC RBC Hgb Hct RDW Lymph % (Auto) Lymph # Seg Neutrophils % Lymphocytes % (Manual) Seg Neutrophils # Seg Neutrophils # Man D-Dimer 714.08 H POC ABG pH POC ABG pCO2 POC ABG pO2 Sodium 132 L Chloride 90.6 L Carbon Dioxide 18 L BUN Creatinine Glucose 364 H POC Glucose Hemoglobin A1c Lactic Acid 5.40 H* Troponin T C-Reactive Protein NT-Pro-B Natriuret Pep 8843 H Total Protein Albumin Urine WBC (Auto) Urine Creatinine Urine Total Protein Vancomycin Trough 07/26/17 07/26/17 07/26/17 03:01 08:04 08:04 WBC RBC Hgb Hct RDW Lymph % (Auto) Lymph # Seg Neutrophils % Lymphocytes % (Manual) Seg Neutrophils # Seg Neutrophils # Man D-Dimer POC ABG pH 7.344 L POC ABG pCO2 33.6 L POC ABG pO2 155 H Sodium Chloride Carbon Dioxide BUN Creatinine Glucose POC Glucose Hemoglobin A1c 6.9 H Lactic Acid 4.80 H* Troponin T C-Reactive Protein NT-Pro-B Natriuret Pep Total Protein Albumin Urine WBC (Auto) Urine Creatinine Urine Total Protein Vancomycin Trough 07/26/17 07/26/17 07/26/17 09:02 17:30 21:41 WBC RBC Hgb Hct RDW Lymph % (Auto) Lymph # Seg Neutrophils % Lymphocytes % (Manual) Seg Neutrophils # Seg Neutrophils # Man D-Dimer POC ABG pH POC ABG pCO2 POC ABG pO2 Sodium Chloride Carbon Dioxide BUN Creatinine Glucose POC Glucose 431 H 235 H Hemoglobin A1c Lactic Acid Troponin T C-Reactive Protein 5.40 H NT-Pro-B Natriuret Pep Total Protein Albumin Urine WBC (Auto) Urine Creatinine Urine Total Protein Vancomycin Trough 07/27/17 07/27/17 07/27/17 07:38 07:38 12:15 WBC RBC Hgb Hct RDW Lymph % (Auto) Lymph # Seg Neutrophils % Lymphocytes % (Manual) Seg Neutrophils # Seg Neutrophils # Man D-Dimer POC ABG pH POC ABG pCO2 POC ABG pO2 Sodium Chloride Carbon Dioxide BUN Creatinine Glucose POC Glucose 252 H 262 H Hemoglobin A1c Lactic Acid 3.00 H* Troponin T C-Reactive Protein NT-Pro-B Natriuret Pep Total Protein Albumin Urine WBC (Auto) Urine Creatinine Urine Total Protein Vancomycin Trough 07/27/17 07/27/17 07/27/17 15:11 15:11 16:01 WBC RBC 3.04 L Hgb 9.1 L Hct 27.5 L RDW 17.1 H Lymph % (Auto) 4.7 L Lymph # 0.5 L Seg Neutrophils % 89.7 H Lymphocytes % (Manual) Seg Neutrophils # 9.7 H Seg Neutrophils # Man D-Dimer POC ABG pH POC ABG pCO2 POC ABG pO2 Sodium Chloride Carbon Dioxide 21 L BUN 29 H Creatinine Glucose 152 H POC Glucose 157 H Hemoglobin A1c Lactic Acid Troponin T C-Reactive Protein NT-Pro-B Natriuret Pep Total Protein 5.5 L Albumin 3.5 L Urine WBC (Auto) Urine Creatinine Urine Total Protein Vancomycin Trough 07/27/17 07/27/17 07/28/17 16:19 21:59 01:04 WBC RBC Hgb Hct RDW Lymph % (Auto) Lymph # Seg Neutrophils % Lymphocytes % (Manual) Seg Neutrophils # Seg Neutrophils # Man D-Dimer POC ABG pH 7.329 L POC ABG pCO2 32.0 L POC ABG pO2 65 L 323 H Sodium Chloride Carbon Dioxide BUN Creatinine Glucose POC Glucose 128 H Hemoglobin A1c Lactic Acid Troponin T C-Reactive Protein NT-Pro-B Natriuret Pep Total Protein Albumin Urine WBC (Auto) Urine Creatinine Urine Total Protein Vancomycin Trough 07/28/17 07/28/17 07/28/17 04:21 07:58 11:35 WBC RBC Hgb Hct RDW Lymph % (Auto) Lymph # Seg Neutrophils % Lymphocytes % (Manual) Seg Neutrophils # Seg Neutrophils # Man D-Dimer POC ABG pH POC ABG pCO2 POC ABG pO2 Sodium Chloride Carbon Dioxide 20 L BUN 33 H Creatinine Glucose 118 H POC Glucose 135 H 143 H Hemoglobin A1c Lactic Acid Troponin T C-Reactive Protein NT-Pro-B Natriuret Pep Total Protein 5.2 L Albumin 3.5 L Urine WBC (Auto) Urine Creatinine Urine Total Protein Vancomycin Trough 07/28/17 07/28/17 07/29/17 13:07 16:32 05:36 WBC RBC Hgb Hct RDW Lymph % (Auto) Lymph # Seg Neutrophils % Lymphocytes % (Manual) Seg Neutrophils # Seg Neutrophils # Man D-Dimer POC ABG pH POC ABG pCO2 POC ABG pO2 Sodium Chloride Carbon Dioxide 16 L BUN 43 H Creatinine 1.9 H Glucose 148 H POC Glucose 132 H Hemoglobin A1c Lactic Acid Troponin T 0.196 H* D C-Reactive Protein NT-Pro-B Natriuret Pep Total Protein 5.2 L Albumin 3.2 L Urine WBC (Auto) Urine Creatinine Urine Total Protein Vancomycin Trough 07/29/17 07/29/17 07/30/17 11:51 16:41 00:30 WBC RBC Hgb Hct RDW Lymph % (Auto) Lymph # Seg Neutrophils % Lymphocytes % (Manual) Seg Neutrophils # Seg Neutrophils # Man D-Dimer POC ABG pH POC ABG pCO2 POC ABG pO2 Sodium Chloride Carbon Dioxide BUN Creatinine Glucose POC Glucose 163 H 173 H 174 H Hemoglobin A1c Lactic Acid Troponin T C-Reactive Protein NT-Pro-B Natriuret Pep Total Protein Albumin Urine WBC (Auto) Urine Creatinine Urine Total Protein Vancomycin Trough 07/30/17 07/30/17 07/30/17 03:13 06:04 07:30 WBC RBC Hgb Hct RDW Lymph % (Auto) Lymph # Seg Neutrophils % Lymphocytes % (Manual) Seg Neutrophils # Seg Neutrophils # Man D-Dimer POC ABG pH POC ABG pCO2 POC ABG pO2 Sodium 146 H Chloride Carbon Dioxide 19 L BUN 44 H Creatinine 2.1 H Glucose 152 H POC Glucose 162 H Hemoglobin A1c Lactic Acid Troponin T C-Reactive Protein NT-Pro-B Natriuret Pep Total Protein 5.2 L Albumin 3.3 L Urine WBC (Auto) 19.0 H Urine Creatinine Urine Total Protein Vancomycin Trough 07/30/17 07/30/17 07/30/17 07:30 11:42 17:04 WBC RBC Hgb Hct RDW Lymph % (Auto) Lymph # Seg Neutrophils % Lymphocytes % (Manual) Seg Neutrophils # Seg Neutrophils # Man D-Dimer POC ABG pH POC ABG pCO2 POC ABG pO2 Sodium Chloride Carbon Dioxide BUN Creatinine Glucose POC Glucose 210 H 139 H Hemoglobin A1c Lactic Acid Troponin T C-Reactive Protein NT-Pro-B Natriuret Pep Total Protein Albumin Urine WBC (Auto) Urine Creatinine 92.3 H Urine Total Protein 28 H Vancomycin Trough 07/30/17 07/30/17 07/31/17 21:31 23:18 00:14 WBC RBC Hgb Hct RDW Lymph % (Auto) Lymph # Seg Neutrophils % Lymphocytes % (Manual) Seg Neutrophils # Seg Neutrophils # Man D-Dimer POC ABG pH POC ABG pCO2 POC ABG pO2 Sodium Chloride Carbon Dioxide BUN Creatinine Glucose POC Glucose 173 H 152 H Hemoglobin A1c Lactic Acid Troponin T C-Reactive Protein NT-Pro-B Natriuret Pep Total Protein Albumin Urine WBC (Auto) Urine Creatinine Urine Total Protein Vancomycin Trough 35.8 H 07/31/17 07/31/17 07/31/17 09:23 10:11 11:37 WBC RBC Hgb Hct RDW Lymph % (Auto) Lymph # Seg Neutrophils % Lymphocytes % (Manual) Seg Neutrophils # Seg Neutrophils # Man D-Dimer POC ABG pH POC ABG pCO2 POC ABG pO2 Sodium 149 H Chloride 108.9 H Carbon Dioxide 18 L BUN 46 H Creatinine 1.9 H Glucose 206 H POC Glucose 179 H 264 H Hemoglobin A1c Lactic Acid Troponin T C-Reactive Protein NT-Pro-B Natriuret Pep Total Protein Albumin Urine WBC (Auto) Urine Creatinine Urine Total Protein Vancomycin Trough 07/31/17 07/31/17 08/01/17 17:15 23:43 04:09 WBC RBC 3.21 L Hgb 9.5 L Hct 29.7 L RDW 17.7 H Lymph % (Auto) 5.8 L Lymph # 0.3 L Seg Neutrophils % 85.0 H Lymphocytes % (Manual) Seg Neutrophils # Seg Neutrophils # Man D-Dimer POC ABG pH POC ABG pCO2 POC ABG pO2 Sodium Chloride Carbon Dioxide BUN Creatinine Glucose POC Glucose 188 H 159 H Hemoglobin A1c Lactic Acid Troponin T C-Reactive Protein NT-Pro-B Natriuret Pep Total Protein Albumin Urine WBC (Auto) Urine Creatinine Urine Total Protein Vancomycin Trough 08/01/17 08/01/17 08/01/17 04:09 05:06 09:20 WBC RBC Hgb Hct RDW Lymph % (Auto) Lymph # Seg Neutrophils % Lymphocytes % (Manual) Seg Neutrophils # Seg Neutrophils # Man D-Dimer POC ABG pH POC ABG pCO2 POC ABG pO2 Sodium 150 H Chloride 111.2 H Carbon Dioxide 18 L BUN 48 H Creatinine 1.9 H Glucose 203 H POC Glucose 218 H Hemoglobin A1c Lactic Acid Troponin T C-Reactive Protein 4.00 H NT-Pro-B Natriuret Pep Total Protein Albumin Urine WBC (Auto) Urine Creatinine Urine Total Protein Vancomycin Trough 08/01/17 08/01/17 08/01/17 11:43 17:30 23:47 WBC RBC Hgb Hct RDW Lymph % (Auto) Lymph # Seg Neutrophils % Lymphocytes % (Manual) Seg Neutrophils # Seg Neutrophils # Man D-Dimer POC ABG pH POC ABG pCO2 POC ABG pO2 Sodium Chloride Carbon Dioxide BUN Creatinine Glucose POC Glucose 224 H 188 H 261 H Hemoglobin A1c Lactic Acid Troponin T C-Reactive Protein NT-Pro-B Natriuret Pep Total Protein Albumin Urine WBC (Auto) Urine Creatinine Urine Total Protein Vancomycin Trough 08/02/17 08/02/17 08/02/17 05:04 10:29 12:23 WBC RBC Hgb Hct RDW Lymph % (Auto) Lymph # Seg Neutrophils % Lymphocytes % (Manual) Seg Neutrophils # Seg Neutrophils # Man D-Dimer POC ABG pH POC ABG pCO2 POC ABG pO2 Sodium 150 H Chloride 111.8 H Carbon Dioxide BUN 63 H Creatinine 2.2 H Glucose 280 H POC Glucose 222 H 300 H Hemoglobin A1c Lactic Acid Troponin T C-Reactive Protein NT-Pro-B Natriuret Pep Total Protein Albumin Urine WBC (Auto) Urine Creatinine Urine Total Protein Vancomycin Trough Allied health notes reviewed: nursing <FRITZ GUAN - Last Filed: 08/02/17 19:13> Objective Vital Signs - 12hr 08/02/17 08/02/17 08/02/17 07:30 07:40 08:00 Temperature 98.2 F Pulse Rate 124 H 114 H 109 H Pulse Rate [ 117 H From Monitor] Respiratory 32 H 36 H 36 H Rate Blood Pressure 141/48 141/48 O2 Sat by Pulse 90 92 94 Oximetry 08/02/17 08/02/17 08/02/17 08:30 09:00 09:30 Temperature Pulse Rate 106 H 120 H 122 H Pulse Rate [ From Monitor] Respiratory 35 H 33 H 33 H Rate Blood Pressure 134/97 134/97 134/97 O2 Sat by Pulse 98 90 90 Oximetry 08/02/17 08/02/17 08/02/17 10:00 10:17 10:30 Temperature Pulse Rate 110 H 123 H 102 H Pulse Rate [ From Monitor] Respiratory 41 H 24 Rate Blood Pressure 134/97 135/93 135/93 O2 Sat by Pulse 96 100 Oximetry 08/02/17 08/02/17 08/02/17 11:00 11:30 12:00 Temperature 97.8 F Pulse Rate 94 H 81 83 Pulse Rate [ 95 H From Monitor] Respiratory 36 H 39 H 38 H Rate Blood Pressure 135/93 135/93 97/44 O2 Sat by Pulse 95 96 96 Oximetry 08/02/17 08/02/17 08/02/17 12:30 13:00 13:30 Temperature Pulse Rate 97 H 93 H 100 H Pulse Rate [ From Monitor] Respiratory 44 H 44 H 38 H Rate Blood Pressure 97/44 97/44 97/44 O2 Sat by Pulse 95 93 91 Oximetry 08/02/17 08/02/17 08/02/17 14:00 14:02 14:30 Temperature Pulse Rate 100 H 102 H 101 H Pulse Rate [ From Monitor] Respiratory 43 H 452 H 39 H Rate Blood Pressure 97/44 125/44 125/44 O2 Sat by Pulse 94 91 92 Oximetry 08/02/17 08/02/17 08/02/17 15:00 15:30 16:00 Temperature 98.3 F Pulse Rate 104 H 104 H 102 H Pulse Rate [ From Monitor] Respiratory 38 H 41 H 37 H Rate Blood Pressure 125/44 125/44 127/56 O2 Sat by Pulse 91 90 88 Oximetry 08/02/17 08/02/17 08/02/17 16:30 17:00 17:30 Temperature Pulse Rate 64 104 H 100 H Pulse Rate [ From Monitor] Respiratory 28 H 34 H 36 H Rate Blood Pressure 127/56 127/56 127/56 O2 Sat by Pulse 53 L 83 L 84 Oximetry 08/02/17 18:00 Temperature Pulse Rate 102 H Pulse Rate [ From Monitor] Respiratory 38 H Rate Blood Pressure 121/51 O2 Sat by Pulse 83 L Oximetry CBC and BMP: 08/01/17 04:09 08/02/17 10:29 ABG, PT/INR, D-dimer: ABG POC ABG pH 7.329 (7.35-7.45) L 07/28/17 01:04 POC ABG pCO2 38.8 (35-45) 07/28/17 01:04 POC ABG pO2 323 (80-105) H 07/28/17 01:04 POC ABG HCO3 20.4 07/28/17 01:04 POC ABG Total CO2 22 07/28/17 01:04 POC ABG O2 Sat 100 07/28/17 01:04 PT/INR, D-dimer D-Dimer 714.08 ng/mlDDU (0-234) H 07/26/17 02:46 Abnormal lab findings: Abnormal Labs 07/26/17 07/26/17 07/26/17 02:13 02:37 02:37 WBC 23.2 H RBC 3.49 L Hgb 10.5 L Hct 32.2 L RDW 17.5 H Lymph % (Auto) Lymph # Seg Neutrophils % Lymphocytes % (Manual) 5.0 L Seg Neutrophils # Seg Neutrophils # Man 15.3 H D-Dimer POC ABG pH POC ABG pCO2 POC ABG pO2 Sodium Chloride Carbon Dioxide BUN Creatinine Glucose POC Glucose 353 H Hemoglobin A1c Lactic Acid Troponin T 0.155 H* C-Reactive Protein NT-Pro-B Natriuret Pep Total Protein Albumin Urine WBC (Auto) Urine Creatinine Urine Total Protein Vancomycin Trough 07/26/17 07/26/17 07/26/17 02:44 02:44 02:46 WBC RBC Hgb Hct RDW Lymph % (Auto) Lymph # Seg Neutrophils % Lymphocytes % (Manual) Seg Neutrophils # Seg Neutrophils # Man D-Dimer 714.08 H POC ABG pH POC ABG pCO2 POC ABG pO2 Sodium 132 L Chloride 90.6 L Carbon Dioxide 18 L BUN Creatinine Glucose 364 H POC Glucose Hemoglobin A1c Lactic Acid 5.40 H* Troponin T C-Reactive Protein NT-Pro-B Natriuret Pep 8843 H Total Protein Albumin Urine WBC (Auto) Urine Creatinine Urine Total Protein Vancomycin Trough 07/26/17 07/26/17 07/26/17 03:01 08:04 08:04 WBC RBC Hgb Hct RDW Lymph % (Auto) Lymph # Seg Neutrophils % Lymphocytes % (Manual) Seg Neutrophils # Seg Neutrophils # Man D-Dimer POC ABG pH 7.344 L POC ABG pCO2 33.6 L POC ABG pO2 155 H Sodium Chloride Carbon Dioxide BUN Creatinine Glucose POC Glucose Hemoglobin A1c 6.9 H Lactic Acid 4.80 H* Troponin T C-Reactive Protein NT-Pro-B Natriuret Pep Total Protein Albumin Urine WBC (Auto) Urine Creatinine Urine Total Protein Vancomycin Trough 07/26/17 07/26/17 07/26/17 09:02 17:30 21:41 WBC RBC Hgb Hct RDW Lymph % (Auto) Lymph # Seg Neutrophils % Lymphocytes % (Manual) Seg Neutrophils # Seg Neutrophils # Man D-Dimer POC ABG pH POC ABG pCO2 POC ABG pO2 Sodium Chloride Carbon Dioxide BUN Creatinine Glucose POC Glucose 431 H 235 H Hemoglobin A1c Lactic Acid Troponin T C-Reactive Protein 5.40 H NT-Pro-B Natriuret Pep Total Protein Albumin Urine WBC (Auto) Urine Creatinine Urine Total Protein Vancomycin Trough 07/27/17 07/27/17 07/27/17 07:38 07:38 12:15 WBC RBC Hgb Hct RDW Lymph % (Auto) Lymph # Seg Neutrophils % Lymphocytes % (Manual) Seg Neutrophils # Seg Neutrophils # Man D-Dimer POC ABG pH POC ABG pCO2 POC ABG pO2 Sodium Chloride Carbon Dioxide BUN Creatinine Glucose POC Glucose 252 H 262 H Hemoglobin A1c Lactic Acid 3.00 H* Troponin T C-Reactive Protein NT-Pro-B Natriuret Pep Total Protein Albumin Urine WBC (Auto) Urine Creatinine Urine Total Protein Vancomycin Trough 07/27/17 07/27/17 07/27/17 15:11 15:11 16:01 WBC RBC 3.04 L Hgb 9.1 L Hct 27.5 L RDW 17.1 H Lymph % (Auto) 4.7 L Lymph # 0.5 L Seg Neutrophils % 89.7 H Lymphocytes % (Manual) Seg Neutrophils # 9.7 H Seg Neutrophils # Man D-Dimer POC ABG pH POC ABG pCO2 POC ABG pO2 Sodium Chloride Carbon Dioxide 21 L BUN 29 H Creatinine Glucose 152 H POC Glucose 157 H Hemoglobin A1c Lactic Acid Troponin T C-Reactive Protein NT-Pro-B Natriuret Pep Total Protein 5.5 L Albumin 3.5 L Urine WBC (Auto) Urine Creatinine Urine Total Protein Vancomycin Trough 07/27/17 07/27/17 07/28/17 16:19 21:59 01:04 WBC RBC Hgb Hct RDW Lymph % (Auto) Lymph # Seg Neutrophils % Lymphocytes % (Manual) Seg Neutrophils # Seg Neutrophils # Man D-Dimer POC ABG pH 7.329 L POC ABG pCO2 32.0 L POC ABG pO2 65 L 323 H Sodium Chloride Carbon Dioxide BUN Creatinine Glucose POC Glucose 128 H Hemoglobin A1c Lactic Acid Troponin T C-Reactive Protein NT-Pro-B Natriuret Pep Total Protein Albumin Urine WBC (Auto) Urine Creatinine Urine Total Protein Vancomycin Trough 07/28/17 07/28/17 07/28/17 04:21 07:58 11:35 WBC RBC Hgb Hct RDW Lymph % (Auto) Lymph # Seg Neutrophils % Lymphocytes % (Manual) Seg Neutrophils # Seg Neutrophils # Man D-Dimer POC ABG pH POC ABG pCO2 POC ABG pO2 Sodium Chloride Carbon Dioxide 20 L BUN 33 H Creatinine Glucose 118 H POC Glucose 135 H 143 H Hemoglobin A1c Lactic Acid Troponin T C-Reactive Protein NT-Pro-B Natriuret Pep Total Protein 5.2 L Albumin 3.5 L Urine WBC (Auto) Urine Creatinine Urine Total Protein Vancomycin Trough 07/28/17 07/28/17 07/29/17 13:07 16:32 05:36 WBC RBC Hgb Hct RDW Lymph % (Auto) Lymph # Seg Neutrophils % Lymphocytes % (Manual) Seg Neutrophils # Seg Neutrophils # Man D-Dimer POC ABG pH POC ABG pCO2 POC ABG pO2 Sodium Chloride Carbon Dioxide 16 L BUN 43 H Creatinine 1.9 H Glucose 148 H POC Glucose 132 H Hemoglobin A1c Lactic Acid Troponin T 0.196 H* D C-Reactive Protein NT-Pro-B Natriuret Pep Total Protein 5.2 L Albumin 3.2 L Urine WBC (Auto) Urine Creatinine Urine Total Protein Vancomycin Trough 07/29/17 07/29/17 07/30/17 11:51 16:41 00:30 WBC RBC Hgb Hct RDW Lymph % (Auto) Lymph # Seg Neutrophils % Lymphocytes % (Manual) Seg Neutrophils # Seg Neutrophils # Man D-Dimer POC ABG pH POC ABG pCO2 POC ABG pO2 Sodium Chloride Carbon Dioxide BUN Creatinine Glucose POC Glucose 163 H 173 H 174 H Hemoglobin A1c Lactic Acid Troponin T C-Reactive Protein NT-Pro-B Natriuret Pep Total Protein Albumin Urine WBC (Auto) Urine Creatinine Urine Total Protein Vancomycin Trough 07/30/17 07/30/17 07/30/17 03:13 06:04 07:30 WBC RBC Hgb Hct RDW Lymph % (Auto) Lymph # Seg Neutrophils % Lymphocytes % (Manual) Seg Neutrophils # Seg Neutrophils # Man D-Dimer POC ABG pH POC ABG pCO2 POC ABG pO2 Sodium 146 H Chloride Carbon Dioxide 19 L BUN 44 H Creatinine 2.1 H Glucose 152 H POC Glucose 162 H Hemoglobin A1c Lactic Acid Troponin T C-Reactive Protein NT-Pro-B Natriuret Pep Total Protein 5.2 L Albumin 3.3 L Urine WBC (Auto) 19.0 H Urine Creatinine Urine Total Protein Vancomycin Trough 07/30/17 07/30/17 07/30/17 07:30 11:42 17:04 WBC RBC Hgb Hct RDW Lymph % (Auto) Lymph # Seg Neutrophils % Lymphocytes % (Manual) Seg Neutrophils # Seg Neutrophils # Man D-Dimer POC ABG pH POC ABG pCO2 POC ABG pO2 Sodium Chloride Carbon Dioxide BUN Creatinine Glucose POC Glucose 210 H 139 H Hemoglobin A1c Lactic Acid Troponin T C-Reactive Protein NT-Pro-B Natriuret Pep Total Protein Albumin Urine WBC (Auto) Urine Creatinine 92.3 H Urine Total Protein 28 H Vancomycin Trough 07/30/17 07/30/17 07/31/17 21:31 23:18 00:14 WBC RBC Hgb Hct RDW Lymph % (Auto) Lymph # Seg Neutrophils % Lymphocytes % (Manual) Seg Neutrophils # Seg Neutrophils # Man D-Dimer POC ABG pH POC ABG pCO2 POC ABG pO2 Sodium Chloride Carbon Dioxide BUN Creatinine Glucose POC Glucose 173 H 152 H Hemoglobin A1c Lactic Acid Troponin T C-Reactive Protein NT-Pro-B Natriuret Pep Total Protein Albumin Urine WBC (Auto) Urine Creatinine Urine Total Protein Vancomycin Trough 35.8 H 07/31/17 07/31/17 07/31/17 09:23 10:11 11:37 WBC RBC Hgb Hct RDW Lymph % (Auto) Lymph # Seg Neutrophils % Lymphocytes % (Manual) Seg Neutrophils # Seg Neutrophils # Man D-Dimer POC ABG pH POC ABG pCO2 POC ABG pO2 Sodium 149 H Chloride 108.9 H Carbon Dioxide 18 L BUN 46 H Creatinine 1.9 H Glucose 206 H POC Glucose 179 H 264 H Hemoglobin A1c Lactic Acid Troponin T C-Reactive Protein NT-Pro-B Natriuret Pep Total Protein Albumin Urine WBC (Auto) Urine Creatinine Urine Total Protein Vancomycin Trough 07/31/17 07/31/17 08/01/17 17:15 23:43 04:09 WBC RBC 3.21 L Hgb 9.5 L Hct 29.7 L RDW 17.7 H Lymph % (Auto) 5.8 L Lymph # 0.3 L Seg Neutrophils % 85.0 H Lymphocytes % (Manual) Seg Neutrophils # Seg Neutrophils # Man D-Dimer POC ABG pH POC ABG pCO2 POC ABG pO2 Sodium Chloride Carbon Dioxide BUN Creatinine Glucose POC Glucose 188 H 159 H Hemoglobin A1c Lactic Acid Troponin T C-Reactive Protein NT-Pro-B Natriuret Pep Total Protein Albumin Urine WBC (Auto) Urine Creatinine Urine Total Protein Vancomycin Trough 08/01/17 08/01/17 08/01/17 04:09 05:06 09:20 WBC RBC Hgb Hct RDW Lymph % (Auto) Lymph # Seg Neutrophils % Lymphocytes % (Manual) Seg Neutrophils # Seg Neutrophils # Man D-Dimer POC ABG pH POC ABG pCO2 POC ABG pO2 Sodium 150 H Chloride 111.2 H Carbon Dioxide 18 L BUN 48 H Creatinine 1.9 H Glucose 203 H POC Glucose 218 H Hemoglobin A1c Lactic Acid Troponin T C-Reactive Protein 4.00 H NT-Pro-B Natriuret Pep Total Protein Albumin Urine WBC (Auto) Urine Creatinine Urine Total Protein Vancomycin Trough 08/01/17 08/01/17 08/01/17 11:43 17:30 23:47 WBC RBC Hgb Hct RDW Lymph % (Auto) Lymph # Seg Neutrophils % Lymphocytes % (Manual) Seg Neutrophils # Seg Neutrophils # Man D-Dimer POC ABG pH POC ABG pCO2 POC ABG pO2 Sodium Chloride Carbon Dioxide BUN Creatinine Glucose POC Glucose 224 H 188 H 261 H Hemoglobin A1c Lactic Acid Troponin T C-Reactive Protein NT-Pro-B Natriuret Pep Total Protein Albumin Urine WBC (Auto) Urine Creatinine Urine Total Protein Vancomycin Trough 08/02/17 08/02/17 08/02/17 05:04 10:29 12:23 WBC RBC Hgb Hct RDW Lymph % (Auto) Lymph # Seg Neutrophils % Lymphocytes % (Manual) Seg Neutrophils # Seg Neutrophils # Man D-Dimer POC ABG pH POC ABG pCO2 POC ABG pO2 Sodium 150 H Chloride 111.8 H Carbon Dioxide BUN 63 H Creatinine 2.2 H Glucose 280 H POC Glucose 222 H 300 H Hemoglobin A1c Lactic Acid Troponin T C-Reactive Protein NT-Pro-B Natriuret Pep Total Protein Albumin Urine WBC (Auto) Urine Creatinine Urine Total Protein Vancomycin Trough
[2017-08-02] MEDS ORDERED: MORPHINE IV PRN (19:12)
[2017-08-03] MEDS: HALDOL IV PRN ×2 (03:41→15:21)
[2017-08-03] MEDS: ZOSYN/NS 2.25 GM/50ML 2.25 GM/50 ML BAG IV SCH ×3 (03:44→15:19)
[2017-08-03] MEDS: NOVOLOG SUB-Q SCH ×3 (06:33→12:00)
[2017-08-03] MEDS: PROzac PO SCH (09:33)
[2017-08-03] MEDS: LOPRESSOR PO SCH (09:34)
[2017-08-03] MEDS: HEPARIN SUB-Q SCH (09:36)
--- NOTE | 2017-08-03 12:00 | Progress Note ---
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 in this case) - prn gentle diuresis - continue empiric AB's - repeat lactate and CRP levels in am - continue BIPAP support with prn breaks during daytime - prn haldol - continue scheduled seroquel for agitation/delirium - CMOP per cardiology otherwise - care plan discussed with and family at bedside - await LTAC evaluation ...care plan discussed at length with family .......he is critically ill on life sustaining interventions including continuous NIV / BIPAP and at high risk for further deterioration including 30' CCT Subjective Date of service: 08/03/17 Principal diagnosis: Acute Hypoxemic Respiratory Failure; Acute Pulmonary Edema ; Severe Interval history: Patient is seen today for: Acute Hypoxemic Respiratory Failure; Possible Aspiration Pneumonia; Delirium Seen and examined at bedside; 24hour events reviewed; nursing and respiratory care staff consulted; remains mostly on continuous BIPAP remains BIPAP dependent; no new issues respiratory-meek Objective Vital Signs - 12hr 08/03/17 08/03/17 08/03/17 00:30 01:00 01:20 Temperature Pulse Rate 96 H 97 H 97 H Pulse Rate [ From Monitor] Respiratory 32 H 32 H 32 H Rate Blood Pressure 102/43 102/43 O2 Sat by Pulse 89 90 91 Oximetry 08/03/17 08/03/17 08/03/17 01:30 02:00 02:30 Temperature Pulse Rate 97 H 98 H 98 H Pulse Rate [ From Monitor] Respiratory 32 H 33 H 33 H Rate Blood Pressure 102/43 111/46 111/46 O2 Sat by Pulse 92 91 91 Oximetry 08/03/17 08/03/17 08/03/17 03:00 03:30 03:46 Temperature 98.7 F Pulse Rate 98 H 99 H Pulse Rate [ From Monitor] Respiratory 32 H 34 H Rate Blood Pressure 111/46 111/46 O2 Sat by Pulse 91 91 Oximetry 08/03/17 08/03/17 08/03/17 04:00 04:30 04:47 Temperature Pulse Rate 97 H 97 H Pulse Rate [ From Monitor] Respiratory 34 H 35 H 32 H Rate Blood Pressure 107/43 107/43 O2 Sat by Pulse 88 87 87 Oximetry 08/03/17 08/03/17 08/03/17 04:51 05:00 05:30 Temperature Pulse Rate 99 H 99 H 98 H Pulse Rate [ From Monitor] Respiratory 35 H 36 H 34 H Rate Blood Pressure 107/43 107/43 107/43 O2 Sat by Pulse 86 87 88 Oximetry 08/03/17 08/03/17 08/03/17 06:00 06:18 06:30 Temperature Pulse Rate 99 H 99 H 99 H Pulse Rate [ From Monitor] Respiratory 36 H 35 H 36 H Rate Blood Pressure 117/46 117/46 O2 Sat by Pulse 88 88 88 Oximetry 08/03/17 08/03/17 08/03/17 07:00 07:30 08:00 Temperature 99.4 F Pulse Rate 100 H 100 H 100 H Pulse Rate [ 102 H From Monitor] Respiratory 38 H 37 H 37 H Rate Blood Pressure 117/46 117/46 115/43 O2 Sat by Pulse 87 87 90 Oximetry 08/03/17 08/03/17 08/03/17 08:14 08:30 09:00 Temperature Pulse Rate 102 H 101 H 101 H Pulse Rate [ From Monitor] Respiratory 36 H 39 H 37 H Rate Blood Pressure 115/43 117/46 117/46 O2 Sat by Pulse 90 90 90 Oximetry 08/03/17 08/03/17 08/03/17 09:30 09:34 10:00 Temperature Pulse Rate 102 H 101 H 102 H Pulse Rate [ From Monitor] Respiratory 36 H 35 H Rate Blood Pressure 114/48 114/48 113/47 O2 Sat by Pulse 90 89 Oximetry 08/03/17 08/03/17 10:30 11:00 Temperature Pulse Rate 98 H 94 H Pulse Rate [ From Monitor] Respiratory 36 H 35 H Rate Blood Pressure 113/47 113/47 O2 Sat by Pulse 88 89 Oximetry Constitutional: appears uncomfortable, other (agitated) Eyes: non-icteric ENT: oropharynx moist, other (oropharynx moist) Neck: supple, no lymphadenopathy, no JVD Effort: mildly labored Ascultation: Bilateral: diminished breath sounds (base), rhonchi Percussion: Bilateral: not dull Cardiovascular: irregular rhythm, murmur noted (GIRISH), other (no rubs) Gastrointestinal: normoactive bowel sounds, soft, non-tender, non-distended, other (No palpable HSM) Integumentary: normal Extremities: no cyanosis, pink and warm, pulses normal, no ischemia or petechiae , edema Neurologic: non-focal exam, pupils equal and round, motor strength normal and Psychiatric: other (delirious) CBC and BMP: 08/01/17 04:09 08/02/17 10:29 ABG, PT/INR, D-dimer: ABG POC ABG pH 7.329 (7.35-7.45) L 07/28/17 01:04 POC ABG pCO2 38.8 (35-45) 07/28/17 01:04 POC ABG pO2 323 (80-105) H 07/28/17 01:04 POC ABG HCO3 20.4 07/28/17 01:04 POC ABG Total CO2 22 07/28/17 01:04 POC ABG O2 Sat 100 07/28/17 01:04 PT/INR, D-dimer D-Dimer 714.08 ng/mlDDU (0-234) H 07/26/17 02:46 Abnormal lab findings: Abnormal Labs 07/26/17 07/26/17 07/26/17 02:13 02:37 02:37 WBC 23.2 H RBC 3.49 L Hgb 10.5 L Hct 32.2 L RDW 17.5 H Lymph % (Auto) Lymph # Seg Neutrophils % Lymphocytes % (Manual) 5.0 L Seg Neutrophils # Seg Neutrophils # Man 15.3 H D-Dimer POC ABG pH POC ABG pCO2 POC ABG pO2 Sodium Chloride Carbon Dioxide BUN Creatinine Glucose POC Glucose 353 H Hemoglobin A1c Lactic Acid Troponin T 0.155 H* C-Reactive Protein NT-Pro-B Natriuret Pep Total Protein Albumin Urine WBC (Auto) Urine Creatinine Urine Total Protein Vancomycin Trough 07/26/17 07/26/17 07/26/17 02:44 02:44 02:46 WBC RBC Hgb Hct RDW Lymph % (Auto) Lymph # Seg Neutrophils % Lymphocytes % (Manual) Seg Neutrophils # Seg Neutrophils # Man D-Dimer 714.08 H POC ABG pH POC ABG pCO2 POC ABG pO2 Sodium 132 L Chloride 90.6 L Carbon Dioxide 18 L BUN Creatinine Glucose 364 H POC Glucose Hemoglobin A1c Lactic Acid 5.40 H* Troponin T C-Reactive Protein NT-Pro-B Natriuret Pep 8843 H Total Protein Albumin Urine WBC (Auto) Urine Creatinine Urine Total Protein Vancomycin Trough 07/26/17 07/26/17 07/26/17 03:01 08:04 08:04 WBC RBC Hgb Hct RDW Lymph % (Auto) Lymph # Seg Neutrophils % Lymphocytes % (Manual) Seg Neutrophils # Seg Neutrophils # Man D-Dimer POC ABG pH 7.344 L POC ABG pCO2 33.6 L POC ABG pO2 155 H Sodium Chloride Carbon Dioxide BUN Creatinine Glucose POC Glucose Hemoglobin A1c 6.9 H Lactic Acid 4.80 H* Troponin T C-Reactive Protein NT-Pro-B Natriuret Pep Total Protein Albumin Urine WBC (Auto) Urine Creatinine Urine Total Protein Vancomycin Trough 07/26/17 07/26/17 07/26/17 09:02 17:30 21:41 WBC RBC Hgb Hct RDW Lymph % (Auto) Lymph # Seg Neutrophils % Lymphocytes % (Manual) Seg Neutrophils # Seg Neutrophils # Man D-Dimer POC ABG pH POC ABG pCO2 POC ABG pO2 Sodium Chloride Carbon Dioxide BUN Creatinine Glucose POC Glucose 431 H 235 H Hemoglobin A1c Lactic Acid Troponin T C-Reactive Protein 5.40 H NT-Pro-B Natriuret Pep Total Protein Albumin Urine WBC (Auto) Urine Creatinine Urine Total Protein Vancomycin Trough 07/27/17 07/27/17 07/27/17 07:38 07:38 12:15 WBC RBC Hgb Hct RDW Lymph % (Auto) Lymph # Seg Neutrophils % Lymphocytes % (Manual) Seg Neutrophils # Seg Neutrophils # Man D-Dimer POC ABG pH POC ABG pCO2 POC ABG pO2 Sodium Chloride Carbon Dioxide BUN Creatinine Glucose POC Glucose 252 H 262 H Hemoglobin A1c Lactic Acid 3.00 H* Troponin T C-Reactive Protein NT-Pro-B Natriuret Pep Total Protein Albumin Urine WBC (Auto) Urine Creatinine Urine Total Protein Vancomycin Trough 07/27/17 07/27/17 07/27/17 15:11 15:11 16:01 WBC RBC 3.04 L Hgb 9.1 L Hct 27.5 L RDW 17.1 H Lymph % (Auto) 4.7 L Lymph # 0.5 L Seg Neutrophils % 89.7 H Lymphocytes % (Manual) Seg Neutrophils # 9.7 H Seg Neutrophils # Man D-Dimer POC ABG pH POC ABG pCO2 POC ABG pO2 Sodium Chloride Carbon Dioxide 21 L BUN 29 H Creatinine Glucose 152 H POC Glucose 157 H Hemoglobin A1c Lactic Acid Troponin T C-Reactive Protein NT-Pro-B Natriuret Pep Total Protein 5.5 L Albumin 3.5 L Urine WBC (Auto) Urine Creatinine Urine Total Protein Vancomycin Trough 07/27/17 07/27/17 07/28/17 16:19 21:59 01:04 WBC RBC Hgb Hct RDW Lymph % (Auto) Lymph # Seg Neutrophils % Lymphocytes % (Manual) Seg Neutrophils # Seg Neutrophils # Man D-Dimer POC ABG pH 7.329 L POC ABG pCO2 32.0 L POC ABG pO2 65 L 323 H Sodium Chloride Carbon Dioxide BUN Creatinine Glucose POC Glucose 128 H Hemoglobin A1c Lactic Acid Troponin T C-Reactive Protein NT-Pro-B Natriuret Pep Total Protein Albumin Urine WBC (Auto) Urine Creatinine Urine Total Protein Vancomycin Trough 07/28/17 07/28/17 07/28/17 04:21 07:58 11:35 WBC RBC Hgb Hct RDW Lymph % (Auto) Lymph # Seg Neutrophils % Lymphocytes % (Manual) Seg Neutrophils # Seg Neutrophils # Man D-Dimer POC ABG pH POC ABG pCO2 POC ABG pO2 Sodium Chloride Carbon Dioxide 20 L BUN 33 H Creatinine Glucose 118 H POC Glucose 135 H 143 H Hemoglobin A1c Lactic Acid Troponin T C-Reactive Protein NT-Pro-B Natriuret Pep Total Protein 5.2 L Albumin 3.5 L Urine WBC (Auto) Urine Creatinine Urine Total Protein Vancomycin Trough 07/28/17 07/28/17 07/29/17 13:07 16:32 05:36 WBC RBC Hgb Hct RDW Lymph % (Auto) Lymph # Seg Neutrophils % Lymphocytes % (Manual) Seg Neutrophils # Seg Neutrophils # Man D-Dimer POC ABG pH POC ABG pCO2 POC ABG pO2 Sodium Chloride Carbon Dioxide 16 L BUN 43 H Creatinine 1.9 H Glucose 148 H POC Glucose 132 H Hemoglobin A1c Lactic Acid Troponin T 0.196 H* D C-Reactive Protein NT-Pro-B Natriuret Pep Total Protein 5.2 L Albumin 3.2 L Urine WBC (Auto) Urine Creatinine Urine Total Protein Vancomycin Trough 07/29/17 07/29/17 07/30/17 11:51 16:41 00:30 WBC RBC Hgb Hct RDW Lymph % (Auto) Lymph # Seg Neutrophils % Lymphocytes % (Manual) Seg Neutrophils # Seg Neutrophils # Man D-Dimer POC ABG pH POC ABG pCO2 POC ABG pO2 Sodium Chloride Carbon Dioxide BUN Creatinine Glucose POC Glucose 163 H 173 H 174 H Hemoglobin A1c Lactic Acid Troponin T C-Reactive Protein NT-Pro-B Natriuret Pep Total Protein Albumin Urine WBC (Auto) Urine Creatinine Urine Total Protein Vancomycin Trough 07/30/17 07/30/17 07/30/17 03:13 06:04 07:30 WBC RBC Hgb Hct RDW Lymph % (Auto) Lymph # Seg Neutrophils % Lymphocytes % (Manual) Seg Neutrophils # Seg Neutrophils # Man D-Dimer POC ABG pH POC ABG pCO2 POC ABG pO2 Sodium 146 H Chloride Carbon Dioxide 19 L BUN 44 H Creatinine 2.1 H Glucose 152 H POC Glucose 162 H Hemoglobin A1c Lactic Acid Troponin T C-Reactive Protein NT-Pro-B Natriuret Pep Total Protein 5.2 L Albumin 3.3 L Urine WBC (Auto) 19.0 H Urine Creatinine Urine Total Protein Vancomycin Trough 07/30/17 07/30/17 07/30/17 07:30 11:42 17:04 WBC RBC Hgb Hct RDW Lymph % (Auto) Lymph # Seg Neutrophils % Lymphocytes % (Manual) Seg Neutrophils # Seg Neutrophils # Man D-Dimer POC ABG pH POC ABG pCO2 POC ABG pO2 Sodium Chloride Carbon Dioxide BUN Creatinine Glucose POC Glucose 210 H 139 H Hemoglobin A1c Lactic Acid Troponin T C-Reactive Protein NT-Pro-B Natriuret Pep Total Protein Albumin Urine WBC (Auto) Urine Creatinine 92.3 H Urine Total Protein 28 H Vancomycin Trough 07/30/17 07/30/17 07/31/17 21:31 23:18 00:14 WBC RBC Hgb Hct RDW Lymph % (Auto) Lymph # Seg Neutrophils % Lymphocytes % (Manual) Seg Neutrophils # Seg Neutrophils # Man D-Dimer POC ABG pH POC ABG pCO2 POC ABG pO2 Sodium Chloride Carbon Dioxide BUN Creatinine Glucose POC Glucose 173 H 152 H Hemoglobin A1c Lactic Acid Troponin T C-Reactive Protein NT-Pro-B Natriuret Pep Total Protein Albumin Urine WBC (Auto) Urine Creatinine Urine Total Protein Vancomycin Trough 35.8 H 07/31/17 07/31/17 07/31/17 09:23 10:11 11:37 WBC RBC Hgb Hct RDW Lymph % (Auto) Lymph # Seg Neutrophils % Lymphocytes % (Manual) Seg Neutrophils # Seg Neutrophils # Man D-Dimer POC ABG pH POC ABG pCO2 POC ABG pO2 Sodium 149 H Chloride 108.9 H Carbon Dioxide 18 L BUN 46 H Creatinine 1.9 H Glucose 206 H POC Glucose 179 H 264 H Hemoglobin A1c Lactic Acid Troponin T C-Reactive Protein NT-Pro-B Natriuret Pep Total Protein Albumin Urine WBC (Auto) Urine Creatinine Urine Total Protein Vancomycin Trough 07/31/17 07/31/17 08/01/17 17:15 23:43 04:09 WBC RBC 3.21 L Hgb 9.5 L Hct 29.7 L RDW 17.7 H Lymph % (Auto) 5.8 L Lymph # 0.3 L Seg Neutrophils % 85.0 H Lymphocytes % (Manual) Seg Neutrophils # Seg Neutrophils # Man D-Dimer POC ABG pH POC ABG pCO2 POC ABG pO2 Sodium Chloride Carbon Dioxide BUN Creatinine Glucose POC Glucose 188 H 159 H Hemoglobin A1c Lactic Acid Troponin T C-Reactive Protein NT-Pro-B Natriuret Pep Total Protein Albumin Urine WBC (Auto) Urine Creatinine Urine Total Protein Vancomycin Trough 08/01/17 08/01/17 08/01/17 04:09 05:06 09:20 WBC RBC Hgb Hct RDW Lymph % (Auto) Lymph # Seg Neutrophils % Lymphocytes % (Manual) Seg Neutrophils # Seg Neutrophils # Man D-Dimer POC ABG pH POC ABG pCO2 POC ABG pO2 Sodium 150 H Chloride 111.2 H Carbon Dioxide 18 L BUN 48 H Creatinine 1.9 H Glucose 203 H POC Glucose 218 H Hemoglobin A1c Lactic Acid Troponin T C-Reactive Protein 4.00 H NT-Pro-B Natriuret Pep Total Protein Albumin Urine WBC (Auto) Urine Creatinine Urine Total Protein Vancomycin Trough 08/01/17 08/01/17 08/01/17 11:43 17:30 23:47 WBC RBC Hgb Hct RDW Lymph % (Auto) Lymph # Seg Neutrophils % Lymphocytes % (Manual) Seg Neutrophils # Seg Neutrophils # Man D-Dimer POC ABG pH POC ABG pCO2 POC ABG pO2 Sodium Chloride Carbon Dioxide BUN Creatinine Glucose POC Glucose 224 H 188 H 261 H Hemoglobin A1c Lactic Acid Troponin T C-Reactive Protein NT-Pro-B Natriuret Pep Total Protein Albumin Urine WBC (Auto) Urine Creatinine Urine Total Protein Vancomycin Trough 08/02/17 08/02/17 08/02/17 05:04 10:29 12:23 WBC RBC Hgb Hct RDW Lymph % (Auto) Lymph # Seg Neutrophils % Lymphocytes % (Manual) Seg Neutrophils # Seg Neutrophils # Man D-Dimer POC ABG pH POC ABG pCO2 POC ABG pO2 Sodium 150 H Chloride 111.8 H Carbon Dioxide BUN 63 H Creatinine 2.2 H Glucose 280 H POC Glucose 222 H 300 H Hemoglobin A1c Lactic Acid Troponin T C-Reactive Protein NT-Pro-B Natriuret Pep Total Protein Albumin Urine WBC (Auto) Urine Creatinine Urine Total Protein Vancomycin Trough Allied health notes reviewed: nursing
--- NOTE | 2017-08-03 14:18 | Progress Note ---
Assessment and Plan Awaiting hospice placement. Continue supportive care. - Patient Problems (1) Acute respiratory failure Current Visit: Yes Status: Acute Qualifiers: Respiratory failure complication: hypoxia Qualified Code(s): J96.01 - Acute respiratory failure with hypoxia (2) Sepsis Current Visit: Yes Status: Acute Qualifiers: Sepsis type: sepsis due to unspecified organism Qualified Code(s): A41.9 - Sepsis, unspecified organism (3) Pneumonia Current Visit: Yes Status: Acute Qualifiers: Pneumonia type: due to unspecified organism Laterality: right Lung location: lower lobe of lung Qualified Code(s): J18.1 - Lobar pneumonia, unspecified organism (4) Acute systolic heart failure Current Visit: Yes Status: Acute (5) Aortic stenosis Current Visit: Yes Status: Acute (6) Acute renal failure Current Visit: Yes Status: Acute (7) Elevated troponin Current Visit: Yes Status: Acute (8) HTN (hypertension) Current Visit: Yes Status: Chronic Qualifiers: Hypertension type: essential hypertension Qualified Code(s): I10 - Essential (primary) hypertension (9) IDDM (insulin dependent diabetes mellitus) Current Visit: Yes Status: Chronic Subjective Date of service: 08/03/17 Principal diagnosis: Acute Hypoxemic Respiratory Failure; Acute SHF, Interval history: Remains lethargic. Objective Vital Signs Last Vital Signs Temp 99.4 F 08/03/17 08:00 Pulse 94 H 08/03/17 11:00 Resp 35 H 08/03/17 11:00 BP 113/47 08/03/17 11:00 Pulse Ox 89 08/03/17 11:00 - Physical Examination General: No Apparent Distress HEENT: Positive: EOMI, Normocephaly, Mucus Membranes Moist Neck: Positive: neck supple, trachea midline, JVD/HJR (elevated) Cardiac: Positive: Reg Rate and Rhythm, S1/S2 Lungs: Positive: Rhonchi Neuro: Positive: Other (lethargic) Abdomen: Positive: Soft, Active Bowel Sounds. Negative: Tender Skin: Negative: Rash Musculoskeletal: Normal Range of Motion Extremities: Absent: edema - Telemetry EKG Rhythm: Sinus Tachycardia - Allied health notes Allied health notes reviewed: nursing
--- NOTE | 2017-08-03 14:44 | Progress Note ---
Assessment and Plan Assessment and Plan Assessment and plan: 82 yo male with severe aortic stenosis, HTN, DM, presented for worsening shortness of breath, cough, decreased oral intake, difficulty urination and decreased urine output -- Acute hypoxic respiratory failure , pneumonia and volume overload Continue antibiotics and bronchodilators; diuretics BiPAP as needed, Pulmonary following --RLL pneumonia possible aspiration pneumonia Aspiration precautions , continue current antibiotics, follow cultures --Sepsis secondary to aspiration pneumonia Continue current management -- Elevated d-dimer, negative PE --Elevated troponin, Nonspecific, secondary to renal insufficiency -- Acute renal failure/due to vasomotor nephropathy Closely monitor, gentle IV hydration, nephrology following -- Metabolic acidosis/ resolved -- Severe aortic stenosis; medical management, Cardiology following --Acute diastolic heart failure; continue current management -- Hypertension; controlled, supportive care -- Diabetes; Accu-Cheks and SSI -- DVT prophylaxis --DO NOT RESUSCITATE status --Possible home with hospice when hospice is set up poor prognosis, family aware Subjective Date of service: 08/03/17 Principal diagnosis: Acute Hypoxemic Respiratory Failure; Acute SHF, Interval history: In resp distress Objective - Constitutional Vitals: Vital Signs - 12hr 08/03/17 08/03/17 08/03/17 03:00 03:30 03:46 Temperature 98.7 F Pulse Rate 98 H 99 H Pulse Rate [ From Monitor] Respiratory 32 H 34 H Rate Blood Pressure 111/46 111/46 O2 Sat by Pulse 91 91 Oximetry 08/03/17 08/03/17 08/03/17 04:00 04:30 04:47 Temperature Pulse Rate 97 H 97 H Pulse Rate [ From Monitor] Respiratory 34 H 35 H 32 H Rate Blood Pressure 107/43 107/43 O2 Sat by Pulse 88 87 87 Oximetry 08/03/17 08/03/17 08/03/17 04:51 05:00 05:30 Temperature Pulse Rate 99 H 99 H 98 H Pulse Rate [ From Monitor] Respiratory 35 H 36 H 34 H Rate Blood Pressure 107/43 107/43 107/43 O2 Sat by Pulse 86 87 88 Oximetry 08/03/17 08/03/17 08/03/17 06:00 06:18 06:30 Temperature Pulse Rate 99 H 99 H 99 H Pulse Rate [ From Monitor] Respiratory 36 H 35 H 36 H Rate Blood Pressure 117/46 117/46 O2 Sat by Pulse 88 88 88 Oximetry 08/03/17 08/03/17 08/03/17 07:00 07:30 08:00 Temperature 99.4 F Pulse Rate 100 H 100 H 100 H Pulse Rate [ 102 H From Monitor] Respiratory 38 H 37 H 37 H Rate Blood Pressure 117/46 117/46 115/43 O2 Sat by Pulse 87 87 90 Oximetry 08/03/17 08/03/17 08/03/17 08:14 08:30 09:00 Temperature Pulse Rate 102 H 101 H 101 H Pulse Rate [ From Monitor] Respiratory 36 H 39 H 37 H Rate Blood Pressure 115/43 117/46 117/46 O2 Sat by Pulse 90 90 90 Oximetry 08/03/17 08/03/17 08/03/17 09:30 09:34 10:00 Temperature Pulse Rate 102 H 101 H 102 H Pulse Rate [ From Monitor] Respiratory 36 H 35 H Rate Blood Pressure 114/48 114/48 113/47 O2 Sat by Pulse 90 89 Oximetry 08/03/17 08/03/17 08/03/17 10:30 11:00 14:14 Temperature Pulse Rate 98 H 94 H 92 H Pulse Rate [ From Monitor] Respiratory 36 H 35 H 35 H Rate Blood Pressure 113/47 113/47 98/39 O2 Sat by Pulse 88 89 99 Oximetry General appearance: Present: no acute distress, well-nourished - EENT Eyes: PERRL, EOM intact ENT: hearing intact, clear oral mucosa Ears: bilateral: normal - Neck Neck: supple, normal ROM - Respiratory Respiratory effort: normal Respiratory: bilateral: CTA, rhonchi, wheezing - Breasts Breasts: deferred - Cardiovascular Heart rate: 100 Rhythm: regular Heart Sounds: Present: S1 & S2. Absent: gallop, rub Extremities: pulses intact, No edema, normal color, Full ROM - Gastrointestinal General gastrointestinal: Present: soft, non-tender, non-distended, normal bowel sounds - Genitourinary Male genitourinary: normal - Integumentary Integumentary: clear, warm, dry - Musculoskeletal Musculoskeletal: 1, strength equal bilaterally - Neurologic Neurologic: moves all extremities - Psychiatric Psychiatric: memory intact, appropriate mood/affect, intact judgment & insight - Allied health notes Allied health notes reviewed: nursing, case management - Labs CBC & Chem 7: 08/01/17 04:09 08/02/17 10:29
[2017-08-03 16:45] VITALS: BP 68/24
--- NOTE | 2017-08-03 17:47 | Event Note ---
Date: 08/03/[address] Live Asystole on monitor No heart tones no breath sounds Pupils fixed no movement I pronounced patient Time of 1416 Dr. Live for summary Family at bedside, support given
--- NOTE | 2017-08-04 08:38 | Event Note ---
Date: 08/03/17 summary was dictated on 08/04/17 Time of expiration 1602 hrs
--- NOTE | 2017-08-04 08:56 | Discharge Summary ---
Date of expiration is 08/03/2017. HOSPITAL COURSE: The patient was admitted for severe shortness of breath, dry cough. At the time of admission, the patient was admitted for severe sepsis, acute hypoxic respiratory failure, aspiration pneumonia, lactic acidosis, severe aortic stenosis, and diabetes mellitus with uncontrolled sugars, glucose levels. The patient was initiated on BiPAP, IV vancomycin and Zosyn. Sliding scale and basal insulin. Heparin for deep venous thrombosis prophylaxis. Prognosis was guarded and the family was informed about the prognosis. The patient continued to do poorly. The patient continued to have leukocytosis and elevated lactic acid. The patient had right lower lobe pneumonia. VQ scan was negative for PE. The patient continued to do poorly. Family agreed for hospice. A discussion for hospice was done. The patient has also had acute kidney injury, likely acute tubular necrosis versus vancomycin toxicity. Creatinine was stable at 1.9 on 08/01/2017. No significant proteinuria. The patient was seen on 08/03/2017, was still in a poor condition and was about to be transferred to hospice in the next 24-48 hours. The hospice was being set up. In the meantime, the patient had an asystole on monitor. Time of was 1602 hours. The patient also noted no respirations, no pulse. CAUSE OF : Acute respiratory failure, sepsis, acute tubular necrosis, lactic acidosis, aspiration pneumonia and uncontrolled diabetes. JOB# [id number] VSM/NTS
[2017-08-04 13:28] LABS: Myeloperoxidase Antibody <1.0 AI (<1.0)
== END 2017-08-03 16:15 | DRG 871 ==
LOC: ED 02:00 → 4A 09:56 → CC1 10:09 → 4A 18:25 → CC1 18:53
PROVIDERS: ADMIT Internal Medicine; ATTEND Internal Medicine
PROC: 4A033R1 Measurement of Arterial Saturation, Peripheral, Percutaneous Approach (ICD-10-PCS; principal; 2017-07-26)
PROC: 5A09557 Assistance with Respiratory Ventilation, Greater than 96 Consecutive Hours, Continuous Positive Airway Pressure (ICD-10-PCS; 2017-07-26)
PROC: 0DH67UZ Insertion of Feeding Device into Stomach, Via Natural or Artificial Opening (ICD-10-PCS; 2017-07-30)
DX: A41.9 Sepsis, unspecified organism (principal); J96.01 Acute respiratory failure with hypoxia; J69.0 Pneumonitis due to inhalation of food and vomit; I50.31 Acute diastolic (congestive) heart failure; N17.0 Acute kidney failure with tubular necrosis; I21.A1 Myocardial infarction type 2; I42.9 Cardiomyopathy, unspecified; I13.0 Hypertensive heart and chronic kidney disease with heart failure and stage 1 through stage 4 chronic kidney disease, or unspecified chronic kidney disease; E87.0 Hyperosmolality and hypernatremia; Z66 Do not resuscitate; I35.0 Nonrheumatic aortic (valve) stenosis; I27.20 Pulmonary hypertension, unspecified; R65.20 Severe sepsis without septic shock; T36.8X5A Adverse effect of other systemic antibiotics, initial encounter; E11.65 Type 2 diabetes mellitus with hyperglycemia; E87.70 Fluid overload, unspecified; N18.9 Chronic kidney disease, unspecified; E11.22 Type 2 diabetes mellitus with diabetic chronic kidney disease; Y92.89 Other specified places as the place of occurrence of the external cause; Z79.899 Other long term (current) drug therapy; Z79.4 Long term (current) use of insulin
CPT/HCPCS: 36415; 36600; 71010; 74000; 76770; 78582; 80048; 80053; 80061; 80202; 81001; 82140; 82570; 82803; 82962; 83036; 83880; 84156; 84484; 85007; 85025; 85379; 86021; 86140; 86160; 87040; 89050; 93005; 93010; 93306; 94640; 94660; 94760; 96365; 96372; 96375; A9540; A9558; G8996-GN; G8997-GN; J0696; J1630; J1644; J1815; J1818; J1940; J2270; J2405; J2543; J3370; J7030; J7040; J7050